=== PATIENT | male | born 1975 ===

== ENCOUNTER 2021-06-29 11:07 | Inpatient (IN) | payer SELFPAY ==
[~2021-06-29] VITALS: Ht 178 cm; Wt 96.1 kg
[2021-06-29 11:13] VITALS: BP 177/105
--- NOTE | 2021-06-29 11:18 | ED Neurological Problem ---
General Chief Complaint: Neuro-Stroke Like Symptoms Stated Complaint: L SIDE NUMBNESS Source: patient, family Exam Limitations: no limitations History of Present Illness Date Seen by Provider: Jun 29, 2021 Time Seen by Provider: 11:10 Initial Comments 45-year-old male with past medical history of hypertension, diabetes, hyperlipidemia that has not been taking his medications as prescribed coming in due to left-sided weakness. He was driving his car, was normal, and felt an odd sensation in his face. He then tried to get out of the car and realized he could not move his left leg. He contacted family and was brought to the emergency department. This started at 9 AM roughly he said. He does not take any blood thinners, has not hit his head recently, no recent surgery, no prior brain tumor history or recent stroke. Nothing like this is ever happened before. He is denying any chest pain, shortness of breath, abdominal pain, nausea, vomiting, diarrhea, vision changes, headache, neck pain, rash, or any other concerns. Allergies and Home Medications Allergies Coded Allergies: No Known Drug Allergies (Unverified , 06/29/21) Patient Home Medication List Home Medication List Reviewed: Yes Review of Systems Review of Systems Constitutional: No chills, No fever Eyes: Denies Blurred Vision Ears, Nose, Mouth, Throat: no symptoms reported Respiratory: no symptoms reported Cardiovascular: no symptoms reported Gastrointestinal: no symptoms reported Genitourinary: no symptoms reported Musculoskeletal: no symptoms reported Skin: no symptoms reported Psychiatric/Neurological: Numbness, Weakness Endocrine: No Symptoms Reported Hematologic/Lymphatic: No Symptoms Reported All Other Systems Reviewed Negative Unless Noted: Yes Past Gnsmkau-Pywifb-Uytqao Hx Patient Social History Tobacco Use?: No Smoking Status: Never a Smoker Smokeless Tobacco Frequency: Never a User Use of E-Cig and/or Vaping dev: No Use of E-Cig and/or Vaping Manoj: Never a User Substance use?: No Alcohol Use?: No Pt feels they are or have been: No Past Medical History Surgeries: No Physical Exam Vital Signs Vital Signs - First Documented 06/29/21 11:13 Temp 36.5 Pulse 88 Resp 18 B/P (MAP) 177/105 Pulse Ox 97 O2 Delivery Room Air Capillary Refill : Height, Weight, BMI Height: '" Weight: lbs. oz. kg; BMI Method: General Appearance: WD/WN, no apparent distress HEENT: PERRL/EOMI, normal ENT inspection, pharynx normal Neck: non-tender, full range of motion, supple, normal inspection Respiratory: chest non-tender, lungs clear, normal breath sounds, no respiratory distress, no accessory muscle use Cardiovascular: regular rate, rhythm, no edema, no murmur Gastrointestinal: normal bowel sounds, non tender, soft; No distended, No guarding, No rebound Back: normal inspection, no CVA tenderness, no vertebral tenderness Extremities: normal range of motion (normal passive range of motion), non- tender, normal inspection, no pedal edema, no calf tenderness, normal capillary refill 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, alert, normal mood/affect, oriented x 3, motor weakness, sensory deficit Crainal Nerves: normal hearing, normal speech, PERRL Coordination/Gait: normal finger to nose (with right hand, left arm not able to move) Skin: normal color, warm/dry Lymphatic: no adenopathy Stroke Onset of Symptoms Date of Onset of Symptoms: Jun 29, 2021 Time of Symptom Onset: 09:00 Onset of Symptoms: Yes NIH Stroke Scale Assessment Select: Initial Level of Consciousness: 0=Alert (0), Level of Consciousness- Questions: 0=Answers both month/age (0), LOC Commands: 0=Performs both tasks (0), Gaze: Normal (0), Visual Flaherty: 0=No visual loss (0), Facial Movement (Facial Paresis): 0=Normal symmetrical mnt (0), Motor Function-Arms Right: 0=No drift (0), Motor Function-Arms Left: 3=No effort/gravity (3), Motor Function-Legs Right: 0=No drift (0), Motor Function-Legs Left: 4=No movement (4), Limb Ataxia: 0=Absent (0), Sensory: 1=Mild to Moderate loss (1), Best Language: 0=No aphasia (0), Dysarthria: 0=Normal (0), Extinction & Inattention: 0=No abnormality (0), Total: 8 Stroke Thrombolytic Exclusion Age 18 or Over: Yes Acute intenal hemorrhage: No History of CVA: No Uncontrolled Coagulation Defec: No Intracranial Hemorrhage: No Severe Hypertension: No GI or Bleed: No Subarachnoid Hemorrhage: No Intracranial Neoplasm/Aneurysm: No Oral Anticoagulants: No Surgery or Trauma: No Puncture of Non-Compressible V: No Recent CPR: No Diabetic Hemorrhagic Retinopat: No Organ Biopsy: No Recent Obstetric Delivery: No Glucose: No Significant Hepatic Dysfunctio: No NIH Stoke Scale >22: No Bacterial Endocarditis: No Pericarditis: No Improving Symptoms: No Platelets: No TPA Contraindication: No IV - TPa Received IV - TPa Procedure Performed?: Yes IV - TPa Date: Jun 29, 2021 IV - TPa Time: 12:40 Progress/Results/Core Measures Results/Orders Lab Results Laboratory Tests Test 06/29/21 11:15 06/29/21 13:01 Range/Units White Blood Count 7.3 4.3-11.0 10^3/uL Red Blood Count 5.26 4.30-5.52 10^6/uL Hemoglobin 13.9 13.3-17.7 g/dL Hematocrit 42 40-54 % Mean Corpuscular Volume 80 80-99 fL Mean Corpuscular Hemoglobin 26 25-34 pg Mean Corpuscular Hemoglobin Concent 33 32-36 g/dL Red Cell Distribution Width 14.7 H 10.0-14.5 % Platelet Count 272 130-400 10^3/uL Mean Platelet Volume 9.6 9.0-12.2 fL Immature Granulocyte % (Auto) 1 % Neutrophils (%) (Auto) 62 42-75 % Lymphocytes (%) (Auto) 27 12-44 % Monocytes (%) (Auto) 7 0-12 % Eosinophils (%) (Auto) 4 0-10 % Basophils (%) (Auto) 1 0-10 % Neutrophils # (Auto) 4.6 1.8-7.8 10^3/uL Lymphocytes # (Auto) 2.0 1.0-4.0 10^3/uL Monocytes # (Auto) 0.5 0.0-1.0 10^3/uL Eosinophils # (Auto) 0.3 0.0-0.3 10^3/uL Basophils # (Auto) 0.0 0.0-0.1 10^3/uL Immature Granulocyte # (Auto) 0.0 0.0-0.1 10^3/uL Prothrombin Time 12.0 L 12.2-14.7 SEC INR Comment 0.9 0.8-1.4 Activated Partial Thromboplast Time 27 24-35 SEC D-Dimer 0.30 0.00-0.49 UG/ML Sodium Level 136 135-145 MMOL/L Potassium Level 3.9 3.6-5.0 MMOL/L Chloride Level 104 98-107 MMOL/L Carbon Dioxide Level 22 21-32 MMOL/L Anion Gap 10 5-14 MMOL/L Blood Urea Nitrogen 12 7-18 MG/DL Creatinine 0.75 0.60-1.30 MG/DL Estimat Glomerular Filtration Rate 113 BUN/Creatinine Ratio 16 Glucose Level 229 H 70-105 MG/DL Glucometer 213 H 70-110 MG/DL Calcium Level 9.3 8.5-10.1 MG/DL Corrected Calcium 9.2 8.5-10.1 MG/DL Total Bilirubin 0.8 0.1-1.0 MG/DL Aspartate Amino Transf (AST/SGOT) 19 5-34 U/L Alanine Aminotransferase (ALT/SGPT) 28 0-55 U/L Alkaline Phosphatase 109 40-136 U/L Troponin I < 0.028 <0.028 NG/ML Total Protein 6.8 6.4-8.2 GM/DL Albumin 4.1 3.2-4.5 GM/DL Urine Color YELLOW Urine Clarity CLEAR Urine pH 7.0 5-9 Urine Specific Brea 1.010 L 1.016-1.022 Urine Protein NEGATIVE NEGATIVE Urine Glucose (UA) 3+ H NEGATIVE Urine Ketones NEGATIVE NEGATIVE Urine Nitrite NEGATIVE NEGATIVE Urine Bilirubin NEGATIVE NEGATIVE Urine Urobilinogen 0.2 < = 1.0 MG/DL Urine Leukocyte Esterase NEGATIVE NEGATIVE Urine RBC (Auto) NEGATIVE NEGATIVE Urine RBC NONE /HPF Urine WBC NONE /HPF Urine Crystals PRESENT H /LPF Urine Amorphous Sediment FEW [place] URATES H /LPF Urine Bacteria NEGATIVE /HPF Urine Casts NONE /LPF Urine Mucus NEGATIVE /LPF Urine Culture Indicated NO My Orders Orders - ASTRID PUGA MD Cbc With Automated Diff (06/29/21 11:18) Protime With Inr (06/29/21 11:18) Partial Thromboplastin Time (06/29/21 11:18) Comprehensive Metabolic Panel (06/29/21 11:18) Fibrin Degradation Products (06/29/21 11:18) Troponin I Satnam (06/29/21 11:18) Ua Culture If Indicated (06/29/21 11:18) Chest 1 View, Ap/Pa Only (06/29/21 11:18) Ekg Tracing (06/29/21 11:18) Accucheck Stat ONCE (06/29/21 11:18) Ed Iv/Invasive Line Start (06/29/21 11:18) Ed Iv/Invasive Line Start (06/29/21 11:18) Vital Signs Stroke Patient Q15M (06/29/21 11:18) Ct Head Wo-R/O Stroke (06/29/21 11:18) O2 (06/29/21 11:18) Intake & Output 06,14,22 (06/29/21 11:18) Monitor-Rhythm Ecg Trace Only (06/29/21 11:18) Dysphagia Screening Tool Q10MX1 (06/29/21 11:18) Post Thrombolytic Adminstratio (06/29/21 11:18) Lipid Panel (06/30/21 06:00) Ct Angio Head/Neck (06/29/21 11:18) Iohexol Injection (Omnipaque 350 Mg/Ml 1 (06/29/21 11:30) Di Iv Start (Assessment) .IV start (06/29/21 11:25) Received Contrast (Hold Metformin- Contr (06/29/21 11:30) Ns (Ivpb) (Sodium Chloride 0.9% Ivpb Bag (06/29/21 11:30) Vital Signs Stroke Patient Q15M (06/29/21 11:52) Nicardipine Iv (Cardene I.V.) (06/29/21 12:00) Dysphagia Screening Tool Q10MX1 (06/29/21 11:52) Tenecteplase (Tnkase) (06/29/21 12:00) Nicardipine Iv (Cardene I.V.) (06/29/21 12:30) Ed Admission (Communication) (06/29/21 13:13) Medications Given in ED Current Medications Medications Dose Ordered Sig/Lisha Route Start Time Stop Time Status Last Admin Dose Admin Iohexol 100 ml ONCE ONCE IV 06/29/21 11:30 06/29/21 11:39 DC 06/29/21 11:38 75 ML Sodium Chloride 100 ml ONCE ONCE IV 06/29/21 11:30 06/29/21 11:39 DC 06/29/21 11:37 75 ML Tenecteplase 22.68 mg ONCE ONCE IV 06/29/21 12:00 06/29/21 12:01 DC 06/29/21 12:33 22.68 MG Vital Signs/I&O 06/29/21 06/29/21 06/29/21 11:13 11:13 12:33 Temp 36.5 Pulse 88 88 73 Resp 18 17 B/P (MAP) 177/105 177/105 (129) 136/86 Pulse Ox 97 O2 Delivery Room Air Progress Progress Note : Progress Note 45-year-old male with above history coming in due to left-sided weakness. ABCs were intact and vitals are stable on presentation although he is hypertensive. Glucose just over 200. He was made a stroke alert immediately due to the dense left-sided weakness. CT head without contrast negative for any acute findings. CT angio head and neck also ordered. Initial NIH is 8. He was given Cardene for his high blood pressure. He has no other contraindications for tenecteplase. The patient was consented with an channel marketing manager and we discussed that tenectaplase is not currently FDA approved for strokes, but off label we have been using it this way with potential bleeding risks. I contacted neurology and discussed the case with Dr. Rasheed who is the stroke neurologist. She agrees to give clot buster at this time and if there is no LVO he can be admitted to our intensive care unit. I personally discussed the case with the radiologist and reviewed the CTA imaging with no obvious large vessel occlusion. I discussed the case then with Dr. Fair, who admit the patient to the intensive care unit for further evaluation management Of note, the patients symptoms improved significantly roughly 15 minutes after TPA, and he was moving all extremities. Initial ECG Impression Date: Jun 29, 2021 Initial ECG Impression Time: 11:38 Initial ECG Rate: 60 Initial ECG Rhythm: Normal Sinus Comment Narrow QRS, normal axis, no significant ST changes or T wave abnormalities Diagnostic Imaging Diagonstic Imaging: Xray (chest), CT (head) Comments [facility] [place] [place] NAME: ROSHNI DINH [facility] REC#: [id number] PT STATUS: REG ER : 1975 PHYSICIAN: ASTRID PUGA MD ADMIT DATE: 06/29/21/ER Signed Date of Exam:06/29/21 CHEST 1 VIEW, AP/PA ONLY EXAMINATION: Chest, 1 view. HISTORY: Concern for stroke. COMPARISON: None available. FINDINGS: The heart size and pulmonary vasculature are normal. The lungs are clear without consolidation, pleural effusion, or pneumothorax. The osseous structures are intact. IMPRESSION: No acute radiographic abnormality in the chest. Dictated by: Dictated on workstation # [id number] Dict: 06/29/21 1147 Trans: 06/29/211157 CASSANDRA [id number] Interpreted by: MELVIN ECHEVARRIA DO Electronically signed by: MELVIN ECHEVARRIA DO 06/29/21 1158 [facility], [place] NAME: ROSHNI DINH [facility] REC#: [id number] PT STATUS: REG ER : 1975 PHYSICIAN: ASTRID PUGA MD ADMIT DATE: 06/29/21/ER Signed Date of Exam:06/29/21 CT HEAD WO-R/O STROKE EXAMINATION: CT head without contrast. TECHNIQUE: Multiple contiguous axial images were obtained through the brain without the use of intravenous contrast. All CT scans use one or more of the following dose optimizing techniques: automated exposure control, MA and/or KvP adjustment based on patient size and exam type or iterative reconstruction. HISTORY: Neuro deficit COMPARISON: None available. FINDINGS: The ventricles and sulci are normal. No abnormal attenuation of brain parenchyma is present. No acute intracranial hemorrhage or abnormal extra-axial fluid collections are present. No hyperdense vessel. The calvarium is intact. There is a small left mastoid effusion. The visualized paranasal sinuses are clear. The orbits are normal. IMPRESSION: 1. No acute intracranial abnormality. Findings discussed with Dr. Puga by Dr. Echevarria at 11:38 AM on 06/29/2021. Dictated by: Dictated on workstation # [id number] Dict: 06/29/21 1135 Trans: 06/29/218 MONTRELL [id number] Interpreted by: MELVIN ECHEVARRIA DO Electronically signed by: MELVIN ECHEVARRIA DO 06/29/21 1158 Critical Care Note Critical Care Start Time: 11:10 Stop Time: 12:12 Total Time (minutes) 62 Progress Patient was at significant risk for neurologic compromise with his stroke. Was given tenecteplase after consent. I discussed the case with [facility] neurology, our hospitalist, and our radiologist. I frequently reassessed the patient due to his needs. He was on a hemodynamic medication to lower his blood pressure in creasing the complexity. Departure Impression Primary Impression: CVA (cerebral vascular accident) Qualified Codes: I63.10 - Cerebral infarction due to embolism of unspecified precerebral artery Additional Impression: Left-sided weakness Disposition: ADMITTED INPATIENT Condition: Stable Admissions Decision to Admit Reason: Admit from ER (General) Decision to Admit/Date: Jun 29, 2021 Time/Decision to Admit Time: 12:10 Departure-Patient Inst. Referrals: [facility] (PCP/Family) Primary Care Physician ASTRID PUGA MD Jun 29, 2021 11:18
[2021-06-29 11:27] LABS: BASOPHILS % (AUTO) 1 % (0-10); EOSINOPHILS # (AUTO) 0.3 10^3/uL (0.0-0.3); EOSINOPHILS % (AUTO) 4 % (0-10); HEMATOCRIT 42 % (40-54); HEMOGLOBIN 13.9 g/dL (13.3-17.7); LYMPHOCYTES % (AUTO) 27 % (12-44); MEAN CORPUSCULAR HEMOGLOBIN 26 pg (25-34); MEAN CORPUSCULAR HGB CONC 33 g/dL (32-36); MEAN CORPUSCULAR VOLUME 80 fL (80-99); MEAN PLATELET VOLUME 9.6 fL (9.0-12.2); MONOCYTES # (AUTO) 0.5 10^3/uL (0.0-1.0); MONOCYTES % (AUTO) 7 % (0-12); NEUTROPHILS # (AUTO) 4.6 10^3/uL (1.8-7.8); NEUTROPHILS % (AUTO) 62 % (42-75); PLATELET COUNT 272 10^3/uL (130-400); WHITE BLOOD COUNT 7.3 10^3/uL (4.3-11.0)
[2021-06-29] MEDS ORDERED: NS 100 ML (IVPB) BAG IV ONE (11:30)
[2021-06-29] MEDS ORDERED: HOLD METFORMIN - RECEIVED CONTRAST 20 ML VIAL IV SCH (11:30)
[2021-06-29] MEDS ORDERED: IOHEXOL 350 MG/ML 100 ML (OMNIPAQUE 350) VIAL IV ONE (11:30)
[2021-06-29 11:34] LABS: ALBUMIN 4.1 GM/DL (3.2-4.5); CHLORIDE 104 MMOL/L (98-107); POTASSIUM 3.9 MMOL/L (3.6-5.0); SODIUM 136 MMOL/L (135-145)
[2021-06-29 11:36] LABS: CALCIUM 9.3 MG/DL (8.5-10.1)
[2021-06-29 11:37] LABS: GLUCOSE 229 MG/DL (70-105); TOTAL PROTEIN 6.8 GM/DL (6.4-8.2)
[2021-06-29 11:38] LABS: CARBON DIOXIDE 22 MMOL/L (21-32)
[2021-06-29 11:39] LABS: BILIRUBIN,TOTAL 0.8 MG/DL (0.1-1.0)
--- NOTE | 2021-06-29 11:39 | Diagnostic Imaging Report ---
EXAMINATION: CT head without contrast. TECHNIQUE: Multiple contiguous axial images were obtained through the brain without the use of intravenous contrast. All CT scans use one or more of the following dose optimizing techniques: automated exposure control, MA and/or KvP adjustment based on patient size and exam type or iterative reconstruction. HISTORY: Neuro deficit COMPARISON: None available. FINDINGS: The ventricles and sulci are normal. No abnormal attenuation of brain parenchyma is present. No acute intracranial hemorrhage or abnormal extra-axial fluid collections are present. No hyperdense vessel. The calvarium is intact. There is a small left mastoid effusion. The visualized paranasal sinuses are clear. The orbits are normal. IMPRESSION: 1. No acute intracranial abnormality. Findings discussed with Dr. Orozco by Dr. Hansen at 11:38 AM on 06/29/2021. Dictated by: Dictated on workstation # [id number]
[2021-06-29 11:40] LABS: ALKALINE PHOSPHATASE 109 U/L (40-136); CREATININE SERUM 0.75 MG/DL (0.60-1.30); FIBRIN DEGRADATION PRODUCTS 0.3 UG/ML (0.00-0.49); GFR ESTIMATED 113; INR 0.9 (0.8-1.4)
[2021-06-29 11:41] LABS: BUN/CREATININE RATIO 16
[2021-06-29 11:43] LABS: ALANINE AMINOTRANSFERASE 28 U/L (0-55)
--- NOTE | 2021-06-29 11:49 | Diagnostic Imaging Report ---
EXAMINATION: Chest, 1 view. HISTORY: Concern for stroke. COMPARISON: None available. FINDINGS: The heart size and pulmonary vasculature are normal. The lungs are clear without consolidation, pleural effusion, or pneumothorax. The osseous structures are intact. IMPRESSION: No acute radiographic abnormality in the chest. Dictated by: Dictated on workstation # [id number]
[2021-06-29] MEDS ORDERED: TENECTEPLASE 50 MG VIAL IV ONE (12:00)
[2021-06-29] MEDS ORDERED: niCARdipine IV 50 MG in NS (IVPB) 240 ML IV SCH ×2 (12:00→12:30)
--- NOTE | 2021-06-29 12:19 | Diagnostic Imaging Report ---
PROCEDURE: CT angiography of the head and CT angiography of the neck with and without contrast. TECHNIQUE: Contiguous non-contrast images were obtained from the skull base through the vertex. After intravenous contrast administration, helical CT angiography of the neck was performed. Source data was reformatted into 3D MIP projections. Delayed post-contrast acquisition was also obtained. Auto Exposure Controls were utilized during the CT exam to meet ALARA standards for radiation dose reduction. INDICATION: Neuro deficit. COMPARISON: Correlation is made with noncontrast head CT performed earlier same day. FINDINGS: Delayed post-contrast imaging of the brain is without abnormal enhancing lesion. CT angiographic portion of the study does show a normal three-vessel branching pattern to the aortic arch. Common carotid arteries appear to be widely patent. The carotid bifurcations are unremarkable. Right and left internal carotid arteries appear to be widely patent. The left vertebral artery is dominant. 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 The small right vertebral artery does feed the PICA. There are large AICA branches arising from the basilar artery. There is poor contrast opacification of the most distal aspect of the very small right vertebral artery. The basilar artery appears to be widely patent. There is origin of the right posterior circulation with a patent right posterior communicating artery. The selling manager appear to be widely patent. The right and left anterior cerebral arteries appear to be widely patent. There are some atherosclerotic changes involving both the M1 segments of the right and left middle cerebral arteries. There is eccentric plaque involving the distal right M1 segment. No definite thromboembolism or large branch occlusion is identified. M2 segments appear to be unremarkable. IMPRESSION: Congenital anomalies, as described as well as atherosclerotic changes. No thromboembolism or large branch occlusion is identified. Dictated by: Dictated on workstation # [id number]
[2021-06-29 13:07] LABS: BILIRUBIN,URINE NEGATIVE (NEGATIVE); CLARITY,URINE CLEAR; COLOR,URINE YELLOW; GLUCOSE, URINE (UA) 3+ (NEGATIVE); KETONES,URINE NEGATIVE (NEGATIVE); LEUKOCYTE ESTERASE ,URINE NEGATIVE (NEGATIVE); NITRITE,URINE NEGATIVE (NEGATIVE); PROTEIN,URINE NEGATIVE (NEGATIVE)
--- NOTE | 2021-06-29 13:28 | History & Physical-Hospitalist ---
BREANNA MARTE MED STUDENT 06/29/21 1327: History of Present Illness HPI/Chief Complaint CC: Left sided weakness HPI: This is Mr. Collins, a 45 yo M, with a past medical history including hypertension, hyperlipidemia, and diabetes, who presented to the ED by POV, with a chief complaint of new-onset left sided weakness. He first noticed this weakness in his face and then in his L hand when he was unable to flick his cigarette. This started happening while he was driving around, he then chose to drive home to get help. While on the way home, he developed, what he describes as "little lights" that he could only see in his L eye. While trying to get out of the vehicle, he realized that he could no longer move his L leg. He mentioned that he has been having headaches and dizziness when he bends over, that has been happening for about a week. He has also not been taking his hypertensive medications as prescribed. Pt received tPA while in the ED and has regained gross motor movement in the upper and lower extremity. He endorses L sided weakness and headache located in the R temporal region. Source: patient, family, RN/MD Exam Limitations: language barrier (Thai speaking only ) Date Seen 06/29/21 Time Seen by a Provider: 13:00 Attending Physician Rhea Kent DO [facility] Referring Physician Date of Admission Jun 29, 2021 at 13:13 Home Medications & Allergies Home Medications Reviewed patient Home Medication Reconciliation performed by pharmacy medication reconciliations facility environmental technician and/or nursing. Patients Allergies have been reviewed. Allergies Allergies Coded Allergies No Known Drug Allergies (Unverified06/29/21) Past Qrzcyix-Jffbhv-Pspdtb Hx Patient Social History Marrital Status: Employed/Student: employed Tobacco Use?: Yes Tobacco type used: Cigarettes Smoking Status: Current Everyday Smoker Smokeless Tobacco Frequency: Never a User Use of E-Cig and/or Vaping dev: No Use of E-Cig and/or Vaping Manoj: Never a User Substance use?: No Alcohol Use?: No Pt feels they are or have been: No Current Status Advance Directives: No Communicates: Verbally Primary Language: Thai Preferred Spoken Language: Thai Is interpretation needed?: Yes Implanted or Applied Medical D: None Past Medical History High Cholesterol, Hypertension Diabetes, Non-Insulin dep Loss of Vision: Denies Family Medical History Heart Disease, Diabetes, Hypertension Review of Systems Constitutional: see HPI; No chills, No diaphoresis, No dizziness, No fever; weakness EENTM: No blurred vision, No double vision, No eye pain, No vision loss Respiratory: No cough, No dyspnea on exertion, No short of breath Cardiovascular: No chest pain, No edema, No palpitations Gastrointestinal: No abdominal pain, No constipation, No diarrhea, No nausea, No vomiting Genitourinary: incontinence Musculoskeletal: muscle weakness Skin: No change in color Psychiatric/Neurological: Headache Physical Exam Physical Exam Vital Signs Vital Signs - First Documented 06/29/21 11:13 Temp 36.5 Pulse 88 Resp 18 B/P (MAP) 177/105 Pulse Ox 97 O2 Delivery Room Air Capillary Refill : Less Than 3 Seconds Height, Weight, BMI Height: '" Weight: lbs. oz. kg; 28.00 BMI Method: General Appearance: No Apparent Distress, WD/WN HEENT: PERRL/EOMI, Moist Mucous Membranes; No Scleral Icterus (L), No Scleral Icterus (R) Neck: Full Range of Motion, Normal Inspection, Non Tender; No Lymphadenopathy (L), No Lymphadenopathy (R) Respiratory: Chest Non Tender, Lungs Clear, Normal Breath Sounds Cardiovascular: Regular Rate, Rhythm, No Edema, No Murmur, Normal Peripheral Pulses Gastrointestinal: Normal Bowel Sounds, Non Tender, Soft Genital/Rectal: Other (Fitzpatrick ) Extremity: Normal Capillary Refill, Other (Left upper and lower extremity weakness ) Neurologic/Psychiatric: Alert, Oriented x3, No Motor/Sensory Deficits, Abnormal communications billing analyst II-XII (decreased strength of L trapezius, L upper extremity and L lower extremity ), Facial Droop (L sided, oral ), Motor Weakness (L upper and lower extremity +2. RUE and RLE +5), Other Skin: Normal Color, Warm/Dry Lymphatic: No Adenopathy Results Results/Procedures Labs Laboratory Tests 06/29/21 11:15 Patient resulted labs reviewed. Imaging: Reviewed Imaging Report Imaging NAME: ROSHNI [facility]IN[facility] REC#: [id number] PT STATUS: REG ER : 1975 PHYSICIAN: ASTRID PUGA MD ADMIT DATE: 06/29/21/ER Signed Date of Exam:06/29/21 CHEST 1 VIEW, AP/PA ONLY EXAMINATION: Chest, 1 view. HISTORY: Concern for stroke. COMPARISON: None available. FINDINGS: The heart size and pulmonary vasculature are normal. The lungs are clear without consolidation, pleural effusion, or pneumothorax. The osseous structures are intact. IMPRESSION: No acute radiographic abnormality in the chest. Dictated by: Dictated on workstation # [id number] Dict: 06/29/21 1147 Trans: 06/29/211157 [id number] Interpreted by: MELVIN ECHEVARRIA DO Electronically signed by: MELVIN ECHEVARRIA DO 06/29/218 NAME[facility] REC#: [id number] PT STATUS: REG ER : 1975 PHYSICIAN: ASTRID PUGA MD ADMIT DATE: 06/29/21/ER Signed Date of Exam:06/29/21 CT HEAD WO-R/O STROKE EXAMINATION: CT head without contrast. TECHNIQUE: Multiple contiguous axial images were obtained through the brain without the use of intravenous contrast. All CT scans use one or more of the following dose optimizing techniques: automated exposure control, MA and/or KvP adjustment based on patient size and exam type or iterative reconstruction. HISTORY: Neuro deficit COMPARISON: None available. FINDINGS: The ventricles and sulci are normal. No abnormal attenuation of brain parenchyma is present. No acute intracranial hemorrhage or abnormal extra-axial fluid collections are present. No hyperdense vessel. The calvarium is intact. There is a small left mastoid effusion. The visualized paranasal sinuses are clear. The orbits are normal. IMPRESSION: 1. No acute intracranial abnormality. Findings discussed with Dr. Puga by Dr. Echevarria at 11:38 AM on 06/29/2021. Dictated by: Dictated on workstation # [id number] Dict: 06/29/21 1135 Trans: 06/29/211157 [facility] [id number] Interpreted by: MELVIN ECHEVARRIA DO Electronically signed by: MELVIN ECHEVARRIA DO 06/29/21 1158 NAME: KAMILAH PLAZAROSHNI Pyrolia REC#: [id number] PT STATUS: REG ER : 1975 PHYSICIAN: ASTRID PUGA MD ADMIT DATE: 06/29/21/ER Draft Date of Exam:06/29/21 CT ANGIO HEAD/NECK PROCEDURE: CT angiography of the head and CT angiography of the neck with and without contrast. TECHNIQUE: Contiguous non-contrast images were obtained from the skull base through the vertex. After intravenous contrast administration, helical CT angiography of the neck was performed. Source data was reformatted into 3D MIP projections. Delayed post-contrast acquisition was also obtained. Auto Exposure Controls were utilized during the CT exam to meet ALARA standards for radiation dose reduction. INDICATION: Neuro deficit. COMPARISON: Correlation is made with noncontrast head CT performed earlier same day. FINDINGS: Delayed post-contrast imaging of the brain is without abnormal enhancing lesion. CT angiographic portion of the study does show a normal three-vessel branching pattern to the aortic arch. Common carotid arteries appear to be widely patent. The carotid bifurcations are unremarkable. Right and left internal carotid arteries appear to be widely patent. The left vertebral artery is dominant. 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 The small right vertebral artery does feed the PICA. There are large AICA branches arising from the basilar artery. There is poor contrast opacification of the most distal aspect of the very small right vertebral artery. The basilar artery appears to be widely patent. There is origin of the right posterior circulation with a patent right posterior communicating artery. The control inspector appear to be widely patent. The right and left anterior cerebral arteries appear to be widely patent. There are some atherosclerotic changes involving both the M1 segments of the right and left middle cerebral arteries. There is eccentric plaque involving the distal right M1 segment. No definite thromboembolism or large branch occlusion is identified. M2 segments appear to be unremarkable. IMPRESSION: Congenital anomalies, as described as well as atherosclerotic changes. No thromboembolism or large branch occlusion is identified. Dictated on workstation # [id number] Dict: 06/29/21 1149 Trans: 06/29/21 1219 [id number] Interpreted by: LENIN STEWARD MD Electronically signed by: Assessment/Plan Admission Diagnosis S/P tPA administration for stroke Assessment and Plan Assessment - Stroke - S/P tPA administration x1 - hypertension - hyperlipidemia - diabetes - incontinence Plan - Nicardipine gtt - MRI brain w/o contrast - Echocardiogram - Carotid ultrasound - TSH level and HgbA1c pending - Negative troponins - sliding scale insulin - O2 as needed - Fitzpatrick - PT/OT - electrolyte replacement as needed Clinical Quality Measures Stroke: Date of last known well: Jun 29, 2021 Time of last known well: 09:00 RHEA KENT DO 06/30/21 0547: History of Present Illness HPI/Chief Complaint CC: Stroke HPI: This is a 45-year-old male [facility] pt who presented with worrisome signs of a stroke. He was found to have findings consistent with CVA so he did receive thrombolytics and currently he is stable. [facility] was contacted and all protocols followed. tPA seemed to improve the situation with left-sided weakness but NIH score ultimately returned to 9. We will initiate protocol with therapy and rehab and consult cardiology. Source: patient, family Exam Limitations: language barrier (Thai speaking only ) Past Cuqiigl-Umqggs-Yxisge Hx Patient Social History Marrital Status: Employed/Student: employed Tobacco Use?: Yes Tobacco type used: Cigarettes Smoking Status: Current Everyday Smoker Past Medical History High Cholesterol, Hypertension Diabetes, Non-Insulin dep Review of Systems Constitutional: see HPI, weakness EENTM: no symptoms reported Respiratory: no symptoms reported Cardiovascular: no symptoms reported Gastrointestinal: no symptoms reported Genitourinary: no symptoms reported Musculoskeletal: no symptoms reported Skin: no symptoms reported Psychiatric/Neurological: Headache, Weakness All Other Systems Reviewed Negative Unless Noted: Yes Physical Exam Physical Exam General Appearance: No Apparent Distress, Chronically ill, Obese Eyes: Right Eye Normal Inspection, Right Eye PERRL HEENT: PERRL/EOMI, Normal ENT Inspection, Pharynx Normal, Moist Mucous Membranes Neck: Full Range of Motion, Normal Inspection, Non Tender Respiratory: Chest Non Tender, Lungs Clear, Normal Breath Sounds, No Accessory Muscle Use, No Respiratory Distress Cardiovascular: Regular Rate, Rhythm, No Edema, No Gallop, No JVD, No Murmur, Normal Peripheral Pulses Gastrointestinal: Normal Bowel Sounds, No Organomegaly, No Pulsatile Mass, Non Tender, Soft Back: Normal Inspection, No CVA Tenderness, No Vertebral Tenderness Extremity: Normal Capillary Refill, Normal Inspection, Normal Range of Motion, Non Tender, No Calf Tenderness, No Pedal Edema Neurologic/Psychiatric: Alert, Oriented x3, No Motor/Sensory Deficits, Normal Mood/Affect, Abnormal communications billing analyst II-XII (decreased strength of L trapezius, L upper extremity and L lower extremity ), Facial Droop (L sided, oral ), Motor Weakness (L upper and lower extremity +2. RUE and RLE +5), Other Skin: Normal Color, Warm/Dry Lymphatic: No Adenopathy Assessment/Plan Admission Diagnosis Assessment: Acute CVA infarct type status post tPA with improvement of left-sided weakness but was short-lived NIH score remains 9 Diabetes noncompliant with treatment hemoglobin A1c pending Hypertension [id number]-tm-[id number] Hyperlipidemia Plan: ICU Post tPA protocol Admission Status: Inpatient Order (span 2 midnights) Reason for Inpatient Admission: CVA Diagnosis/Problems Diagnosis/Problems (1) Left-sided weakness Status: Acute (2) CVA (cerebral vascular accident) Status: Acute Qualifiers: CVA mechanism: embolism Precerebral and cerebral artery: unspecified precerebral artery Qualified Codes: I63.10 - Cerebral infarction due to embolism of unspecified precerebral artery Supervisory-Addendum Brief Verification & Attestation Participated in pt care: history, MDM, physical Personally performed: exam, history, MDM, supervision of care Care discussed with: Medical Student Procedures: n/a Results interpretation: Verified all documentation Verification and Attestation of Medical Student E/M Service A medical student performed and documented this service in my presence. I reviewed and verified all information documented by the medical student and made modifications to such information, when appropriate. I personally performed the physical exam and medical decision making. Rhea Kent, Jun 30, 2021,05:47 BREANNA MARTE MED STUDENT Jun 29, 2021 13:27 RHEA KENT DO Jun 30, 2021 05:47
[2021-06-29 13:32] VITALS: BP 136/78
[2021-06-29 13:33] LABS: AMORPHOUS SEDIMENT,UR FEW AMOR URATES /LPF; BACTERIA,URINE NEGATIVE /HPF
[2021-06-29] MEDS ORDERED: ONDANSETRON 4 MG/2 ML (SDV) Z0FRAN IV PRN (14:00)
[2021-06-29] MEDS ORDERED: polyethylene glycoL POWDER 17 GM (MIRALAX) PACK PO PRN (14:00)
[2021-06-29] MEDS ORDERED: diphenhydrAMINE 50 MG/ML INJ (BENADRYL) IVP PRN (14:00)
[2021-06-29] MEDS ORDERED: CALCIUM CARBONATE 500 MG (TUMS) TAB.CHEW PO PRN (14:00)
[2021-06-29] MEDS ORDERED: ACETAMINOPHEN 325 MG TABLET PO PRN (14:00)
[2021-06-29] MEDS ORDERED: morphine INJ 4 MG/ML 1 ML (VIAL/SYRINGE) IV PRN (14:00)
[2021-06-29] MEDS ORDERED: diphenhydrAMINE 25 MG TAB (BENADRYL) PO PRN (14:00)
[2021-06-29] MEDS ORDERED: BISACODYL 10 MG SUPP (DULCOLAX) PR PRN (14:00)
[2021-06-29] MEDS ORDERED: LACTULOSE SYRUP 10GM/15ML (ENULOSE) 30ML UDC PO PRN (14:00)
[2021-06-29] MEDS ORDERED: ANTACID SUSP 30 ML UDC (MYLANTA) PO PRN (14:00)
[2021-06-29] MEDS ORDERED: MILK OF MAGNESIA 400 MG/5 ML 30 ML UDC PO PRN (14:00)
[2021-06-29] MEDS ORDERED: MELATONIN 3 MG TABLET PO PRN (14:00)
[2021-06-29] MEDS ORDERED: ONDANSETRON 4 MG (ZOFRAN) ORAL DISSOLVE TAB PO PRN (14:00)
--- NOTE | 2021-06-29 14:20 | Occ Therapy Progress Note ---
Therapy Progress Note OT orders received and chart reviewed. Pt within 24 hour window of receiving TPa (given at 1240, 06/29/21). OT will complete evaluation tomorrow afternoon. IRINA DEL CASTILLO OT Jun 29, 2021 14:20
--- NOTE | 2021-06-29 14:31 | Physical Therapy Progress Note ---
Therapy Progress Note Pt will be seen after the 24 hour window of receiving TPa (given at 1240, 06/29/21). PT will complete evaluation tomorrow afternoon. VICKY RUIZ PT Jun 29, 2021 14:31
--- NOTE | 2021-06-29 14:41 | Speech Therapy Progress Note ---
Therapy Progress Note Speech pathology received "STO" orders and the patient's chart was extensively reviewed. The speech and language evaluation will occur on 06/30/21. Thank you for the consult. STEPHEN VASQUEZ Jun 29, 2021 14:41
[2021-06-29] MEDS ORDERED: KETOROLAC 30 MG/ML VIAL IVP ONE (14:45)
--- NOTE | 2021-06-29 15:05 | Tele-ICU Consult ---
History of Present Illness History of Present Illness Date Seen by Provider: Jun 29, 2021 Time Seen by Provider: 15:04 Date of Admission (Tele-ICU Physician , consultation) Available chart/ vitals / labs / Images reviewed H&P is from ER notes Patient's information available about PMH, Shx, Fhx allergy reviewed in EMR. ROS as per chart and RN report Now in ICU, hemodynamically stable , on cardene gtt , AAO ( as per daughter at [facility] - translating from Polish Video assessment done using teleICU camera, rest of exam as per RN Discussed with RN and daughter Consultants: Hospital course: (06/29) 45m admitted for CVA s/p TNK A/P Acute stroke -presented with left hemyplegia, NIH is 8 -CTH - No acute intracranial abnormality, ER MD contacted [facility] neurology -CTA imaging with no obvious large vessel occlusion - no need for endovascular stroke rescue thrombectomy --s/p IV tenecteplase , regained gross motor movement left lower extremity, some improvement in LUE - can move fingers -neurocheck/NIHSS/VS monitoring per stroke order set protocol - cardene gtt and IV hydralazine and labetalol PRN for BP >185/105 -f/up imaging as per neuro recom - ECHO , US w/up pending DM - ISS Lines : periph (Central Line Necessity Reviewed) Fitzpatrick: OG: Nutrition: Analgesia: Anxiety/ delirium VTE Prophylaxis: scd Stress Ulcer Prophylaxis: Plans in collaboration with bedside consultants and IM MDs. Discussed with RN to reach out if any questions or concerns A total of 33 minutes of critical care time was devoted to this patient today, required to treat and/or prevent further deterioration of critical care condition ( as above ) . Allergies and Home Medications Allergies Coded Allergies: No Known Drug Allergies (Unverified , 06/29/21) Home Medications No Active Prescriptions or Reported Meds Past Medical/Social/Family Hx Patient Social History Marrital Status: Employed/Student: employed Tobacco Use?: Yes Tobacco type used: Cigarettes Smoking Status: Current Someday Smoker Smokeless Tobacco Frequency: Never a User Use of E-Cig and/or Vaping dev: No E-Cig and/or Vaping Freq: Never a User Substance use?: No Alcohol Use?: No Pt stated abuse/neglect: No Current Status Advance Directives: No Communicates: Verbally Primary Language: Polish Preferred Spoken Language: Polish Is interpretation needed?: Yes Implanted or Applied Medical D: None Review of Systems Constitutional: see HPI Focused Exam Height, Weight, BMI Height: '" Weight: lbs. oz. kg; 28.72 BMI Method: Exam Exam Patient acknowledged, consented, and participated in this virtual visit which was conducted using real time audio/video Vital Signs Date Time Temp Pulse Resp B/P (MAP) Pulse Ox O2 Delivery O2 Flow Rate FiO2 06/29/21 14:30 76 22 154/101 98 06/29/21 14:00 68 19 155/102 97 06/29/21 13:46 71 06/29/21 13:32 76 17 136/78 99 Room Air 06/29/21 12:33 73 136/86 06/29/21 11:13 36.5 88 17 177/105 (129) Room Air 06/29/21 11:13 88 18 177/105 97 Height & Weight Height: '" Weight: lbs. oz. kg; 28.72 BMI Method: General Appearance: No Apparent Distress, WD/WN HEENT: PERRL/EOMI, Moist Mucous Membranes; No Scleral Icterus (L), No Scleral Icterus (R) Neck: Full Range of Motion, Normal Inspection, Non Tender; No Lymphadenopathy (L), No Lymphadenopathy (R) Respiratory: Chest Non Tender, Lungs Clear, Normal Breath Sounds Cardiovascular: Regular Rate, Rhythm, No Edema, No Murmur, Normal Peripheral Pulses Capillary Refill: Less Than 3 Seconds Gastrointestinal: normal bowel sounds, non tender, soft; No distended, No guarding, No rebound Extremity: Normal Capillary Refill, Other (Left upper and lower extremity w eakness ) Neurologic/Psychiatric: Alert, Oriented x3, No Motor/Sensory Deficits, Abnormal area supervisor II-XII (decreased strength of L trapezius, L upper extremity and L lower extremity ), Facial Droop (L sided, oral ), Motor Weakness (L upper and lower extremity +2. RUE and RLE +5), Other Skin: Normal Color, Warm/Dry Lymphatic: No Adenopathy Results Lab Laboratory Tests 06/29/21 11:15 Assessment/Plan Assessment/Plan ` YAHIR FOSTER MD Jun 29, 2021 15:05
[2021-06-29] MEDS: NS IV 1000 ML 1,000 ML IV SCH (15:10)
--- NOTE | 2021-06-29 15:41 | Diagnostic Imaging Report ---
PROCEDURE: US carotid duplex, bilateral. TECHNIQUE: Multiple real-time grayscale images were obtained over the carotid arteries in various projections, bilaterally. Additional spectral analysis and color Doppler duplex images were also obtained. INDICATION: CVA. FINDINGS: There is mild plaquing in both carotid systems. Velocities are unremarkable bilaterally. No velocity elevation or stenosis is identified. Right vertebral artery was not visualized. Left vertebral artery is antegrade. IMPRESSION: No evidence of hemodynamically significant stenosis. Parameters based on the consensus panel Belle-Scale and Doppler ultrasound criteria published January 2003, Radiology, Volume 229. DOPPLER (peak systolic velocity M/S Right Left CCA .88 .84 ICA Proximal .59 .58 ICA Mid .70 .48 ICA Distal .68 .52 RATIO .79 .69 ECA 1.11 .75 VERT NOT SEEN .57 Dictated by: Dictated on workstation # [id number]
[2021-06-29] MEDS: inSUlin ASPART (NovoLOG) 1 UNIT/0.01 ML (CHARGE PER UNIT) SC SCH ×2 (16:55→20:50)
--- NOTE | 2021-06-29 20:08 | Consultation-Cardiology ---
HPI-Cardiology Cardiology Consultation: Date of Consultation 06/29/21 Date of Admission 06/29/21 Attending Physician Rhea Fair DO Admitting Physician [facility] Consulting Physician NAFISA BURNETTE JR, MD HPI: Time Seen by a Provider: 20:03 Chief Complaint: Reason for consultation: Possible cerebrovascular accident. I had the pleasure of seeing Dennis in the intensive care unit at [facility] in [place], [place] today. He has a history of hypertension but apparently no other significant past medical history. Over the recent past, his antihypertensive medications have been adjusted by his primary doctor. Then 1 or 2 weeks ago he ran out of refills on his lisinopril and stopped the medication. He was supposed to see his primary care provider in July to discuss ongoing treatment. However, by report, today he was attempting to get out of his vehicle and had severe left-sided weakness and fell out of his vehicle. He could not move his left side at all. His family then brought him to the emergency room where he underwent some testing in the emergency room and was admitted to the intensive care unit for a possible stroke. He denies any chest discomfort, dyspnea, paroxysmal nocturnal dyspnea, orthopnea, palpitations, lightheadedness, syncope, or lower extremity edema. He denies any previous history of his stroke. I should note I did speak with this patient in Ukrainian and his daughter was also present who was assisting with translation. Certain portions of this document may have been dictated utilizing voice recognition technology. Inherent to this technology, typographical and grammatical errors may exist. As much as I am diligent to identify and correct these mistakes, some errors may remain in the document. Review of Systems-Cardiology Review of Systems Other comments Review of 10 organ systems is as per the history of present illness, otherwise negative. All Other Systems Reviewed Negative Unless Noted: Yes ADN-Dncngp-Iruahi Hx Patient Social History Marrital Status: Employed/Student: employed Smoking Status: Current Someday Smoker Have you traveled recently?: No Alcohol Use?: No Pt feels they are or have been: No Tobacco type used: Cigarettes Past Medical History PMH As described under Assessment. Allergies and Home Medications Allergies Coded Allergies: No Known Drug Allergies (Unverified , 06/29/21) Patient Home Medication List Home Medication List Reviewed: Yes No Active Prescriptions or Reported Meds Exam Vital Signs Vital Signs Date Time Temp Pulse Resp B/P (MAP) Pulse Ox O2 Delivery O2 Flow Rate FiO2 06/29/21 19:31 36.8 06/29/21 18:52 Room Air 06/29/21 18:00 86 145/87 100 06/29/21 17:00 17 Physical Exam General: Alert. No acute distress. Well nourished and appears stated age. He is overweight. Eye: Extraocular movements are intact. Conjunctivae are clear. There are no xanthelasma. HENT: Normocephalic. Atraumatic. Carotid pulsations 2/2 without bruits. Neck: Jugular venous pressure does not appear elevated. No thyromegaly appreciated. Respiratory: Lungs are clear to auscultation. Respirations are non-labored. Breath sounds are equal. Symmetrical chest wall expansion. Cardiovascular: Normal rate. Regular rhythm. No murmur. No gallop. Point of maximal impulse is not appear displaced. Good pulses equal in all extremities. No edema. Gastrointestinal: Soft. Normal bowel sounds. Skin: Skin turgor is normal. There is no pallor. Musculoskeletal: No kyphosis or scoliosis appreciated. Neurologic: Alert and oriented to person, place, time. Cranial nerves 3-12 appear grossly intact. The patient left hemiparesis of the upper and lower extremities. Strength on the right appears normal. Psychiatric: Cooperative. Appropriate mood & affect. Labs Laboratory Tests Test 06/29/21 11:15 06/29/21 13:01 06/29/21 16:00 Range/Units White Blood Count 7.3 4.3-11.0 10^3/uL Red Blood Count 5.26 4.30-5.52 10^6/uL Hemoglobin 13.9 13.3-17.7 g/dL Hematocrit 42 40-54 % Mean Corpuscular Volume 80 80-99 fL Mean Corpuscular Hemoglobin 26 25-34 pg Mean Corpuscular Hemoglobin Concent 33 32-36 g/dL Red Cell Distribution Width 14.7 H 10.0-14.5 % Platelet Count 272 130-400 10^3/uL Mean Platelet Volume 9.6 9.0-12.2 fL Immature Granulocyte % (Auto) 1 % Neutrophils (%) (Auto) 62 42-75 % Lymphocytes (%) (Auto) 27 12-44 % Monocytes (%) (Auto) 7 0-12 % Eosinophils (%) (Auto) 4 0-10 % Basophils (%) (Auto) 1 0-10 % Neutrophils # (Auto) 4.6 1.8-7.8 10^3/uL Lymphocytes # (Auto) 2.0 1.0-4.0 10^3/uL Monocytes # (Auto) 0.5 0.0-1.0 10^3/uL Eosinophils # (Auto) 0.3 0.0-0.3 10^3/uL Basophils # (Auto) 0.0 0.0-0.1 10^3/uL Immature Granulocyte # (Auto) 0.0 0.0-0.1 10^3/uL Prothrombin Time 12.0 L 12.2-14.7 SEC INR Comment 0.9 0.8-1.4 Activated Partial Thromboplast Time 27 24-35 SEC D-Dimer 0.30 0.00-0.49 UG/ML Sodium Level 136 135-145 MMOL/L Potassium Level 3.9 3.6-5.0 MMOL/L Chloride Level 104 98-107 MMOL/L Carbon Dioxide Level 22 21-32 MMOL/L Anion Gap 10 5-14 MMOL/L Blood Urea Nitrogen 12 7-18 MG/DL Creatinine 0.75 0.60-1.30 MG/DL Estimat Glomerular Filtration Rate 113 BUN/Creatinine Ratio 16 Glucose Level 229 H 70-105 MG/DL Glucometer 213 H 175 H 70-110 MG/DL Calcium Level 9.3 8.5-10.1 MG/DL Corrected Calcium 9.2 8.5-10.1 MG/DL Total Bilirubin 0.8 0.1-1.0 MG/DL Aspartate Amino Transf (AST/SGOT) 19 5-34 U/L Alanine Aminotransferase (ALT/SGPT) 28 0-55 U/L Alkaline Phosphatase 109 40-136 U/L Troponin I < 0.028 <0.028 NG/ML Total Protein 6.8 6.4-8.2 GM/DL Albumin 4.1 3.2-4.5 GM/DL Thyroid Stimulating Hormone (TSH) 0.77 0.35-4.94 UIU/ML Urine Color YELLOW Urine Clarity CLEAR Urine pH 7.0 5-9 Urine Specific Bath 1.010 L 1.016-1.022 Urine Protein NEGATIVE NEGATIVE Urine Glucose (UA) 3+ H NEGATIVE Urine Ketones NEGATIVE NEGATIVE Urine Nitrite NEGATIVE NEGATIVE Urine Bilirubin NEGATIVE NEGATIVE Urine Urobilinogen 0.2 < = 1.0 MG/DL Urine Leukocyte Esterase NEGATIVE NEGATIVE Urine RBC (Auto) NEGATIVE NEGATIVE Urine RBC NONE /HPF Urine WBC NONE /HPF Urine Crystals PRESENT H /LPF Urine Amorphous Sediment FEW NAKIA URATES H /LPF Urine Bacteria NEGATIVE /HPF Urine Casts NONE /LPF Urine Mucus NEGATIVE /LPF Urine Culture Indicated NO ECG Impression ECG Comment Sinus rhythm with probable left ventricular hypertrophy and early repolarization. Diagnosis/Problems Diagnosis/Problems (1) Acute cerebrovascular accident Assessment & Plan: Clinically appears to be suffering a stroke although his CT of the head and CT angiography were unremarkable. He received thrombolytics in the emergency room and apparently had regained complete use of his left side. An MRI of the brain is pending for tomorrow. However, now he seems to have recurrent complete left hemiparesis. We will continue conservative management. We will hold off on giving aspirin until the thrombolytics clear. (2) Primary hypertension Assessment & Plan: We will monitor his blood pressure closely. Avoid sig nificant drops in the blood pressure due to the stroke. (3) Mixed hyperlipidemia Assessment & Plan: He has been ordered for high intensity statin in light of the acute stroke. (4) Obesity Assessment & Plan: He will need to work on weight loss. NAFISA BURNETTE JR, MD Jun 29, 2021 20:08
[2021-06-29] MEDS: niCARdipine IV 50 MG in NS (IVPB) 230 ML IV SCH (20:39)
[2021-06-29] MEDS: DOCUSATE SODIUM 100 MG (COLACE) CAP PO SCH (20:51)
[2021-06-29] MEDS: SENNOSIDES 8.6 MG (SENOKOT) TAB PO SCH (20:51)
[2021-06-30] MEDS ORDERED: NS (IVPB) 250 ML ONE (04:14)
[2021-06-30] MEDS ORDERED: niCARdipine IV FOR DRIP 50 MG KIT ONE (04:14)
[2021-06-30] MEDS: niCARdipine IV 50 MG in NS (IVPB) 230 ML IV SCH ×2 (04:21→18:30)
[2021-06-30] MEDS: NS IV 1000 ML 1,000 ML IV SCH ×2 (04:28→17:32)
[2021-06-30 04:49] LABS: BASOPHILS % (AUTO) 0 % (0-10); EOSINOPHILS # (AUTO) 0.3 10^3/uL (0.0-0.3); EOSINOPHILS % (AUTO) 2 % (0-10); HEMATOCRIT 44 % (40-54); HEMOGLOBIN 14.5 g/dL (13.3-17.7); LYMPHOCYTES # (AUTO) 2.6 10^3/uL (1.0-4.0); LYMPHOCYTES % (AUTO) 22 % (12-44); MEAN CORPUSCULAR HEMOGLOBIN 26 pg (25-34); MEAN CORPUSCULAR HGB CONC 33 g/dL (32-36); MEAN CORPUSCULAR VOLUME 80 fL (80-99); MEAN PLATELET VOLUME 9.7 fL (9.0-12.2); MONOCYTES # (AUTO) 0.7 10^3/uL (0.0-1.0); MONOCYTES % (AUTO) 6 % (0-12); NEUTROPHILS # (AUTO) 8.4 10^3/uL (1.8-7.8); NEUTROPHILS % (AUTO) 70 % (42-75); PLATELET COUNT 282 10^3/uL (130-400); WHITE BLOOD COUNT 12.1 10^3/uL (4.3-11.0)
[2021-06-30 05:01] LABS: POTASSIUM 3.3 MMOL/L (3.6-5.0)
[2021-06-30 05:02] LABS: ALBUMIN 4.1 GM/DL (3.2-4.5); CALCIUM 8.9 MG/DL (8.5-10.1)
[2021-06-30 05:04] LABS: TOTAL PROTEIN 6.8 GM/DL (6.4-8.2)
[2021-06-30 05:05] LABS: BILIRUBIN,TOTAL 1.2 MG/DL (0.1-1.0)
[2021-06-30 05:07] LABS: PHOSPHORUS 2.9 MG/DL (2.3-4.7)
[2021-06-30 05:08] LABS: CREATININE SERUM 0.68 MG/DL (0.60-1.30)
[2021-06-30 05:10] LABS: MAGNESIUM 1.7 MG/DL (1.6-2.4)
[2021-06-30] MEDS: POTASSIUM CL 10MEQ/50ML IVPB 50 ML IV SCH ×5 (05:52→08:01)
[2021-06-30] MEDS: MAGNESIUM 1 GM/100 ML IVPB 100 ML IV SCH ×3 (05:53→06:53)
[2021-06-30] MEDS: KCL 20 MEQ TAB (K-DUR) PO SCH (06:05)
[2021-06-30] MEDS: inSUlin ASPART (NovoLOG) 1 UNIT/0.01 ML (CHARGE PER UNIT) SC SCH ×4 (06:06→20:33)
[2021-06-30] MEDS: DOCUSATE SODIUM 100 MG (COLACE) CAP PO SCH ×2 (08:07→20:30)
[2021-06-30] MEDS: SENNOSIDES 8.6 MG (SENOKOT) TAB PO SCH ×2 (08:07→20:30)
[2021-06-30] MEDS ORDERED: DOCUSATE SODIUM 100 MG (COLACE) CAP PO SCH (09:00)
--- NOTE | 2021-06-30 09:14 | Cardiology Progress Note ---
Progress Note-Cardiology Events since last exam Date Seen by Provider: Jun 30, 2021 Time Seen by Provider: 09:13 Events since last exam I am following him due to stroke with left hemiparesis. He still cannot move his left arm or leg but he does have sensation in both extremities. He denies any other neurologic complaints. He denies chest pain, dyspnea, palpitations or ankle edema. Certain portions of this document may have been dictated utilizing voice recognition technology. Inherent to this technology, typographical and grammatical errors may exist. As much as I am diligent to identify and correct these mistakes, some errors may remain in the document. Vitals Last set of Vitals Signs Vital Signs 06/30/21 17:00 Pulse 92 Resp 27 B/P (MAP) 160/88 Pulse Ox 97 O2 Delivery Room Air Labs Labs Laboratory Tests 06/30/21 04:25 Exam Vital Signs Vital Signs Date Time Temp Pulse Resp B/P (MAP) Pulse Ox O2 Delivery O2 Flow Rate FiO2 06/30/21 17:00 92 27 160/88 97 Room Air 06/30/21 16:00 36.6 Physical Exam General: Alert. No acute distress. Eye: No xanthelasma. HENT: Normocephalic. Neck: Jugular venous pressure does not appear elevated. Respiratory: Lungs are clear to auscultation. Respirations are non-labored. Breath sounds are equal. Symmetrical chest wall expansion. Cardiovascular: Normal rate. Regular rhythm. No murmur. No gallop. No edema. Gastrointestinal: Soft. Normal bowel sounds. Skin: Warm. Dry. Neurologic: Alert and oriented to person, place, time. Cranial nerves 3-11 grossly intact. Complete left sided hemiparesis but sensation appears intact. Psychiatric: Cooperative. Appropriate mood & affect. Labs Laboratory Tests Test 06/29/21 20:36 06/30/21 04:25 Range/Units Glucometer 237 H 70-110 MG/DL White Blood Count 12.1 H 4.3-11.0 10^3/uL Red Blood Count 5.49 4.30-5.52 10^6/uL Hemoglobin 14.5 13.3-17.7 g/dL Hematocrit 44 40-54 % Mean Corpuscular Volume 80 80-99 fL Mean Corpuscular Hemoglobin 26 25-34 pg Mean Corpuscular Hemoglobin Concent 33 32-36 g/dL Red Cell Distribution Width 14.8 H 10.0-14.5 % Platelet Count 282 130-400 10^3/uL Mean Platelet Volume 9.7 9.0-12.2 fL Immature Granulocyte % (Auto) 1 % Neutrophils (%) (Auto) 70 42-75 % Lymphocytes (%) (Auto) 22 12-44 % Monocytes (%) (Auto) 6 0-12 % Eosinophils (%) (Auto) 2 0-10 % Basophils (%) (Auto) 0 0-10 % Neutrophils # (Auto) 8.4 H 1.8-7.8 10^3/uL Lymphocytes # (Auto) 2.6 1.0-4.0 10^3/uL Monocytes # (Auto) 0.7 0.0-1.0 10^3/uL Eosinophils # (Auto) 0.3 0.0-0.3 10^3/uL Basophils # (Auto) 0.0 0.0-0.1 10^3/uL Immature Granulocyte # (Auto) 0.1 0.0-0.1 10^3/uL Sodium Level 139 135-145 MMOL/L Potassium Level 3.3 L 3.6-5.0 MMOL/L Chloride Level 108 H 98-107 MMOL/L Carbon Dioxide Level 17 L 21-32 MMOL/L Anion Gap 14 5-14 MMOL/L Blood Urea Nitrogen 12 7-18 MG/DL Creatinine 0.68 0.60-1.30 MG/DL Estimat Glomerular Filtration Rate 117 BUN/Creatinine Ratio 18 Glucose Level 137 H 70-105 MG/DL Calcium Level 8.9 8.5-10.1 MG/DL Corrected Calcium 8.8 8.5-10.1 MG/DL Phosphorus Level 2.9 2.3-4.7 MG/DL Magnesium Level 1.7 1.6-2.4 MG/DL Total Bilirubin 1.2 H 0.1-1.0 MG/DL Aspartate Amino Transf (AST/SGOT) 17 5-34 U/L Alanine Aminotransferase (ALT/SGPT) 27 0-55 U/L Alkaline Phosphatase 109 40-136 U/L Total Protein 6.8 6.4-8.2 GM/DL Albumin 4.1 3.2-4.5 GM/DL Triglycerides Level 183 H <150 MG/DL Cholesterol Level 217 H < 200 MG/DL LDL Cholesterol Direct 157 H 1-129 MG/DL VLDL Cholesterol 37 5-40 MG/DL HDL Cholesterol 38 L 40-60 MG/DL Procalcitonin 0.02 <0.10 NG/ML Diagnosis/Problems Diagnosis/Problems (1) Acute cerebrovascular accident Assessment & Plan: He received thrombolytics in the emergency room and apparently had regained complete use of his left side. His MRI of the brain does not fact show an acute stroke. He seems to have recurrent complete left hemiparesis. We will continue conservative management. Aspirin has been started by the hospitalist. He is also on intensive dose statin medication in light of the stroke. We may want to consider an implantable loop recorder for prolonged for atrial fibrillation prior to discharge. (2) Primary hypertension Assessment & Plan: We will monitor his blood pressure closely. Avoid significant drops in the blood pressure due to the stroke. (3) Mixed hyperlipidemia Assessment & Plan: His LDL level was elevated. He has been ordered for high intensity statin in light of the acute stroke. (4) Obesity Assessment & Plan: He will need to work on weight loss. NAFISA BURNETTE JR, MD Jun 30, 2021 09:14
--- NOTE | 2021-06-30 12:02 | ST Cognitive Linguistic Eval ---
Speech Evaluation-General Medical Diagnosis Suspected Stroke Onset Date: Jun 29, 2021 Therapy Diagnosis Therapy Diagnosis: Suspected Dysarthria Precautions Precautions: Fall Precautions/Isolations: Fall Prevention, Standard Precautions Referral Referring Physician: Dr. Lynch Reason for Referral: Evaluation/Treatment Medical History Current History The patient is a 45 year-old male with a past medical history of hypertension, hyperlipidemia, and diabetes, who presented to the emergency department with new-onset of left sided weakness. The patient received tPA while in the emergency department and was admitted for inpatient care. 06/29/21: 1. No acute intracranial abnormality. Reviewed History: Yes Speech PLF-Current Status Prior Level of Function The patient denied prior challenges with his speech, language, or cognition. Subjective The patient was seated upright in bed, awake and alert upon entrance to his room by the clinician. Due to the patient's primary language of Polish, a phone bus matron was utilized by the clinician. The patient was agreeable to participation in the cognitive linguistic evaluation. Per patient, he feels like the "words come out different." The patient denied concerns or difficulties with his swallowing function. Additionally, the patient's RNs denied concerns or the presence of s/s of suspected aspiration with the patient's current diet consistency. Language Eval: Auditory Comprehends Simple Yes/No Ques: Functional Indent/Objects Multiple Flaherty: Functional Follows 1-Step Commands: Functional Follows General Conversations: Functional Language Eval: Verbal Language Completes Spontaneous Greeting: Functional Word Finding: Functional Requests Basic Needs: Functional States Basic Personal Info: Functional Cognitive Patient Orientation The patient stated the month was "May" and the year was "2021." Objective Cognitive Domain Attention: WNL Objective Oral Motor/Speech Production The patient displayed an overt left facial droop at rest. The patient demonstrated absent to decreased left labial retraction and protrusion. Lingual protrusion was at midline. The patient endorses dysarthria characterized by decreased articulatory precision. Apraxia of speech was not present. The patient was intelligible to the bus matron throughout the evaluation and spontaneous conversational exchanges. Impression The patient demonstrated suspected flaccid dysarthria secondary to left labial weakness resulting in imprecise articulatory precision. At this time, an expressive and receptive language deficit does not appear present. Speech Short Term Goals Short Term Goals Short Term Goals 1. The patient will complete oral motor exercises with 90% accuracy, independently. Speech Contact Center Professional Goals Contact Center Professional Goals 1. The patient will demonstrate increased left labial and lingual range of motion for improved articulatory precision. Time Frame: One Week. Speech-Plan Treatment Plan Speech Therapy Treatment Plan: Continue Plan of Care Treatment Duration: Jul 07, 2021 Frequency: 2 times per week Estimated Hrs Per Day: .25 hour per day Rehab Potential: Fair Pt/Family Agrees to Plan: Yes Safety Risks/Education Teaching Recipient: Patient Teaching Methods: Discussion Response to Teaching: Verbalize Understanding Education Topics Provided: Speech Pathology Plan of Care Time Speech Therapy Time In: 09:35 Speech Therapy Time Out: 09:51 Total Billed Time: 16 Billed Treatment Time 1, ANNA LEDEZMA [facility] Jun 30, 2021 12:02
--- NOTE | 2021-06-30 12:17 | Progress Note - Hospitalist ---
BREANNA MARTE MED STUDENT 06/30/21 1217: Subjective HPI/CC On Admission Date Seen by Provider: Jun 30, 2021 Time Seen by Provider: 09:15 CC: Stroke HPI: This is a 45-year-old male [facility] pt who presented with worrisome signs of a stroke. He was found to have findings consistent with CVA so he did receive thrombolytics and currently he is stable. [facility] was contacted and all protocols followed. tPA seemed to improve the situation with left-sided weakness but NIH score ultimately returned to 9. We will initiate protocol with therapy and rehab and consult cardiology. Subjective/Events-last exam Mr Collins is feeling okay today. The pain from his headache yesterday has improved. Denies any current pain. Is now unable to move any portion of his L upper and lower extremities. He has had a catastrophic CVA. He was able to eat breakfast without a problem this morning. Review of Systems General: No Fatigue HEENT: No Head Aches, No Visual Changes Pulmonary: No Cough Cardiovascular: No: Chest Pain Gastrointestinal: No: Nausea, Vomiting Musculoskeletal: other (L upper and lower extremity weakness ) Neurological: Weakness Objective Exam Vital Signs Vital Signs Date Time Temp Pulse Resp B/P (MAP) Pulse Ox O2 Delivery O2 Flow Rate FiO2 06/30/21 11:00 103 12 144/81 97 Room Air 06/30/21 07:44 37.7 Capillary Refill : Less Than 3 Seconds General Appearance: No Apparent Distress, WD/WN HEENT: Moist Mucous Membranes; No Scleral Icterus (L), No Scleral Icterus (R) Neck: Non Tender; No Lymphadenopathy (L), No Lymphadenopathy (R) Respiratory: Lungs Clear, Normal Breath Sounds Cardiovascular: Regular Rate, Rhythm, No Edema, No Murmur Gastrointestinal: Normal Bowel Sounds, Non Tender, Soft Extremity: Normal Capillary Refill Neurologic/Psychiatric: Alert, Oriented x3, Normal Mood/Affect, 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 Imaging: Reviewed Imaging Report Radiology NAME: ROSHNI DINH [facility] REC#: [id number] PT STATUS: ADM IN : 1975 PHYSICIAN: RHEA KENT DO ADMIT DATE: 06/29/21/ICU Signed Date of Exam:06/29/21 US CAROTID ELVIS COMPLETE [id number] PROCEDURE: US carotid duplex, bilateral. TECHNIQUE: Multiple real-time grayscale images were obtained over the carotid arteries in various projections, bilaterally. Additional spectral analysis and color Doppler duplex images were also obtained. INDICATION: CVA. FINDINGS: There is mild plaquing in both carotid systems. Velocities are unremarkable bilaterally. No velocity elevation or stenosis is identified. Right vertebral artery was not visualized. Left vertebral artery is antegrade. IMPRESSION: No evidence of hemodynamically significant stenosis. Parameters based on the consensus panel Belle-Scale and Doppler ultrasound criteria published January 2003, Radiology, Volume 229. DOPPLER (peak systolic velocity M/S Right Left CCA .88 .84 ICA Proximal .59 .58 ICA Mid .70 .48 ICA Distal .68 .52 RATIO .79 .69 ECA 1.11 .75 VERT NOT SEEN .57 Dictated by: Dictated on workstation # [id number] Dict: 06/29/21 1537 Trans: 06/29/21 1600 AS6 [id number] Interpreted by: LENIN STEWARD MD Electronically signed by: LENIN STEWARD MD 06/29/21 1600 Assessment/Plan Assessment and Plan Assess & Plan/Chief Complaint Assessment - Catastrophic CVA - S/P tPA administration x1 - hypomagnesemia - hypertension - hyperlipidemia - diabetes Plan - Nicardipine gtt - MRI brain w/o contrast - Echocardiogram - HgbA1c 9.7 - sliding scale insulin - Fitzpatrick - PT/OT - electrolyte replacement as needed Clinical Quality Measures DVT/VTE Risk/Contraindication: Contraindications-Pharm: Other *list below* Other: tpa Stroke: Date of last known well: Jun 29, 2021 Time of last known well: 09:00 RHEA KENT DO 07/01/21 0539: Subjective Subjective/Events-last exam Pt is doing about the same BP remains improved on Cardene drip NIH score is still 9 BP is in the 140's HgA1C is 9.7, has never taken any medication for diabetes Echocardiogram and MRI will be done today Catastrophic stroke with left sided hemiparesis Review of Systems General: Fatigue, Malaise Neurological: Weakness, Incoordination Objective Exam General Appearance: No Apparent Distress, WD/WN, Chronically ill Respiratory: Lungs Clear, Normal Breath Sounds Cardiovascular: Regular Rate, Rhythm Neurologic/Psychiatric: Alert, Oriented x3, Motor Weakness (LUE and LLE) Assessment/Plan Assessment and Plan Assess & Plan/Chief Complaint MRI CT scan following tPA Inpatient rehab Supervisory-Addendum Brief Verification & Attestation Participated in pt care: history, MDM, physical Personally performed: exam, history, MDM, supervision of care Care discussed with: Medical Student Procedures: n/a Results interpretation: Verified all documentation Verification and Attestation of Medical Student E/M Service A medical student performed and documented this service in my presence. I reviewed and verified all information documented by the medical student and made modifications to such information, when appropriate. I personally performed the physical exam and medical decision making. Rhea Kent, Jul 01, 2021,05:39 BREANNA MARTE MED STUDENT Jun 30, 2021 12:17 RHEA KENT DO Jul 01, 2021 05:39
[2021-06-30] MEDS: ENOXAPARIN 40 MG/0.4 ML (LOVENOX) SYR SC SCH (13:46)
--- NOTE | 2021-06-30 14:03 | Occupational Therapy Eval ---
OT Evaluation-General/PLF Medical Diagnosis Admission Date Jun 29, 2021 at 13:13 Medical Diagnosis: Suspected Stroke Onset Date: Jun 29, 2021 Therapy Diagnosis Therapy Diagnosis: decreased ADL status, LUE weakness Precautions Precautions/Isolations: Fall Prevention, Standard Precautions Referral Physician: Manjula Burk Reason: Evaluation/Treatment Medical History Additional Medical History High Cholesterol, Hypertension Diabetes, Non-Insulin dep Current History Pt presented to ED c/o new onset L sided weakness while driving and seeing "little lights" in L eye. Pt unable to move L LE when he tried to get out of the vehicle. Pt received tPA in ED, regaining some gross motor movement in UE/LE, but then L sided movement decreased. Social History Current Living Status: Spouse ADL-Prior Level of Function SCALE: Activities may be completed with or without assistive devices. 8-Qyuofdvgvr-raixody completes the activity by him/herself with no assistance from a helper. 5-Set-up or Clean-up Assistance-helper sets up or cleans up; patient completes activity. [place] assists only prior to or following the activity. 4-Supervision or Touching Assistance-helper provides verbal cues and/or steffany phil/steadying and/or contact guard assistance as patient completes activity. Assistance may be provided throughout the activity or intermittently. 3-Partial/Moderate Assistance-helper does LESS THAN HALF the effort. [place] lifts, holds or supports trunk or limbs, but provides less than half the effort. 2-Substantial/Maximal Assistance-helper does MORE THAN HALF the effort. [place] lifts or holds trunk or limbs and provides more than half the effort. 5-Kwixpoqwv-mmjrez does ALL the effort. Patient does none of the effort to complete the activity. Or, the assistance of 2 or more helpers is required for the patient to complete the activity. If activity was not attempted, code reason: 7-Patient Refused. 9-Not Applicable-not attempted and the patient did not perform the activity before the current illness, exacerbation or injury. 10-Not Attempted due to Environmental Limitations-(lack of equipment, weather restraints, etc.). 88-Not Attempted due to Medical Conditions or Safety Concerns. ADL PLOF Comments Pt reports IND with ADLs and functional mobility at PLOF,no AD. He has a walk in shower and a tub/shower, no SC. Self Care: Independent Functional Cognition: Independent DME/Equipment: Shower, Tub/Shower Drive Self: Yes OT Current Status Subjective Pt in bed, and family present. One of pt's family members able to translate during tx. Mental Status/Objective Patient Orientation: Person, Place, Situation Attachments: Fitzpatrick Catheter, IV Current Upper Extremity ROM RUE WFL, No active movement noted in LUE, WFL PROM Upper Extremity Coordination decreased LUE Upper Extremity Sensation Pt reports intact sensation LUE Upper Extremity Strength LUE 0/5, RUE WFL ADL-Treatment Eating (QC): 5 (Set up with mechanically altered diet.) Oral Hygiene (QC): 5 (per clincial judgment, set up using RUE) Toileting Hygiene (QC): 1 (catheter) Other Treatments Pt in bed, family members present. Pt and family agreeable to OT tx, and family provided information about PLOF and home set up. Family indicate pt's L side weakness had resolved at one point, but now pt does not have any active movement in L side. Pt participated in UE screen, no active movement noted LUE, full PROM. OT educated family on performing PROM to LUE, including where to support pt's arm. OT recommended SC and showed his family a picture of the chair, they verbalize understanding. OT educated pt/family on OT POC with focus on LUE and ADLs, they verbalize understanding. Post tx, pt up in bed call light in reach and all needs met. Education OT Patient Education: Correct positioning, Energy conservation, Modified ADL techniques, Progress toward Goal/Update tx plan, Purpose of tx/functional activities, Rehab process Teaching Recipient: Patient Teaching Methods: Discussion Response to Teaching: Verbalize Understanding OT Prison Goals Prison Goals Time Frame: July 17, 2021 Eating (QC): 6 Oral Hygiene (QC): 6 Toileting Hygiene (QC): 3 Shower/Bathe Self (QC): 3 Upper Body Dressing (QC): 4 Lower Body Dressing (QC): 3 On/Off Footwear (QC): 3 Additional Goals: 1-Demonstrate ADL Tasks, 2-Verbalize Understanding, 3-Impr oveStrength/Shaun 1=Demonstrate adherence to instructed precautions during ADL tasks. 2=Patient will verbalize/demonstrate understanding of assistive devices/modifications for ADL. 3=Patient will improve strength/tolerance for activity to enable patient to perform ADL's. OT Education/Plan Problem List/Assessment Assessment: Decreased Activ Tolerance, Decreased UE Strength, Impaired Funct Balance, Impaired I ADL's, Impaired Self-Care Skills, Restricted Funct UE ROM Discharge Recommendations Plan/Recommendations: Continue POC Treatment Plan/Plan of Care Patient would benefit from OT for education, treatment and training to promote independence in ADL's, mobility, safety and/or upper extremity function for ADL's. Plan of Care: ADL Retraining, Functional Mobility, UE Funct Exercise/Act, UE Neuromus Re-Ed/Coord Treatment Duration: July 17, 2021 Frequency: 5 times per week Estimated Hrs Per Day: .25 hour per day Agreement: Yes Rehab Potential: Fair Time/GCodes Start Time: 13:10 Stop Time: 13:24 Total Time Billed (hr/min): 14 Billed Treatment Time 1, IRINA PIÑA OT Jun 30, 2021 14:03
--- NOTE | 2021-06-30 14:24 | Diagnostic Imaging Report ---
PROCEDURE: CT head without contrast. TECHNIQUE: Multiple contiguous axial images were obtained through the brain without the use of intravenous contrast. Auto Exposure Controls were utilized during the CT exam to meet ALARA standards for radiation dose reduction. INDICATION: 24 hours post TPA treatment. COMPARISON: Correlation is made with the head CT performed one day earlier. FINDINGS: There has been development of an area of low density in the right basal ganglia extending into the right barron radiata. Findings are consistent with a subacute infarct. This is new since the CT study of one day earlier. No sulcal effacement is seen. There is no midline shift. No acute intra-axial or extra-axial hemorrhage is detected. The cisterns are patent. The visualized paranasal sinuses are clear apart from mucosal thickening in the right-sided ethmoid air cells. IMPRESSION: Development of small areas of low density in the right posterior basal ganglia and right posterior barron radiata, consistent with subacute infarcts. These are new since yesterday's study. No acute intracranial hemorrhage or evidence of mass effect is identified. Dictated by: Dictated on workstation # [id number]
--- NOTE | 2021-06-30 15:34 | Diagnostic Imaging Report ---
PROCEDURE: MR imaging of the brain without contrast. TECHNIQUE: Multiplanar, multisequence MR imaging of the brain was performed without contrast. DATE: June 30, 2021. COMPARISON: CT head June 30, 2021. HISTORY: 45-year-old male, left-sided weakness and numbness. FINDINGS: There is diffusion restriction involving the right periventricular white matter on diffusion-weighted sequence image 19. This extends inferiorly and is lateral to the posterior limb of the right internal capsule in the right posterior basal ganglia. There are T2 and FLAIR hyperintense signal changes at this location, compatible with an area of acute infarct which is not within a few hours of age. There is also a punctate focus of diffusion restriction involving the anterior aspect of the left occipital lobe cortex on diffusion-weighted sequence image 11. There are T2 and FLAIR hyperintense foci additionally present in the periventricular and subcortical white matter without diffusion restriction. There is no abnormal intracranial susceptibility. There is no abnormal extra-axial fluid collection. The visualized portions of the paranasal sinuses, mastoid air cells, and middle ears are well aerated. IMPRESSION: 1. Acute infarct involving the right periventricular white matter extending inferiorly and lateral to the posterior limb of the right internal capsule within the right posterior basal ganglia. There are T2 and FLAIR hyperintense signal changes at this location, consistent with an area of acute infarct which is not within a few hours of age. 2. Additional foci of T2 and FLAIR hyperintense signal in the subcortical and periventricular white matter which may relate to advanced hypervascular changes for patient age, vasculitis, or possibly demyelinating etiology. Dictated by: Dictated on workstation # [id number]
--- NOTE | 2021-06-30 15:50 | Physical Therapy Evaluation ---
PT Evaluation-General Medical Diagnosis Admission Date Jun 29, 2021 at 13:13 Medical Diagnosis: Suspected Stroke Onset Date: Jun 29, 2021 Therapy Diagnosis Therapy Diagnosis: impaired mobility, strength, endurance, left hemiparesis Precautions Precautions/Isolations: Fall Prevention, Standard Precautions Weight Bear Status Right Lower Extremity: Right Weight Bearing/Tolerated Left Lower Extremity: Left Weight Bearing/Tolerated Referral Physician: Rhea Fair DO Reason for Referral: Evaluation/Treatment Medical History Pertinent Medical History: Smoking Additional Medical History Past Medical History High Cholesterol, Hypertension Diabetes, Non-Insulin dep Reviewed History: Yes Social History Current Living Status: Spouse Entry Into Home: Stairs With Railing PT Steps Into Home: 4 patient also has a ramp Prior Prior Level of Function SCALE: Activities may be completed with or without assistive devices. 9-Rlvdzvkkhn-mzfkdbu completes the activity by him/herself with no assistance from a helper. 5-Set-up or Clean-up Assistance-helper sets up or cleans up; patient completes activity. [place] assists only prior to or following the activity. 4-Supervision or Touching Assistance-helper provides verbal cues and/or touching/steadying and/or contact guard assistance as patient completes activity . Assistance may be provided throughout the activity or intermittently. 3-Partial/Moderate Assistance-helper does LESS THAN HALF the effort. [place] lifts, holds or supports trunk or limbs, but provides less than half the effort. 2-Substantial/Maximal Assistance-helper does MORE THAN HALF the effort. [place] lifts or holds trunk or limbs and provides more than half the effort. 7-Vkfitvwet-daahzm does ALL the effort. Patient does none of the effort to complete the activity. Or, the assistance of 2 or more helpers is required for the patient to complete the activity. If activity was not attempted, code reason: 7-Patient Refused. 9-Not Applicable-not attempted and the patient did not perform the activity before the current illness, exacerbation or injury. 10-Not Attempted due to Environmental Limitations-(lack of equipment, weather restraints, etc.). 88-Not Attempted due to Medical Conditions or Safety Concerns. Bed Mobility: 6 Transfers (B,C,W/C): 6 Gait: 6 Stairs: 6 Indoor Mobility (Ambulation): Independent Stairs: Independent PT Evaluation-Current Subjective Patient in bed pre tx, agrees to PT, has no complaints of pain, his daughter is available to translate. Pt/Family Goals to be i independent at home Objective Patient Orientation: Person, Unable to Assess Attachments: Fitzpatrick Catheter, IV ROM/Strength ROM Lower Extremities WNL Strength Lower Extremities LLE grossly 0/5, RLE grossly 5/5 Transfers Roll Left to Right (QC): 3 Sit to Lying (QC): 2 Lying to Sitting/Side of Bed(Q: 2 Sit to Stand (QC): 2 Patient leans fairly heavily to the left in sitting and standing, he was able to stand for about 30 sec before needing to sit back down Assessment/Needs Patient in bed post tx with nurse call, phone, tray, all needs met. Patient has impaired mobility, strength, endurance, left hemiparesis. He needs max assist for sitting balance and standing. 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 PT Mcc Goals Time Frame: Jul 07, 2021 Roll Left & Right (QC): 4 Sit to Lying (QC): 3 Lying-Sitting on Side/Bed(QC): 3 Sit to Stand (QC): 3 Chair/Yxt-ud-Dwuni Xfer(QC): 3 PT Plan Problem List Problem List: Activity Tolerance, Functional Strength, Safety, Balance, Gait, Transfer, Bed Mobility, ROM Treatment/Plan Treatment Plan: Continue Plan of Care Treatment Plan: Bed Mobility, Education, Functional Activity Shaun, Functional Strength, Gait, Safety, Therapeutic Exercise, Transfers Treatment Duration: Jul 07, 2021 Frequency: 6 times per week Estimated Hrs Per Day: .25 hour per day Patient and/or Family Agrees t: Yes Safety Risks/Education Patient Education: Correct Positioning, Safety Issues Teaching Recipient: Patient Teaching Methods: Demonstration, Discussion Response to Teaching: Reinforcement Needed Discharge Recommendations Plan Patient will perform bed mobility and transfer training, balance and endurance training, functional strengthening, gait training, and education, to improve functional mobility and independence at home. Therapy Discharge Recommendati: Scheduled Assistance, Home & Family, Post Acute PT Time/GCodes Time In: 1510 Time Out: 1520 Total Billed Treatment Time: 10 Total Billed Treatment 1 visit MICHAEL BENNETT PT Jun 30, 2021 15:50
--- NOTE | 2021-06-30 16:56 | Tele-ICU Progress Note ---
Subjective Date Seen by a Provider: Jun 30, 2021 Time Seen by a Provider: 09:31 Subjective/Events-last exam (Tele-ICU Physician , Progress Note ) Available chart/ vitals / labs / Images reviewed Video assessment done using teleICU camera, rest of exam as per RN Discussed with RN , EXAM PER RN Events overnight : Afebrile FiO2 - I/O = Drips: Pressors: , hemodynamically stable Consultants: Hospital course: (06/29) 45m admitted for CVA s/p TNK A/P Acute stroke -presented with left hemyplegia, NIH is 8 -CTH - No acute intracranial abnormality, ER MD contacted [facility] neurology -CTA imaging with no obvious large vessel occlusion - no need for endovascular stroke rescue thrombectomy --s/p IV tenecteplase 06/29 - repeted Ct and MRI pending -neurocheck/NIHSS/VS monitoring per stroke order set protocol - cardene gtt and IV hydralazine and labetalol PRN for BP >185/105 -f/up imaging as per neuro recom - ECHO , US w/up pending DM - ISS Lines : periph (Central Line Necessity Reviewed) Fitzpatrick: OG: Nutrition: Analgesia: Anxiety/ delirium VTE Prophylaxis: scd Stress Ulcer Prophylaxis: Plans in collaboration with bedside consultants and IM MDs. Discussed with RN to reach out if any questions or concerns A total of 33 minutes of critical care time was devoted to this patient today, required to treat and/or prevent further deterioration of critical care cond ition ( as above ) . Sepsis Event Evaluation Height, Weight, BMI Height: '" Weight: lbs. oz. kg; 31.46 BMI Method: Exam Exam Patient acknowledged, consented, and participated in this virtual visit which was conducted using real time audio/video Vital Signs Date Time Temp Pulse Resp B/P (MAP) Pulse Ox O2 Delivery O2 Flow Rate FiO2 06/30/21 16:00 96 Room Air 06/30/21 13:00 80 23 138/80 96 Room Air 06/30/21 13:00 88 06/30/21 12:00 36.9 06/30/21 12:00 96 Room Air 06/30/21 12:00 86 8 126/87 97 Room Air 06/30/21 11:00 103 12 144/81 97 Room Air 06/30/21 10:00 79 14 127/79 96 Room Air 06/30/21 09:00 99 8 137/86 97 Room Air 06/30/21 08:00 88 12 130/80 94 Room Air 06/30/21 08:00 95 Room Air 06/30/21 07:44 37.7 06/30/21 07:00 91 06/30/21 07:00 105 20 140/78 95 Room Air 06/30/21 06:36 86 134/80 Room Air 06/30/21 06:34 106 141/79 97 Room Air 06/30/21 05:36 75 21 128/79 95 Room Air 06/30/21 04:07 37.0 06/30/21 04:00 86 28 139/113 95 Room Air 06/30/21 04:00 97 Room Air 06/30/21 03:45 85 21 121/95 95 06/30/21 03:30 81 24 133/72 94 06/30/21 03:15 76 25 125/73 95 06/30/21 03:00 90 190 138/78 97 Room Air 06/30/21 02:45 85 13 114/62 95 06/30/21 02:30 83 17 95/72 90 06/30/21 02:15 82 16 73/29 94 06/30/21 02:00 91 18 132/74 96 Room Air 06/30/21 01:45 79 23 135/78 94 06/30/21 01:30 83 32 147/85 96 06/30/21 01:15 100 21 143/79 90 06/30/21 01:00 106 13 135/80 99 Room Air 06/30/21 01:00 106 06/30/21 00:45 89 27 134/79 96 06/30/21 00:30 88 22 144/81 96 06/30/21 00:15 87 23 144/89 96 06/30/21 00:00 107 28 155/90 97 Room Air 06/29/21 23:45 86 23 140/76 98 06/29/21 23:44 97 Room Air 06/29/21 23:43 36.7 06/29/21 23:30 101 23 147/81 98 06/29/21 23:15 84 14 137/81 95 06/29/21 23:00 84 16 138/79 96 Room Air 06/29/21 22:45 88 16 142/88 96 06/29/21 22:30 101 18 156/85 98 06/29/21 22:15 86 145/83 99 06/29/21 22:00 92 147/84 96 Room Air 06/29/21 21:45 92 15 143/86 95 06/29/21 21:30 82 23 142/79 95 06/29/21 21:15 84 29 141/86 95 06/29/21 21:00 81 25 139/80 97 Room Air 06/29/21 20:45 84 17 146/86 96 06/29/21 20:30 92 22 148/89 97 06/29/21 20:15 83 29 133/87 96 06/29/21 20:00 89 17 135/85 97 Room Air 06/29/21 20:00 97 Room Air 06/29/21 19:45 79 19 132/73 96 06/29/21 19:31 36.8 06/29/21 19:30 87 14 133/76 96 06/29/21 19:15 87 11 122/76 97 06/29/21 19:00 84 22 128/73 96 Room Air 06/29/21 19:00 84 06/29/21 18:52 Room Air 06/29/21 18:00 86 145/87 100 Room Air 06/29/21 17:00 85 17 120/92 98 I & O 06/30/21 07:00 Intake Total 1750 ml Output Total 3350 ml Balance -1600 ml Height & Weight Height: '" Weight: lbs. oz. 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
[2021-06-30] MEDS: ASPIRIN 81 MG CHEW (CHILDREN'S ASA) PO SCH (17:32)
[2021-07-01] MEDS: niCARdipine IV 50 MG in NS (IVPB) 230 ML IV SCH (03:45)
[2021-07-01 04:37] LABS: BASOPHILS % (AUTO) 0 % (0-10); EOSINOPHILS # (AUTO) 0.4 10^3/uL (0.0-0.3); EOSINOPHILS % (AUTO) 4 % (0-10); HEMATOCRIT 43 % (40-54); HEMOGLOBIN 14.4 g/dL (13.3-17.7); LYMPHOCYTES # (AUTO) 2.9 10^3/uL (1.0-4.0); LYMPHOCYTES % (AUTO) 31 % (12-44); MEAN CORPUSCULAR HEMOGLOBIN 27 pg (25-34); MEAN CORPUSCULAR HGB CONC 33 g/dL (32-36); MEAN CORPUSCULAR VOLUME 80 fL (80-99); MEAN PLATELET VOLUME 9.7 fL (9.0-12.2); MONOCYTES # (AUTO) 0.6 10^3/uL (0.0-1.0); MONOCYTES % (AUTO) 6 % (0-12); NEUTROPHILS # (AUTO) 5.4 10^3/uL (1.8-7.8); NEUTROPHILS % (AUTO) 58 % (42-75); PLATELET COUNT 268 10^3/uL (130-400); WHITE BLOOD COUNT 9.3 10^3/uL (4.3-11.0)
[2021-07-01 04:53] LABS: ALBUMIN 3.9 GM/DL (3.2-4.5); POTASSIUM 3.4 MMOL/L (3.6-5.0)
[2021-07-01 04:54] LABS: CALCIUM 8.8 MG/DL (8.5-10.1)
[2021-07-01 04:56] LABS: TOTAL PROTEIN 6.6 GM/DL (6.4-8.2)
[2021-07-01 04:57] LABS: BILIRUBIN,TOTAL 1.1 MG/DL (0.1-1.0)
[2021-07-01 04:59] LABS: CREATININE SERUM 0.68 MG/DL (0.60-1.30); PHOSPHORUS 2.7 MG/DL (2.3-4.7)
[2021-07-01 05:02] LABS: MAGNESIUM 1.8 MG/DL (1.6-2.4)
[2021-07-01] MEDS: POTASSIUM CL 10MEQ/50ML IVPB 50 ML IV SCH (05:11)
[2021-07-01] MEDS: MAGNESIUM 1 GM/100 ML IVPB 100 ML IV SCH (05:11)
[2021-07-01] MEDS: KCL 20 MEQ TAB (K-DUR) PO SCH (05:11)
[2021-07-01] MEDS: inSUlin ASPART (NovoLOG) 1 UNIT/0.01 ML (CHARGE PER UNIT) SC SCH ×2 (05:12→10:58)
[2021-07-01] MEDS ORDERED: KCL 20 MEQ TAB (K-DUR) PO ONE (08:00)
[2021-07-01] MEDS: DOCUSATE SODIUM 100 MG (COLACE) CAP PO SCH (08:18)
[2021-07-01] MEDS: NS IV 1000 ML 1,000 ML IV SCH (08:18)
[2021-07-01] MEDS: SENNOSIDES 8.6 MG (SENOKOT) TAB PO SCH (08:18)
[2021-07-01] MEDS ORDERED: amLODIPine 5 MG (NORVASC) TAB PO ONE (09:30)
--- NOTE | 2021-07-01 09:45 | Physical Therapy Daily Note ---
PT Daily Note-Current Subjective Patient in bed pre tx, agrees to PT, doesn't speak [place] but you can communicate fairly effectively with gestures, no complaints of pain. Appearance Patient in bed post tx with nurse call, phone, tray, all needs met. Mental Status Patient Orientation: Person, Unable to Assess Attachments: Fitzpatrick Catheter, IV Transfers SCALE: Activities may be completed with or without assistive devices. 2-Csabyhnadn-psvozlv completes the activity by him/herself with no assistance from a helper. 5-Set-up or Clean-up Assistance-helper sets up or cleans up; patient completes activity. [place] assists only prior to or following the activity. 4-Supervision or Touching Assistance-helper provides verbal cues and/or touching/steadying and/or contact guard assistance as patient completes activity. Assistance may be provided throughout the activity or intermittently. 3-Partial/Moderate Assistance-helper does LESS THAN HALF the effort. [place] lifts, holds or supports trunk or limbs, but provides less than half the effort. 2-Substantial/Maximal Assistance-helper does MORE THAN HALF the effort. [place] lifts or holds trunk or limbs and provides more than half the effort. 2-Fspbnrybh-znifil does ALL the effort. Patient does none of the effort to complete the activity. Or, the assistance of 2 or more helpers is required for the patient to complete the activity. If activity was not attempted, code reason: 7-Patient Refused. 9-Not Applicable-not attempted and the patient did not perform the activity before the current illness, exacerbation or injury. 10-Not Attempted due to Environmental Limitations-(lack of equipment, weather restraints, etc.). 88-Not Attempted due to Medical Conditions or Safety Concerns. Roll Left & Right (QC): 3 Sit to Lying (QC): 3 Lying to Sitting/Side of Bed(Q: 3 Sit to Stand (QC): 3 Mod assist for supine <-> sit, patient stood twice for about 1-2 minutes each time, practicing on weight shifting and balance. Patient leans pretty heavily to the left side initially when sitting but it does improve slightly during tx, leans to the left with standing too. 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 PT Care Home Goals Time Frame: Jul 07, 2021 Roll Left & Right (QC): 4 Sit to Lying (QC): 3 Lying-Sitting on Side/Bed(QC): 3 Sit to Stand (QC): 3 Chair/Ifh-bt-Xdrxz Xfer(QC): 3 PT Plan Problem List Problem List: Activity Tolerance, Functional Strength, Safety, Balance, Gait, Transfer, Bed Mobility, ROM Treatment/Plan Treatment Plan: Continue Plan of Care Treatment Plan: Bed Mobility, Education, Functional Activity Shaun, Functional Strength, Gait, Safety, Therapeutic Exercise, Transfers Treatment Duration: Jul 07, 2021 Frequency: 6 times per week Estimated Hrs Per Day: .25 hour per day Patient and/or Family Agrees t: Yes Safety Risks/Education Patient Education: Correct Positioning, Safety Issues Teaching Recipient: Patient Teaching Methods: Demonstration, Discussion Response to Teaching: Reinforcement Needed Time/GCodes Time In: 0838 Time Out: 0857 Total Billed Treatment Time: 19 Total Billed Treatment 1 visit FA MICHAEL OSMAN PT Jul 01, 2021 09:44
[2021-07-01] MEDS ORDERED: ASPI81TA64 PO (11:04)
[2021-07-01] MEDS ORDERED: INSU100V5 SQ (11:04)
[2021-07-01] MEDS ORDERED: INSU100V16 SC (11:04)
[2021-07-01] MEDS ORDERED: ENOX40DI8 SC (11:04)
[2021-07-01] MEDS ORDERED: ATOR80TA76 PO (11:04)
[2021-07-01] MEDS ORDERED: AMLO-250 PO (11:04)
--- NOTE | 2021-07-01 11:05 | Discharge Summary ---
Diagnosis/Chief Complaint Date of Admission Jun 29, 2021 at 13:13 Date of Discharge Discharge Date: Jul 01, 2021 Discharge Diagnosis Assessment - Catastrophic CVA - S/P tPA administration x1 - hypomagnesemia - hypertension - hyperlipidemia - diabetes Discharge Summary Discharge Physical Examination Allergies: Coded Allergies: No Known Drug Allergies (Unverified , 06/29/21) Vitals & I&Os Vital Signs Date Time Temp Pulse Resp B/P (MAP) Pulse Ox O2 Delivery O2 Flow Rate FiO2 07/01/21 13:00 77 25 153/89 97 Room Air 07/01/21 12:00 37.5 General Appearance: Alert, Oriented X3, Cooperative Respiratory: Clear to Auscultation Cardiovascular: Regular Rate Psych/Mental Status: Mental Status NL Hospital Course Was the Problem List Reviewed?: Yes Pt had an uneventful hospital course after he was admitted for CVA left sided weakness. TPA was given with dramatic improvement of his symptoms but quickly dissipated and he remains with catastrophic left sided weakness. All details were communicated via language line. Pt will go to in-patient rehab. Maintain on Aspirin, Lipitor, Insulin, and multiple antihypertensives. Will require close monitoring. Labs (last 24 hrs) Laboratory Tests 06/29/21 11:15: White Blood Count 7.3, Red Blood Count 5.26, Hemoglobin 13.9, Hematocrit 42, Mean Corpuscular Volume 80, Mean Corpuscular Hemoglobin 26, Mean Corpuscular Hemoglobin Concent 33, Red Cell Distribution Width 14.7H, Platelet Count 272, Mean Platelet Volume 9.6, Immature Granulocyte % (Auto) 1, Neutrophils (%) (Auto) 62, Lymphocytes (%) (Auto) 27, Monocytes (%) (Auto) 7, Eosinophils (%) (Auto) 4, Basophils (%) (Auto) 1, Neutrophils # (Auto) 4.6, Lymphocytes # (Auto) 2.0, Monocytes # (Auto) 0.5, Eosinophils # (Auto) 0.3, Basophils # (Auto) 0.0, Immature Granulocyte # (Auto) 0.0, Prothrombin Time 12.0L, INR Comment 0.9, Activated Partial Thromboplast Time 27, D-Dimer 0.30, Sodium Level 136, Potassium Level 3.9, Chloride Level 104, Carbon Dioxide Level 22, Anion Gap 10, Blood Urea Nitrogen 12, Creatinine 0.75, Estimat Glomerular Filtration Rate 113, BUN/Creatinine Ratio 16, Glucose Level 229H, Glucometer 213H, Mean Blood Glucose 232H, Hemoglobin A1c 9.7H, Calcium Level 9.3, Corrected Calcium 9.2, Total Bili maynard 0.8, Aspartate Amino Transf (AST/SGOT) 19, Alanine Aminotransferase (ALT/SGPT) 28, Alkaline Phosphatase 109, Troponin I < 0.028, Total Protein 6.8, Albumin 4.1, Thyroid Stimulating Hormone (TSH) 0.77 06/29/21 13:01: Urine Color YELLOW, Urine Clarity CLEAR, Urine pH 7.0, Urine Specific [place] 1.010L, Urine Protein NEGATIVE, Urine Glucose (UA) 3+H, Urine Ketones NEGATIVE, Urine Nitrite NEGATIVE, Urine Bilirubin NEGATIVE, Urine Urobilinogen 0.2, Urine Leukocyte Esterase NEGATIVE, Urine RBC (Auto) NEGATIVE, Urine RBC NONE, Urine WBC NONE, Urine Crystals PRESENTH, Urine Amorphous Sediment FEW [place] URATESH, Urine Bacteria NEGATIVE, Urine Casts NONE, Urine Mucus NEGATIVE, Urine Culture Indicated NO 06/29/21 16:00: Glucometer 175H 06/29/21 20:36: Glucometer 237H 06/30/21 04:25: White Blood Count 12.1H, Red Blood Count 5.49, Hemoglobin 14.5, Hematocrit 44, Mean Corpuscular Volume 80, Mean Corpuscular Hemoglobin 26, Mean Corpuscular Hemoglobin Concent 33, Red Cell Distribution Width 14.8H, Platelet Count 282, Mean Platelet Volume 9.7, Immature Granulocyte % (Auto) 1, Neutrophils (%) (Auto) 70, Lymphocytes (%) (Auto) 22, Monocytes (%) (Auto) 6, Eosinophils (%) (Auto) 2, Basophils (%) (Auto) 0, Neutrophils # (Auto) 8.4H, Lymphocytes # (Auto) 2.6, Monocytes # (Auto) 0.7, Eosinophils # (Auto) 0.3, Basophils # (Auto) 0.0, Immature Granulocyte # (Auto) 0.1, Sodium Level 139, Potassium Level 3.3L, Chloride Level 108H, Carbon Dioxide Level 17L, Anion Gap 14, Blood Urea Nitrogen 12, Creatinine 0.68, Estimat Glomerular Filtration Rate 117, BUN/Creatinine Ratio 18, Glucose Level 137H, Calcium Level 8.9, Corrected Calcium 8.8, Phosphorus Level 2.9, Magnesium Level 1.7, Total Bilirubin 1.2H, Aspartate Amino Transf (AST/SGOT) 17, Alanine Aminotransferase (ALT/SGPT) 27, Alkaline Phosphatase 109, Total Protein 6.8, Albumin 4.1, Triglycerides Level 183H, Cholesterol Level 217H, LDL Cholesterol Direct 157H, VLDL Cholesterol 37, HDL Cholesterol 38L, Procalcitonin 0.02 06/30/21 17:01: Glucometer 143H 06/30/21 20:27: Glucometer 181H 07/01/21 04:19: White Blood Count 9.3, Red Blood Count 5.42, Hemoglobin 14.4, Hematocrit 43, Mean Corpuscular Volume 80, Mean Corpuscular Hemoglobin 27, Mean Corpuscular Hemoglobin Concent 33, Red Cell Distribution Width 14.7H, Platelet Count 268, Mean Platelet Volume 9.7, Immature Granulocyte % (Auto) 0, Neutrophils (%) (Auto) 58, Lymphocytes (%) (Auto) 31, Monocytes (%) (Auto) 6, Eosinophils (%) (Auto) 4, Basophils (%) (Auto) 0, Neutrophils # (Auto) 5.4, Lymphocytes # (Auto) 2.9, Monocytes # (Auto) 0.6, Eosinophils # (Auto) 0.4H, Basophils # (Auto) 0.0, Immature Granulocyte # (Auto) 0.0, Sodium Level 138, Potassium Level 3.4L, Chloride Level 107, Carbon Dioxide Level 18L, Anion Gap 13, Blood Urea Nitrogen 8, Creatinine 0.68, Estimat Glomerular Filtration Rate 117, BUN/Creatinine Ratio 12, Glucose Level 107H, Calcium Level 8.8, Corrected Calcium 8.9, Phosphorus Level 2.7, Magnesium Level 1.8, Total Bilirubin 1.1H, Aspartate Amino Transf (AST/SGOT) 16, Alanine Aminotransferase (ALT/SGPT) 25, Alkaline Phosphatase 108, Total Protein 6.6, Albumin 3.9 07/01/21 10:58: Glucometer 147H Microbiology 06/30/21 Blood Culture - Preliminary, Resulted No growth 06/29/21 MRSA Screen - Final, Complete MRSA not isolated Pending Labs Microbiology Date/Time Source Procedure Growth Status 06/30/21 10:32 Peripheral Lt Hand Blood Culture - Preliminary No growth Resulted 06/30/21 10:25 Peripheral Lt Ac Blood Culture - Preliminary No growth Resulted 06/29/21 14:00 Nasal MRSA Screen - Final MRSA not isolated Complete Laboratory Tests 06/29/21 11:15: White Blood Count 7.3, Red Blood Count 5.26, Hemoglobin 13.9, Hematocrit 42, Mean Corpuscular Volume 80, Mean Corpuscular Hemoglobin 26, Mean Corpuscular Hemoglobin Concent 33, Red Cell Distribution Width 14.7, Platelet Count 272, Mean Platelet Volume 9.6, Immature Granulocyte % (Auto) 1, Neutrophils (%) (Auto) 62, Lymphocytes (%) (Auto) 27, Monocytes (%) (Auto) 7, Eosinophils (%) (Auto) 4, Basophils (%) (Auto) 1, Neutrophils # (Auto) 4.6, Lymphocytes # (Auto) 2.0, Monocytes # (Auto) 0.5, Eosinophils # (Auto) 0.3, Basophils # (Auto) 0.0, Immature Granulocyte # (Auto) 0.0, Prothrombin Time 12.0, INR Comment 0.9, Activated Partial Thromboplast Time 27, D-Dimer 0.30, Sodium Level 136, Potassium Level 3.9, Chloride Level 104, Carbon Dioxide Level 22, Anion Gap 10, Blood Urea Nitrogen 12, Creatinine 0.75, Estimat Glomerular Filtration Rate 113, BUN/Creatinine Ratio 16, Glucose Level 229, Glucometer 213, Mean Blood Glucose 232, Hemoglobin A1c 9.7, Calcium Level 9.3, Corrected Calcium 9.2, Total Bilirubin 0.8, Aspartate Amino Transf (AST/SGOT) 19, Alanine Aminotransferase (ALT/SGPT) 28, Alkaline Phosphatase 109, Troponin I < 0.028, Total Protein 6.8, Albumin 4.1, Thyroid Stimulating Hormone (TSH) 0.77 06/29/21 13:01: Urine Color YELLOW, Urine Clarity CLEAR, Urine pH 7.0, Urine Specific [place] 1.010, Urine Protein NEGATIVE, Urine Glucose (UA) 3+, Urine Ketones NEGATIVE, Urine Nitrite NEGATIVE, Urine Bilirubin NEGATIVE, Urine Urobilinogen 0.2, Urine Leukocyte Esterase NEGATIVE, Urine RBC (Auto) NEGATIVE, Urine RBC NONE, Urine WBC NONE, Urine Crystals PRESENT, Urine Amorphous Sediment FEW [place] URATES, Urine Bacteria NEGATIVE, Urine Casts NONE, Urine Mucus NEGATIVE, Urine Culture Indicated NO 06/29/21 16:00: Glucometer 175 06/29/21 20:36: Glucometer 237 4/19/22 04:25: White Blood Count 12.1, Red Blood Count 5.49, Hemoglobin 14.5, Hematocrit 44, Mean Corpuscular Volume 80, Mean Corpuscular Hemoglobin 26, Mean Corpuscular Hemoglobin Concent 33, Red Cell Distribution Width 14.8, Platelet Count 282, Mean Platelet Volume 9.7, Immature Granulocyte % (Auto) 1, Neutrophils (%) (Auto) 70, Lymphocytes (%) (Auto) 22, Monocytes (%) (Auto) 6, Eosinophils (%) (Auto) 2, Basophils (%) (Auto) 0, Neutrophils # (Auto) 8.4, Lymphocytes # (Auto) 2.6, Monocytes # (Auto) 0.7, Eosinophils # (Auto) 0.3, Basophils # (Auto) 0.0, Immature Granulocyte # (Auto) 0.1, Sodium Level 139, Potassium Level 3.3, Chloride Level 108, Carbon Dioxide Level 17, Anion Gap 14, Blood Urea Nitrogen 12, Creatinine 0.68, Estimat Glomerular Filtration Rate 117, BUN/Creatinine Ratio 18, Glucose Level 137, Calcium Level 8.9, Corrected Calcium 8.8, Phosphorus Level 2.9, Magnesium Level 1.7, Total Bilirubin 1.2, Aspartate Amino Transf (AST/SGOT) 17, Alanine Aminotransferase (ALT/SGPT) 27, Alkaline Phosphatase 109, Total Protein 6.8, Albumin 4.1, Triglycerides Level 183, Cholesterol Level 217, LDL Cholesterol Direct 157, VLDL Cholesterol 37, HDL Cholesterol 38, Procalcitonin 0.02 06/30/21 17:01: Glucometer 143 06/30/21 20:27: Glucometer 181 07/01/21 04:19: White Blood Count 9.3, Red Blood Count 5.42, Hemoglobin 14.4, Hematocrit 43, Mean Corpuscular Volume 80, Mean Corpuscular Hemoglobin 27, Mean Corpuscular Hemoglobin Concent 33, Red Cell Distribution Width 14.7, Platelet Count 268, Mean Platelet Volume 9.7, Immature Granulocyte % (Auto) 0, Neutrophils (%) (Auto) 58, Lymphocytes (%) (Auto) 31, Monocytes (%) (Auto) 6, Eosinophils (%) (Auto) 4, Basophils (%) (Auto) 0, Neutrophils # (Auto) 5.4, Lymphocytes # (Auto) 2.9, Monocytes # (Auto) 0.6, Eosinophils # (Auto) 0.4, Basophils # (Auto) 0.0, Immature Granulocyte # (Auto) 0.0, Sodium Level 138, Potassium Level 3.4, Chloride Level 107, Carbon Dioxide Level 18, Anion Gap 13, Blood Urea Nitrogen 8, Creatinine 0.68, Estimat Glomerular Filtration Rate 117, BUN/Creatinine Ratio 12, Glucose Level 107, Calcium Level 8.8, Corrected Calcium 8.9, Phosphorus Level 2.7, Magnesium Level 1.8, Total Bilirubin 1.1, Aspartate Amino Transf (AST/SGOT) 16, Alanine Aminotransferase (ALT/SGPT) 25, Alkaline Phosphatase 108, Total Protein 6.6, Albumin 3.9 07/01/21 10:58: Glucometer 147 Discharge Home Medications: Active Scripts Active Novolog (Insulin Aspart) 100 Unit/Ml Susp 0 Unit SC ACHS 365 Days Levemir (Insulin Determir) 100 Unit/Ml Soln 15 Unit SQ HS 365 Days Children's Aspirin (Aspirin) 81 Mg Tab.chew 81 Mg PO DAILY@1400 365 Days Amlodipine Besylate 5 Mg Tablet 5 Mg PO DAILY 365 Days Atorvastatin Calcium 80 Mg Tablet 80 Mg PO DAILY 365 Days Enoxaparin Sodium 40 Mg/0.4 Ml Syringe 40 Mg SC DAILY@1300 7 Days Instructions to patient/family Please see electronic discharge instructions given to patient. Diagnosis/Problems Diagnosis/Problems (1) Left-sided weakness Status: Acute (2) CVA (cerebral vascular accident) Status: Acute Qualifiers: Qualified Codes: I63.10 - Cerebral infarction due to embolism of unspecified precerebral artery Clinical Quality Measures DVT/VTE Risk/Contraindication: Contraindications-Pharm: Other *list below* Other: tpa Stroke: Date of last known well: Jun 29, 2021 Time of last known well: 09:00 TITUS KENT DO Jul 01, 2021 11:05
--- NOTE | 2021-07-01 11:07 | Tele-ICU Progress Note ---
Subjective Date Seen by a Provider: Jul 01, 2021 Time Seen by a Provider: 11:06 Subjective/Events-last exam Subjective/Events-last exam (Tele-ICU Physician , Progress Note ) Available chart/ vitals / labs / Images reviewed Video assessment done using teleICU camera, rest of exam as per RN Discussed with RN , EXAM PER RN Events overnight : Afebrile FiO2 - I/O = Drips: Pressors: , hemodynamically stable Consultants: Hospital course: (06/29) 45m admitted for CVA s/p TNK A/P Acute stroke with anatomic presisposition of assymetric narrow vessels -presented with left hemyplegia, NIH is 8 -CTH - No acute intracranial abnormality, ER MD contacted [facility] neurology -CTA imaging with no obvious large vessel occlusion - no need for endovascular stroke rescue thrombectomy --s/p IV tenecteplase 06/29 - repeted Ct and MRI - no bleeding , + ischemic CVA - ECHO- EF 60 % , no valv dz - US carotids - WNL ANTIPLT AND BP CONTROL PER PCP DM - ISS Lines : periph (Central Line Necessity Reviewed) Fitzpatrick: OG: Nutrition: po Analgesia: Anxiety/ delirium VTE Prophylaxis: scd Stress Ulcer Prophylaxis: n/a Plans in collaboration with bedside consultants and IM MDs. Discussed with RN to reach out if any questions or concerns A total of 20 minutes of critical care time was devoted to this patient today, required to treat and/or prevent further deterioration of critical care condition ( as above ) . Sepsis Event Evaluation Height, Weight, BMI Height: '" Weight: lbs. oz. kg; 30.33 BMI Method: Exam Exam Patient acknowledged, consented, and participated in this virtual visit which was conducted using real time audio/video Vital Signs Date Time Temp Pulse Resp B/P (MAP) Pulse Ox O2 Delivery O2 Flow Rate FiO2 07/01/21 10:00 90 24 150/88 95 Room Air 07/01/21 09:00 71 18 132/72 97 Room Air 07/01/21 08:00 95 Room Air 07/01/21 08:00 91 24 143/86 96 Room Air 07/01/21 07:39 37.2 07/01/21 07:00 64 07/01/21 07:00 57 15 131/80 96 Room Air 07/01/21 06:00 68 19 139/82 93 Room Air 07/01/21 05:00 68 18 138/89 94 Room Air 07/01/21 04:00 75 14 134/82 95 Room Air 07/01/21 03:45 37.3 Room Air 07/01/21 03:45 95 Room Air 07/01/21 03:00 80 24 129/82 94 Room Air 07/01/21 02:00 86 20 129/79 93 Room Air 07/01/21 01:00 86 07/01/21 01:00 86 20 130/86 96 Room Air 07/01/21 00:00 88 29 117/76 91 Room Air 06/30/21 23:15 37.1 Room Air 06/30/21 23:15 94 Room Air 06/30/21 23:00 109 27 152/84 96 Room Air 06/30/21 22:00 94 23 135/81 95 Room Air 06/30/21 21:00 87 24 144/87 93 Room Air 06/30/21 20:00 87 23 144/82 97 Room Air 06/30/21 19:35 95 Room Air 06/30/21 19:00 37.3 89 20 152/90 95 Room Air 06/30/21 19:00 112 06/30/21 18:00 83 19 164/89 96 Room Air 06/30/21 17:00 92 27 160/88 97 Room Air 06/30/21 16:00 36.6 06/30/21 16:00 96 Room Air 06/30/21 16:00 76 19 148/91 97 Room Air 06/30/21 15:00 77 143/87 96 Room Air 06/30/21 14:00 75 19 148/83 97 Room Air 06/30/21 13:00 80 23 138/80 96 Room Air 06/30/21 13:00 88 06/30/21 12:00 36.9 06/30/21 12:00 96 Room Air 06/30/21 12:00 86 8 126/87 97 Room Air I & O 07/01/21 07:00 Intake Total 3055 ml Output Total 3675 ml Balance -620 ml Height & Weight Height: '" Weight: lbs. oz. kg; 30.33 BMI Method: General Appearance: No Apparent Distress, WD/WN, Chronically ill HEENT: Moist Mucous Membranes; No Scleral Icterus (L), No Scleral Icterus (R) Neck: Non Tender; No Lymphadenopathy (L), No Lymphadenopathy (R) Respiratory: Lungs Clear, Normal Breath Sounds Cardiovascular: Regular Rate, Rhythm Capillary Refill: Less Than 3 Seconds Gastrointestinal: normal bowel sounds, non tender, soft; No distended, No guar ding, No rebound Extremity: Normal Capillary Refill Neurologic/Psychiatric: Alert, Oriented x3, Motor Weakness (LUE and LLE) Skin: Normal Color, Warm/Dry Lymphatic: No Adenopathy Results Lab Laboratory Tests 06/29/21 11:15 06/30/21 04:25 07/01/21 04:19 Assessment/Plan Assessment/Plan ` YAHIR FOSTER MD Jul 01, 2021 11:07
--- NOTE | 2021-07-01 11:12 | Occupational Ther Daily Note ---
OT Current Status-Daily Note Subjective Pt in bed, agreeable to OT Tx. Pt does not speak Nepalese but able to follow instructions with simple gestures. ADL-Treatment Therapy Code Descriptions/Definitions Functional [place] Measure: 0=Not Assessed/NA 4=Minimal Assistance 1=Total Assistance 5=Supervision or Setup 2=Maximal Assistance 6=Modified [place] 3=Moderate Assistance 7=Complete IndependenceSCALE: Activities may be completed with or without assistive devices. 5-Mmmakqymqj-pqnwarl completes the activity by him/herself with no assistance from a helper. 5-Set-up or Clean-up Assistance-helper sets up or cleans up; patient completes activity. [place] assists only prior to or following the activity. 4-Supervision or Touching Assistance-helper provides verbal cues and/or touching/steadying and/or contact guard assistance as patient completes activity. Assistance may be provided throughout the activity or intermittently. 3-Partial/Moderate Assistance-helper does LESS THAN HALF the effort. [place] lifts, holds or supports trunk or limbs, but provides less than half the effort. 2-Substantial/Maximal Assistance-helper does MORE THAN HALF the effort. [place] lifts or holds trunk or limbs and provides more than half the effort. 6-Herwxjbjv-xjchzt does ALL the effort. Patient does none of the effort to complete the activity. Or, the assistance of 2 or more helpers is required for the patient to complete the activity. If activity was not attempted, code reason: 7-Patient Refused. 9-Not Applicable-not attempted and the patient did not perform the activity before the current illness, exacerbation or injury. 10-Not Attempted due to Environmental Limitations-(lack of equipment, weather restraints, etc.). 88-Not Attempted due to Medical Conditions or Safety Concerns. Other Treatment Pt in bed, agreeable to OT Tx. OT educated pt on self PROM LUE, pt able to perform shoulder flexion, arm circles, elbow flexion/extension. OT also performed PROM all planes x10 reps each. Post tx, pt in bed, call light in reach and all needs met. Education OT Patient Education: Correct positioning, Energy conservation, Exercise program, Instructions to caregiver, Modified ADL techniques, Rehab process Teaching Recipient: Patient Teaching Methods: Discussion Response to Teaching: Verbalize Understanding OT [facility] Goals [facility] Goals Time Frame: July 17, 2021 Eating (QC): 6 Oral Hygiene (QC): 6 Toileting Hygiene (QC): 3 Shower/Bathe Self (QC): 3 Upper Body Dressing (QC): 4 Lower Body Dressing (QC): 3 On/Off Footwear (QC): 3 Additional Goals: 1-Demonstrate ADL Tasks, 2-Verbalize Understanding, 3- ImproveStrength/Shaun 1=Demonstrate adherence to instructed precautions during ADL tasks. 2=Patient will verbalize/demonstrate understanding of assistive devices/modifications for ADL. 3=Patient will improve strength/tolerance for activity to enable patient to perform ADL's. OT Education/Plan Problem List/Assessment Assessment: Decreased Activ Tolerance, Decreased UE Strength, Impaired Funct Balance, Impaired I ADL's, Impaired Self-Care Skills Discharge Recommendations Plan/Recommendations: Continue POC Treatment Plan/Plan of Care Patient would benefit from OT for education, treatment and training to promote independence in ADL's, mobility, safety and/or upper extremity function for ADL's. Plan of Care: ADL Retraining, Functional Mobility, UE Funct Exercise/Act, UE Neuromus Re-Ed/Coord Treatment Duration: July 17, 2021 Frequency: 5 times per week Estimated Hrs Per Day: .25 hour per day Agreement: Yes Rehab Potential: Fair Time/GCodes Start Time: 10:20 Stop Time: 10:30 Total Time Billed (hr/min): 10 Billed Treatment Time 1, EX IRINA DEL CASTILLO OT Jul 01, 2021 11:12
--- NOTE | 2021-07-01 11:45 | Progress Note - Hospitalist ---
BREANNA MARTE MED STUDENT 07/01/21 1145: Subjective HPI/CC On Admission Date Seen by Provider: Jul 01, 2021 Time Seen by Provider: 08:30 CC: Stroke HPI: This is a 45-year-old male [facility] pt who presented with worrisome signs of a stroke. He was found to have findings consistent with CVA so he did receive thrombolytics and currently he is stable. [facility] was contacted and all protocols followed. tPA seemed to improve the situation with left-sided weakness but NIH score ultimately returned to 9. We will initiate protocol with therapy and rehab and consult cardiology. Subjective/Events-last exam Mr. Collins is sleeping comfortably in bed today. He has no complaints of any pain, headaches, blurry vision. His L lower and upper extremity weakness has remained the same. He is not having issues eating. Family is wanting to speak with the doctor. He does not have any questions or concerns at this time. Planning on moving him to the med/surg unit and then on to the acute rehab unit. MRI indicated diffusion in the right basal ganglia, consistent with the L sided weakness. Review of Systems General: No Chills, No Fatigue HEENT: No Head Aches Pulmonary: No Cough Cardiovascular: No: Chest Pain, Palpitations Gastrointestinal: No: Nausea, Vomiting, Abdominal Pain Neurological: Weakness Objective Exam Vital Signs Vital Signs Date Time Temp Pulse Resp B/P (MAP) Pulse Ox O2 Delivery O2 Flow Rate FiO2 07/01/21 11:00 81 28 138/87 96 Room Air 07/01/21 07:39 37.2 Capillary Refill : Less Than 3 Seconds General Appearance: No Apparent Distress, WD/WN HEENT: No Scleral Icterus (L), No Scleral Icterus (R) Neck: Normal Inspection, Non Tender; No Lymphadenopathy (L), No Lymphadenopathy (R) Respiratory: Lungs Clear, Normal Breath Sounds Cardiovascular: Regular Rate, Rhythm, No Edema, No Murmur Gastrointestinal: Normal Bowel Sounds, Non Tender, Soft Extremity: Normal Capillary Refill, Normal Inspection Neurologic/Psychiatric: Alert, Oriented x3, Facial Droop (Improved L perioral droop ), Motor Weakness (L upper and lower extremities ); No Sensory Deficit Skin: Normal Color, Warm/Dry Lymphatic: No Adenopathy Results/Procedures Lab Laboratory Tests 07/01/21 04:19 Patient resulted labs reviewed. Imaging: Reviewed Imaging Report Assessment/Plan Assessment and Plan Assess & Plan/Chief Complaint Assessment - Catastrophic CVA - S/P tPA administration x1 - hypomagnesemia - hypokalemia - hypertension - hyperlipidemia - diabetes - DVT prophylaxis Plan - Nicardipine gtt discontinued - Start Norvasc - Move to 4th floor - Acute rehab unit when spot is open - HgbA1c 9.7 - sliding scale insulin - Fitzpatrick - PT/OT - electrolyte replacement as needed Clinical Quality Measures DVT/VTE Risk/Contraindication: Contraindications-Pharm: Other *list below* Other: tpa Stroke: Date of last known well: Jun 29, 2021 Time of last known well: 09:00 RHEA KENT DO 07/02/21 0513: Supervisory-Addendum Brief Verification & Attestation Participated in pt care: history, MDM, physical Personally performed: exam, history, MDM, supervision of care Care discussed with: Medical Student Procedures: n/a Results interpretation: Verified all documentation Verification and Attestation of Medical Student E/M Service A medical student performed and documented this service in my presence. I reviewed and verified all information documented by the medical student and made modifications to such information, when appropriate. I personally performed the physical exam and medical decision making. Rhea Kent, Jul 02, 2021,05:13 BREANNA MARTE MED STUDENT Jul 01, 2021 11:45 RHEA KENT DO Jul 02, 2021 05:13
[2021-07-01] MEDS: ASPIRIN 81 MG CHEW (CHILDREN'S ASA) PO SCH (13:17)
[2021-07-01] MEDS: ENOXAPARIN 40 MG/0.4 ML (LOVENOX) SYR SC SCH (13:17)
--- NOTE | 2021-07-01 13:44 | Cardiology Progress Note ---
Progress Note-Cardiology Events since last exam Date Seen by Provider: Jul 01, 2021 Time Seen by Provider: 13:43 Events since last exam I am following him due to cerebrovascular accident. He has no new neurologic complaints. He still cannot move his left side. He denies chest discomfort, dyspnea at rest, palpitations, syncope, or ankle edema. Certain portions of this document may have been dictated utilizing voice recognition technology. Inherent to this technology, typographical and grammatical errors may exist. As much as I am diligent to identify and correct these mistakes, some errors may remain in the document. Vitals Last set of Vitals Signs Vital Signs 07/01/21 13:00 Pulse 77 Resp 25 B/P (MAP) 153/89 Pulse Ox 97 O2 Delivery Room Air Labs Labs Laboratory Tests 07/01/21 04:19 Exam Vital Signs Vital Signs Date Time Temp Pulse Resp B/P (MAP) Pulse Ox O2 Delivery O2 Flow Rate FiO2 07/01/21 13:00 77 25 153/89 97 Room Air 07/01/21 12:00 37.5 Physical Exam General: Alert. No acute distress. Eye: No xanthelasma. HENT: Normocephalic. Neck: Jugular venous pressure does not appear elevated. Respiratory: Lungs are clear to auscultation. Respirations are non-labored. Breath sounds are equal. Symmetrical chest wall expansion. Cardiovascular: Normal rate. Regular rhythm. No murmur. No gallop. No edema. Gastrointestinal: Soft. Normal bowel sounds. Skin: Warm. Dry. Neurologic: Alert and oriented to person, place, time. Cranial nerves 3-11 grossly intact. Complete left sided hemiparesis but sensation appears intact. Psychiatric: Cooperative. Appropriate mood & affect. Labs Laboratory Tests Test 06/30/21 20:27 07/01/21 04:19 07/01/21 10:58 Range/Units Glucometer 181 H 147 H 70-110 MG/DL White Blood Count 9.3 4.3-11.0 10^3/uL Red Blood Count 5.42 4.30-5.52 10^6/uL Hemoglobin 14.4 13.3-17.7 g/dL Hematocrit 43 40-54 % Mean Corpuscular Volume 80 80-99 fL Mean Corpuscular Hemoglobin 27 25-34 pg Mean Corpuscular Hemoglobin Concent 33 32-36 g/dL Red Cell Distribution Width 14.7 H 10.0-14.5 % Platelet Count 268 130-400 10^3/uL Mean Platelet Volume 9.7 9.0-12.2 fL Immature Granulocyte % (Auto) 0 % Neutrophils (%) (Auto) 58 42-75 % Lymphocytes (%) (Auto) 31 12-44 % Monocytes (%) (Auto) 6 0-12 % Eosinophils (%) (Auto) 4 0-10 % Basophils (%) (Auto) 0 0-10 % Neutrophils # (Auto) 5.4 1.8-7.8 10^3/uL Lymphocytes # (Auto) 2.9 1.0-4.0 10^3/uL Monocytes # (Auto) 0.6 0.0-1.0 10^3/uL Eosinophils # (Auto) 0.4 H 0.0-0.3 10^3/uL Basophils # (Auto) 0.0 0.0-0.1 10^3/uL Immature Granulocyte # (Auto) 0.0 0.0-0.1 10^3/uL Sodium Level 138 135-145 MMOL/L Potassium Level 3.4 L 3.6-5.0 MMOL/L Chloride Level 107 98-107 MMOL/L Carbon Dioxide Level 18 L 21-32 MMOL/L Anion Gap 13 5-14 MMOL/L Blood Urea Nitrogen 8 7-18 MG/DL Creatinine 0.68 0.60-1.30 MG/DL Estimat Glomerular Filtration Rate 117 BUN/Creatinine Ratio 12 Glucose Level 107 H 70-105 MG/DL Calcium Level 8.8 8.5-10.1 MG/DL Corrected Calcium 8.9 8.5-10.1 MG/DL Phosphorus Level 2.7 2.3-4.7 MG/DL Magnesium Level 1.8 1.6-2.4 MG/DL Total Bilirubin 1.1 H 0.1-1.0 MG/DL Aspartate Amino Transf (AST/SGOT) 16 5-34 U/L Alanine Aminotransferase (ALT/SGPT) 25 0-55 U/L Alkaline Phosphatase 108 40-136 U/L Total Protein 6.6 6.4-8.2 GM/DL Albumin 3.9 3.2-4.5 GM/DL Diagnosis/Problems Diagnosis/Problems (1) Acute cerebrovascular accident Assessment & Plan: He received thrombolytics in the emergency room and apparently had regained complete use of his left side. His MRI of the brain does in fact show an acute stroke. He seems to have recurrent complete left hemiparesis. We will continue conservative management. Aspirin has been started by the hospitalist. He is also on intensive dose statin medication in light of the stroke. We may want to consider an implantable loop recorder for prolonged for atrial fibrillation prior to discharge. (2) Primary hypertension Assessment & Plan: We will monitor his blood pressure closely. Avoid significant drops in the blood pressure due to the stroke. (3) Mixed hyperlipidemia Assessment & Plan: His LDL level was elevated. He has been ordered for high intensity statin in light of the acute stroke. (4) Obesity Assessment & Plan: He will need to work on weight loss. NAFISA BURNETTE JR, MD Jul 01, 2021 13:44
[2021-07-01] MEDS ORDERED: cloNIDine 0.1 MG (CATAPRES) TAB PO NR (13:45)
[2021-07-02] MEDS ORDERED: amLODIPine 5 MG (NORVASC) TAB PO SCH (09:00)
== END 2021-07-01 13:45 | DRG 62 ==
LOC: ER 11:10 → ICU 13:13
PROVIDERS: ADMIT Internal Medicine; ATTEND Internal Medicine
DX: I63.10 Cerebral infarction due to embolism of unspecified precerebral artery (principal); G81.94 Hemiplegia, unspecified affecting left nondominant side; I10 Essential (primary) hypertension; R29.709 NIHSS score 9; E11.9 Type 2 diabetes mellitus without complications; R32 Unspecified urinary incontinence; F17.210 Nicotine dependence, cigarettes, uncomplicated; E66.9 Obesity, unspecified; E78.00 Pure hypercholesterolemia, unspecified; E78.2 Mixed hyperlipidemia; E83.42 Hypomagnesemia; E87.6 Hypokalemia; Z91.14 Patient's other noncompliance with medication regimen; Z68.31 Body mass index [BMI] 31.0-31.9, adult
CPT/HCPCS: 36415; 70450; 70496; 70498; 70551; 71045; 80053; 80061; 81000; 82947; 83036; 83735; 84100; 84145; 84443; 84484; 85025; 85379; 85610; 85730; 87040; 87081; 92977; 93005; 93041; 93306; 93880; 94664; 99291

== ENCOUNTER 2021-07-01 11:13 | Inpatient (IN) | payer SELFPAY ==
[~2021-07-01] VITALS: Ht 178 cm; Wt 98.4 kg
[~2021-07-01 11:13] MED LIST: AMLO-250 PO; ASPI81TA64 PO; ATOR80TA76 PO; ENOX40DI8 SC; INSU100V16 SC; INSU100V5 SQ
[2021-07-01] MEDS ORDERED: BISACODYL 10 MG SUPP (DULCOLAX) PR PRN ×2 (11:30→15:00)
[2021-07-01] MEDS ORDERED: ONDANSETRON 4 MG (ZOFRAN) ORAL DISSOLVE TAB PO PRN ×2 (11:30→15:00)
[2021-07-01] MEDS ORDERED: DOCUSATE SODIUM 100 MG (COLACE) CAP PO PRN (11:30)
[2021-07-01] MEDS ORDERED: diphenhydrAMINE 25 MG TAB (BENADRYL) PO PRN ×2 (11:30→15:00)
[2021-07-01] MEDS ORDERED: ACETAMINOPHEN 325 MG TABLET PO PRN ×2 (11:30→15:00)
[2021-07-01] MEDS ORDERED: guaiFENesin/CODEINE (ROBITUSSIN AC) 10ML UDC PO PRN (11:30)
[2021-07-01] MEDS ORDERED: FLEET ENEMA ADULT 1 EA BTL PR PRN (11:30)
[2021-07-01] MEDS ORDERED: ALPRAZolam 0.25 MG (XANAX) TAB PO PRN (11:30)
[2021-07-01] MEDS ORDERED: LOPERAMIDE 2 MG (IMODIUM) TABLET PO PRN (11:30)
[2021-07-01] MEDS ORDERED: MELATONIN 3 MG TABLET PO PRN ×2 (11:30→15:00)
[2021-07-01] MEDS ORDERED: CALCIUM CARBONATE 500 MG (TUMS) TAB.CHEW PO PRN ×2 (11:30→15:00)
[2021-07-01] MEDS ORDERED: LACTULOSE SYRUP 10GM/15ML (ENULOSE) 30ML UDC PO PRN ×2 (11:30→15:00)
--- NOTE | 2021-07-01 12:31 | PM&R Post Admission Assessment ---
PM&R Date of Visit: Jul 01, 2021 Time of Visit: 14:00 History of Present Illness CC: CVA HPI: This is a 45 yr old male who doesn't speak [place]ian. 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 An MRI confirmed the right internal capsule stroke. BP remains elevated so we did go ahead and add Amlodipine, Clonidine, and Hydralazine. Blood sugars show elevated with sliding scale and long acting. His HgA1C was 9.7. He was placed on Aspirin and Lipitor. Cardiology has been consulted. Past Hhvrzli-Ilrzlz-Awtnsg Hx Past Med/Social Hx: Reviewed Nursing Past Med/Soc Hx, Reviewed and Corrections made Patient Social History Marrital Status: Employed/Student: employed Alcohol Use: Occasionally Uses Smoking Status: Current Everyday Smoker Past Medical History Cardiac: High Cholesterol, Hypertension Neurological: Stroke Endocrine: Diabetes, Non-Insulin dep Loss of Vision: Denies Family History Heart Disease, Diabetes, Hypertension PM&R Allergy/Meds/Data Review Allergies Coded Allergies: No Known Drug Allergies (Unverified , 06/29/21) Home Medications Scheduled Amlodipine Besylate (Amlodipine Besylate), 5 MG PO DAILY Aspirin (Children's Aspirin), 81 MG PO DAILY@1400 Atorvastatin Calcium (Atorvastatin Calcium), 80 MG PO DAILY Enoxaparin Sodium (Enoxaparin Sodium), 40 MG SC DAILY@1300 Insulin Aspart (Novolog), 0 UNIT SC ACHS Insulin Determir (Levemir), 15 UNIT SQ HS Current Medications Current Medications No home meds Review of Systems Constitutional: see HPI, malaise, weakness EENTM: no symptoms reported Respiratory: no symptoms reported Cardiovascular: no symptoms reported Gastrointestinal: no symptoms reported Genitourinary: no symptoms reported Musculoskeletal: no symptoms reported Skin: no symptoms reported Psychiatric/Neurological: Weakness All Other Systems Reviewed Negative Unless Noted: Yes Physical Exam Physical Exam Vital Signs Capillary Refill : Height, Weight, BMI Height: '" Weight: lbs. oz. kg; 30.33 BMI Method: General Appearance: No Apparent Distress, WD/WN, Obese Eyes: Bilateral Eye Normal Inspection, Bilateral Eye PERRL HEENT: PERRL/EOMI, Normal ENT Inspection, Pharynx Normal Neck: Full Range of Motion, Normal Inspection, Non Tender, Supple, Carotid Bruit Respiratory: Chest Non Tender, Lungs Clear, Normal Breath Sounds, No Accessory Muscle Use, No Respiratory Distress Cardiovascular: Regular Rate, Rhythm, No Edema, No Gallop, No JVD, No Murmur, Normal Peripheral Pulses Gastrointestinal: Normal Bowel Sounds, No Organomegaly, No Pulsatile Mass, Non Tender, Soft Back: Normal Inspection, No CVA Tenderness, No Vertebral Tenderness Extremity: Normal Capillary Refill, Normal Inspection, Normal Range of Motion, Non Tender, No Calf Tenderness, No Pedal Edema Neurologic/Psychiatric: Alert, Oriented x3, Normal 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, 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 as 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, Facial Droop, Motor Weakness (Left-sided weakness 0/5) Skin: Normal Color, Warm/Dry Lymphatic: No Adenopathy PM&R Medical Assessment & Plan REHAB/MEDICAL ASSESSMENT AND PLAN: REHAB IMPAIRMENT GROUP: CVA ETIOLOGIC DIAGNOSIS: CVA The comorbidities that impact the patients function and/or functional outcome b y: Catastrophic CVA REHAB PLAN: The patient is being admitted to our comprehensive inpatient rehabilitation facility and can tolerate the intensity of service consisting of at least: 180 minutes of therapy a day, 5 out of 7 days a week Rehab treatment will consist of: PT and OT will focus on regaining function of left-sided weakness with use of assistive devices in orde order to rule The patient/family has a good understanding of our discharge process and will benefit from an interdisciplinary inpatient rehabilitation program. The patient has potential to make improvement and is in need of at least two of the following multidisciplinary therapies including but not limited to physical, occupational, speech, and prosthetics and orthotics. Additionally the patient will need services from respiratory, nutritional services, wound care, psychology, etc. (Customize this to each patient). Given the patients complex condition and risk of further medical complications, rehabilitation services cannot be safely or effectively provided at a lower level of care such as a residential facility. BARRIERS TO DISCHARGE: Catastrophic CVA ESTIMATED LOS: 14 days DISPOSITION: Home RELEVANT CHANGES SINCE PREADMISSION SCREENING: I have compared the patients medical and functional status at the time of the preadmission screening and there are: no changes PROGNOSIS: Fair REHABILITATION GOALS: 1. PT and OT will focus on regaining function of left-sided weakness with use of assistive devices in order to return back to independent living All the above goals were reviewed with the patient and he/she is in agreement. By signing this document, I acknowledge that I have personally performed a full physical examination on this patient within 24 hours of admission to this inpatient rehabilitation facility and have determined the patient to be able to tolerate the above course of treatment at an intensive level for a reasonable period of time. I will be completing a detailed individualized Plan of Care for this patient by day #4 of the patients stay based upon the Preadmission Screen, the Post-Admission Evaluation, and the therapy evaluations. Admission Dx/Comorbidities: (1) CVA (cerebral vascular accident) Status: Acute ICD Codes: I63.9 - Cerebral infarction, unspecified Assessment/Plan Assessment and Plan Assess & Plan/Chief Complaint Assessment: CVA with left-sided weakness catastrophic type Hypertension severe Hyperlipidemia Hyperglyceridemia Obesity BMI 30 New onset diabetes hemoglobin A1c 9.7 Smoker Plan: Inpatient rehab protocol Supportive care Insulin Blood pressure management TITUS KENT DO Jul 01, 2021 12:30
[2021-07-01] MEDS ORDERED: cloNIDine 0.1 MG (CATAPRES) TAB PO PRN (15:00)
[2021-07-01] MEDS ORDERED: MILK OF MAGNESIA 400 MG/5 ML 30 ML UDC PO PRN (15:00)
[2021-07-01] MEDS ORDERED: diphenhydrAMINE 50 MG/ML INJ (BENADRYL) IVP PRN (15:00)
[2021-07-01] MEDS ORDERED: ANTACID SUSP 30 ML UDC (MYLANTA) PO PRN (15:00)
[2021-07-01] MEDS ORDERED: polyethylene glycoL POWDER 17 GM (MIRALAX) PACK PO PRN (15:00)
[2021-07-01] MEDS ORDERED: morphine INJ 4 MG/ML 1 ML (VIAL/SYRINGE) IV PRN (15:00)
[2021-07-01] MEDS ORDERED: ONDANSETRON 4 MG/2 ML (SDV) Z0FRAN IV PRN (15:00)
--- NOTE | 2021-07-01 15:07 | Physical Therapy Evaluation ---
PT Evaluation-General Medical Diagnosis Admission Date Jul 01, 2021 at 13:40 Medical Diagnosis: CVA Onset Date: Jun 29, 2021 Therapy Diagnosis Therapy Diagnosis: Left hemiparesis, sensation, balance, coordination, ambulation, mobility. Precautions Precautions/Isolations: Fall Prevention, Standard Precautions Weight Bear Status Full Weight Bearing Non Weight Bearing Referral Physician: Rhea Fair DO Reason for Referral: Evaluation/Treatment Medical History Pertinent Medical History: DM, HTN, Smoking Additional Medical History High Cholesterol, Diabetes, Non-Insulin dep Reviewed History: Yes Social History Home: Single Level Current Living Status: Spouse Entry Into Home: Stairs With Railing PT Steps Into Home: 4 Patient also has a ramp Prior Prior Level of Function SCALE: Activities may be completed with or without assistive devices. 8-Mldhjuuimp-xdibjmi completes the activity by him/herself with no assistance from a helper. 5-Set-up or Clean-up Assistance-helper sets up or cleans up; patient completes activity. [place] assists only prior to or following the activity. 4-Supervision or Touching Assistance-helper provides verbal cues and/or touching/steadying and/or contact guard assistance as patient completes activity. Assistance may be provided throughout the activity or intermittently. 3-Partial/Moderate Assistance-helper does LESS THAN HALF the effort. [place] lifts, holds or supports trunk or limbs, but provides less than half the effort. 2-Substantial/Maximal Assistance-helper does MORE THAN HALF the effort. [place] lifts or holds trunk or limbs and provides more than half the effort. 4-Tggqcdckj-cxxyif does ALL the effort. Patient does none of the effort to complete the activity. Or, the assistance of 2 or more helpers is required for the patient to complete the activity. If activity was not attempted, code reason: 7-Patient Refused. 9-Not Applicable-not attempted and the patient did not perform the activity before the current illness, exacerbation or injury. 10-Not Attempted due to Environmental Limitations-(lack of equipment, weather restraints, etc.). 88-Not Attempted due to Medical Conditions or Safety Concerns. Bed Mobility: 6 Transfers (B,C,W/C): 6 Gait: 6 Stairs: 6 Indoor Mobility (Ambulation): Independent Stairs: Independent Prior Devices Use: None PT Evaluation-Current Subjective Patient was in bed before being transferred down to rehab floor. Patient does not speak much maori, and no family was around. Patient understood what the plan was as we explained using google translate, gestures, and a few familiar words. Patient reports that after he had a stroke, he was able to move his left side a little bit, but after medication, he was unable to move it at all. 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 Pain Location: No Pain Reported Pt/Family Goals To return to independence at home. Objective Patient Orientation: Person, Place, Situation Attachments: Fitzpatrick Catheter ROM/Strength ROM Lower Extremities WFL actively and passively on the R. WFL Passively on the L. Patient is Flaccid on the L Strength Upper Extremities R LE: (Hip flexion 5/5, knee extension 5/5, Knee flexion 4+/5, DF 5/5); L LE deferred at this time as patient does not have any active movement in the L LE. Integumentary/Posture Bowel Incontinence: No Bladder Incontinence: Fitzpatrick Cath Neuromuscular (Tone, Coordination, Reflexes) Babinski negative. Clonus negative. Reflexes: Patellar reflex = +1. Achilles reflex = +1. Coordination not assessed due to hemiparesis Sensory Vision: Functional Hearing: Functional Hand Dominance: Right Sensation Right Lower Extremit: Intact Sensation Left Lower Extremity: Impaired Transfers Roll Left & Right (QC): 3 Sit to Lying (QC): 3 Lying to Sitting/Side of Bed(Q: 3 Sit to Stand (QC): 2 Chair/Gku-nj-Rkzlt Xfer(QC): 2 Toilet Transfer (QC): 2 Car Transfer (QC): 88 Gait Does the Patient Walk?: No and Walking Goal NOT indicated Mode of Locomotion: Wheelchair Anticipated Mode of Locomotion: Both Walk 10 feet (QC): 88 Walk 50 ft with 2 Turns(QC): 88 Walk 150 ft (QC): 88 Walking 10ft/uneven surface-QC: 88 Wheelchair Training Wheel 50 ft with 2 turns (QC): 4 Wheel 150 ft (QC): 4 Type of Wheelchair: Manual SBA. Patient wheeled 300' with multiple turns. And 100' back to room. Stairs 1 Step (curb) (QC): 88 4 Steps (QC): 88 12 Steps (QC): 88 Balance Sitting Static: Poor Sitting Dynamic: Poor Standing Static: Poor Standing Dynamic: Poor Picking up an Object (QC): 88 Treatment Wheelchair mobility. Standing tolerance and weightshifting in // bars. Assessment/Needs Patient admits to rehab today from the 5th floor ICU. Patient has recently suffered a R sided Stroke causing L Hemiparesis. Patient was co-treated with OT due to safety concerns, preventing falling, weakness, L hemiparesis, decreased balance. Patient has no activation of his L LE and has diminished reflexes. Patient also has diminished sensation on the left but can slightly feel light touch on the left. Patient is min assist with supine to sit transfers, and mod- max assist with squat pivot transfers. Patient tends to fall to the L side while in sitting position and requires constant guarding. Patient can propel wheelchair for long distances of up to 300' and only requires assistance turning into doorways. Patient can tolerate standing in parallel bars for up to 5minutes before needing a rest break. Patient was left in bed with call light, tray, and all needs met. PT performed bed mobility and transfers, standing, WC mobility, positioning and safety during dressing and bathing, OT performed dressing, bathing, UE posi tioning and safety during activity. Rehab Potential: Fair PT Short Term Goals Short Term Goals Time Frame: Jul 08, 2021 Roll Left & Right: 4 Sit to lyin Lying to sitting on side of be: 4 Sit to stand: 3 Chair/mek-jh-plebp transfer: 3 Toilet transfer: 3 PT Wicker Molded Candles Goals Assisted Goals PT Assisted Goals Time Frame: July 22, 2021 Roll Left & Right (QC): 6 Sit to Lying (QC): 6 Lying-Sitting on Side/Bed(QC): 6 Sit to Stand (QC): 4 Chair/Iyx-pp-Zovsp Xfer(QC): 4 Toilet Transfer (QC): 4 Car Transfer (QC): 4 Does the Patient Walk: No and Walking Goal IS indicated Walk 10 feet (QC): 4 Walk 50ft with 2 Turns (QC): 88 Walk 150 ft (QC): 88 Walking 10ft on Uneven Surface: 88 1 Step (curb) (QC): 88 4 Steps (QC): 88 12 Steps (QC): 88 Picking up an Object (QC): 4 Does the Pt use WC or Scooter?: Yes Wheel 50 feet with 2 turns (QC: 6 Type: Manual Wheel 150 feet: 6 Type: Manual PT Plan Problem List Problem List: Activity Tolerance, Functional Strength, Safety, Balance, Gait, Transfer, Bed Mobility, ROM Treatment/Plan Treatment Plan: Continue Plan of Care Treatment Plan: Bed Mobility, Education, Functional Activity Shaun, Functional Strength, Group Therapy, Gait, Safety, Therapeutic Exercise, Transfers Treatment Duration: July 22, 2021 Frequency: At least 5 of 7 days/Wk (IRF) Estimated Hrs Per Day: 1.5 hours per day Patient and/or Family Agrees t: Yes Safety Risks/Education Patient Education: Transfer Techniques, Reviewed Precautions, Correct Positioning, W/C Management, Disease Process, Safety Issues Teaching Recipient: Patient Teaching Methods: Demonstration, Discussion Response to Teaching: Verbalize Understanding, Return Demonstration Discharge Recommendations Plan Patient will work on functional activities, standing, ambulation, transfers, and LE strengthening to return to independence at home. Therapy Discharge Recommendati: Intermittent Supervision, Post Acute PT Time/GCodes Time In: 1330 Time Out: 1510 Total Billed Treatment Time: 90 Total Billed Treatment 1 Visit EVM 10min FA 80min PT eval [id number], OT eval [id number], PT and OT co-treated [id number] MICHAEL SOLER PT Jul 01, 2021 15:07
--- NOTE | 2021-07-01 15:12 | Occupational Therapy Eval ---
OT Evaluation-General/PLF Medical Diagnosis Admission Date Jul 01, 2021 at 13:40 Medical Diagnosis: CVA Onset Date: Jun 30, 2021 Therapy Diagnosis Therapy Diagnosis: reduced adl status, L sided weakness/flacidity Precautions Precautions/Isolations: Fall Prevention, Standard Precautions Referral Physician: Manjula Burk Reason: Evaluation/Treatment Medical History Pertinent Medical History: Smoking Current History Pt presented to ED with L sided weakness. He received tPA in ED, regaining some gross motor movement in UE/LE, but then L sided movement decreased. Pt reports IND with ADLs and functional mobility at [facility],no AD. He has a walk in shower and a tub/shower, no SC. Pt works at [employer] Reviewed History: Yes Social History Current Living Status: Spouse (and children) ADL-Prior Level of Function SCALE: Activities may be completed with or without assistive devices. 4-Bdvgmecgsd-zxklyrv completes the activity by him/herself with no assistance from a helper. 5-Set-up or Clean-up Assistance-helper sets up or cleans up; patient completes activity. [place] assists only prior to or following the activity. 4-Supervision or Touching Assistance-helper provides verbal cues and/or touching/steadying and/or contact guard assistance as patient completes activity. Assistance may be provided throughout the activity or intermittently. 3-Partial/Moderate Assistance-helper does LESS THAN HALF the effort. [place] lifts, holds or supports trunk or limbs, but provides less than half the effort. 2-Substantial/Maximal Assistance-helper does MORE THAN HALF the effort. [place] lifts or holds trunk or limbs and provides more than half the effort. 2-Bqqkkngym-ywihvb does ALL the effort. Patient does none of the effort to complete the activity. Or, the assistance of 2 or more helpers is required for the patient to complete the activity. If activity was not attempted, code reason: 7-Patient Refused. 9-Not Applicable-not attempted and the patient did not perform the activity before the current illness, exacerbation or injury. 10-Not Attempted due to Environmental Limitations-(lack of equipment, weather restraints, etc.). 88-Not Attempted due to Medical Conditions or Safety Concerns. Self Care: Independent Functional Cognition: Independent DME/Equipment: Shower Drive Self: Yes OT Current Status Subjective Pt denies pain. Language barrier present as pt's [place] language is [place]ian. He is able to follow simple commands and gestures. Appearance Pt left supine in bed, all needs within reach at therapy departure. Mental Status/Objective Patient Orientation: Person, Unable to Assess Attachments: Delgado Catheter, IV, Telemetry Current Hearing Aids: No Dentures/Partials: No Hand Dominance: Right Upper Extremity ROM RUE WNL LUE Flaccid Upper Extremity Strength RUE WNL LUE 1/5 shoulder, 0/5 elbow-distally ADL-Treatment Eating (QC): 4 (per clinical judgment) Oral Hygiene (QC): 3 (min a with set up, LUE utilized as dependent stabilizer) Shower/Bathe Self (QC): 1 Upper Body Dressing (QC): 3 Lower Body Dressing (QC): 1 On/Off Footwear (QC): 3 Toileting Hygiene (QC): 1 (delgado catheter) Co-treat with PT for part of session secondary to high fall risk, flaccid L side, impulsive behavior and need of 2 skilled clinicians to progress indep and safety with adls and mobility. Bathing task completed at w/c level. Assist needed to adduct/lift LUE in order for pt to wash left axilla. Post visual cue on sha technique, he was able to wash RUE/axilla without assist. He sat to wash cristo area and down to ankles. He was able to lift/cross LLE with assistance of RUE but needed assist to maintain figure 4 position in order for him to wash foot and don/doff sock. Poor attention/awareness to safety/positioning of LUE throughout task, requiring cues to attend. OT provided pt with w/c arm tray with encouragement to support/protect UE and to aid in increasing proprioception. Education/demonstration on sha technique when donning clothing. Assist needed to thread LUE, pt able to complete all other steps of UB dressing with extra time. Max a to thread BLE's into shorts secondary to impulsivity and pt often threading both feet into same pant leg. Mod-max x1 to stand and maintain balance as second person managed clothing up to waist. Buttocks also washed in standing prior to pulling shorts up. He sat at the sink to brush teeth. Visual cues and min a for set up. LUE utilized as dependent stabilizer when applying toothpaste. Pt able to brush teeth with dominant hand (R). Pt is very impulsive and requires cues for safety and to slow pace throughout adls. Other Treatments Pt propelled w/c throughout unit with use of R UE/LE. Difficulty turning, needing intermittent min a. Pt often bumping L side of wheelchair into objects, but does not appear related to neglect but more to speedy propulsion. When propelling in the bathroom, pt increased speed and bumped L arm tray into sink, cues for safety. He stood in parallel bars x4, see PT note for level of assist. OT working on weightbearing through LUE, positioning, posture, and grasping bar in standing. Pt able to stand for ~4-5 minutes before needing to sit and rest. Initially, pt very unsteady on feet as he attempted to take steps. Once translated in [place]ian, pt able to follow cue for static standing. While in standing he shifted weight side to side and anterior/posterior with mod a for balance. Education OT Patient Education: Correct positioning, Modified ADL techniques, Progress toward Goal/Update tx plan, Purpose of tx/functional activities, Reviewed precautions, Rehab process, Safety issues, Transfer techniques, W/C management, Other (stroke management/protection of limbs ) Teaching Recipient: Patient Teaching Methods: Demonstration, Discussion Response to Teaching: Return Demonstration, Reinforcement Needed OT Short Term Goals Short Term Goals Time Frame: Jul 11, 2021 Eatin Oral hygiene: 5 Toileting hygiene: 2 Shower/bathe self: 2 Upper body dressin Lower body dressin Putting on/taking off footwear: 3 OT Prison Goals Construction Supervisor Goals Time Frame: July 29, 2021 Eating (QC): 6 Oral Hygiene (QC): 6 Toileting Hygiene (QC): 6 Shower/Bathe Self (QC): 5 Upper Body Dressing (QC): 5 Lower Body Dressing (QC): 5 On/Off Footwear (QC): 5 1=Demonstrate adherence to instructed precautions during ADL tasks. 2=Patient will verbalize/demonstrate understanding of assistive devices/modifications for ADL. 3=Patient will improve strength/tolerance for activity to enable patient to perform ADL's. OT Education/Plan Problem List/Assessment Assessment: Decreased Activ Tolerance, Decreased Safety Aware, Decreased UE Strength, Dependent Transfers, Impaired Cognition, Impaired Coordination, Impaired Funct Balance, Impaired I ADL's, Impaired Self-Care Skills, Restricted Funct UE ROM Discharge Recommendations Plan/Recommendations: Continue POC Therapy Discharge Recommendati: Post Acute OT (home health) Comment ongoing assessment Treatment Plan/Plan of Care Treatment,Training & Education: Yes Patient would benefit from OT for education, treatment and training to promote independence in ADL's, mobility, safety and/or upper extremity function for ADL's. Plan of Care: ADL Retraining, Cognitive Retraining, Functional Mobility, Group Exercise/Act as Ind, UE Funct Exercise/Act, UE Neuromus Re-Ed/Coord, W/C Management Training Treatment Duration: July 29, 2021 Frequency: At least 5 of 7 days/Wk (IRF) Estimated Hrs Per Day: 1.5 hours per day (60-90 min/day) Agreement: Yes Rehab Potential: Fair Time/GCodes Start Time: 13:40 Stop Time: 15:10 Total Time Billed (hr/min): 90 Billed Treatment Time 1 visit EVH (10 min) ADL x3 (50 min) FA x2 (30 min) Samantha Valverde OT Jul 01, 2021 15:12
[2021-07-01 15:30] VITALS: BP_SYST 156; BP_SYST 186; BP_DIAS 98
[2021-07-01] MEDS: cloNIDine 0.1 MG PATCH (CATAPRES TTS) TDSY TD SCH (16:38)
[2021-07-01] MEDS: inSUlin ASPART (NovoLOG) 1 UNIT/0.01 ML (CHARGE PER UNIT) SC SCH ×2 (16:38→21:49)
[2021-07-01 19:54] VITALS: BP 174/94
[2021-07-01] MEDS ORDERED: DOCUSATE SODIUM 100 MG (COLACE) CAP PO SCH (21:00)
[2021-07-01] MEDS ORDERED: SENNA W/DOCUSATE (SENOKOT S) TABLET PO SCH (21:00)
[2021-07-01] MEDS: hydrALAZINE (APRESOLINE) 25 MG TAB PO SCH (21:48)
[2021-07-01] MEDS: DOCUSATE SODIUM 100 MG (COLACE) CAP PO SCH (21:48)
[2021-07-01] MEDS: polyethylene glycoL POWDER 17 GM (MIRALAX) PACK PO SCH (21:48)
[2021-07-01] MEDS: SENNOSIDES 8.6 MG (SENOKOT) TAB PO SCH (21:48)
[2021-07-01] MEDS: amLODIPine 5 MG (NORVASC) TAB PO SCH (21:48)
[2021-07-02 05:56] LABS: BASOPHILS % (AUTO) 0 % (0-10); EOSINOPHILS # (AUTO) 0.4 10^3/uL (0.0-0.3); EOSINOPHILS % (AUTO) 4 % (0-10); HEMATOCRIT 44 % (40-54); HEMOGLOBIN 14.4 g/dL (13.3-17.7); LYMPHOCYTES # (AUTO) 2.8 10^3/uL (1.0-4.0); LYMPHOCYTES % (AUTO) 28 % (12-44); MEAN CORPUSCULAR HEMOGLOBIN 26 pg (25-34); MEAN CORPUSCULAR HGB CONC 33 g/dL (32-36); MEAN CORPUSCULAR VOLUME 80 fL (80-99); MEAN PLATELET VOLUME 9.7 fL (9.0-12.2); MONOCYTES # (AUTO) 0.6 10^3/uL (0.0-1.0); MONOCYTES % (AUTO) 6 % (0-12); NEUTROPHILS # (AUTO) 5.9 10^3/uL (1.8-7.8); NEUTROPHILS % (AUTO) 61 % (42-75); PLATELET COUNT 283 10^3/uL (130-400); WHITE BLOOD COUNT 9.8 10^3/uL (4.3-11.0)
[2021-07-02 06:11] LABS: POTASSIUM 3.8 MMOL/L (3.6-5.0)
[2021-07-02 06:12] LABS: CALCIUM 9.4 MG/DL (8.5-10.1)
[2021-07-02 06:13] LABS: TOTAL PROTEIN 6.6 GM/DL (6.4-8.2)
[2021-07-02 06:15] LABS: BILIRUBIN,TOTAL 0.9 MG/DL (0.1-1.0)
[2021-07-02 06:17] LABS: CREATININE SERUM 0.72 MG/DL (0.60-1.30)
[2021-07-02] MEDS: inSUlin ASPART (NovoLOG) 1 UNIT/0.01 ML (CHARGE PER UNIT) SC SCH ×4 (06:17→21:04)
--- NOTE | 2021-07-02 06:18 | PM&R Progress Note ---
Subjective HPI/CC On Admission Date Seen by Provider: Jul 02, 2021 Time Seen by Provider: 10:00 Subjective/Events-last exam 07/02/21: Patient tolerating everything pretty well Blood pressure improved Blood sugars improved Wheelchair mobility training Review of Systems General: Fatigue, Malaise Neurological: Weakness, Incoordination Objective Exam Vital Signs Vital Signs Date Time Temp Pulse Resp B/P (MAP) Pulse Ox O2 Delivery O2 Flow Rate FiO2 07/03/21 00:51 66 07/02/21 20:50 Room Air 07/02/21 20:09 37.1 16 163/86 (111) 97 Capillary Refill : General Appearance: No Apparent Distress, WD/WN, Obese HEENT: PERRL/EOMI, Normal ENT Inspection, Pharynx Normal Neck: Full Range of Motion, Normal Inspection, Non Tender, Supple, Carotid Bruit Respiratory: Chest Non Tender, Lungs Clear, Normal Breath Sounds, No Accessory Muscle Use, No Respiratory Distress Cardiovascular: Regular Rate, Rhythm, No Edema, No Gallop, No JVD, No Murmur, Normal Peripheral Pulses Gastrointestinal: Normal Bowel Sounds, No Organomegaly, No Pulsatile Mass, Non Tender, Soft Back: Normal Inspection, No CVA Tenderness, No Vertebral Tenderness Extremity: Normal Capillary Refill, Normal Inspection, Normal Range of Motion, Non Tender, No Calf Tenderness, No Pedal Edema Neurologic/Psychiatric: Alert, Oriented x3, Normal Mood/Affect, allied health teacher II-XII Norm as Tested, Facial Droop, Motor Weakness (Left-sided weakness 0/5) Skin: Normal Color, Warm/Dry Lymphatic: No Adenopathy Results/Procedures Lab Laboratory Tests 07/02/21 05:38 Patient resulted labs reviewed. FIM Transfers Therapy Code Descriptions/Definitions Functional [place] Measure: 0=Not Assessed/NA 4=Minimal Assistance 1=Total Assistance 5=Supervision or Setup 2=Maximal Assistance 6=Modified [place] 3=Moderate Assistance 7=Complete IndependenceSCALE: Activities may be completed with or without assistive devices. 9-Jhjswgoxtv-gttpwtv completes the activity by him/herself with no assistance from a helper. 5-Set-up or Clean-up Assistance-helper sets up or cleans up; patient completes activity. [place] assists only prior to or following the activity. 4-Supervision or Touching Assistance-helper provides verbal cues and/or touching/steadying and/or contact guard assistance as patient completes activity. Assistance may be provided throughout the activity or intermittently. 3-Partial/Moderate Assistance-helper does LESS THAN HALF the effort. [place] lifts, holds or supports trunk or limbs, but provides less than half the effort. 2-Substantial/Maximal Assistance-helper does MORE THAN HALF the effort. [place] lifts or holds trunk or limbs and provides more than half the effort. 4-Hecbaiout-oeynzo does ALL the effort. Patient does none of the effort to complete the activity. Or, the assistance of 2 or more helpers is required for the patient to complete the activity. If activity was not attempted, code reason: 7-Patient Refused. 9-Not Applicable-not attempted and the patient did not perform the activity before the current illness, exacerbation or injury. 10-Not Attempted due to Environmental Limitations-(lack of equipment, weather restraints, etc.). 88-Not Attempted due to Medical Conditions or Safety Concerns. Roll Left to Right (QC): 3 Sit to Lying (QC): 3 Sit to Stand (QC): 2 Chair/Axb-rp-Wadgq Xfer(QC): 2 Car Transfer (QC): 88 Gait Training Does the Patient Walk?: No and Walking Goal NOT indicated Walk 10 feet (QC): 88 Walk 50 ft with 2 Turns(QC): 88 Walk 150 ft (QC): 88 Walking 10ft/uneven surface-QC: 88 Wheelchair Training Wheel 50 ft with 2 turns (QC): 4 Wheel 150 ft (QC): 4 Type of Wheelchair: Manual Stair Training 1 Step (curb) (QC): 88 4 Steps (QC): 88 12 Steps (QC): 88 Balance Picking up an Object (QC): 88 ADL-Treatment Eating (QC): 4 (per clinical judgment) Oral Hygiene (QC): 3 (min a with set up, LUE utilized as dependent stabilizer) Shower/Bathe Self (QC): 1 Upper Body Dressing (QC): 3 Lower Body Dressing (QC): 1 On/Off Footwear (QC): 3 Toileting Hygiene (QC): 1 (delgado catheter) Assessment/Plan Assessment and Plan Assess & Plan/Chief Complaint Assessment: CVA with left-sided weakness catastrophic type Hypertension severe Hyperlipidemia Hyperglyceridemia Obesity BMI 30 New onset diabetes hemoglobin A1c 9.7 Smoker Plan: Inpatient rehab protocol Supportive care Insulin Blood pressure management 07/02/2021: Increase blood pressure meds Supportive care (1) CVA (cerebral vascular accident) Status: Acute TITUS KENT DO Jul 02, 2021 06:18
--- NOTE | 2021-07-02 06:18 | Individualized Plan of Care ---
Individualized Plan of Care Rehab Nursing IPOC Order Admission Date Jul 01, 2021 at 13:40 Current Orders Orders Admission Order(Inpt,Obs,Sdc) (07/01/21 11:20) Vital Signs: Per Unit Policy ( 08,16,00 (07/01/21 11:20) Arnulfo Arriaga (07/01/21 11:20) Sequential Compression Device (07/01/21 11:20) Supervisor [employer]-Inpt Rehab Con (07/01/21 11:20) Rehab Nursing Orders-Ipoc (07/01/21 11:20) Physical Therapy Rehab Orders (07/01/21 11:20) Occupational Therapy Rehab Ord (07/01/21 11:20) Speech Therapy Rehab Orders (07/01/21 11:20) Cbc With Automated Diff (07/02/21 06:00) Comprehensive Metabolic Panel (07/02/21 06:00) Precautions (Aru) (07/01/21 11:20) Weekly Weight WEEK (07/01/21 11:20) Rehab-Intensity Of Therapy (07/01/21 11:20) Initiate Admission Nursing Pro .admission (07/01/21 11:20) Alprazolam Tablet (Xanax Tablet) (07/01/21 11:30) Calcium Carbonate Chew Tablet (Antacid C (07/01/21 11:30) Diphenhydramine Tablet (Benadryl Tablet) (07/01/21 11:30) Docusate Sodium Capsule (Colace Capsule) (07/01/21 21:00) Docusate Sodium Capsule (Colace Capsule) (07/01/21 11:30) Bisacodyl Suppository (Dulcolax Supposit (07/01/21 11:30) Lactulose Oral Solution (Enulose Oral So (07/01/21 11:30) Na Phos/Na Biphos Enema (Fleet Enema Leroy (07/01/21 11:30) Guaifenesin/Codeine Syrup (Robitussin Ac (07/01/21 11:30) Loperamide Tablet (Imodium Tablet) (07/01/21 11:30) Melatonin Tablet (Melatonin Tablet) (07/01/21 11:30) Polyethylene Glycol Powder Pkt (Miralax (07/01/21 21:00) Ondansetron Oral Dissolve Tab (Zofran (07/01/21 11:30) Senna S Tablet (Senokot S Tablet) (07/01/21 21:00) Acetaminophen Tablet/Caplet (Tylenol T (07/01/21 11:30) Code/Resuscitation (07/01/21 11:20) Initiate Admission Nursing Pro .admission (07/01/21 11:20) Admission Arrival Bed Request (07/01/21 13:46) Code/Resuscitation (07/01/21 14:47) Accucheck Achs ACHS (07/01/21 14:47) Incentive Spirometry (Nursing) Q2H (07/01/21 14:47) Initiate Admission Nursing Pro .admission (07/01/21 14:47) Nursing Communication (Order) (07/01/21 14:47) Oxygen-Administer 07,19 (07/01/21 14:47) Sequential Compression Device (07/01/21 14:47) Arnulfo Hose 09,21 (07/01/21 14:47) Telemetry (07/01/21 14:47) Dys2 Mechanically Altered (07/01/21 Lunch) Aspirin Chewable Tablet (Baby Aspirin Ch (07/02/21 14:00) Atorvastatin Tablet (Lipitor Tablet) (07/02/21 09:00) Diphenhydramine Injection (Benadryl Inje (07/01/21 15:00) Diphenhydramine Tablet (Benadryl Tablet) (07/01/21 15:00) Docusate Sodium Capsule (Colace Capsule) (07/01/21 21:00) Bisacodyl Suppository (Dulcolax Supposit (07/01/21 15:00) Enoxaparin Injection (Lovenox Injection) (07/02/21 13:00) Lactulose Oral Solution (Enulose Oral So (07/01/21 15:00) Melatonin Tablet (Melatonin Tablet) (07/01/21 15:00) Magnesium Hydroxide Oral Susp (Mom Oral (07/01/21 15:00) Polyethylene Glycol Powder Pkt (Miralax (07/01/21 15:00) Morphine Injection (Morphine Injection (07/01/21 15:00) Antacid Suspension (Mylanta Suspension (07/01/21 15:00) Insulin Aspart (Novolog) (Novolog (Charg (07/01/21 16:00) Sennosides Tablet (Senokot Tablet) (07/01/21 21:00) Calcium Carbonate Chew Tablet (Antacid C (07/01/21 15:00) Acetaminophen Tablet/Caplet (Tylenol T (07/01/21 15:00) Ondansetron Injection (Zofran Injectio (07/01/21 15:00) Ondansetron Oral Dissolve Tab (Zofran (07/01/21 15:00) Amlodipine Tablet (Norvasc Tablet) (07/01/21 21:00) Insulin Determir (Per Unit) (Levemir (Pe (07/01/21 21:00) Oxycodone Immediate Rel Tablet (Oxyir Ta (07/01/21 15:00) Consult Cardiology (07/01/21 14:47) Telemetry Nursing Assessment ( (07/01/21 14:47) Clonidine Tablet (Catapres Tablet) (07/01/21 15:00) Clonidine Patch (Catapres Patch) (07/01/21 15:00) Hydralazine Tablet (Apresoline Tablet) (07/01/21 21:00) Patient Visit (07/01/21 ) Pt Eval Moderate Complexity (07/01/21 ) Functional Activities, Ea 15 (07/01/21 ) Patch Removal (Patch Removal) (07/08/21 08:59) Patient Visit (07/02/21 ) Speech Sound Lang Comp (07/02/21 ) Treat. Speech/Lang/Voice (07/02/21 ) Patient Visit (07/02/21 ) Ex Neuromuscular, Ea 15 Min (07/02/21 ) Functional Activities, Ea 15 (07/02/21 ) Patient Visit (07/02/21 ) Exercise Therap, Ea 15 Min (07/02/21 ) Hydralazine Tablet (Apresoline Tablet) (07/03/21 09:00) Losartan Tablet (Cozaar Tablet) (07/03/21 09:00) Glyburide Tablet (Micronase Tablet) (07/03/21 06:30) Rehab Nursing Orders: Ongoing Assess. of Function Status, Bladder Management, B ladder Scan, Bladder Training, Bowel Management, Bowel Training, Disease Management & Educaiton, DVT Prophylaxis, Fall Prevention, Fluid/Electrolyte/Nutrition Mgmt, Infection Prevention, Medication Management & Education, Management of Risks & Complications, Nutrition Management, Pain Management, Patient/Family Support, Safety Management Intensity of Therapy to be met Patient to be seen: Min.3h per day/5 of 7d PT IPOC Problem List: Activity Tolerance, Functional Strength, Safety, Balance, Gait, Transfer, Bed Mobility, ROM Treatment Plan: Continue Plan of Care Bed Mobility, Education, Functional Activity Shaun, Functional Strength, Group Therapy, Gait, Safety, Therapeutic Exercise, Transfers Treatment Duration: July 22, 2021 Frequency: At least 5 of 7 days/Wk (IRF) Estimated Hrs Per Day: 1.5 hours per day OT IPOC Problems: Decreased Activ Tolerance, Decreased Safety Aware, Decreased UE Strength, Dependent Transfers, Impaired Cognition, Impaired Coordination, Impaired Funct Balance, Impaired I ADL's, Impaired Self-Care Skills, Restricted Funct UE ROM OT Treatment, Training and Edu: Yes Plan of Care: ADL Retraining, Cognitive Retraining, Functional Mobility, Group Exercise/Act as Ind, UE Funct Exercise/Act, UE Neuromus Re-Ed/Coord, W/C Management Training Treatment Duration: July 29, 2021 Frequency: At least 5 of 7 days/Wk (IRF) Estimated Hrs Per Day: 1.5 hours per day (60-90 min/day) ST IPOC Speech Therapy Treatment Plan: Continue Plan of Care Treatment Duration: Jul 02, 2021 Frequency: Modified Program (IRF) Estimated Hrs Per Day: Other Supervisor [employer]/Case Mgmt Supervisor [employer]/Case Managemen: Discharge Planning Dietitian/Vp Sales Dietitian/Vp Sales to monitor nutritional status and make changes and/or recommendations as needed and work with speech pathology on dietary upgrades as the occur. Physician IPOC Medical Issues being managed closely and that require the 24 hour availability of a physician: Close monitoring following catastrophic stroke with left-sided weakness will require close monitoring of blood sugar and blood pressure to prevent extension of stroke Medical Issues: Bowel/Bladder Function, DVT Prophylaxis, Falls Precautions, Fluid/Electrolyte/Nutrition Balance, Infection Protection, Pain Management Brief Synthesis of Preadmission Screen, Post-Admission Evaluation, and Therapy Evaluations: PT and OT will focus on regaining function with use of assistive devices for left-sided weakness in order to return back home to independent living Medical Prognosis: Fair Anticipated Length of Stay: 10 days TITUS KENT DO Jul 02, 2021 06:18
[2021-07-02 07:29] VITALS: BP 146/83
--- NOTE | 2021-07-02 08:55 | Physical Therapy Daily Note ---
PT Daily Note-Current Subjective Patient had family in room upon entering and was ready to start treatment. Pain Location: No Pain Reported Mental Status Patient Orientation: Person, Place, Time, Situation Transfers SCALE: Activities may be completed with or without assistive devices. 8-Awutortgxx-xmxhzdn completes the activity by him/herself with no assistance from a helper. 5-Set-up or Clean-up Assistance-helper sets up or cleans up; patient completes activity. [place] assists only prior to or following the activity. 4-Supervision or Touching Assistance-helper provides verbal cues and/or touching/steadying and/or contact guard assistance as patient completes activity. Assistance may be provided throughout the activity or intermittently. 3-Partial/Moderate Assistance-helper does LESS THAN HALF the effort. [place] lifts, holds or supports trunk or limbs, but provides less than half the effort. 2-Substantial/Maximal Assistance-helper does MORE THAN HALF the effort. [place] lifts or holds trunk or limbs and provides more than half the effort. 2-Hargjkglr-tltpjg does ALL the effort. Patient does none of the effort to complete the activity. Or, the assistance of 2 or more helpers is required for the patient to complete the activity. If activity was not attempted, code reason: 7-Patient Refused. 9-Not Applicable-not attempted and the patient did not perform the activity before the current illness, exacerbation or injury. 10-Not Attempted due to Environmental Limitations-(lack of equipment, weather restraints, etc.). 88-Not Attempted due to Medical Conditions or Safety Concerns. Lying to Sitting/Side of Bed(Q: 3 Sit to Stand (QC): 2 Chair/Kch-mj-Swltj Xfer(QC): 2 Toilet Transfer (QC): 2 Weight Bearing Full Weight Bearing Non Weight Bearing Gait Training Does the Patient Walk?: No and Walking Goal NOT indicated Wheelchair Training Does the Pt Use a Wheelchair?: Yes Wheel 50 ft with 2 turns (QC): 4 Wheel 150 ft (QC): 4 Type of Wheelchair: Manual SBA Treatments Wheelchair mobility. Standing balance in parallel bars with weight shifts forward/backward and yash-sm-gtwf. Sitting balance with cues to touch elbows to table mat with weight shifts forward/backward and kkpq-da-howk. Assessment Current Status: Fair Progress Patient is very motivated during treatment. Patient tends to lean to the Left and falls without support. Patient has good strength going from sit to stand requiring min-mod assist but requirings knee guarding and foot positioning to stand properly. Patient required to be toileted during treatment and needed total assist with pants but was able to wipe on his own. Patient was left in chair with family. PT Short Term Goals Short Term Goals Time Frame: Jul 08, 2021 Roll Left & Right: 4 Sit to lyin Lying to sitting on side of be: 4 Sit to stand: 3 Chair/yxy-nv-gunja transfer: 3 Toilet transfer: 3 PT Residential Goals Residential Goals PT Residential Goals Time Frame: July 22, 2021 Roll Left & Right (QC): 6 Sit to Lying (QC): 6 Lying-Sitting on Side/Bed(QC): 6 Sit to Stand (QC): 4 Chair/Tmh-hl-Nqtbe Xfer(QC): 4 Toilet Transfer (QC): 4 Car Transfer (QC): 4 Does the Patient Walk: No and Walking Goal IS indicated Walk 10 feet (QC): 4 Walk 50ft with 2 Turns (QC): 88 Walk 150 ft (QC): 88 Walking 10ft on Uneven Surface: 88 1 Step (curb) (QC): 88 4 Steps (QC): 88 12 Steps (QC): 88 Picking up an Object (QC): 4 Does the Pt use WC or Scooter?: Yes Wheel 50 feet with 2 turns (QC: 6 Type: Manual Wheel 150 feet: 6 Type: Manual PT Plan Problem List Problem List: Activity Tolerance, Functional Strength, Safety, Balance, Gait, Transfer, Bed Mobility, ROM Treatment/Plan Treatment Plan: Continue Plan of Care Treatment Plan: Bed Mobility, Education, Functional Activity Shaun, Functional Strength, Group Therapy, Gait, Safety, Therapeutic Exercise, Transfers Treatment Duration: July 22, 2021 Frequency: At least 5 of 7 days/Wk (IRF) Estimated Hrs Per Day: 1.5 hours per day Patient and/or Family Agrees t: Yes Safety Risks/Education Patient Education: Transfer Techniques, Correct Positioning, W/C Management, Safety Issues Teaching Recipient: Patient Teaching Methods: Discussion Response to Teaching: Return Demonstration Time/GCodes Time In: 0800 Time Out: 0900 Total Billed Treatment Time: 60 Total Billed Treatment 1 visit NM 15 FA 45min MICHAEL SOLER PT Jul 02, 2021 08:55
[2021-07-02] MEDS: hydrALAZINE (APRESOLINE) 25 MG TAB PO SCH ×3 (09:05→21:04)
[2021-07-02] MEDS: amLODIPine 5 MG (NORVASC) TAB PO SCH ×2 (09:05→21:04)
[2021-07-02] MEDS: DOCUSATE SODIUM 100 MG (COLACE) CAP PO SCH ×2 (09:05→21:04)
[2021-07-02] MEDS: polyethylene glycoL POWDER 17 GM (MIRALAX) PACK PO SCH ×2 (09:05→21:05)
[2021-07-02] MEDS: SENNOSIDES 8.6 MG (SENOKOT) TAB PO SCH ×2 (09:05→21:03)
--- NOTE | 2021-07-02 10:08 | ST Cognitive Linguistic Eval ---
Speech Evaluation-General Medical Diagnosis CVA Onset Date: Jun 29, 2021 Therapy Diagnosis Therapy Diagnosis: Mild Dysarthria Precautions Precautions: Fall Precautions/Isolations: Fall Prevention, Standard Precautions Referral Referring Physician: Dr. Alia Fair Reason for Referral: Evaluation/Treatment Medical History Pertinent Medical History: DM, HTN, Smoking Current History The patient is a 45 year-old male with a past medical history of high cholesterol, HTN, and diabetes, who presented to the acute rehabilitation unit following a catastrophic CVA with left sided weakness. Reviewed History: Yes Social History Current Living Status: Spouse Speech PLF-Current Status Prior Level of Function The patient denied prior concerns or difficulties with his speech, language, cognition, or swallowing. Subjective The patient was seated upright in his wheelchair, awake and alert upon entrance to the patient's room by the clinician. The patient greeted the clinician appropriately and was agreeable to participation in the cognitive linguistic assessment. The patient's niece, Starr, and her , Kimo, were present at bedside. The patient was offered the language line from the clinician, however, politely deferred requesting to have his niece translate the evaluation for him. Per patient's niece, "some words are hard to understand." The patient continues to report distortions to specific phonemes secondary to the left labial weakness. Language Eval: Auditory Comprehends Simple Yes/No Ques: Functional Indent/Objects Multiple [place]: Functional Ident/Pics in Multiple [place]: Functional Follows 1-Step Commands: Functional Follows General Conversations: Functional Language Eval: Verbal Language Completes Spontaneous Greeting: Functional Produces Auto, Serial Info: Functional Imitates Simple Words/Phrases: Functional Word Finding: Functional Requests Basic Needs: Functional States Basic Personal Info: Functional Expresses Complex Ideas: Functional Language Evaluation: Writing Writes to Simple Dictation: Functional Cognitive Patient Orientation The patient was independently oriented to self, location, month, day of week, and year. Objective Cognitive Domain Attention: WNL Memory: WNL Problem Solving: Mild Executive Functions: Mild Composite Severity Rating: Mild Clock Drawing Severity Rating: Mild (The patient recorded the numbers in counter-clockwise direction.) Objective Formal/Standardized Tests [facility] Mental Status Exam (UMS) Results The patient demonstrated a result of +25/30 correlating to a mild neurocognitive impairment. Oral Motor/Speech Production The patient continues to display a left facial droop which does result in imprecise articulation of specific speech sounds (phonemes). Per patient's niece, the patient's speech does cause difficulty with specific words, however, the patient's message remains understandable. Apraxia of speech is not present. Impression The patient displays a mild neurocognitive impairment in the area of problem solving, as well as, mild dysarthria. Speech Patient Assess Expression of Ideas/Wants: Expression (4) Understanding Verbal Content: Understands (4) Brief Interview-Mental Status: Yes Repetition of Three Words: Three (3) Temporal Orientation: Year: Correct (3) Temporal Orientation: Month: Accurate within 5 days(2) Temporal Orientation: Day: Correct (1) Recall : Wear to say "Sock": Yes, no cue required (2) Recall : Color: Yes, no cue required (2) Recall : Bed: Yes, no cue required (2) Memory/Recall Ability: That he or she is in a hsp/hsp unit Speech Short Term Goals Short Term Goals Short Term Goals 1. The patient will demonstrate oral motor exercises with 90% accuracy, independently. Speech Usp Goals Civil Structural Engineer Goals 1. The patient will demonstrated increased intelligibility (per family members) throughout informal conversation. Time Frame: Two Weeks. Speech-Plan Treatment Plan Speech Therapy Treatment Plan: Continue Plan of Care Treatment Duration: July 16, 2021 Frequency: Modified Program (IRF) (Four to five times per week.) Estimated Hrs Per Day: .5 hour per day Rehab Potential: Fair Pt/Family Agrees to Plan: Yes Safety Risks/Education Teaching Recipient: Patient, Family Teaching Methods: Discussion Response to Teaching: Verbalize Understanding Education Topics Provided: Results of SLUMS, Speech Pathology Plan of Care Time Speech Therapy Time In: 09:00 Speech Therapy Time Out: 09:30 Total Billed Time: 30 Billed Treatment Time 1, ANNA LEDEZMA ELIZABETH ST Jul 02, 2021 10:08
--- NOTE | 2021-07-02 10:53 | Occupational Ther Daily Note ---
OT Current Status-Daily Note Subjective Pt denies pain. Pt's cousin and her spouse were in the room and assisted with translating. Appearance Pt sitting in w/c at OT departure, all needs within reach. Mental Status/Objective Patient Orientation: Person, Place, Situation ADL-Treatment Therapy Code Descriptions/Definitions Functional [place] Measure: 0=Not Assessed/NA 4=Minimal Assistance 1=Total Assistance 5=Supervision or Setup 2=Maximal Assistance 6=Modified [place] 3=Moderate Assistance 7=Complete IndependenceSCALE: Activities may be completed with or without assistive devices. 6-Qbzyadpsfe-thnsaxg completes the activity by him/herself with no assistance from a helper. 5-Set-up or Clean-up Assistance-helper sets up or cleans up; patient completes activity. [place] assists only prior to or following the activity. 4-Supervision or Touching Assistance-helper provides verbal cues and/or touching/steadying and/or contact guard assistance as patient completes activity. Assistance may be provided throughout the activity or intermittently. 3-Partial/Moderate Assistance-helper does LESS THAN HALF the effort. [place] lifts, holds or supports trunk or limbs, but provides less than half the effort. 2-Substantial/Maximal Assistance-helper does MORE THAN HALF the effort. [place] lifts or holds trunk or limbs and provides more than half the effort. 4-Qrveuibbt-ufgwhd does ALL the effort. Patient does none of the effort to complete the activity. Or, the assistance of 2 or more helpers is required for the patient to complete the activity. If activity was not attempted, code reason: 7-Patient Refused. 9-Not Applicable-not attempted and the patient did not perform the activity befo re the current illness, exacerbation or injury. 10-Not Attempted due to Environmental Limitations-(lack of equipment, weather re straints, etc.). 88-Not Attempted due to Medical Conditions or Safety Concerns. Oral Hygiene (QC): 4 On/Off Footwear: 3 Toileting Hygiene (QC): 1 Grooming tasks performed at w/c level. Cues for sha techniques and utilizing LUE as dependent stabilizer. Pt continues to need cues for safety and slowing pacing due to impulsive behavior. Poor follow through with awareness/safety of LUE/LLE during transfers or w/c mobility, thus assist/cues needed. Pt completed sit<>stand x6 at grab bars, mod a. Once standing, cues for upright posture and L knee extension required. Assist with maintaining grasp on grab bar with L hand. Intermittent assist to shift weight due to listing L in standing. Pt speedy with w/c propulsion, requires cues for safety and sequencing of propulsion. OT facilitated scapula mobilizations including elevation, depression, protraction and retraction, 8x2. PROM and self AAROM: shoulder flexion, abduction, horizontal adduction, internal/external rotation, elbow flexion/extension, wrist flexion/extension and digit flexion/extension; 10x2 (1 set each PROM and self AAROM). While seated pt completed towel slides anterior/posterior, side to side, and circular motions with focus on improving s houlder/scapula strength/rom; 8x1 each. Small ball placed under L hand with cues to roll ball back/forth and side to side, HOHA provided to maintain grasp on top of ball. Focus on weight bearing and ROM. Good tolerance throughout. Education OT Patient Education: Correct positioning, Energy conservation, Modified ADL techniques, Progress toward Goal/Update tx plan, Purpose of tx/functional activities, Reviewed precautions, Rehab process, Safety issues, Transfer techniques, W/C management Teaching Recipient: Patient, Family Teaching Methods: Demonstration, Discussion Response to Teaching: Verbalize Understanding, Return Demonstration, Reinforcement Needed OT Short Term Goals Short Term Goals Time Frame: Jul 11, 2021 Eatin Oral hygiene: 5 Toileting hygiene: 2 Shower/bathe self: 2 Upper body dressin Lower body dressin Putting on/taking off footwear: 3 OT It Specialist Goals Half-Way Goals Time Frame: July 29, 2021 Eating (QC): 6 Oral Hygiene (QC): 6 Toileting Hygiene (QC): 6 Shower/Bathe Self (QC): 5 Upper Body Dressing (QC): 5 Lower Body Dressing (QC): 5 On/Off Footwear (QC): 5 1=Demonstrate adherence to instructed precautions during ADL tasks. 2=Patient will verbalize/demonstrate understanding of assistive devices/modifications for ADL. 3=Patient will improve strength/tolerance for activity to enable patient to perform ADL's. OT Education/Plan Problem List/Assessment Assessment: Decreased Activ Tolerance, Decreased Safety Aware, Decreased UE Strength, Dependent Transfers, Impaired Coordination, Impaired Funct Balance, Impaired I ADL's, Impaired Self-Care Skills, Restricted Funct UE ROM Discharge Recommendations Plan/Recommendations: Continue POC Treatment Plan/Plan of Care Treatment,Training & Education: Yes Patient would benefit from OT for education, treatment and training to promote independence in ADL's, mobility, safety and/or upper extremity function for ADL's. Plan of Care: ADL Retraining, Cognitive Retraining, Functional Mobility, Group Exercise/Act as Ind, UE Funct Exercise/Act, UE Neuromus Re-Ed/Coord, W/C Management Training Treatment Duration: July 29, 2021 Frequency: At least 5 of 7 days/Wk (IRF) Estimated Hrs Per Day: 1.5 hours per day (60-90 min/day) Agreement: Yes Rehab Potential: Fair Time/GCodes Start Time: 09:30 Stop Time: 10:45 Total Time Billed (hr/min): 75 Billed Treatment Time 1 visit ADL (15 min) EX x2 (25 min) NM (15min) FA (20 min) Samantha Valverde OT Jul 02, 2021 10:53
[2021-07-02] MEDS: ASPIRIN 81 MG CHEW (CHILDREN'S ASA) PO SCH (13:35)
[2021-07-02] MEDS: ENOXAPARIN 40 MG/0.4 ML (LOVENOX) SYR SC SCH (13:35)
[2021-07-02] MEDS ORDERED: cloNIDine 0.1 MG (CATAPRES) TAB PO NR (13:45)
--- NOTE | 2021-07-02 14:43 | Physical Therapy Daily Note ---
PT Daily Note-Current Subjective Pt agrees to PT. Mental Status Attachments: [place] Catheter Transfers SCALE: Activities may be completed with or without assistive devices. 7-Kqgrrlpiaw-lsxcssw completes the activity by him/herself with no assistance from a helper. 5-Set-up or Clean-up Assistance-helper sets up or cleans up; patient completes activity. [place] assists only prior to or following the activity. 4-Supervision or Touching Assistance-helper provides verbal cues and/or touching/steadying and/or contact guard assistance as patient completes activity. Assistance may be provided throughout the activity or intermittently. 3-Partial/Moderate Assistance-helper does LESS THAN HALF the effort. [place] lifts, holds or supports trunk or limbs, but provides less than half the effort. 2-Substantial/Maximal Assistance-helper does MORE THAN HALF the effort. [place] lifts or holds trunk or limbs and provides more than half the effort. 3-Shnjgbrfz-zlqkic does ALL the effort. Patient does none of the effort to complete the activity. Or, the assistance of 2 or more helpers is required for the patient to complete the activity. If activity was not attempted, code reason: 7-Patient Refused. 9-Not Applicable-not attempted and the patient did not perform the activity before the current illness, exacerbation or injury. 10-Not Attempted due to Environmental Limitations-(lack of equipment, weather restraints, etc.). 88-Not Attempted due to Medical Conditions or Safety Concerns. Weight Bearing Full Weight Bearing Non Weight Bearing Exercises Supine Ex: Ankle pumps, Quad Set, Glut sets, Heel Slides, Straight leg raise, Hip abd/add Supine Reps: 10 (AROM on R PROM on L) Treatments Pt laying supine upon arrival of PT. Pt completes supine EX. All needs met, call light in hand. Assessment Current Status: Good Progress Pt is very flexible and does good with EX on his R side. PT Short Term Goals Short Term Goals Time Frame: Jul 08, 2021 Roll Left & Right: 4 Sit to lyin Lying to sitting on side of be: 4 Sit to stand: 3 Chair/hic-mn-uwcfi transfer: 3 Toilet transfer: 3 PT Halfway Goals Tank Terminal Gauger Goals PT Halfway Goals Time Frame: July 22, 2021 Roll Left & Right (QC): 6 Sit to Lying (QC): 6 Lying-Sitting on Side/Bed(QC): 6 Sit to Stand (QC): 4 Chair/Oez-zj-Vdiyi Xfer(QC): 4 Toilet Transfer (QC): 4 Car Transfer (QC): 4 Does the Patient Walk: No and Walking Goal IS indicated Walk 10 feet (QC): 4 Walk 50ft with 2 Turns (QC): 88 Walk 150 ft (QC): 88 Walking 10ft on Uneven Surface: 88 1 Step (curb) (QC): 88 4 Steps (QC): 88 12 Steps (QC): 88 Picking up an Object (QC): 4 Does the Pt use WC or Scooter?: Yes Wheel 50 feet with 2 turns (QC: 6 Type: Manual Wheel 150 feet: 6 Type: Manual PT Plan Treatment/Plan Treatment Plan: Continue Plan of Care Treatment Plan: Bed Mobility, Education, Functional Activity Shaun, Functional Strength, Group Therapy, Gait, Safety, Therapeutic Exercise, Transfers Treatment Duration: July 22, 2021 Frequency: At least 5 of 7 days/Wk (IRF) Estimated Hrs Per Day: 1.5 hours per day Patient and/or Family Agrees t: Yes Time/GCodes Time In: 1425 Time Out: 1440 Total Billed Treatment Time: 15 Total Billed Treatment 1, EX (15 min) GIBRAN EASTON FILLING CARRIER Jul 02, 2021 14:43
[2021-07-02 20:09] VITALS: BP 163/86
[2021-07-03] MEDS: inSUlin ASPART (NovoLOG) 1 UNIT/0.01 ML (CHARGE PER UNIT) SC SCH ×4 (05:58→20:39)
[2021-07-03] MEDS: glyBURIDE 2.5 MG (MICRONASE) TAB PO SCH (06:25)
--- NOTE | 2021-07-03 06:52 | PM&R Progress Note ---
Subjective HPI/CC On Admission Date Seen by Provider: Jul 03, 2021 Time Seen by Provider: 10:00 Subjective/Events-last exam 07/03/21: Patient doing well Sugar reviewed BP improved on multiple meds DC Catheter today 07/02/21: Patient tolerating everything pretty well Blood pressure improved Blood sugars improved Wheelchair mobility training Review of Systems Neurological: Weakness, Incoordination Objective Exam Vital Signs Vital Signs Date Time Temp Pulse Resp B/P (MAP) Pulse Ox O2 Delivery O2 Flow Rate FiO2 07/03/21 19:12 36.9 72 18 132/80 (97) 98 Room Air Capillary Refill : General Appearance: No Apparent Distress, WD/WN, Obese HEENT: PERRL/EOMI, Normal ENT Inspection, Pharynx Normal Neck: Full Range of Motion, Normal Inspection, Non Tender, Supple, Carotid Bruit Respiratory: Chest Non Tender, Lungs Clear, Normal Breath Sounds, No Accessory Muscle Use, No Respiratory Distress Cardiovascular: Regular Rate, Rhythm, No Edema, No Gallop, No JVD, No Murmur, Normal Peripheral Pulses Gastrointestinal: Normal Bowel Sounds, No Organomegaly, No Pulsatile Mass, Non Tender, Soft Back: Normal Inspection, No CVA Tenderness, No Vertebral Tenderness Extremity: Normal Capillary Refill, Normal Inspection, Normal Range of Motion, Non Tender, No Calf Tenderness, No Pedal Edema Neurologic/Psychiatric: Alert, Oriented x3, Normal Mood/Affect, central office equipment installer II-XII Norm as 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 FIM Transfers Therapy Code Descriptions/Definitions Functional [place] Measure: 0=Not Assessed/NA 4=Minimal Assistance 1=Total Assistance 5=Supervision or Setup 2=Maximal Assistance 6=Modified [place] 3=Moderate Assistance 7=Complete IndependenceSCALE: Activities may be completed with or without assistive devices. 9-Cnrmdlisil-onippjm completes the activity by him/herself with no assistance from a helper. 5-Set-up or Clean-up Assistance-helper sets up or cleans up; patient completes activity. [place] assists only prior to or following the activity. 4-Supervision or Touching Assistance-helper provides verbal cues and/or touching/steadying and/or contact guard assistance as patient completes activity. Assistance may be provided throughout the activity or intermittently. 3-Partial/Moderate Assistance-helper does LESS THAN HALF the effort. [place] lifts, holds or supports trunk or limbs, but provides less than half the effort. 2-Substantial/Maximal Assistance-helper does MORE THAN HALF the effort. [place] lifts or holds trunk or limbs and provides more than half the effort. 2-Usyoylrnt-kneagz does ALL the effort. Patient does none of the effort to complete the activity. Or, the assistance of 2 or more helpers is required for the patient to complete the activity. If activity was not attempted, code reason: 7-Patient Refused. 9-Not Applicable-not attempted and the patient did not perform the activity before the current illness, exacerbation or injury. 10-Not Attempted due to Environmental Limitations-(lack of equipment, weather restraints, etc.). 88-Not Attempted due to Medical Conditions or Safety Concerns. Roll Left to Right (QC): 3 Sit to Lying (QC): 3 Sit to Stand (QC): 2 Chair/Ujm-rd-Amluw Xfer(QC): 2 Car Transfer (QC): 88 Gait Training Does the Patient Walk?: No and Walking Goal NOT indicated Walk 10 feet (QC): 88 Walk 50 ft with 2 Turns(QC): 88 Walk 150 ft (QC): 88 Walking 10ft/uneven surface-QC: 88 Wheelchair Training Does the Pt Use a Wheelchair?: Yes Wheel 50 ft with 2 turns (QC): 4 Wheel 150 ft (QC): 4 Type of Wheelchair: Manual Stair Training 1 Step (curb) (QC): 88 4 Steps (QC): 88 12 Steps (QC): 88 Balance Picking up an Object (QC): 88 ADL-Treatment Eating (QC): 4 (per clinical judgment) Oral Hygiene (QC): 4 Shower/Bathe Self (QC): 1 Upper Body Dressing (QC): 3 Lower Body Dressing (QC): 1 On/Off Footwear (QC): 3 Toileting Hygiene (QC): 1 Assessment/Plan Assessment and Plan Assess & Plan/Chief Complaint Assessment: CVA with left-sided weakness catastrophic type Hypertension severe Hyperlipidemia Hyperglyceridemia Obesity BMI 30 New onset diabetes hemoglobin A1c 9.7 Smoker Plan: Inpatient rehab protocol Supportive care Insulin Blood pressure management 07/02/2021: Increase blood pressure meds Supportive care 07/03/21: DC catheter (1) CVA (cerebral vascular accident) Status: Acute TITUS KENT DO Jul 03, 2021 06:52
[2021-07-03 07:52] VITALS: BP 157/98
--- NOTE | 2021-07-03 08:54 | Physical Therapy Daily Note ---
PT Daily Note-Current Subjective Patient sitting EOB pre tx, already working with OT, agrees to PT, voices no complaints of pain. Will be co-treating with OT due to poor patient mobility, strength, endurance, left hemiparesis, coordinate UE and LE during activity, safety and reduce risk of falls. Appearance Patient in WC at bedside post tx with nurse call, phone, tray, all needs met. Mental Status Patient Orientation: Person, Unable to Assess Transfers SCALE: Activities may be completed with or without assistive devices. 5-Ulmuknflvr-aaltuhn completes the activity by him/herself with no assistance from a helper. 5-Set-up or Clean-up Assistance-helper sets up or cleans up; patient completes activity. [place] assists only prior to or following the activity. 4-Supervision or Touching Assistance-helper provides verbal cues and/or touching/steadying and/or contact guard assistance as patient completes activity. Assistance may be provided throughout the activity or intermittently. 3-Partial/Moderate Assistance-helper does LESS THAN HALF the effort. [place] lifts, holds or supports trunk or limbs, but provides less than half the effort. 2-Substantial/Maximal Assistance-helper does MORE THAN HALF the effort. [place] lifts or holds trunk or limbs and provides more than half the effort. 0-Peftrkhoi-ptedbn does ALL the effort. Patient does none of the effort to complete the activity. Or, the assistance of 2 or more helpers is required for the patient to complete the activity. If activity was not attempted, code reason: 7-Patient Refused. 9-Not Applicable-not attempted and the patient did not perform the activity before the current illness, exacerbation or injury. 10-Not Attempted due to Environmental Limitations-(lack of equipment, weather restraints, etc.). 88-Not Attempted due to Medical Conditions or Safety Concerns. Sit to Stand (QC): 3 Chair/Itx-cg-Cjpoq Xfer(QC): 3 Patient transfers to shower chair with mod assist (stand pivot) and is taken to shower room, showers with assist for sitting balance, back to room, stands with mod assist for dressing. After getting to therapy gym patient stood in the parallel bars x3 for about 3 min each time, he also performed marching x5 for 3 sets just on the right side Weight Bearing Full Weight Bearing Non Weight Bearing Gait Training Distance: 5' Gait Persons Needed: 2 Gait Assistive Device: Parallel Bars needs assist for left knee buckling, left ankle tends to roll Wheelchair Training Does the Pt Use a Wheelchair?: Yes Wheel 50 ft with 2 turns (QC): 4 Wheel 150 ft (QC): 4 Type of Wheelchair: Manual 300' Treatments PT performed transfers, ambulation, WC mobility, balance and safety during dressing and bathing, OT performed dressing, bathing, ADL's, UE positioning and safety during activity Assessment Current Status: Fair Progress slowly improving standing and transfers PT Short Term Goals Short Term Goals Time Frame: Jul 08, 2021 Roll Left & Right: 4 Sit to lyin Lying to sitting on side of be: 4 Sit to stand: 3 Chair/esy-iz-syosv transfer: 3 Toilet transfer: 3 PT Fdc Goals Fdc Goals PT Center Lead Consultant Goals Time Frame: July 22, 2021 Roll Left & Right (QC): 6 Sit to Lying (QC): 6 Lying-Sitting on Side/Bed(QC): 6 Sit to Stand (QC): 4 Chair/Zzw-fg-Ljwcw Xfer(QC): 4 Toilet Transfer (QC): 4 Car Transfer (QC): 4 Does the Patient Walk: No and Walking Goal IS indicated Walk 10 feet (QC): 4 Walk 50ft with 2 Turns (QC): 88 Walk 150 ft (QC): 88 Walking 10ft on Uneven Surface: 88 1 Step (curb) (QC): 88 4 Steps (QC): 88 12 Steps (QC): 88 Picking up an Object (QC): 4 Does the Pt use WC or Scooter?: Yes Wheel 50 feet with 2 turns (QC: 6 Type: Manual Wheel 150 feet: 6 Type: Manual PT Plan Problem List Problem List: Activity Tolerance, Functional Strength, Safety, Balance, Gait, Transfer, Bed Mobility, ROM Treatment/Plan Treatment Plan: Continue Plan of Care Treatment Plan: Bed Mobility, Education, Functional Activity Shaun, Functional Strength, Group Therapy, Gait, Safety, Therapeutic Exercise, Transfers Treatment Duration: July 22, 2021 Frequency: At least 5 of 7 days/Wk (IRF) Estimated Hrs Per Day: 1.5 hours per day Patient and/or Family Agrees t: Yes Safety Risks/Education Patient Education: Gait Training, Transfer Techniques, Correct Positioning, W/C Management, Safety Issues Teaching Recipient: Patient Teaching Methods: Demonstration, Discussion Response to Teaching: Reinforcement Needed Time/GCodes Time In: 0800 Time Out: 0900 Total Billed Treatment Time: 60 Total Billed Treatment 1 visit FA 60' co-treated for 60' MICHAEL SOLER PT Jul 03, 2021 08:54
--- NOTE | 2021-07-03 08:57 | Occupational Ther Daily Note ---
OT Current Status-Daily Note Subjective Pt denies pain, agreeable to shower. Co-treat with PT for part of session secondary to impulsive behavior, high fall risk, impaired safety, and need of 2 skilled clinicians to progress indep and safety with adls and mobility. Appearance Pt left sitting in w/c, all needs within reach. Mental Status/Objective Patient Orientation: Person, Place, Situation Attachments: Delgado Catheter, IV, Telemetry ADL-Treatment Therapy Code Descriptions/Definitions Functional [place] Measure: 0=Not Assessed/NA 4=Minimal Assistance 1=Total Assistance 5=Supervision or Setup 2=Maximal Assistance 6=Modified [place] 3=Moderate Assistance 7=Complete IndependenceSCALE: Activities may be completed with or without assistive devices. 4-Faqovqmmib-tqvukto completes the activity by him/herself with no assistance from a helper. 5-Set-up or Clean-up Assistance-helper sets up or cleans up; patient completes activity. [place] assists only prior to or following the activity. 4-Supervision or Touching Assistance-helper provides verbal cues and/or touching/steadying and/or contact guard assistance as patient completes activity. Assistance may be provided throughout the activity or intermittently. 3-Partial/Moderate Assistance-helper does LESS THAN HALF the effort. [place] lifts, holds or supports trunk or limbs, but provides less than half the effort. 2-Substantial/Maximal Assistance-helper does MORE THAN HALF the effort. [place] lifts or holds trunk or limbs and provides more than half the effort. 7-Huzwecsef-yhtljp does ALL the effort. Patient does none of the effort to complete the activity. Or, the assistance of 2 or more helpers is required for the patient to complete the activity. If activity was not attempted, code reason: 7-Patient Refused. 9-Not Applicable-not attempted and the patient did not perform the activity before the current illness, exacerbation or injury. 10-Not Attempted due to Environmental Limitations-(lack of equipment, weather restraints, etc.). 88-Not Attempted due to Medical Conditions or Safety Concerns. Shower/Bathe Self (QC): 1 Upper Body Dressing (QC): 3 Lower Body Dressing (QC): 1 On/Off Footwear: 3 Toileting Hygiene (QC): 1 (delgado catheter) Supine>sit: SBA-CGA, cues for preferred positioning to improve balance. Stand pivot to shower wheelchair with emily Germian recall on sha technique to wash R axilla, visual cues on how to wash R arm. Good follow through with cues. Assist needed to adduct/lift L arm in order for patient to wash axilla with R hand. When washing LE's, pt is very impulsive and quick with bending forward to feet. He requires intermittent mod a to keep from sliding too far forward. Intermittent assist of 2nd person required for safety secondary to impulsivity. Assist needed to lift/cross L foot over R contralateral knee in order for patient to wash. Education/demonstration on safer way of performing tasks. He was able to reach posteriorly with R hand to wash R buttocks, assist needed to wash Left. Consistent cues to slow pace during dressing tasks, as pt often threading limb into wrong opening. Min a needed to thread RUE into sleeve, pt able to complete 3 remaining steps without assist. Due to weakness, assist needed to lift LLE as pt threaded foot through underwear/pants. He was able to thread RLE with extra time and intermittent balance assist when bending forward. Mod a to stand x1 as second person assisted with pulling clothing up to waist. Post assist to position LLE in figure 4, pt able to don sock with extra time. Other Treatment Pt propelled w/c throughout unit, continues to be very speedy with tasks. Cues for safety and awareness to left side. He completed standing activities in parallel bars with focus on weightbearing through both L upper and Lower extremities. OT assists with upright posture, LUE placement and maintaining grasp on bar as PT focused on balance, posture, and blocking of L knee in standing. RLE marches 5x3, mod a for balance. Education OT Patient Education: Correct positioning, Energy conservation, Modified ADL techniques, Progress toward Goal/Update tx plan, Purpose of tx/functional activities, Reviewed precautions, Safety issues, Transfer techniques, W/C management Teaching Recipient: Patient Teaching Methods: Demonstration, Discussion Response to Teaching: Verbalize Understanding, Return Demonstration, Reinforcement Needed OT Short Term Goals Short Term Goals Time Frame: Jul 11, 2021 Eatin Oral hygiene: 5 Toileting hygiene: 2 Shower/bathe self: 2 Upper body dressin Lower body dressin Putting on/taking off footwear: 3 OT Stroboscope Operator Goals Stroboscope Operator Goals Time Frame: July 29, 2021 Eating (QC): 6 Oral Hygiene (QC): 6 Toileting Hygiene (QC): 6 Shower/Bathe Self (QC): 5 Upper Body Dressing (QC): 5 Lower Body Dressing (QC): 5 On/Off Footwear (QC): 5 1=Demonstrate adherence to instructed precautions during ADL tasks. 2=Patient will verbalize/demonstrate understanding of assistive devices/modifications for ADL. 3=Patient will improve strength/tolerance for activity to enable patient to perform ADL's. OT Education/Plan Problem List/Assessment Assessment: Decreased Activ Tolerance, Decreased Safety Aware, Decreased UE Strength, Impaired Coordination, Impaired Funct Balance, Impaired I ADL's, Impaired Self-Care Skills, Restricted Funct UE ROM Discharge Recommendations Plan/Recommendations: Continue POC Treatment Plan/Plan of Care Treatment,Training & Education: Yes Patient would benefit from OT for education, treatment and training to promote independence in ADL's, mobility, safety and/or upper extremity function for ADL's. Plan of Care: ADL Retraining, Cognitive Retraining, Functional Mobility, Group Exercise/Act as Ind, UE Funct Exercise/Act, UE Neuromus Re-Ed/Coord, W/C Management Training Treatment Duration: July 29, 2021 Frequency: At least 5 of 7 days/Wk (IRF) Estimated Hrs Per Day: 1.5 hours per day (60-90 min/day) Agreement: Yes Rehab Potential: Fair Time/GCodes Start Time: 07:45 Stop Time: 09:00 Total Time Billed (hr/min): 75 Billed Treatment Time 1 visit ADL x4 (55 min) FA (20 min) Samantha Valverde OT Jul 03, 2021 08:57
[2021-07-03] MEDS: amLODIPine 5 MG (NORVASC) TAB PO SCH ×2 (10:06→20:46)
[2021-07-03] MEDS: hydrALAZINE (APRESOLINE) 25 MG TAB PO SCH ×3 (10:06→20:46)
[2021-07-03] MEDS: LOSARTAN 50 MG (COZAAR) TAB PO SCH (10:06)
--- NOTE | 2021-07-03 10:55 | ST Dysphagia Evaluation ---
Speech Evaluation-General Medical Diagnosis Stroke Onset Date: Jun 29, 2021 Therapy Diagnosis Therapy Diagnosis: Suspected Oropharyngeal Dysphagia Precautions Precautions: Fall, Aspiration Precautions/Isolations: Aspiration, Fall Prevention, Standard Precautions Referral Referring Physician: Dr. Rhea Fair Reason for Referral: Evaluation/Treatment Medical History Pertinent Medical History: DM, HTN, Smoking Current History The patient is a 45 year-old male with a past medical history of high cholesterol, HTN, and diabetes, who presented to the acute rehabilitation unit following a catastrophic stroke with left sided weakness. The patient's primary language is [place]. Brain MRI: 06/30/21: 1. Acute infarct involving the right periventricular white matter extending inferiorly and lateral to the posterior limb of the right internal capsule within the right posterior basal ganglia. There are T2 and FLAIR hyperintense signal changes at this location, consistent with an area of acute infarct which is not within a few hours of age. 2. Additional foci of T2 and FLAIR hyperintense signal in the subcortical and periventricular white matter which may relate to advanced hypervascular changes for patient age, vasculitis, or possibly demyelinating etiology. Reviewed History: Yes Social History Current Living Status: Spouse Speech PLF/Current-Dysphagia Prior Level of Function The patient and the patient's family reported the patient consumed a regular consistency diet with thin liquids prior to admission. The patient and patient's family denied the presence of s/s of suspected aspiration with the regular consistency foods and liquids. Subjective The patient was seated upright in bed, awake and alert. The patient greeted the clinician appropriately and was agreeable to participation in the clinical bedside swallowing evaluation. As the patient's primary language is [place], the transportation security officer line was utilized by the clinician. Per patient, he "sometimes feels like he may choke on water." The patient denied choking, coughing, or throat clearing on water but stated, "sometimes I just feel like I may." The patient reported the sensation occurs "sometimes, not all the time." The patient also stated he "loses some things" from the left side of his mouth. The patient denied additional concerns with his oropharyngeal swallowing function. Cognitive Status Patient Orientation: Person, Place Oral Motor Skills Dentition: Natural Current Food Consistancy: Dysphagia Soft, Thin Liquids Ability to Follow Directions: Good Oral Expression Ability: No Impairment Voice Voice Phonatory-Based Quality: Normal Voice Pitch: Normal Face Facial Symmetry: Asymmetrical (Left facial droop.) Oral-Facial Assessment Oral-Facial Dentition: Normal Labial Seal Description: Droops Left, Weak (Left) Smile: Droops Left Puff Cheeks: Reduced Strength (Left) Lingual Protrusion: Normal Lingual ROM: Normal Lingual Strength: Abnormal (left) Volitional Dry Swallow: Yes Voluntary Cough: Yes Can Clear Throat Volitionally: Yes Productive Cough: Yes Productive Throat Clear: Yes Dysphagia Evaluation Consistencies Presented: Regular, Thin Liquid, Pureed The patient did not demonstrate anterior spillage, difficulty with bolus formation, or oral pocketing with any consistency tested. The patient does display slightly increased mastication time with solid consistencies. The patient does report anterior spillage throughout P.O. intake, however, this was not demonstrated throughout today's session. The patient does not display s/s of suspected aspiration with thin liquid (via straw- single and multiple drinks), puree or solid consistencies. Dietary Recommendations: Regular Liquid Recommendations: Thin Recommendations: - Dysphagia three consistency diet with thin liquids, as tolerated. - Upright and alert for P.O. intake. - Small, single bites and sips. - Present food and liquid to the strong right labial side for administration. - Assess the left buccal area for pocketing during and following P.O. intake. - Monitor for s/s of suspected aspiration with P.O. intake. If demonstrated, contact speech pathology. The results, recommendations, and safe swallowing strategies were discussed with the patient following the evaluation. The patient reported comprehension and denied additional questions for the clinician at this time. Dysphagia Evaluation Summary The patient demonstrated suspected oropharyngeal dysphagia characterized by reduced left labial strength, coordination, and range of motion resulting in increased mastication time of solid consistencies. At this time, s/s of suspected aspiration were not demonstrated with thin liquid, puree, or regular consistencies provided. Speech Short Term Goals Short Term Goals Short Term Goals 1. The patient will demonstrate oral motor exercises with 90% accuracy, independently. 2. The patient, staff, and family will demonstrate safe swallowing strategies with 90% accuracy. Speech International Trade Compliance Manager Goals International Trade Compliance Manager Goals 1. The patient will demonstrated increased intelligibility (per family members) throughout informal conversation. 2. The patient will tolerate the least restrictive diet without s/s of suspected aspiration. Time Frame: Two Weeks. Speech-Plan Treatment Plan Speech Therapy Treatment Plan: Continue Plan of Care Treatment Duration: Jul 02, 2021 Frequency: Modified Program (IRF) Estimated Hrs Per Day: .5 hour per day Rehab Potential: Fair Safety Risks/Education Teaching Recipient: Patient Teaching Methods: Discussion Response to Teaching: Reinforcement Needed Education Topics Provided: Results of BSE, Safe Swallowing Strategies, Recommendations Time Speech Therapy Time In: 09:05 Speech Therapy Time Out: 09:35 Total Billed Time: 30 Billed Treatment Time 1, MEI VILLARREAL [facility] ST Jul 03, 2021 10:55
--- NOTE | 2021-07-03 12:02 | Physical Therapy Daily Note ---
PT Daily Note-Current Subjective Patient sitting EOB upon entering room. Transfers SCALE: Activities may be completed with or without assistive devices. 6-Avwlxlgfwx-piprptw completes the activity by him/herself with no assistance from a helper. 5-Set-up or Clean-up Assistance-helper sets up or cleans up; patient completes activity. [place] assists only prior to or following the activity. 4-Supervision or Touching Assistance-helper provides verbal cues and/or touching/steadying and/or contact guard assistance as patient completes activity. Assistance may be provided throughout the activity or intermittently. 3-Partial/Moderate Assistance-helper does LESS THAN HALF the effort. [place] lifts, holds or supports trunk or limbs, but provides less than half the effort. 2-Substantial/Maximal Assistance-helper does MORE THAN HALF the effort. [place] lifts or holds trunk or limbs and provides more than half the effort. 1-Afuatbzyy-nsibqw does ALL the effort. Patient does none of the effort to complete the activity. Or, the assistance of 2 or more helpers is required for the patient to complete the activity. If activity was not attempted, code reason: 7-Patient Refused. 9-Not Applicable-not attempted and the patient did not perform the activity before the current illness, exacerbation or injury. 10-Not Attempted due to Environmental Limitations-(lack of equipment, weather restraints, etc.). 88-Not Attempted due to Medical Conditions or Safety Concerns. Sit to Stand (QC): 3 Chair/Jkw-ux-Dmokv Xfer(QC): 3 Weight Bearing Full Weight Bearing Non Weight Bearing Exercises Standing: Sit to Stand, Weight shifts Assessment Patient tolerated treatment well and remains up in w/c with needs met. PT Short Term Goals Short Term Goals Time Frame: Jul 08, 2021 Roll Left & Right: 4 Sit to lyin Lying to sitting on side of be: 4 Sit to stand: 3 Chair/fyy-am-wrsli transfer: 3 Toilet transfer: 3 PT Longterm Goals Longterm Goals PT Longterm Goals Time Frame: July 22, 2021 Roll Left & Right (QC): 6 Sit to Lying (QC): 6 Lying-Sitting on Side/Bed(QC): 6 Sit to Stand (QC): 4 Chair/Nuo-zx-Uaaiq Xfer(QC): 4 Toilet Transfer (QC): 4 Car Transfer (QC): 4 Does the Patient Walk: No and Walking Goal IS indicated Walk 10 feet (QC): 4 Walk 50ft with 2 Turns (QC): 88 Walk 150 ft (QC): 88 Walking 10ft on Uneven Surface: 88 1 Step (curb) (QC): 88 4 Steps (QC): 88 12 Steps (QC): 88 Picking up an Object (QC): 4 Does the Pt use WC or Scooter?: Yes Wheel 50 feet with 2 turns (QC: 6 Type: Manual Wheel 150 feet: 6 Type: Manual PT Plan Treatment/Plan Treatment Plan: Continue Plan of Care Treatment Plan: Bed Mobility, Education, Functional Activity Shaun, Functional Strength, Group Therapy, Gait, Safety, Therapeutic Exercise, Transfers Treatment Duration: July 22, 2021 Frequency: At least 5 of 7 days/Wk (IRF) Estimated Hrs Per Day: 1.5 hours per day Patient and/or Family Agrees t: Yes Time/GCodes Time In: 1140 Time Out: 1155 Total Billed Treatment Time: 15 Total Billed Treatment 1 visit EX 15 min VICKY RUIZ PT Jul 03, 2021 12:02
[2021-07-03] MEDS: polyethylene glycoL POWDER 17 GM (MIRALAX) PACK PO SCH ×2 (12:17→19:42)
[2021-07-03] MEDS: SENNOSIDES 8.6 MG (SENOKOT) TAB PO SCH ×2 (12:17→19:42)
[2021-07-03] MEDS: DOCUSATE SODIUM 100 MG (COLACE) CAP PO SCH ×2 (12:17→19:42)
[2021-07-03 14:14] VITALS: BP 155/87
[2021-07-03] MEDS: ENOXAPARIN 40 MG/0.4 ML (LOVENOX) SYR SC SCH (14:16)
[2021-07-03] MEDS: ASPIRIN 81 MG CHEW (CHILDREN'S ASA) PO SCH (14:16)
[2021-07-03 19:12] VITALS: BP 132/80
[2021-07-04] MEDS: inSUlin ASPART (NovoLOG) 1 UNIT/0.01 ML (CHARGE PER UNIT) SC SCH ×4 (05:33→20:56)
--- NOTE | 2021-07-04 05:54 | PM&R Progress Note ---
Subjective HPI/CC On Admission Date Seen by Provider: Jul 04, 2021 Time Seen by Provider: 06:00 Subjective/Events-last exam 07/04/2021: Patient doing well Left-sided weakness is profound DC the catheter yesterday and voiding well No pain reported 07/03/21: Patient doing well Sugar reviewed BP improved on multiple meds DC Catheter today 07/02/21: Patient tolerating everything pretty well Blood pressure improved Blood sugars improved Wheelchair mobility training Review of Systems General: Fatigue, Malaise Neurological: Weakness, Incoordination Objective Exam Vital Signs Vital Signs Date Time Temp Pulse Resp B/P (MAP) Pulse Ox O2 Delivery O2 Flow Rate FiO2 07/04/21 12:50 79 07/04/21 08:47 Room Air 07/04/21 07:30 36.6 20 134/87 (103) 97 Capillary Refill : General Appearance: No Apparent Distress, WD/WN, Obese HEENT: PERRL/EOMI, Normal ENT Inspection, Pharynx Normal Neck: Full Range of Motion, Normal Inspection, Non Tender, Supple, Carotid Bruit Respiratory: Chest Non Tender, Lungs Clear, Normal Breath Sounds, No Accessory Muscle Use, No Respiratory Distress Cardiovascular: Regular Rate, Rhythm, No Edema, No Gallop, No JVD, No Murmur, Normal Peripheral Pulses Gastrointestinal: Normal Bowel Sounds, No Organomegaly, No Pulsatile Mass, Non Tender, Soft Back: Normal Inspection, No CVA Tenderness, No Vertebral Tenderness Extremity: Normal Capillary Refill, Normal Inspection, Normal Range of Motion, Non Tender, No Calf Tenderness, No Pedal Edema Neurologic/Psychiatric: Alert, Oriented x3, Normal Mood/Affect, doula II-XII Norm as 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 FIM Transfers Therapy Code Descriptions/Definitions Functional [place] Measure: 0=Not Assessed/NA 4=Minimal Assistance 1=Total Assistance 5=Supervision or Setup 2=Maximal Assistance 6=Modified [place] 3=Moderate Assistance 7=Complete IndependenceSCALE: Activities may be completed with or without assistive devices. 6-Yjbhkkglzz-iksiiyu completes the activity by him/herself with no assistance from a helper. 5-Set-up or Clean-up Assistance-helper sets up or cleans up; patient completes activity. [place] assists only prior to or following the activity. 4-Supervision or Touching Assistance-helper provides verbal cues and/or touching/steadying and/or contact guard assistance as patient completes activity. Assistance may be provided throughout the activity or intermittently. 3-Partial/Moderate Assistance-helper does LESS THAN HALF the effort. [place] lifts, holds or supports trunk or limbs, but provides less than half the effort. 2-Substantial/Maximal Assistance-helper does MORE THAN HALF the effort. [place] lifts or holds trunk or limbs and provides more than half the effort. 9-Ymvztniyo-uwsjoe does ALL the effort. Patient does none of the effort to complete the activity. Or, the assistance of 2 or more helpers is required for the patient to complete the activity. If activity was not attempted, code reason: 7-Patient Refused. 9-Not Applicable-not attempted and the patient did not perform the activity before the current illness, exacerbation or injury. 10-Not Attempted due to Environmental Limitations-(lack of equipment, weather restraints, etc.). 88-Not Attempted due to Medical Conditions or Safety Concerns. Roll Left to Right (QC): 3 Sit to Lying (QC): 3 Sit to Stand (QC): 3 Chair/Kio-yk-Kzron Xfer(QC): 3 Car Transfer (QC): 88 Gait Training Does the Patient Walk?: No and Walking Goal NOT indicated Distance: 5' Walk 10 feet (QC): 88 Walk 50 ft with 2 Turns(QC): 88 Walk 150 ft (QC): 88 Walking 10ft/uneven surface-QC: 88 Gait Persons Needed: 2 Gait Assistive Device: Parallel Bars Wheelchair Training Does the Pt Use a Wheelchair?: Yes Wheel 50 ft with 2 turns (QC): 4 Wheel 150 ft (QC): 4 Type of Wheelchair: Manual Stair Training 1 Step (curb) (QC): 88 4 Steps (QC): 88 12 Steps (QC): 88 Balance Picking up an Object (QC): 88 ADL-Treatment Eating (QC): 4 (per clinical judgment) Oral Hygiene (QC): 4 Shower/Bathe Self (QC): 1 Upper Body Dressing (QC): 3 Lower Body Dressing (QC): 1 On/Off Footwear (QC): 3 Toileting Hygiene (QC): 1 (delgado catheter) Assessment/Plan Assessment and Plan Assess & Plan/Chief Complaint Assessment: CVA with left-sided weakness catastrophic type Hypertension severe Hyperlipidemia Hyperglyceridemia Obesity BMI 30 New onset diabetes hemoglobin A1c 9.7 Smoker Plan: Inpatient rehab protocol Supportive care Insulin Blood pressure management 07/02/2021: Increase blood pressure meds Supportive care 07/03/21: DC catheter 07/04/2021: Aggressive therapy (1) CVA (cerebral vascular accident) Status: Acute TITUS KENT DO Jul 04, 2021 05:54
[2021-07-04] MEDS: glyBURIDE 2.5 MG (MICRONASE) TAB PO SCH (07:00)
[2021-07-04 07:30] VITALS: BP 134/87
[2021-07-04] MEDS: amLODIPine 5 MG (NORVASC) TAB PO SCH ×2 (08:27→20:56)
[2021-07-04] MEDS: LOSARTAN 50 MG (COZAAR) TAB PO SCH (08:27)
[2021-07-04] MEDS: hydrALAZINE (APRESOLINE) 25 MG TAB PO SCH ×3 (08:27→20:56)
[2021-07-04] MEDS: SENNOSIDES 8.6 MG (SENOKOT) TAB PO SCH ×2 (08:27→20:57)
--- NOTE | 2021-07-04 09:57 | Physical Therapy Daily Note ---
PT Daily Note-Current Subjective Pt. in bed, agrees to PT, denies pain. Transfers SCALE: Activities may be completed with or without assistive devices. 4-Eejamkatkg-rvewcef completes the activity by him/herself with no assistance from a helper. 5-Set-up or Clean-up Assistance-helper sets up or cleans up; patient completes activity. [place] assists only prior to or following the activity. 4-Supervision or Touching Assistance-helper provides verbal cues and/or touching/steadying and/or contact guard assistance as patient completes activity. Assistance may be provided throughout the activity or intermittently. 3-Partial/Moderate Assistance-helper does LESS THAN HALF the effort. [place] lifts, holds or supports trunk or limbs, but provides less than half the effort. 2-Substantial/Maximal Assistance-helper does MORE THAN HALF the effort. [place] lifts or holds trunk or limbs and provides more than half the effort. 9-Mxjnrzbvw-zbuhig does ALL the effort. Patient does none of the effort to complete the activity. Or, the assistance of 2 or more helpers is required for the patient to complete the activity. If activity was not attempted, code reason: 7-Patient Refused. 9-Not Applicable-not attempted and the patient did not perform the activity before the current illness, exacerbation or injury. 10-Not Attempted due to Environmental Limitations-(lack of equipment, weather restraints, etc.). 88-Not Attempted due to Medical Conditions or Safety Concerns. Lying to Sitting/Side of Bed(Q: 4 Sit to Stand (QC): 3 Chair/Qza-wl-Shgzc Xfer(QC): 3 Weight Bearing Full Weight Bearing Non Weight Bearing Gait Training Does the Patient Walk?: No and Walking Goal IS indicated Treatments transfers, sit to testing consultant // bars and weight shifting, w/c mobility Assessment Current Status: Good Progress Pt. continues to be mod A with SPT bed to/from chair or w/c. Pt. is able to self-propel w/c to gym. He completed sit to testing consultant // bars x 2 with approximately 2 minutes of standing, working on weightshifts to the L. Therapist occasional blocking of L knee to prevent buckling and to keep L UE on // bar. Pt. has no observable active movement in L upper or lower extremities during session. Pt. returned to room, SPT w/c to chair. Pt. with call light, legs elevated, L UE positioned on pillow and all needs met post session PT Short Term Goals Short Term Goals Time Frame: Jul 08, 2021 Roll Left & Right: 4 Sit to lyin Lying to sitting on side of be: 4 Sit to stand: 3 Chair/dkx-nf-lhohu transfer: 3 Toilet transfer: 3 PT Play Leader Goals Play Leader Goals PT Play Leader Goals Time Frame: July 22, 2021 Roll Left & Right (QC): 6 Sit to Lying (QC): 6 Lying-Sitting on Side/Bed(QC): 6 Sit to Stand (QC): 4 Chair/Jpr-ni-Bzsug Xfer(QC): 4 Toilet Transfer (QC): 4 Car Transfer (QC): 4 Does the Patient Walk: No and Walking Goal IS indicated Walk 10 feet (QC): 4 Walk 50ft with 2 Turns (QC): 88 Walk 150 ft (QC): 88 Walking 10ft on Uneven Surface: 88 1 Step (curb) (QC): 88 4 Steps (QC): 88 12 Steps (QC): 88 Picking up an Object (QC): 4 Does the Pt use WC or Scooter?: Yes Wheel 50 feet with 2 turns (QC: 6 Type: Manual Wheel 150 feet: 6 Type: Manual PT Plan Treatment/Plan Treatment Plan: Continue Plan of Care Treatment Plan: Bed Mobility, Education, Functional Activity Shaun, Functional Strength, Group Therapy, Gait, Safety, Therapeutic Exercise, Transfers Treatment Duration: July 22, 2021 Frequency: At least 5 of 7 days/Wk (IRF) Estimated Hrs Per Day: 1.5 hours per day Patient and/or Family Agrees t: Yes Time/GCodes Time In: 908 Time Out: 931 Total Billed Treatment Time: 23 Total Billed Treatment 1, FA 23' SEVEN COLLIER PT Jul 04, 2021 09:57
[2021-07-04] MEDS: DOCUSATE SODIUM 100 MG (COLACE) CAP PO SCH ×2 (09:58→20:56)
[2021-07-04] MEDS: polyethylene glycoL POWDER 17 GM (MIRALAX) PACK PO SCH ×2 (09:58→20:57)
[2021-07-04] MEDS: ENOXAPARIN 40 MG/0.4 ML (LOVENOX) SYR SC SCH (12:40)
[2021-07-04] MEDS: ASPIRIN 81 MG CHEW (CHILDREN'S ASA) PO SCH (13:41)
[2021-07-04 20:14] VITALS: BP 137/80
--- NOTE | 2021-07-05 06:04 | PM&R Progress Note ---
Subjective HPI/CC On Admission Date Seen by Provider: Jul 05, 2021 Time Seen by Provider: 06:00 Subjective/Events-last exam 07/05/21: Patient seems to be doing well Blood sugars reviewed Blood pressures reviewed No falls 07/04/2021: Patient doing well Left-sided weakness is profound DC the catheter yesterday and voiding well No pain reported 07/03/21: Patient doing well Sugar reviewed BP improved on multiple meds DC Catheter today 07/02/21: Patient tolerating everything pretty well Blood pressure improved Blood sugars improved Wheelchair mobility training Review of Systems General: Fatigue, Malaise Neurological: Weakness Objective Exam Vital Signs Vital Signs Date Time Temp Pulse Resp B/P (MAP) Pulse Ox O2 Delivery O2 Flow Rate FiO2 07/05/21 07:30 36.8 75 20 130/88 (102) 98 Room Air Capillary Refill : General Appearance: No Apparent Distress, WD/WN, Obese HEENT: PERRL/EOMI, Normal ENT Inspection, Pharynx Normal Neck: Full Range of Motion, Normal Inspection, Non Tender, Supple, Carotid Bruit Respiratory: Chest Non Tender, Lungs Clear, Normal Breath Sounds, No Accessory Muscle Use, No Respiratory Distress Cardiovascular: Regular Rate, Rhythm, No Edema, No Gallop, No JVD, No Murmur, Normal Peripheral Pulses Gastrointestinal: Normal Bowel Sounds, No Organomegaly, No Pulsatile Mass, Non Tender, Soft Back: Normal Inspection, No CVA Tenderness, No Vertebral Tenderness Extremity: Normal Capillary Refill, Normal Inspection, Normal Range of Motion, Non Tender, No Calf Tenderness, No Pedal Edema Neurologic/Psychiatric: Alert, Oriented x3, Normal Mood/Affect, vet tech II-XII Norm as 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 FIM Transfers Therapy Code Descriptions/Definitions Functional [place] Measure: 0=Not Assessed/NA 4=Minimal Assistance 1=Total Assistance 5=Supervision or Setup 2=Maximal Assistance 6=Modified [place] 3=Moderate Assistance 7=Complete IndependenceSCALE: Activities may be completed with or without assistive devices. 2-Ztduymghwy-vfkmeub completes the activity by him/herself with no assistance from a helper. 5-Set-up or Clean-up Assistance-helper sets up or cleans up; patient completes activity. [place] assists only prior to or following the activity. 4-Supervision or Touching Assistance-helper provides verbal cues and/or touching/steadying and/or contact guard assistance as patient completes activity. Assistance may be provided throughout the activity or intermittently. 3-Partial/Moderate Assistance-helper does LESS THAN HALF the effort. [place] lifts, holds or supports trunk or limbs, but provides less than half the effort. 2-Substantial/Maximal Assistance-helper does MORE THAN HALF the effort. [place] lifts or holds trunk or limbs and provides more than half the effort. 6-Pacjwasam-ydglvk does ALL the effort. Patient does none of the effort to complete the activity. Or, the assistance of 2 or more helpers is required for the patient to complete the activity. If activity was not attempted, code reason: 7-Patient Refused. 9-Not Applicable-not attempted and the patient did not perform the activity before the current illness, exacerbation or injury. 10-Not Attempted due to Environmental Limitations-(lack of equipment, weather restraints, etc.). 88-Not Attempted due to Medical Conditions or Safety Concerns. Roll Left to Right (QC): 3 Sit to Lying (QC): 3 Sit to Stand (QC): 3 Chair/Cai-el-Xldto Xfer(QC): 3 Car Transfer (QC): 88 Gait Training Does the Patient Walk?: No and Walking Goal IS indicated Distance: 5' Walk 10 feet (QC): 88 Walk 50 ft with 2 Turns(QC): 88 Walk 150 ft (QC): 88 Walking 10ft/uneven surface-QC: 88 Gait Persons Needed: 2 Gait Assistive Device: Parallel Bars Wheelchair Training Does the Pt Use a Wheelchair?: Yes Wheel 50 ft with 2 turns (QC): 4 Wheel 150 ft (QC): 4 Type of Wheelchair: Manual Stair Training 1 Step (curb) (QC): 88 4 Steps (QC): 88 12 Steps (QC): 88 Balance Picking up an Object (QC): 88 ADL-Treatment Eating (QC): 4 (per clinical judgment) Oral Hygiene (QC): 4 Shower/Bathe Self (QC): 1 Upper Body Dressing (QC): 3 Lower Body Dressing (QC): 1 On/Off Footwear (QC): 3 Toileting Hygiene (QC): 1 (delgado catheter) Assessment/Plan Assessment and Plan Assess & Plan/Chief Complaint Assessment: CVA with left-sided weakness catastrophic type Hypertension severe Hyperlipidemia Hyperglyceridemia Obesity BMI 30 New onset diabetes hemoglobin A1c 9.7 Smoker Plan: Inpatient rehab protocol Supportive care Insulin Blood pressure management 07/02/2021: Increase blood pressure meds Supportive care 07/03/21: DC catheter 07/04/2021: Aggressive therapy 07/05/2021: Supportive care Blood sugar blood pressure improved (1) CVA (cerebral vascular accident) Status: Acute TITUS KENT DO Jul 05, 2021 06:04
[2021-07-05 07:30] VITALS: BP 130/88
[2021-07-05] MEDS: hydrALAZINE (APRESOLINE) 25 MG TAB PO SCH ×3 (08:39→21:35)
[2021-07-05] MEDS: inSUlin ASPART (NovoLOG) 1 UNIT/0.01 ML (CHARGE PER UNIT) SC SCH ×4 (08:39→21:34)
[2021-07-05] MEDS: amLODIPine 5 MG (NORVASC) TAB PO SCH ×2 (08:39→21:35)
[2021-07-05] MEDS: glyBURIDE 2.5 MG (MICRONASE) TAB PO SCH (08:39)
[2021-07-05] MEDS: LOSARTAN 50 MG (COZAAR) TAB PO SCH (08:39)
[2021-07-05] MEDS: polyethylene glycoL POWDER 17 GM (MIRALAX) PACK PO SCH ×2 (12:02→21:37)
[2021-07-05] MEDS: DOCUSATE SODIUM 100 MG (COLACE) CAP PO SCH ×2 (12:02→21:36)
[2021-07-05] MEDS: SENNOSIDES 8.6 MG (SENOKOT) TAB PO SCH ×2 (12:03→21:37)
[2021-07-05] MEDS: ENOXAPARIN 40 MG/0.4 ML (LOVENOX) SYR SC SCH (13:11)
[2021-07-05] MEDS: ASPIRIN 81 MG CHEW (CHILDREN'S ASA) PO SCH (13:11)
[2021-07-05 20:05] VITALS: BP 154/90
[2021-07-06 05:49] LABS: BASOPHILS % (AUTO) 1 % (0-10); EOSINOPHILS # (AUTO) 0.6 10^3/uL (0.0-0.3); EOSINOPHILS % (AUTO) 7 % (0-10); HEMATOCRIT 46 % (40-54); LYMPHOCYTES # (AUTO) 3.1 10^3/uL (1.0-4.0); LYMPHOCYTES % (AUTO) 36 % (12-44); MEAN CORPUSCULAR HEMOGLOBIN 27 pg (25-34); MEAN CORPUSCULAR HGB CONC 33 g/dL (32-36); MEAN CORPUSCULAR VOLUME 81 fL (80-99); MEAN PLATELET VOLUME 9.4 fL (9.0-12.2); MONOCYTES # (AUTO) 0.6 10^3/uL (0.0-1.0); MONOCYTES % (AUTO) 7 % (0-12); NEUTROPHILS # (AUTO) 4.3 10^3/uL (1.8-7.8); NEUTROPHILS % (AUTO) 49 % (42-75); PLATELET COUNT 304 10^3/uL (130-400); WHITE BLOOD COUNT 8.7 10^3/uL (4.3-11.0)
[2021-07-06 06:05] LABS: POTASSIUM 4.1 MMOL/L (3.6-5.0)
[2021-07-06 06:06] LABS: CALCIUM 9.4 MG/DL (8.5-10.1)
[2021-07-06 06:07] LABS: TOTAL PROTEIN 6.8 GM/DL (6.4-8.2)
[2021-07-06 06:09] LABS: BILIRUBIN,TOTAL 0.6 MG/DL (0.1-1.0)
[2021-07-06 06:11] LABS: CREATININE SERUM 0.74 MG/DL (0.60-1.30)
--- NOTE | 2021-07-06 06:14 | PM&R Progress Note ---
Subjective HPI/CC On Admission Date Seen by Provider: Jul 06, 2021 Time Seen by Provider: 09:30 Subjective/Events-last exam 07/06/21: Patient doing well Monitor closely No pain reported Checked meds and labs 07/05/21: Patient seems to be doing well Blood sugars reviewed Blood pressures reviewed No falls 07/04/2021: Patient doing well Left-sided weakness is profound DC the catheter yesterday and voiding well No pain reported 07/03/21: Patient doing well Sugar reviewed BP improved on multiple meds DC Catheter today 07/02/21: Patient tolerating everything pretty well Blood pressure improved Blood sugars improved Wheelchair mobility training Review of Systems General: Fatigue, Malaise Objective Exam Vital Signs Vital Signs Date Time Temp Pulse Resp B/P (MAP) Pulse Ox O2 Delivery O2 Flow Rate FiO2 07/07/21 01:22 76 07/06/21 20:30 Room Air 07/06/21 20:06 37.2 20 136/87 (103) 97 Capillary Refill : General Appearance: No Apparent Distress, WD/WN, Obese HEENT: PERRL/EOMI, Normal ENT Inspection, Pharynx Normal Neck: Full Range of Motion, Normal Inspection, Non Tender, Supple, Carotid Bruit Respiratory: Chest Non Tender, Lungs Clear, Normal Breath Sounds, No Accessory Muscle Use, No Respiratory Distress Cardiovascular: Regular Rate, Rhythm, No Edema, No Gallop, No JVD, No Murmur, Normal Peripheral Pulses Gastrointestinal: Normal Bowel Sounds, No Organomegaly, No Pulsatile Mass, Non Tender, Soft Back: Normal Inspection, No CVA Tenderness, No Vertebral Tenderness Extremity: Normal Capillary Refill, Normal Inspection, Normal Range of Motion, Non Tender, No Calf Tenderness, No Pedal Edema Neurologic/Psychiatric: Alert, Oriented x3, Normal Mood/Affect, sealant mixer II-XII Norm as 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 FIM Transfers Therapy Code Descriptions/Definitions Functional [place] Measure: 0=Not Assessed/NA 4=Minimal Assistance 1=Total Assistance 5=Supervision or Setup 2=Maximal Assistance 6=Modified [place] 3=Moderate Assistance 7=Complete IndependenceSCALE: Activities may be completed with or without assistive devices. 4-Vwumbfeika-pxmjxgz completes the activity by him/herself with no assistance from a helper. 5-Set-up or Clean-up Assistance-helper sets up or cleans up; patient completes activity. [place] assists only prior to or following the activity. 4-Supervision or Touching Assistance-helper provides verbal cues and/or touching/steadying and/or contact guard assistance as patient completes activity. Assistance may be provided throughout the activity or intermittently. 3-Partial/Moderate Assistance-helper does LESS THAN HALF the effort. [place] lifts, holds or supports trunk or limbs, but provides less than half the effort. 2-Substantial/Maximal Assistance-helper does MORE THAN HALF the effort. [place] lifts or holds trunk or limbs and provides more than half the effort. 3-Oikaotnzv-javiio does ALL the effort. Patient does none of the effort to complete the activity. Or, the assistance of 2 or more helpers is required for the patient to complete the activity. If activity was not attempted, code reason: 7-Patient Refused. 9-Not Applicable-not attempted and the patient did not perform the activity before the current illness, exacerbation or injury. 10-Not Attempted due to Environmental Limitations-(lack of equipment, weather restraints, etc.). 88-Not Attempted due to Medical Conditions or Safety Concerns. Roll Left to Right (QC): 3 Sit to Lying (QC): 3 Sit to Stand (QC): 3 Chair/Qic-wq-Looaz Xfer(QC): 3 Car Transfer (QC): 88 Gait Training Does the Patient Walk?: No and Walking Goal IS indicated Distance: 5' Walk 10 feet (QC): 88 Walk 50 ft with 2 Turns(QC): 88 Walk 150 ft (QC): 88 Walking 10ft/uneven surface-QC: 88 Gait Persons Needed: 2 Gait Assistive Device: Parallel Bars Wheelchair Training Does the Pt Use a Wheelchair?: Yes Wheel 50 ft with 2 turns (QC): 4 Wheel 150 ft (QC): 4 Type of Wheelchair: Manual Stair Training 1 Step (curb) (QC): 88 4 Steps (QC): 88 12 Steps (QC): 88 Balance Picking up an Object (QC): 88 ADL-Treatment Eating (QC): 4 (per clinical judgment) Oral Hygiene (QC): 4 Shower/Bathe Self (QC): 1 Upper Body Dressing (QC): 3 Lower Body Dressing (QC): 1 On/Off Footwear (QC): 3 Toileting Hygiene (QC): 1 (delgado catheter) Assessment/Plan Assessment and Plan Assess & Plan/Chief Complaint Assessment: CVA with left-sided weakness catastrophic type Hypertension severe Hyperlipidemia Hyperglyceridemia Obesity BMI 30 New onset diabetes hemoglobin A1c 9.7 Smoker Plan: Inpatient rehab protocol Supportive care Insulin Blood pressure management 07/02/2021: Increase blood pressure meds Supportive care 07/03/21: DC catheter 07/04/2021: Aggressive therapy 07/05/2021: Supportive care Blood sugar blood pressure improved 07/06/21: BP improved Monitor closely (1) CVA (cerebral vascular accident) Status: Acute TITUS KENT DO Jul 06, 2021 06:14
[2021-07-06] MEDS: inSUlin ASPART (NovoLOG) 1 UNIT/0.01 ML (CHARGE PER UNIT) SC SCH ×4 (06:15→20:18)
[2021-07-06] MEDS: glyBURIDE 2.5 MG (MICRONASE) TAB PO SCH ×2 (06:36→20:14)
[2021-07-06 08:00] VITALS: BP 153/84
[2021-07-06] MEDS: amLODIPine 5 MG (NORVASC) TAB PO SCH ×2 (09:01→20:14)
[2021-07-06] MEDS: hydrALAZINE (APRESOLINE) 25 MG TAB PO SCH ×3 (09:01→20:15)
[2021-07-06] MEDS: LOSARTAN 50 MG (COZAAR) TAB PO SCH (09:01)
[2021-07-06] MEDS: DOCUSATE SODIUM 100 MG (COLACE) CAP PO SCH ×2 (09:02→20:22)
[2021-07-06] MEDS: polyethylene glycoL POWDER 17 GM (MIRALAX) PACK PO SCH ×2 (09:03→20:22)
[2021-07-06] MEDS: SENNOSIDES 8.6 MG (SENOKOT) TAB PO SCH ×2 (09:03→20:22)
--- NOTE | 2021-07-06 09:56 | Occupational Ther Daily Note ---
OT Current Status-Daily Note Subjective Pt requests shower, reports mild discomfort in back of neck. Co-treat with PT for part of session secondary to poor balance, high fall risk, impulsivity, poor coordination and the need of 2 skilled clinicians to progress indep and safety with adls and mobility. Appearance Pt left sitting in recliner, all needs within reach at therapy departure. Mental Status/Objective Patient Orientation: Person, Place, Situation Attachments: Telemetry ADL-Treatment Therapy Code Descriptions/Definitions Functional [place] Measure: 0=Not Assessed/NA 4=Minimal Assistance 1=Total Assistance 5=Supervision or Setup 2=Maximal Assistance 6=Modified [place] 3=Moderate Assistance 7=Complete IndependenceSCALE: Activities may be completed with or without assistive devices. 0-Xlddtieffw-itsanlp completes the activity by him/herself with no assistance from a helper. 5-Set-up or Clean-up Assistance-helper sets up or cleans up; patient completes activity. [place] assists only prior to or following the activity. 4-Supervision or Touching Assistance-helper provides verbal cues and/or touching/steadying and/or contact guard assistance as patient completes activity. Assistance may be provided throughout the activity or intermittently. 3-Partial/Moderate Assistance-helper does LESS THAN HALF the effort. [place] lifts, holds or supports trunk or limbs, but provides less than half the effort. 2-Substantial/Maximal Assistance-helper does MORE THAN HALF the effort. [place] lifts or holds trunk or limbs and provides more than half the effort. 1-Burkuaeln-mogavn does ALL the effort. Patient does none of the effort to complete the activity. Or, the assistance of 2 or more helpers is required for the patient to complete the activity. If activity was not attempted, code reason: 7-Patient Refused. 9-Not Applicable-not attempted and the patient did not perform the activity before the current illness, exacerbation or injury. 10-Not Attempted due to Environmental Limitations-(lack of equipment, weather restraints, etc.). 88-Not Attempted due to Medical Conditions or Safety Concerns. Eating (QC): 5 Oral Hygiene (QC): 4 Shower/Bathe Self (QC): 3 Upper Body Dressing (QC): 3 Lower Body Dressing (QC): 1 On/Off Footwear: 3 Toileting Hygiene (QC): 1 Toilet Transfer (QC): 2 At therapy arrival pt attempting to get out of bed, requests to use toilet. Stand pivot bed>w/c with mod-max a. Assist x2 for clothing management pre/post toileting. Pt able to perform cristo care with use of RUE. Poor awareness of LUE during transfers. Pt does not appear to have subluxed shoulder at this time. To maintain shoulder stability/safety, OT provides him with a sling and educates on him wearing during transfers/standing only. Note written on write board and nurse also educated. Shower performed; 100% completed in sitting (shower w/c). Good recall on compensatory strategies/sha techniques pt learned in past sessions. To reduce impulsive bending and chance of fall, OT provides pt with LHS to reach/wash feet. Intermittent CGA for balance safety as pt still slightly impulsive and attempts to bend too far forward. Further education will be need ed. Pt able to use LHS to reach backside with lateral pelvic lean to L and min a for balance. LUE continues to be flaccid, thus Assist needed to adduct/lift L arm as he washes axilla area. Clothing donned seated in chair. Reminders on slowing pace and threading L sleeve completely up to shoulder before bringing overhead. Min a for positioning of L arm when threading through clothing. Pt able to complete 3 remaining steps without assist. Assist to lift, cross and maintain LE into figure 4 position as he threaded foot into underwear/pant. Mod a to stand as second person pulled clothing over hips. With assist to sustain foot over contralateral knee, pt able to don sock with extra time and visual reminder on sha technique. Oral care completed at seated level with cues on set up and using LUE as stabilizer. Other Treatment Pt participated in several seated activities at EOM with focus on weightbearing through Left upper and lower extremity. Pt reached anteriorly and then across midline with RUE in order to place resistant clothespins onto bar. Intermittent Min a for seated balance and cues/assist for correct positioning of feet. HOHA to maintain positioning of LUE throughout all activities as it continues to have no active movement; flaccid. OT facilitated scapula mobilizations for elevation/depression and protraction/retraction at seated level, 6x1 each as PT focused on seated balance, posture, and positioning. Pt completed weightbearing through bilateral elbows with lateral leans, 10 x1 each side. Education OT Patient Education: Correct positioning, Energy conservation, Instructions don/doff splint/brace, Modified ADL techniques, Progress toward Goal/Update tx plan, Purpose of tx/functional activities, Reviewed precautions, Rehab process, Safety issues, Transfer techniques, W/C management Teaching Recipient: Patient Teaching Methods: Demonstration, Discussion Response to Teaching: Verbalize Understanding, Return Demonstration, Reinforcement Needed OT Short Term Goals Short Term Goals Time Frame: Jul 11, 2021 Eatin Oral hygiene: 5 Toileting hygiene: 2 Shower/bathe self: 2 Upper body dressin Lower body dressin Putting on/taking off footwear: 3 OT Intermediate Goals Intermediate Goals Time Frame: July 29, 2021 Eating (QC): 6 Oral Hygiene (QC): 6 Toileting Hygiene (QC): 6 Shower/Bathe Self (QC): 5 Upper Body Dressing (QC): 5 Lower Body Dressing (QC): 5 On/Off Footwear (QC): 5 1=Demonstrate adherence to instructed precautions during ADL tasks. 2=Patient will verbalize/demonstrate understanding of assistive devices/modifications for ADL. 3=Patient will improve strength/tolerance for activity to enable patient to perform ADL's. OT Education/Plan Problem List/Assessment Assessment: Decreased Activ Tolerance, Decreased Safety Aware, Decreased UE Strength, Dependent Transfers, Impaired Cognition, Impaired Coordination, Impaired Funct Balance, Impaired I ADL's, Impaired Self-Care Skills, Restricted Funct UE ROM Discharge Recommendations Plan/Recommendations: Continue POC Therapy Discharge Recommendati: Post Acute OT Treatment Plan/Plan of Care Treatment,Training & Education: Yes Patient would benefit from OT for education, treatment and training to promote independence in ADL's, mobility, safety and/or upper extremity function for ADL's. Plan of Care: ADL Retraining, Cognitive Retraining, Functional Mobility, Group Exercise/Act as Ind, UE Funct Exercise/Act, UE Neuromus Re-Ed/Coord, W/C Management Training Treatment Duration: July 29, 2021 Frequency: At least 5 of 7 days/Wk (IRF) Estimated Hrs Per Day: 1.5 hours per day (60-90 min/day) Agreement: Yes Rehab Potential: Fair Time/GCodes Start Time: 07:30 Stop Time: 09:00 Total Time Billed (hr/min): 90 Billed Treatment Time 1 visit ADL x4 (55 min) FA (20 min) NM (15 min) Samantha Valverde OT Jul 06, 2021 09:56
--- NOTE | 2021-07-06 10:23 | Speech Therapy Daily Note ---
Speech Daily Progress Note Subjective Date Seen by Provider: Jul 06, 2021 Time Seen by Provider: 09:00 The patient was seated upright in his recliner, awake and alert upon entrance to his room by the clinician. The patient greeted the clinician appropriately and was agreeable to participation in the cognitive linguistic and dysphagia treatment session. Objective - The patient completed spontaneous conversation appropriately with his family member via phone. Additionally, the patient responded appropriately the questions asked by the medical student and the clinician. Per patient, when he first arrived, his mouth was "sideways" and he was "talking funny." The patient stated "that is doing much better and is more controlled now." - The patient's safe swallowing strategies were reviewed and the patient's overall progress with his oropharyngeal swallow. The patient consumed small, single drinks from his cup via straw. Additionally, the patient consumed three large, consecutive drinks via straw. Per patient, "Sometimes it feels like I am going to choke. It goes better on the right." The patient was encouraged to continue to direct administration to the right, strong labial side. The patient does not demonstrate s/s of suspected aspiration on this date but does refer to "choking." Due to this and the location of the patient's stroke (basal ganglia), speech pathology recommends a modified barium swallow. A modified barium swallow order was placed and scheduled for , 07/09/21 at 10:15. Assessment Assessment Current Status: Fair Progress Treatment Plan Continue Plan of Care Speech Short Term Goals Short Term Goals Short Term Goals 1. The patient will demonstrate oral motor exercises with 90% accuracy, independently. 2. The patient, staff, and family will demonstrate safe swallowing strategies with 90% accuracy. Speech Snf Goals Snf Goals 1. The patient will demonstrated increased intelligibility (per family members) throughout informal conversation. 2. The patient will tolerate the least restrictive diet without s/s of suspected aspiration. Time Frame: Two Weeks. Speech-Plan Treatment Plan Speech Therapy Treatment Plan: Continue Plan of Care Treatment Duration: Jul 02, 2021 Frequency: Modified Program (IRF) Estimated Hrs Per Day: .5 hour per day Rehab Potential: Fair Safety Risks/Education Teaching Recipient: Patient Teaching Methods: Discussion Response to Teaching: Reinforcement Needed Education Topics Provided: Safe Swallowing Strategies, Modified Barium Swallow Time Speech Therapy Time In: 09:00 Speech Therapy Time Out: 09:30 Total Billed Time: 30 Billed Treatment Time 1, MEI, STEPHEN Romero Jul 06, 2021 10:23
--- NOTE | 2021-07-06 11:15 | Progress Note ---
HALEY BENZ 07/06/21 1115: Progress Note The patient was sitting in his chair this morning and was in good spirits. Telephone cleaner industrial helped assist with the conversation. He reports since being in inpatient rehab, that he has better control of his mouth, and that he is able to speak better. HREA KENT DO 07/06/212050: Supervisory-Addendum Brief Verification & Attestation Participated in pt care: history, MDM, physical Personally performed: exam, history, MDM, supervision of care Care discussed with: Medical Student Procedures: n/a Results interpretation: Verified all documentation Verification and Attestation of Medical Student E/M Service A medical student performed and documented this service in my presence. I reviewed and verified all information documented by the medical student and made modifications to such information, when appropriate. I personally performed the physical exam and medical decision making. Rhea Kent, Jul 06, 2021,20:51 HALEY BENZ Jul 06, 2021 11:15 RHEA KENT DO Jul 06, 2021 20:51
--- NOTE | 2021-07-06 13:04 | Physical Therapy Daily Note ---
PT Daily Note-Current Subjective Patient sitting in w/c with OT in room upon PT arrival, agreeable to treatment. Transfers SCALE: Activities may be completed with or without assistive devices. 9-Doyqewanaw-uiubmlz completes the activity by him/herself with no assistance from a helper. 5-Set-up or Clean-up Assistance-helper sets up or cleans up; patient completes activity. [place] assists only prior to or following the activity. 4-Supervision or Touching Assistance-helper provides verbal cues and/or touching/steadying and/or contact guard assistance as patient completes activity. Assistance may be provided throughout the activity or intermittently. 3-Partial/Moderate Assistance-helper does LESS THAN HALF the effort. [place] lifts, holds or supports trunk or limbs, but provides less than half the effort. 2-Substantial/Maximal Assistance-helper does MORE THAN HALF the effort. [place] lifts or holds trunk or limbs and provides more than half the effort. 3-Wcemkzbtu-jdqgex does ALL the effort. Patient does none of the effort to complete the activity. Or, the assistance of 2 or more helpers is required for the patient to complete the activity. If activity was not attempted, code reason: 7-Patient Refused. 9-Not Applicable-not attempted and the patient did not perform the activity before the current illness, exacerbation or injury. 10-Not Attempted due to Environmental Limitations-(lack of equipment, weather restraints, etc.). 88-Not Attempted due to Medical Conditions or Safety Concerns. Sit to Stand (QC): 3 Chair/Kxf-he-Otzgi Xfer(QC): 3 Toilet Transfer (QC): 3 Weight Bearing Full Weight Bearing Non Weight Bearing Gait Training Does the Patient Walk?: No and Walking Goal IS indicated Wheelchair Training Does the Pt Use a Wheelchair?: Yes Wheel 50 ft with 2 turns (QC): 4 Wheel 150 ft (QC): 4 Type of Wheelchair: Manual Treatments Patient performed sitting balance activities with OT/PT for safety and the need of both clinicians to focus on ADLs and core/LE/UE strength simultaneously. Assessment Current Status: Fair Progress Patient performed all observed transfers with min a and verbal cues for performance. Patient was co-treated with OT for safety and the need of both clinicians to focus on ADLs and core/LE/UE strength simultaneously. Patient performed functional ADLs with OT such as dressing, bathing, fine motor with UEs while performing core and LE strengthening and balance activities with PT. Patient performed w/c mobility with SBA and verbal cues for safety and to avoid running left foot into obstacles, at 300 feet x 2. Patient performed SPT from w/c to the chair with min A. Patient with all needs met, nursing notified, call light in reach and staff in the room upon PT departure. PT Short Term Goals Short Term Goals Time Frame: Jul 08, 2021 Roll Left & Right: 4 Sit to lyin Lying to sitting on side of be: 4 Sit to stand: 3 Chair/vmh-kp-gjgot transfer: 3 Toilet transfer: 3 PT Stained Glass Artist Goals [facility] Goals PT Stained Glass Artist Goals Time Frame: July 22, 2021 Roll Left & Right (QC): 6 Sit to Lying (QC): 6 Lying-Sitting on Side/Bed(QC): 6 Sit to Stand (QC): 4 Chair/Too-sa-Bciem Xfer(QC): 4 Toilet Transfer (QC): 4 Car Transfer (QC): 4 Does the Patient Walk: No and Walking Goal IS indicated Walk 10 feet (QC): 4 Walk 50ft with 2 Turns (QC): 88 Walk 150 ft (QC): 88 Walking 10ft on Uneven Surface: 88 1 Step (curb) (QC): 88 4 Steps (QC): 88 12 Steps (QC): 88 Picking up an Object (QC): 4 Does the Pt use WC or Scooter?: Yes Wheel 50 feet with 2 turns (QC: 6 Type: Manual Wheel 150 feet: 6 Type: Manual PT Plan Treatment/Plan Treatment Plan: Continue Plan of Care Treatment Plan: Bed Mobility, Education, Functional Activity Shaun, Functional Strength, Group Therapy, Gait, Safety, Therapeutic Exercise, Transfers Treatment Duration: July 22, 2021 Frequency: At least 5 of 7 days/Wk (IRF) Estimated Hrs Per Day: 1.5 hours per day Patient and/or Family Agrees t: Yes Safety Risks/Education Patient Education: Transfer Techniques, W/C Management, Safety Issues Teaching Recipient: Patient Teaching Methods: Demonstration, Discussion Response to Teaching: Verbalize Understanding, Reinforcement Needed Time/GCodes Time In: 800 Time Out: 0900 Total Billed Treatment Time: 60 Total Billed Treatment Visit, W/C, EX, FA (2) MAURIZIO ENRIQUEZ PT Jul 06, 2021 13:04
[2021-07-06 13:41] VITALS: BP 139/78
[2021-07-06] MEDS: ASPIRIN 81 MG CHEW (CHILDREN'S ASA) PO SCH (13:43)
[2021-07-06] MEDS: ENOXAPARIN 40 MG/0.4 ML (LOVENOX) SYR SC SCH (13:45)
[2021-07-06 20:06] VITALS: BP 136/87
[2021-07-07] MEDS: inSUlin ASPART (NovoLOG) 1 UNIT/0.01 ML (CHARGE PER UNIT) SC SCH ×4 (05:23→21:04)
--- NOTE | 2021-07-07 06:41 | PM&R Progress Note ---
Subjective HPI/CC On Admission Date Seen by Provider: Jul 07, 2021 Time Seen by Provider: 09:30 Subjective/Events-last exam 07/07/21: Patient has no pain Able to use assistive devices Supportive care continues 07/06/21: Patient doing well Monitor closely No pain reported Checked meds and labs 07/05/21: Patient seems to be doing well Blood sugars reviewed Blood pressures reviewed No falls 07/04/2021: Patient doing well Left-sided weakness is profound DC the catheter yesterday and voiding well No pain reported 07/03/21: Patient doing well Sugar reviewed BP improved on multiple meds DC Catheter today 07/02/21: Patient tolerating everything pretty well Blood pressure improved Blood sugars improved Wheelchair mobility training Review of Systems General: Fatigue, Malaise Objective Exam Vital Signs Vital Signs Date Time Temp Pulse Resp B/P (MAP) Pulse Ox O2 Delivery O2 Flow Rate FiO2 07/07/21 21:05 Room Air 07/07/21 20:39 36.3 82 16 141/89 (106) 96 Capillary Refill : General Appearance: No Apparent Distress, WD/WN, Obese HEENT: PERRL/EOMI, Normal ENT Inspection, Pharynx Normal Neck: Full Range of Motion, Normal Inspection, Non Tender, Supple, Carotid Bruit Respiratory: Chest Non Tender, Lungs Clear, Normal Breath Sounds, No Accessory Muscle Use, No Respiratory Distress Cardiovascular: Regular Rate, Rhythm, No Edema, No Gallop, No JVD, No Murmur, Normal Peripheral Pulses Gastrointestinal: Normal Bowel Sounds, No Organomegaly, No Pulsatile Mass, Non Tender, Soft Back: Normal Inspection, No CVA Tenderness, No Vertebral Tenderness Extremity: Normal Capillary Refill, Normal Inspection, Normal Range of Motion, Non Tender, No Calf Tenderness, No Pedal Edema Neurologic/Psychiatric: Alert, Oriented x3, Normal Mood/Affect, presto log operator II-XII Norm as 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 FIM Transfers Therapy Code Descriptions/Definitions Functional [place] Measure: 0=Not Assessed/NA 4=Minimal Assistance 1=Total Assistance 5=Supervision or Setup 2=Maximal Assistance 6=Modified [place] 3=Moderate Assistance 7=Complete IndependenceSCALE: Activities may be completed with or without assistive devices. 2-Lzljmbrtvs-ylxgoqo completes the activity by him/herself with no assistance from a helper. 5-Set-up or Clean-up Assistance-helper sets up or cleans up; patient completes activity. [place] assists only prior to or following the activity. 4-Supervision or Touching Assistance-helper provides verbal cues and/or touching/steadying and/or contact guard assistance as patient completes activity. Assistance may be provided throughout the activity or intermittently. 3-Partial/Moderate Assistance-helper does LESS THAN HALF the effort. [place] lifts, holds or supports trunk or limbs, but provides less than half the effort. 2-Substantial/Maximal Assistance-helper does MORE THAN HALF the effort. [place] lifts or holds trunk or limbs and provides more than half the effort. 6-Tjhjgwetr-qafyue does ALL the effort. Patient does none of the effort to complete the activity. Or, the assistance of 2 or more helpers is required for the patient to complete the activity. If activity was not attempted, code reason: 7-Patient Refused. 9-Not Applicable-not attempted and the patient did not perform the activity before the current illness, exacerbation or injury. 10-Not Attempted due to Environmental Limitations-(lack of equipment, weather restraints, etc.). 88-Not Attempted due to Medical Conditions or Safety Concerns. Roll Left to Right (QC): 3 Sit to Lying (QC): 3 Sit to Stand (QC): 3 Chair/Eiq-kq-Pxzon Xfer(QC): 3 Car Transfer (QC): 88 Gait Training Does the Patient Walk?: No and Walking Goal IS indicated Distance: 5' Walk 10 feet (QC): 88 Walk 50 ft with 2 Turns(QC): 88 Walk 150 ft (QC): 88 Walking 10ft/uneven surface-QC: 88 Gait Persons Needed: 2 Gait Assistive Device: Parallel Bars Wheelchair Training Does the Pt Use a Wheelchair?: Yes Wheel 50 ft with 2 turns (QC): 4 Wheel 150 ft (QC): 4 Type of Wheelchair: Manual Stair Training 1 Step (curb) (QC): 88 4 Steps (QC): 88 12 Steps (QC): 88 Balance Picking up an Object (QC): 88 ADL-Treatment Eating (QC): 5 Oral Hygiene (QC): 4 Shower/Bathe Self (QC): 3 Upper Body Dressing (QC): 3 Lower Body Dressing (QC): 1 On/Off Footwear (QC): 3 Toileting Hygiene (QC): 1 Toilet Transfer (QC): 2 Assessment/Plan Assessment and Plan Assess & Plan/Chief Complaint Assessment: CVA with left-sided weakness catastrophic type Hypertension severe Hyperlipidemia Hyperglyceridemia Obesity BMI 30 New onset diabetes hemoglobin A1c 9.7 Smoker Plan: Inpatient rehab protocol Supportive care Insulin Blood pressure management 07/02/2021: Increase blood pressure meds Supportive care 07/03/21: DC catheter 07/04/2021: Aggressive therapy 07/05/2021: Supportive care Blood sugar blood pressure improved 07/06/21: BP improved Monitor closely 07/07/2021: Blood pressure improved Blood sugar improved (1) CVA (cerebral vascular accident) Status: Acute TITUS KENT DO Jul 07, 2021 06:41
[2021-07-07 07:34] VITALS: BP 147/78
--- NOTE | 2021-07-07 09:11 | Physical Therapy Daily Note ---
PT Daily Note-Current Subjective Patient had no new complaints today and consented to treatment. Patient was co- treated today with OT for coordinating UE with LE activities due to hemiparesis, weakness, balance deficits, incoordination, risk of falling, and safety concerns. Pain Location: No Pain Reported Mental Status Patient Orientation: Person, Place, Situation Transfers SCALE: Activities may be completed with or without assistive devices. 6-Vnkmmfgtrf-dimeekg completes the activity by him/herself with no assistance from a helper. 5-Set-up or Clean-up Assistance-helper sets up or cleans up; patient completes activity. [place] assists only prior to or following the activity. 4-Supervision or Touching Assistance-helper provides verbal cues and/or touching/steadying and/or contact guard assistance as patient completes activity. Assistance may be provided throughout the activity or intermittently. 3-Partial/Moderate Assistance-helper does LESS THAN HALF the effort. [place] lifts, holds or supports trunk or limbs, but provides less than half the effort. 2-Substantial/Maximal Assistance-helper does MORE THAN HALF the effort. [place] lifts or holds trunk or limbs and provides more than half the effort. 6-Islooiurj-skqloy does ALL the effort. Patient does none of the effort to complete the activity. Or, the assistance of 2 or more helpers is required for the patient to complete the activity. If activity was not attempted, code reason: 7-Patient Refused. 9-Not Applicable-not attempted and the patient did not perform the activity before the current illness, exacerbation or injury. 10-Not Attempted due to Environmental Limitations-(lack of equipment, weather restraints, etc.). 88-Not Attempted due to Medical Conditions or Safety Concerns. Sit to Lying (QC): 3 Lying to Sitting/Side of Bed(Q: 3 Sit to Stand (QC): 3 Chair/Ubc-gv-Jzncb Xfer(QC): 3 Weight Bearing Full Weight Bearing Non Weight Bearing Gait Training Does the Patient Walk?: Yes Distance: 10', 20' 25' Walk 10 feet (QC): 1 Gait Assistive Device: Walker Tunde L knee immobilizer, Left foot strap for foot advancement. L arm sling. PT guiding weightshifts at the shoulder and hip. Wheelchair Training Does the Pt Use a Wheelchair?: Yes Wheel 50 ft with 2 turns (QC): 6 Wheel 150 ft (QC): 6 Type of Wheelchair: Manual Distance: 250' x 2 Treatments WC mobility, ambulation, standing in parallel bars (marching, reaches), Transfers. Assessment Current Status: Fair Progress Patient trialed walking today with knee immobilizer, and hemiwalker. Patient had good strength in R LE while performing, but no activation in the L LE, and required max assist x 2 for proper weight shifting and foot advancement. Patient would benefit from an AFO next time as L foot tends to roll out. Patient has improved his transfers especially sit to stand requiring between min assist and CGA. Patient stood in parallel bars today for prolonged period of time, and de monstrates good posture, but tends to rotate to the left and needs VC and TC to remain straight. Patient has good wheelchair mobility and can wheel independently in [place] through doors and wide turns. Patient was left in wheelchair with call light, tray, and all needs met. PT Short Term Goals Short Term Goals Time Frame: Jul 08, 2021 Roll Left & Right: 4 Sit to lyin Lying to sitting on side of be: 4 Sit to stand: 3 Chair/znn-bz-lavqm transfer: 3 Toilet transfer: 3 PT Monitoring Analyst Goals Shelter Goals PT Shelter Goals Time Frame: July 22, 2021 Roll Left & Right (QC): 6 Sit to Lying (QC): 6 Lying-Sitting on Side/Bed(QC): 6 Sit to Stand (QC): 4 Chair/Eyt-gp-Fsdln Xfer(QC): 4 Toilet Transfer (QC): 4 Car Transfer (QC): 4 Does the Patient Walk: No and Walking Goal IS indicated Walk 10 feet (QC): 4 Walk 50ft with 2 Turns (QC): 88 Walk 150 ft (QC): 88 Walking 10ft on Uneven Surface: 88 1 Step (curb) (QC): 88 4 Steps (QC): 88 12 Steps (QC): 88 Picking up an Object (QC): 4 Does the Pt use WC or Scooter?: Yes Wheel 50 feet with 2 turns (QC: 6 Type: Manual Wheel 150 feet: 6 Type: Manual PT Plan Problem List Problem List: Activity Tolerance, Functional Strength, Safety, Balance, Gait, Bed Mobility, ROM Treatment/Plan Treatment Plan: Continue Plan of Care Treatment Plan: Bed Mobility, Education, Functional Activity Shaun, Functional Strength, Group Therapy, Gait, Safety, Therapeutic Exercise, Transfers Treatment Duration: July 22, 2021 Frequency: At least 5 of 7 days/Wk (IRF) Estimated Hrs Per Day: 1.5 hours per day Patient and/or Family Agrees t: Yes Safety Risks/Education Patient Education: Gait Training, Transfer Techniques, Correct Positioning, W/C Management, Disease Process, Safety Issues Teaching Recipient: Patient Teaching Methods: Discussion Response to Teaching: Verbalize Understanding, Return Demonstration Time/GCodes Time In: 0800 Time Out: 914 Total Billed Treatment Time: 75 Total Billed Treatment 1 visit GT 30min FA 45min co-treated from [id number] MICHAEL SOLER PT Jul 07, 2021 09:10
--- NOTE | 2021-07-07 09:11 | Occupational Ther Daily Note ---
OT Current Status-Daily Note Subjective Pt requesting to use toilet at OT arrival. Co-treat with PT for part of session ([id number]) secondary to need of 2 skilled clinicians to progress indep and safety with adls and mobility Appearance Pt left sitting in w/c with physical therapy at OT departure. Mental Status/Objective Patient Orientation: Person, Place, Situation ADL-Treatment Therapy Code Descriptions/Definitions Functional [place] Measure: 0=Not Assessed/NA 4=Minimal Assistance 1=Total Assistance 5=Supervision or Setup 2=Maximal Assistance 6=Modified [place] 3=Moderate Assistance 7=Complete IndependenceSCALE: Activities may be completed with or without assistive devices. 4-Yzwsxhnkxy-hqogxid completes the activity by him/herself with no assistance from a helper. 5-Set-up or Clean-up Assistance-helper sets up or cleans up; patient completes activity. [place] assists only prior to or following the activity. 4-Supervision or Touching Assistance-helper provides verbal cues and/or touching/steadying and/or contact guard assistance as patient completes activity. Assistance may be provided throughout the activity or intermittently. 3-Partial/Moderate Assistance-helper does LESS THAN HALF the effort. [place] lifts, holds or supports trunk or limbs, but provides less than half the effort. 2-Substantial/Maximal Assistance-helper does MORE THAN HALF the effort. [place] lifts or holds trunk or limbs and provides more than half the effort. 9-Jxubykiha-ooaver does ALL the effort. Patient does none of the effort to complete the activity. Or, the assistance of 2 or more helpers is required for the patient to complete the activity. If activity was not attempted, code reason: 7-Patient Refused. 9-Not Applicable-not attempted and the patient did not perform the activity before the current illness, exacerbation or injury. 10-Not Attempted due to Environmental Limitations-(lack of equipment, weather restraints, etc.). 88-Not Attempted due to Medical Conditions or Safety Concerns. Oral Hygiene (QC): 5 Upper Body Dressing (QC): 4 Lower Body Dressing (QC): 1 Toileting Hygiene (QC): 1 Toilet Transfer (QC): 3 Supine>sit: SBA, extra time. Improved sit<>stands to min A. Continues to need mod a for stand pivot transfers to different surfaces. Attempt at having BM, unsuccessful. New clothing donned seated in w/c. Max a to lift/cross and maintain figure 4 position as pt threaded BLE's into underwear/pants. Mod-max a to stand and sustain balance as second person assisted with clothing management. Initially, pt attempts to thread RUE through shirt sleeve and bring overhead first. He then has difficulty problem solving how he will thread flaccid extremity. Pt cued to doff and restart by threading L first. Post verbal and visual cues, pt able to complete all steps without physical assistance this date. Good recall on one handed techniques when setting up grooming supplies. Extra time only to apply toothpaste to brush. Other Treatment Pt participated in standing activities in parallel bars. OT assisted with positioning/grasping of LUE as PT focused on balance and blocking of L knee in standing. HOHA to slide LUE anteriorly on parallel bar with goal to promote increased weight bearing through left upper and lower extremities. Min-mod a for balance with anterior weight shifts. Pt ambulated x3 with sha cane, and assist x2. 3rd person follow with w/c. Distances included: 10, 20, and 25 feet. Dependent to advance LLE. LUE in sling during gait for support and safety purposes. Visual and tactile cues to widen MAIN during gait. Seated rest break between each bout. While Knee immobolizer and AFO being donned onto LLE by PT, OT completed PROM of L shoulder, elbow, and wrist. Tapping at biceps muscle to facilitate contraction. Trace voluntary muscle activation notable with elbow flexion. Education OT Patient Education: Correct positioning, Energy conservation, Modified ADL techniques, Progress toward Goal/Update tx plan, Purpose of tx/functional activities, Reviewed precautions, Rehab process, Safety issues, Transfer techniques, W/C management Teaching Recipient: Patient Teaching Methods: Demonstration, Discussion Response to Teaching: Return Demonstration, Reinforcement Needed OT Short Term Goals Short Term Goals Time Frame: Jul 11, 2021 Eatin Oral hygiene: 5 Toileting hygiene: 2 Shower/bathe self: 2 Upper body dressin Lower body dressin Putting on/taking off footwear: 3 OT Lead Systems Developer Goals [facility] Goals Time Frame: July 29, 2021 Eating (QC): 6 Oral Hygiene (QC): 6 Toileting Hygiene (QC): 6 Shower/Bathe Self (QC): 5 Upper Body Dressing (QC): 5 Lower Body Dressing (QC): 5 On/Off Footwear (QC): 5 1=Demonstrate adherence to instructed precautions during ADL tasks. 2=Patient will verbalize/demonstrate understanding of assistive devices/modifications for ADL. 3=Patient will improve strength/tolerance for activity to enable patient to perform ADL's. OT Education/Plan Problem List/Assessment Assessment: Decreased Activ Tolerance, Decreased Safety Aware, Decreased UE Strength, Dependent Transfers, Impaired Coordination, Impaired Funct Balance, Impaired I ADL's, Impaired Self-Care Skills, Restricted Funct UE ROM Discharge Recommendations Plan/Recommendations: Continue POC Treatment Plan/Plan of Care Treatment,Training & Education: Yes Patient would benefit from OT for education, treatment and training to promote independence in ADL's, mobility, safety and/or upper extremity function for ADL's. Plan of Care: ADL Retraining, Cognitive Retraining, Functional Mobility, Group Exercise/Act as Ind, UE Funct Exercise/Act, UE Neuromus Re-Ed/Coord, W/C Management Training Treatment Duration: July 29, 2021 Frequency: At least 5 of 7 days/Wk (IRF) Estimated Hrs Per Day: 1.5 hours per day (60-90 min/day) Agreement: Yes Rehab Potential: Fair Time/GCodes Start Time: 07:40 Stop Time: 09:00 Total Time Billed (hr/min): 80 Billed Treatment Time 1 visit ADL x2 (35 min) NM (10 min) FA x2 (35 min) Samantha Valverde OT Jul 07, 2021 09:11
[2021-07-07] MEDS: glyBURIDE 2.5 MG (MICRONASE) TAB PO SCH ×2 (09:27→21:03)
[2021-07-07] MEDS: DOCUSATE SODIUM 100 MG (COLACE) CAP PO SCH ×2 (09:27→21:04)
[2021-07-07] MEDS: LOSARTAN 50 MG (COZAAR) TAB PO SCH (09:27)
[2021-07-07] MEDS: SENNOSIDES 8.6 MG (SENOKOT) TAB PO SCH ×2 (09:28→21:03)
[2021-07-07] MEDS: hydrALAZINE (APRESOLINE) 25 MG TAB PO SCH ×3 (09:28→21:03)
[2021-07-07] MEDS: amLODIPine 5 MG (NORVASC) TAB PO SCH ×2 (09:28→21:03)
[2021-07-07] MEDS: polyethylene glycoL POWDER 17 GM (MIRALAX) PACK PO SCH ×2 (09:31→19:40)
--- NOTE | 2021-07-07 09:59 | Speech Therapy Daily Note ---
Speech Daily Progress Note Subjective Date Seen by Provider: Jul 07, 2021 Time Seen by Provider: 10:00 The patient was seated upright in his recliner, awake and alert upon entrance to his room by the clinician. The patient greeted the clinician appropriately and was agreeable to participation in the cognitive linguistic and dysphagia treatment session. The clinician utilized the language line for accurate and appropriate translation. Objective Dysphagia: The clinician and patient discussed the patient's swallowing function. Per patient, "It has improved a lot, like resolved." The patient denied the sensation of "choking" of additional s/s of suspected aspiration with P.O. intake. The patient is scheduled for a modified barium swallowing evaluation on 07/10/2019 at 1015. The process of the MBS was discussed and the patient's questions were addressed. At this time, the patient denied additional questions or concerns regarding his swallowing function or his plan of care. Speech: The patient stated his speech was a primary concern upon admission to hospital [facility]. The patient states, "It's quite good" and feels it has "resolved" too. The patient participates in spontaneous conversation without difficulty and responds appropriately to staff, clinician, and family members. The patient does report he feels "so tired all of the time." The clinician will discuss the patient's report with the RN. Assessment Assessment Current Status: Fair Progress Treatment Plan Continue Plan of Care Speech Short Term Goals Short Term Goals Short Term Goals 1. The patient will demonstrate oral motor exercises with 90% accuracy, independently. 2. The patient, staff, and family will demonstrate safe swallowing strategies with 90% accuracy. Speech [facility] Goals [facility] Goals 1. The patient will demonstrated increased intelligibility (per family members) throughout informal conversation. 2. The patient will tolerate the least restrictive diet without s/s of suspected aspiration. Time Frame: Two Weeks. Speech-Plan Treatment Plan Speech Therapy Treatment Plan: Continue Plan of Care Treatment Duration: Jul 02, 2021 Frequency: Modified Program (IRF) Estimated Hrs Per Day: .5 hour per day Rehab Potential: Fair Safety Risks/Education Teaching Recipient: Patient Teaching Methods: Discussion Response to Teaching: Verbalize Understanding Education Topics Provided: MBS Time Speech Therapy Time In: 10:00 Speech Therapy Time Out: 10:30 Total Billed Time: 30 Billed Treatment Time ANNA Carlson DYST No LOY, ELIZABETH ST Jul 07, 2021 09:59
[2021-07-07 12:46] VITALS: BP 132/82
[2021-07-07] MEDS: ENOXAPARIN 40 MG/0.4 ML (LOVENOX) SYR SC SCH (12:46)
[2021-07-07] MEDS: ASPIRIN 81 MG CHEW (CHILDREN'S ASA) PO SCH (14:53)
[2021-07-07 20:39] VITALS: BP 141/89
[2021-07-08] MEDS: inSUlin ASPART (NovoLOG) 1 UNIT/0.01 ML (CHARGE PER UNIT) SC SCH ×4 (05:24→20:50)
--- NOTE | 2021-07-08 06:01 | PM&R Progress Note ---
Subjective HPI/CC On Admission Date Seen by Provider: Jul 08, 2021 Time Seen by Provider: 09:30 Subjective/Events-last exam 07/08/2021: No pain is reported Patient doing really well otherwise Urinary issues prompted UA and bacteriuria noted so will cover with antibiotic until culture back Supportive care 07/07/21: Patient has no pain Able to use assistive devices Supportive care continues 07/06/21: Patient doing well Monitor closely No pain reported Checked meds and labs 07/05/21: Patient seems to be doing well Blood sugars reviewed Blood pressures reviewed No falls 07/04/2021: Patient doing well Left-sided weakness is profound DC the catheter yesterday and voiding well No pain reported 07/03/21: Patient doing well Sugar reviewed BP improved on multiple meds DC Catheter today 07/02/21: Patient tolerating everything pretty well Blood pressure improved Blood sugars improved Wheelchair mobility training Review of Systems Genitourinary: Incontinence Neurological: Weakness, Incoordination Objective Exam Vital Signs Vital Signs Date Time Temp Pulse Resp B/P (MAP) Pulse Ox O2 Delivery O2 Flow Rate FiO2 07/08/21 20:50 Room Air 07/08/21 20:40 36.7 78 18 136/78 (97) 97 Capillary Refill : General Appearance: No Apparent Distress, WD/WN, Obese HEENT: PERRL/EOMI, Normal ENT Inspection, Pharynx Normal Neck: Full Range of Motion, Normal Inspection, Non Tender, Supple, Carotid Bruit Respiratory: Chest Non Tender, Lungs Clear, Normal Breath Sounds, No Accessory Muscle Use, No Respiratory Distress Cardiovascular: Regular Rate, Rhythm, No Edema, No Gallop, No JVD, No Murmur, Normal Peripheral Pulses Gastrointestinal: Normal Bowel Sounds, No Organomegaly, No Pulsatile Mass, Non Tender, Soft Back: Normal Inspection, No CVA Tenderness, No Vertebral Tenderness Extremity: Normal Capillary Refill, Normal Inspection, Normal Range of Motion, Non Tender, No Calf Tenderness, No Pedal Edema Neurologic/Psychiatric: Alert, Oriented x3, Normal Mood/Affect, software development manager II-XII Norm as 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 FIM Transfers Therapy Code Descriptions/Definitions Functional [place] Measure: 0=Not Assessed/NA 4=Minimal Assistance 1=Total Assistance 5=Supervision or Setup 2=Maximal Assistance 6=Modified [place] 3=Moderate Assistance 7=Complete IndependenceSCALE: Activities may be completed with or without assistive devices. 0-Lzorisjlcw-sohyixh completes the activity by him/herself with no assistance from a helper. 5-Set-up or Clean-up Assistance-helper sets up or cleans up; patient completes activity. [place] assists only prior to or following the activity. 4-Supervision or Touching Assistance-helper provides verbal cues and/or touching/steadying and/or contact guard assistance as patient completes activity. Assistance may be provided throughout the activity or intermittently. 3-Partial/Moderate Assistance-helper does LESS THAN HALF the effort. [place] lifts, holds or supports trunk or limbs, but provides less than half the effort. 2-Substantial/Maximal Assistance-helper does MORE THAN HALF the effort. [place] lifts or holds trunk or limbs and provides more than half the effort. 9-Afuphfmgf-jnfnzk does ALL the effort. Patient does none of the effort to complete the activity. Or, the assistance of 2 or more helpers is required for the patient to complete the activity. If activity was not attempted, code reason: 7-Patient Refused. 9-Not Applicable-not attempted and the patient did not perform the activity be fore the current illness, exacerbation or injury. 10-Not Attempted due to Environmental Limitations-(lack of equipment, weather restraints, etc.). 88-Not Attempted due to Medical Conditions or Safety Concerns. Roll Left to Right (QC): 3 Sit to Lying (QC): 3 Sit to Stand (QC): 3 Chair/Rrj-pi-Ubltx Xfer(QC): 3 Car Transfer (QC): 88 Gait Training Does the Patient Walk?: Yes Distance: 10', 20' 25' Walk 10 feet (QC): 1 Walk 50 ft with 2 Turns(QC): 88 Walk 150 ft (QC): 88 Walking 10ft/uneven surface-QC: 88 Gait Persons Needed: 2 Gait Assistive Device: Walker Tunde Wheelchair Training Does the Pt Use a Wheelchair?: Yes Wheel 50 ft with 2 turns (QC): 6 Wheel 150 ft (QC): 6 Type of Wheelchair: Manual Stair Training 1 Step (curb) (QC): 88 4 Steps (QC): 88 12 Steps (QC): 88 Balance Picking up an Object (QC): 88 ADL-Treatment Eating (QC): 5 Oral Hygiene (QC): 5 Shower/Bathe Self (QC): 3 Upper Body Dressing (QC): 4 Lower Body Dressing (QC): 1 On/Off Footwear (QC): 3 Toileting Hygiene (QC): 1 Toilet Transfer (QC): 3 Assessment/Plan Assessment and Plan Assess & Plan/Chief Complaint Assessment: CVA with left-sided weakness catastrophic type Hypertension severe Hyperlipidemia Hyperglyceridemia Obesity BMI 30 New onset diabetes hemoglobin A1c 9.7 Smoker Plan: Inpatient rehab protocol Supportive care Insulin Blood pressure management 07/02/2021: Increase blood pressure meds Supportive care 07/03/21: DC catheter 07/04/2021: Aggressive therapy 07/05/2021: Supportive care Blood sugar blood pressure improved 07/06/21: BP improved Monitor closely 07/07/2021: Blood pressure improved Blood sugar improved 07/08/2021: Patient doing well Check UA (1) CVA (cerebral vascular accident) Status: Acute TITUS KENT DO Jul 08, 2021 06:01
[2021-07-08 07:53] VITALS: BP 158/101
[2021-07-08] MEDS: DOCUSATE SODIUM 100 MG (COLACE) CAP PO SCH ×2 (09:12→20:50)
[2021-07-08] MEDS: SENNOSIDES 8.6 MG (SENOKOT) TAB PO SCH ×2 (09:13→20:50)
[2021-07-08] MEDS: polyethylene glycoL POWDER 17 GM (MIRALAX) PACK PO SCH ×2 (09:14→20:50)
--- NOTE | 2021-07-08 09:29 | Physical Therapy Daily Note ---
PT Daily Note-Current Subjective Patient reports that he rolled his L ankle this morning in the bathroom and is having a little pain with it. Patient consented to treat. Patient was co-treated with OT today to coordinate UE activities with LE activities, and to provide extra assistance due to hemiparesis, incoordination, balance deficits, risk of falling and other safety concerns. Pain Numeric Pain Scale: 1 Location: Left Location Body Site: Ankle Mental Status Patient Orientation: Person, Place, Time, Situation Transfers SCALE: Activities may be completed with or without assistive devices. 1-Hsplehsdnk-bztecit completes the activity by him/herself with no assistance from a helper. 5-Set-up or Clean-up Assistance-helper sets up or cleans up; patient completes activity. [place] assists only prior to or following the activity. 4-Supervision or Touching Assistance-helper provides verbal cues and/or touching/steadying and/or contact guard assistance as patient completes activity. Assistance may be provided throughout the activity or intermittently. 3-Partial/Moderate Assistance-helper does LESS THAN HALF the effort. [place] lifts, holds or supports trunk or limbs, but provides less than half the effort. 2-Substantial/Maximal Assistance-helper does MORE THAN HALF the effort. [place] lifts or holds trunk or limbs and provides more than half the effort. 6-Qsadktgbu-fubvmw does ALL the effort. Patient does none of the effort to complete the activity. Or, the assistance of 2 or more helpers is required for the patient to complete the activity. If activity was not attempted, code reason: 7-Patient Refused. 9-Not Applicable-not attempted and the patient did not perform the activity before the current illness, exacerbation or injury. 10-Not Attempted due to Environmental Limitations-(lack of equipment, weather restraints, etc.). 88-Not Attempted due to Medical Conditions or Safety Concerns. Sit to Lying (QC): 3 Lying to Sitting/Side of Bed(Q: 3 Sit to Stand (QC): 3 Weight Bearing Full Weight Bearing Non Weight Bearing Gait Training Does the Patient Walk?: Yes Distance: 20', 40', 50' Walk 10 feet (QC): 2 Walk 50 ft with 2 Turns(QC): 2 Gait Persons Needed: 2 Gait Assistive Device: Walker Tunde L Knee immobilizer. L arm sling. tunde walker. guarding at the hip for weight shifting. Patient was able to advance his left leg on his own with the weight shifting. Wheelchair Training Does the Pt Use a Wheelchair?: Yes Wheel 50 ft with 2 turns (QC): 6 Wheel 150 ft (QC): 6 Type of Wheelchair: Manual Distance 250', 100' Exercises Standing: Marching (marching with R foot. ) Standing Reps: 20 Hip shifts in circles. Treatments Quadruped rocking. modified Leg press in wheelchair (both legs, single leg on the L) 4 x 10reps. sit and reach activity on table top, and ring toss game with UE weight bearing on the L. PT performed Transfers, Ambulation, sitting and standing balance, LE strengthening, balance training, OT performed UE positioning and safety during activity and during ring toss game and quadruped activity Assessment Current Status: Good Progress Patients LE strength has increased significantly today since last session. Patient was able to advance foot independently during ambulation. Patient was able to perform single leg, leg press on the L with adequate strength. Patient can better tolerate sitting and standing balance. He can stand with straight erect posture, and perform sitting dynamic activities with minimal loss of balance. Patient was left with OT to continue OT treatment. PT Short Term Goals Short Term Goals Time Frame: Jul 08, 2021 Roll Left & Right: 4 Sit to lyin Lying to sitting on side of be: 4 Sit to stand: 3 Chair/vml-na-jnvhh transfer: 3 Toilet transfer: 3 PT Senior Principal Software Engineer Goals Senior Principal Software Engineer Goals PT [facility] Goals Time Frame: July 22, 2021 Roll Left & Right (QC): 6 Sit to Lying (QC): 6 Lying-Sitting on Side/Bed(QC): 6 Sit to Stand (QC): 4 Chair/Wab-bs-Qgtkz Xfer(QC): 4 Toilet Transfer (QC): 4 Car Transfer (QC): 4 Does the Patient Walk: No and Walking Goal IS indicated Walk 10 feet (QC): 4 Walk 50ft with 2 Turns (QC): 88 Walk 150 ft (QC): 88 Walking 10ft on Uneven Surface: 88 1 Step (curb) (QC): 88 4 Steps (QC): 88 12 Steps (QC): 88 Picking up an Object (QC): 4 Does the Pt use WC or Scooter?: Yes Wheel 50 feet with 2 turns (QC: 6 Type: Manual Wheel 150 feet: 6 Type: Manual PT Plan Problem List Problem List: Activity Tolerance, Functional Strength, Safety, Balance, Gait, Transfer, Bed Mobility, ROM Treatment/Plan Treatment Plan: Continue Plan of Care Treatment Plan: Bed Mobility, Education, Functional Activity Shaun, Functional Strength, Group Therapy, Gait, Safety, Therapeutic Exercise, Transfers Treatment Duration: July 22, 2021 Frequency: At least 5 of 7 days/Wk (IRF) Estimated Hrs Per Day: 1.5 hours per day Patient and/or Family Agrees t: Yes Safety Risks/Education Patient Education: Gait Training, Transfer Techniques, Correct Positioning, W/C Management, Safety Issues Teaching Recipient: Patient Teaching Methods: Demonstration, Discussion Response to Teaching: Verbalize Understanding Time/GCodes Time In: 08 Time Out: 929 Total Billed Treatment Time: 90 Total Billed Treatment 1 visit GT 30min EX 30min FA 30min PT and OT co-treated from [id number] MICHAEL SOLER PT Jul 08, 2021 09:29
[2021-07-08] MEDS: amLODIPine 5 MG (NORVASC) TAB PO SCH ×2 (09:57→20:50)
[2021-07-08] MEDS: LOSARTAN 50 MG (COZAAR) TAB PO SCH (09:57)
[2021-07-08] MEDS: hydrALAZINE (APRESOLINE) 25 MG TAB PO SCH ×3 (09:57→20:50)
[2021-07-08] MEDS: cloNIDine 0.1 MG PATCH (CATAPRES TTS) TDSY TD SCH (10:08)
[2021-07-08] MEDS: CLONIDINE PATCH REMOVAL TP SCH (10:10)
--- NOTE | 2021-07-08 10:12 | Occupational Ther Daily Note ---
OT Current Status-Daily Note Subjective Pt reports pain in L ankle. He states he thinks he "rolled' it while transferring to the toilet earlier this morning. PT wraps ankle for stability. Co-Treat with PT for part of session () secondary to need of 2 skilled clinicians to progress indep and safety with adls and mobility Appearance Pt left sitting in recliner, all needs within reach. Mental Status/Objective Patient Orientation: Person, Place, Situation ADL-Treatment Therapy Code Descriptions/Definitions Functional [place] Measure: 0=Not Assessed/NA 4=Minimal Assistance 1=Total Assistance 5=Supervision or Setup 2=Maximal Assistance 6=Modified [place] 3=Moderate Assistance 7=Complete IndependenceSCALE: Activities may be completed with or without assistive devices. 5-Jatvotxxpc-lemxpuo completes the activity by him/herself with no assistance from a helper. 5-Set-up or Clean-up Assistance-helper sets up or cleans up; patient completes activity. [place] assists only prior to or following the activity. 4-Supervision or Touching Assistance-helper provides verbal cues and/or touching/steadying and/or contact guard assistance as patient completes activity. Assistance may be provided throughout the activity or intermittently. 3-Partial/Moderate Assistance-helper does LESS THAN HALF the effort. [place] lifts, holds or supports trunk or limbs, but provides less than half the effort. 2-Substantial/Maximal Assistance-helper does MORE THAN HALF the effort. [place] lifts or holds trunk or limbs and provides more than half the effort. 3-Lsofqwuuq-rkkodv does ALL the effort. Patient does none of the effort to complete the activity. Or, the assistance of 2 or more helpers is required for the patient to complete the activity. If activity was not attempted, code reason: 7-Patient Refused. 9-Not Applicable-not attempted and the patient did not perform the activity before the current illness, exacerbation or injury. 10-Not Attempted due to Environmental Limitations-(lack of equipment, weather restraints, etc.). 88-Not Attempted due to Medical Conditions or Safety Concerns. Oral Hygiene (QC): 5 Other Treatment Pt participated in several activities with focus on weight bearing through L upper and lower extremities in order to promote increased proprioception, proxi mal stability, and strength. While seated pt reached across midline and anteriorly for ring. Assist to maintain position and weight bear through LUE. No LOB when reaching in multiple planes. Pt also performed towel slides anteriorly, laterally, and in a nondalton, self HOHA with RUE. OT to assist with facilitating scapula protraction/retraction as PT assisted with safety, posture and balance. Pt ambulated within [place]; ~20, 40, and 50 feet with use of sha walker, L knee immobolizer, LUE sling, assist x2 and 3rd person w/c follow. Verbal/tactile/visual cues for sequencing, MAIN, and advancement of LLE. Patient was able to advance left leg forward this date as PT assisted with weight shifting and guarding of L hip. Assist x2 to position into quadruped as pt completed weight shifting forward/back and side to side, ~1 minute each. Dependent to stabilize and maintain LUE in extension while in quadruped. While seated in w/c pt performed modified leg press with LLE, 4x10. Assist to stabilize L ankle throughout. NMES completed to stimulate motor response, increase muscle strength, and to facilitate muscle re-education. Effective muscle contraction for shoulder flexion, elbow flexion, and wrist extension observed with Mode/Therapy 2 Education OT Patient Education: Correct positioning, Energy conservation, Exercise program, Instructions don/doff splint/brace, Modified ADL techniques, Progress toward Goal/Update tx plan, Purpose of tx/functional activities, Reviewed precautions, Rehab process, Safety issues, Transfer techniques, W/C management Teaching Recipient: Patient Teaching Methods: Demonstration, Discussion Response to Teaching: Verbalize Understanding, Return Demonstration, Reinforcement Needed OT Short Term Goals Short Term Goals Time Frame: Jul 11, 2021 Eatin Oral hygiene: 5 Toileting hygiene: 2 Shower/bathe self: 2 Upper body dressin Lower body dressin Putting on/taking off footwear: 3 OT Sample Sewer Goals Sample Sewer Goals Time Frame: July 29, 2021 Eating (QC): 6 Oral Hygiene (QC): 6 Toileting Hygiene (QC): 6 Shower/Bathe Self (QC): 5 Upper Body Dressing (QC): 5 Lower Body Dressing (QC): 5 On/Off Footwear (QC): 5 1=Demonstrate adherence to instructed precautions during ADL tasks. 2=Patient will verbalize/demonstrate understanding of assistive devices/modifications for ADL. 3=Patient will improve strength/tolerance for activity to enable patient to perform ADL's. OT Education/Plan Problem List/Assessment Assessment: Decreased Activ Tolerance, Decreased Safety Aware, Decreased UE Strength, Impaired Coordination, Impaired Funct Balance, Impaired I ADL's, Impaired Self-Care Skills, Restricted Funct UE ROM Discharge Recommendations Plan/Recommendations: Continue POC Treatment Plan/Plan of Care Treatment,Training & Education: Yes Patient would benefit from OT for education, treatment and training to promote independence in ADL's, mobility, safety and/or upper extremity function for ADL's. Plan of Care: ADL Retraining, Cognitive Retraining, Functional Mobility, Group Exercise/Act as Ind, UE Funct Exercise/Act, UE Neuromus Re-Ed/Coord, W/C Management Training Treatment Duration: July 29, 2021 Frequency: At least 5 of 7 days/Wk (IRF) Estimated Hrs Per Day: 1.5 hours per day (60-90 min/day) Agreement: Yes Rehab Potential: Fair Time/GCodes Start Time: 08:30 Stop Time: 10:00 Total Time Billed (hr/min): 90 Billed Treatment Time FA x2 (30 min) EX (15 min) NM x3 (45 min) Samantha Valverde OT Jul 08, 2021 10:12
[2021-07-08 12:39] VITALS: BP 127/81
[2021-07-08] MEDS: ENOXAPARIN 40 MG/0.4 ML (LOVENOX) SYR SC SCH (12:56)
[2021-07-08] MEDS: ASPIRIN 81 MG CHEW (CHILDREN'S ASA) PO SCH (13:47)
[2021-07-08 15:49] LABS: BILIRUBIN,URINE NEGATIVE (NEGATIVE); CLARITY,URINE CLEAR; COLOR,URINE YELLOW; GLUCOSE, URINE (UA) 3+ (NEGATIVE); KETONES,URINE TRACE (NEGATIVE); LEUKOCYTE ESTERASE ,URINE NEGATIVE (NEGATIVE); NITRITE,URINE NEGATIVE (NEGATIVE); PH,URINE 6.5 (5-9); PROTEIN,URINE NEGATIVE (NEGATIVE)
[2021-07-08 16:02] LABS: BACTERIA,URINE LARGE /HPF; SQUAMOUS EPITHELIAL CELL,UR 0-2 /HPF
[2021-07-08] MEDS: TRIM/SULFAMETH 160/800 (SEPTRA DS) TAB PO SCH (16:35)
[2021-07-08] MEDS: PHENAZOPYRIDINE 100 MG (PYRIDIUM) TABLET PO SCH (18:22)
[2021-07-08 20:40] VITALS: BP 136/78
[2021-07-08] MEDS: glyBURIDE 2.5 MG (MICRONASE) TAB PO SCH (20:50)
[2021-07-09] MEDS: inSUlin ASPART (NovoLOG) 1 UNIT/0.01 ML (CHARGE PER UNIT) SC SCH ×4 (06:08→21:34)
--- NOTE | 2021-07-09 06:12 | PM&R Progress Note ---
Subjective HPI/CC On Admission Date Seen by Provider: Jul 09, 2021 Time Seen by Provider: 10:30 Subjective/Events-last exam 07/09/21: Patient doing well Empirically placed on antibiotics Urinary incontinence the same No pain is reported 07/08/2021: No pain is reported Patient doing really well otherwise Urinary issues prompted UA and bacteriuria noted so will cover with antibiotic until culture back Supportive care 07/07/21: Patient has no pain Able to use assistive devices Supportive care continues 07/06/21: Patient doing well Monitor closely No pain reported Checked meds and labs 07/05/21: Patient seems to be doing well Blood sugars reviewed Blood pressures reviewed No falls 07/04/2021: Patient doing well Left-sided weakness is profound DC the catheter yesterday and voiding well No pain reported 07/03/21: Patient doing well Sugar reviewed BP improved on multiple meds DC Catheter today 07/02/21: Patient tolerating everything pretty well Blood pressure improved Blood sugars improved Wheelchair mobility training Review of Systems General: Fatigue, Malaise Objective Exam Vital Signs Vital Signs Date Time Temp Pulse Resp B/P (MAP) Pulse Ox O2 Delivery O2 Flow Rate FiO2 07/09/21 20:46 95 Room Air 07/09/21 20:45 36.9 69 18 131/76 (94) Capillary Refill : General Appearance: No Apparent Distress, WD/WN, Obese HEENT: PERRL/EOMI, Normal ENT Inspection, Pharynx Normal Neck: Full Range of Motion, Normal Inspection, Non Tender, Supple, Carotid Bruit Respiratory: Chest Non Tender, Lungs Clear, Normal Breath Sounds, No Accessory Muscle Use, No Respiratory Distress Cardiovascular: Regular Rate, Rhythm, No Edema, No Gallop, No JVD, No Murmur, Normal Peripheral Pulses Gastrointestinal: Normal Bowel Sounds, No Organomegaly, No Pulsatile Mass, Non Tender, Soft Back: Normal Inspection, No CVA Tenderness, No Vertebral Tenderness Extremity: Normal Capillary Refill, Normal Inspection, Normal Range of Motion, Non Tender, No Calf Tenderness, No Pedal Edema Neurologic/Psychiatric: Alert, Oriented x3, Normal Mood/Affect, information assurance II-XII Norm as 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 FIM Transfers Therapy Code Descriptions/Definitions Functional [place] Measure: 0=Not Assessed/NA 4=Minimal Assistance 1=Total Assistance 5=Supervision or Setup 2=Maximal Assistance 6=Modified [place] 3=Moderate Assistance 7=Complete IndependenceSCALE: Activities may be completed with or without assistive devices. 0-Mbwdgggbqe-lsdfytm completes the activity by him/herself with no assistance from a helper. 5-Set-up or Clean-up Assistance-helper sets up or cleans up; patient completes a ctivity. [place] assists only prior to or following the activity. 4-Supervision or Touching Assistance-helper provides verbal cues and/or touching/steadying and/or contact guard assistance as patient completes activity. Assistance may be provided throughout the activity or intermittently. 3-Partial/Moderate Assistance-helper does LESS THAN HALF the effort. [place] lifts, holds or supports trunk or limbs, but provides less than half the effort. 2-Substantial/Maximal Assistance-helper does MORE THAN HALF the effort. [place] lifts or holds trunk or limbs and provides more than half the effort. 4-Tuqdjpbgm-pernzm does ALL the effort. Patient does none of the effort to complete the activity. Or, the assistance of 2 or more helpers is required for the patient to complete the activity. If activity was not attempted, code reason: 7-Patient Refused. 9-Not Applicable-not attempted and the patient did not perform the activity before the current illness, exacerbation or injury. 10-Not Attempted due to Environmental Limitations-(lack of equipment, weather restraints, etc.). 88-Not Attempted due to Medical Conditions or Safety Concerns. Roll Left to Right (QC): 3 Sit to Lying (QC): 3 Sit to Stand (QC): 3 Chair/Oox-zo-Uqfdc Xfer(QC): 3 Car Transfer (QC): 88 Gait Training Does the Patient Walk?: Yes Distance: 20', 40', 50' Walk 10 feet (QC): 2 Walk 50 ft with 2 Turns(QC): 2 Walk 150 ft (QC): 88 Walking 10ft/uneven surface-QC: 88 Gait Persons Needed: 2 Gait Assistive Device: Walker Tunde Wheelchair Training Does the Pt Use a Wheelchair?: Yes Wheel 50 ft with 2 turns (QC): 6 Wheel 150 ft (QC): 6 Type of Wheelchair: Manual Stair Training 1 Step (curb) (QC): 88 4 Steps (QC): 88 12 Steps (QC): 88 Balance Picking up an Object (QC): 88 ADL-Treatment Eating (QC): 5 Oral Hygiene (QC): 5 Shower/Bathe Self (QC): 3 Upper Body Dressing (QC): 4 Lower Body Dressing (QC): 1 On/Off Footwear (QC): 3 Toileting Hygiene (QC): 1 Toilet Transfer (QC): 3 Assessment/Plan Assessment and Plan Assess & Plan/Chief Complaint Assessment: CVA with left-sided weakness catastrophic type Hypertension severe Hyperlipidemia Hyperglyceridemia Obesity BMI 30 New onset diabetes hemoglobin A1c 9.7 Smoker Plan: Inpatient rehab protocol Supportive care Insulin Blood pressure management 07/02/2021: Increase blood pressure meds Supportive care 07/03/21: DC catheter 07/04/2021: Aggressive therapy 07/05/2021: Supportive care Blood sugar blood pressure improved 07/06/21: BP improved Monitor closely 07/07/2021: Blood pressure improved Blood sugar improved 07/08/2021: Patient doing well Check UA 07/09/2021: Await urine culture Continue antibiotics (1) CVA (cerebral vascular accident) Status: Acute TITUS KENT DO Jul 09, 2021 06:12
[2021-07-09 07:51] VITALS: BP 134/82
--- NOTE | 2021-07-09 08:59 | Occupational Ther Daily Note ---
OT Current Status-Daily Note Subjective Pt reports only "little" pain in L ankle this date. Ankle wrapped by PT post shower. Co-treat with PT for part of session ([id number]) secondary to need of 2 skilled clinicians to promote increased indep and safety with adls and functional mobility. Appearance Pt left sitting in w/c with physical therapy present. ADL-Treatment Therapy Code Descriptions/Definitions Functional [place] Measure: 0=Not Assessed/NA 4=Minimal Assistance 1=Total Assistance 5=Supervision or Setup 2=Maximal Assistance 6=Modified [place] 3=Moderate Assistance 7=Complete IndependenceSCALE: Activities may be completed with or without assistive devices. 1-Taqfqmrlmk-vhazpeg completes the activity by him/herself with no assistance from a helper. 5-Set-up or Clean-up Assistance-helper sets up or cleans up; patient completes activity. [place] assists only prior to or following the activity. 4-Supervision or Touching Assistance-helper provides verbal cues and/or touching/steadying and/or contact guard assistance as patient completes activity. Assistance may be provided throughout the activity or intermittently. 3-Partial/Moderate Assistance-helper does LESS THAN HALF the effort. [place] lifts, holds or supports trunk or limbs, but provides less than half the effort. 2-Substantial/Maximal Assistance-helper does MORE THAN HALF the effort. [place] lifts or holds trunk or limbs and provides more than half the effort. 9-Sldvybumj-nrpqmx does ALL the effort. Patient does none of the effort to complete the activity. Or, the assistance of 2 or more helpers is required for the patient to complete the activity. If activity was not attempted, code reason: 7-Patient Refused. 9-Not Applicable-not attempted and the patient did not perform the activity before the current illness, exacerbation or injury. 10-Not Attempted due to Environmental Limitations-(lack of equipment, weather restraints, etc.). 88-Not Attempted due to Medical Conditions or Safety Concerns. Oral Hygiene (QC): 6 Shower/Bathe Self (QC): 3 Upper Body Dressing (QC): 3 Lower Body Dressing (QC): 1 On/Off Footwear: 3 Toileting Hygiene (QC): 1 Toilet Transfer (QC): 3 Shower performed; 100% completed in sitting. First shower performed without lateral/back support. Intermittent min a needed for sitting balance throughout task. 1 mild lateral LOB, needing mod a to recover. Assist needed to lift/adduct LUE as pt washed axilla. Reminder to use LHS to wash LE's due to impaired bal ance when bending forward or lifting foot off floor. Assist with lateral and anterior leans in order for pt to wash buttocks. Clothing donned seated in w/c. Assist required to lift/cross LE in order for pt to thread foot into clothing. Min a to stand. Assist x1 to maintain standing balance as 2nd person managed clothing up over hips. Attempt at having pt remove R hand to assist with pulling clothing up to waist, yet pt exhibits LOB laterally needing mod a to maintain upright posture. Reminder on correct sequencing and sha technique when donning shirt. Min a to thread LUE this date. Re-education on 1 handed technique to don socks. Assist needed to maintain figure 4 position while donning socks over toes. Min a to don over R toes. Pt sat in w/c to brush teeth, no assist needed this date. Other Treatment Pt ambulated ~20 feet x3, with use of sha walker, LUE sling, assist x2 and 3rd person w/c follow. Verbal/tactile/visual cues for sequencing, MAIN, and step length with LLE. Patient was able to advance left leg forward this date as PT assisted with intermittent weight shifting and guarding of L hip. Pt participated in several standing activities with focus on weight bearing through L upper and lower extremities in order to promote increased proprioception, proximal stability, and strength. Pt stood at mat placed at tallest height. LUE placed with elbow at 90 degrees and in full extension. Pt reaching forward (slightly out of MAIN) to slide ball and cone with use of dowel vera, 10x3. Min a for balance required throughout task. PT focusing on stabilizing L knee as OT focused on upright posture and weightbearing through LUE. Pt also completed ball rolling with L hand on top of small ball; HOHA required to keep clinical mental health counselor on ball. Tapping provided at biceps and triceps to help elicit muscle activation. Trace voluntary movement notable with elbow flexion only. Education OT Patient Education: Correct positioning, Energy conservation, Exercise program, Modified ADL techniques, Progress toward Goal/Update tx plan, Purpose of tx/functional activities, Rehab process, Safety issues, Transfer techniques Teaching Recipient: Patient Teaching Methods: Demonstration, Discussion Response to Teaching: Return Demonstration, Reinforcement Needed OT Short Term Goals Short Term Goals Time Frame: Jul 11, 2021 Eatin Oral hygiene: 5 Toileting hygiene: 2 Shower/bathe self: 2 Upper body dressin Lower body dressin Putting on/taking off footwear: 3 OT Shelter Goals Shelter Goals Time Frame: July 29, 2021 Eating (QC): 6 Oral Hygiene (QC): 6 Toileting Hygiene (QC): 6 Shower/Bathe Self (QC): 5 Upper Body Dressing (QC): 5 Lower Body Dressing (QC): 5 On/Off Footwear (QC): 5 1=Demonstrate adherence to instructed precautions during ADL tasks. 2=Patient will verbalize/demonstrate understanding of assistive devices/modifications for ADL. 3=Patient will improve strength/tolerance for activity to enable patient to pe rform ADL's. OT Education/Plan Problem List/Assessment Assessment: Decreased Activ Tolerance, Decreased Safety Aware, Decreased UE Strength, Impaired Cognition, Impaired Coordination, Impaired Funct Balance, Im paired I ADL's, Impaired Self-Care Skills, Restricted Funct UE ROM Discharge Recommendations Plan/Recommendations: Continue POC Treatment Plan/Plan of Care Patient would benefit from OT for education, treatment and training to promote independence in ADL's, mobility, safety and/or upper extremity function for ADL's. Plan of Care: ADL Retraining, Cognitive Retraining, Functional Mobility, Group Exercise/Act as Ind, UE Funct Exercise/Act, UE Neuromus Re-Ed/Coord, W/C Management Training Treatment Duration: July 29, 2021 Frequency: At least 5 of 7 days/Wk (IRF) Estimated Hrs Per Day: 1.5 hours per day (60-90 min/day) Agreement: Yes Rehab Potential: Fair Time/GCodes Start Time: 07:35 Stop Time: 09:00 Total Time Billed (hr/min): 85 Billed Treatment Time 1 visit ADL x3 (45 min) NM (15 min) FA x2 (25 min) Samantha Valverde OT Jul 09, 2021 08:59
[2021-07-09] MEDS: polyethylene glycoL POWDER 17 GM (MIRALAX) PACK PO SCH ×2 (09:08→21:33)
[2021-07-09] MEDS: DOCUSATE SODIUM 100 MG (COLACE) CAP PO SCH ×2 (09:11→21:10)
[2021-07-09] MEDS: glyBURIDE 2.5 MG (MICRONASE) TAB PO SCH ×2 (09:11→21:11)
[2021-07-09] MEDS: PHENAZOPYRIDINE 100 MG (PYRIDIUM) TABLET PO SCH ×3 (09:11→18:16)
[2021-07-09] MEDS: amLODIPine 5 MG (NORVASC) TAB PO SCH ×2 (09:12→21:11)
[2021-07-09] MEDS: hydrALAZINE (APRESOLINE) 25 MG TAB PO SCH ×3 (09:12→21:11)
[2021-07-09] MEDS: LOSARTAN 50 MG (COZAAR) TAB PO SCH (09:12)
[2021-07-09] MEDS: TRIM/SULFAMETH 160/800 (SEPTRA DS) TAB PO SCH ×2 (09:12→17:08)
[2021-07-09] MEDS: SENNOSIDES 8.6 MG (SENOKOT) TAB PO SCH ×2 (09:12→21:33)
--- NOTE | 2021-07-09 09:16 | Physical Therapy Daily Note ---
PT Daily Note-Current Subjective Patient was showering with OT prior to treatment. PT and OT co-treated today due to hemiparesis, weakness, Incoordination, balance deficits, and risk of falling. Patient was compliant to treatment. Patient states his ankle his feeling better, but has cramping along his left thig. Pain Location: No Pain Reported Mental Status Patient Orientation: Person, Place, Situation Transfers SCALE: Activities may be completed with or without assistive devices. 4-Mshkfhkmme-rlswydv completes the activity by him/herself with no assistance from a helper. 5-Set-up or Clean-up Assistance-helper sets up or cleans up; patient completes activity. [place] assists only prior to or following the activity. 4-Supervision or Touching Assistance-helper provides verbal cues and/or touching/steadying and/or contact guard assistance as patient completes a ctivity. Assistance may be provided throughout the activity or intermittently. 3-Partial/Moderate Assistance-helper does LESS THAN HALF the effort. [place] lifts, holds or supports trunk or limbs, but provides less than half the effort. 2-Substantial/Maximal Assistance-helper does MORE THAN HALF the effort. [place] lifts or holds trunk or limbs and provides more than half the effort. 6-Zbtbmhbmj-tcbnhh does ALL the effort. Patient does none of the effort to complete the activity. Or, the assistance of 2 or more helpers is required for the patient to complete the activity. If activity was not attempted, code reason: 7-Patient Refused. 9-Not Applicable-not attempted and the patient did not perform the activity before the current illness, exacerbation or injury. 10-Not Attempted due to Environmental Limitations-(lack of equipment, weather restraints, etc.). 88-Not Attempted due to Medical Conditions or Safety Concerns. Sit to Stand (QC): 4 Weight Bearing Full Weight Bearing Partial Weight Bearing Gait Training Does the Patient Walk?: Yes Distance: 20'x3 Walk 10 feet (QC): 3 Gait Assistive Device: Walker Tunde Walked with hemiwalker, BRADEN wrap around L ankle to maintain Neutral alignment. No knee immobilizer used, patients knees buckled very minimally and was able to maintain wt bearing through left side. Step-to gait pattern. Patient wobbly at times and foot placement is not consistent. Wheelchair Training Does the Pt Use a Wheelchair?: Yes Wheel 50 ft with 2 turns (QC): 4 (sba) Wheel 150 ft (QC): 4 (sba) Type of Wheelchair: Manual Exercises Seated Therapy Exercises: Sit to stand, Long arc quads, Hamstring Curls Seated Reps: 20 Standing activity, concentrating on bearing weight on left leg while performing UE activity. Treatments Transfers, ambulation, Standing tolerance and balance activity with UE tasks. PT worked on Standing balance/guarding, LE positioning, while OT worked on UE movements, coordination, and UE positioning. Assessment Current Status: Good Progress Patient progressed with walking today and can tolerate weight bearing well without a knee immobilizer, and requires less assistance for weight shifting and balance. Patient was able to perform LAQ with LE but demonstrates weakness and fatigue towards the end of a set. Patient only has trace amounts of hamstring activation and no DF activation. PT tapping on muscle seems to help with activation. Patient can tolerate standing for long periods of time while performing UE movements without losing balance. Patient was left in chair with call light, tray, and all needs met. PT Short Term Goals Short Term Goals Time Frame: Jul 08, 2021 Roll Left & Right: 4 Sit to lyin Lying to sitting on side of be: 4 Sit to stand: 3 Chair/rpv-eo-ktooz transfer: 3 Toilet transfer: 3 PT Swimming Teacher Goals Swimming Teacher Goals PT Swimming Teacher Goals Time Frame: July 22, 2021 Roll Left & Right (QC): 6 Sit to Lying (QC): 6 Lying-Sitting on Side/Bed(QC): 6 Sit to Stand (QC): 4 Chair/Cln-lj-Zsmte Xfer(QC): 4 Toilet Transfer (QC): 4 Car Transfer (QC): 4 Does the Patient Walk: No and Walking Goal IS indicated Walk 10 feet (QC): 4 Walk 50ft with 2 Turns (QC): 88 Walk 150 ft (QC): 88 Walking 10ft on Uneven Surface: 88 1 Step (curb) (QC): 88 4 Steps (QC): 88 12 Steps (QC): 88 Picking up an Object (QC): 4 Does the Pt use WC or Scooter?: Yes Wheel 50 feet with 2 turns (QC: 6 Type: Manual Wheel 150 feet: 6 Type: Manual PT Plan Problem List Problem List: Activity Tolerance, Functional Strength, Safety, Balance, Gait, Transfer, Bed Mobility, ROM Treatment/Plan Treatment Plan: Continue Plan of Care Treatment Plan: Bed Mobility, Education, Functional Activity Shaun, Functional Strength, Group Therapy, Gait, Safety, Therapeutic Exercise, Transfers Treatment Duration: July 22, 2021 Frequency: At least 5 of 7 days/Wk (IRF) Estimated Hrs Per Day: 1.5 hours per day Patient and/or Family Agrees t: Yes Safety Risks/Education Patient Education: Gait Training, Transfer Techniques, Correct Positioning, Safety Issues Teaching Recipient: Patient Teaching Methods: Discussion Response to Teaching: Verbalize Understanding, Return Demonstration Time/GCodes Time In: 0800 Time Out: 914 Total Billed Treatment Time: 75 Total Billed Treatment 1 visit GT 30min FA 30min EX 15min MICHAEL SOLER PT Jul 09, 2021 09:16
--- NOTE | 2021-07-09 11:43 | ST Mod Barium Swallow ---
Speech Evaluation-General Medical Diagnosis Stroke Onset Date: Jun 29, 2021 Therapy Diagnosis Therapy Diagnosis: Mild Oral Dysphagia Precautions Precautions: Fall, Aspiration Precautions/Isolations: Aspiration, Fall Prevention Referral Referring Physician: Dr. Rhea Fair Reason for Referral: Evaluation/Treatment Medical History Pertinent Medical History: DM, HTN, Smoking Current History The patient is a 45 year-old male with a past medical history of high cholesterol, HTN, and diabetes, who presented to the acute rehabilitation unit following a catastrophic stroke with left sided weakness. The patient's primary language is [place]ish. Brain MRI: 06/30/21: 1. Acute infarct involving the right periventricular white matter extending inferiorly and lateral to the posterior limb of the right internal capsule within the right posterior basal ganglia. There are T2 and FLAIR hyperintense signal changes at this location, consistent with an area of acute infarct which is not within a few hours of age. 2. Additional foci of T2 and FLAIR hyperintense signal in the subcortical and periventricular white matter which may relate to advanced hypervascular changes for patient age, vasculitis, or possibly demyelinating etiology. Reviewed History: Yes Social History Current Living Status: Spouse Speech Mod Barium Swallow Prior Level of Function Prior to hospitalization, the patient was consuming a regular diet with thin liquids. Upon admission, the patient reported a sensation of "feeling like I am going to choke." Due to the reduced left sided labial coordination, the patient was recommended a dysphagia two consistency diet with thin liquids. As the patient continues to strengthen and a lack of s/s of suspected aspiration have been displayed, the clinician wishes to update the patient to a regular consistency diet with thin liquids if safety is visualized via MBS. Oral Motor Skills Dentition Natural Dentures: Full Lingual Protrusion: Normal Lingual ROM: Normal Lingual Strength: Normal Velum: Normal Volitional Dry Swallow: Yes Voluntary Cough: Yes Can Clear Throat Volitionally: Yes Oral Phase Labial Closure: Left Side (Mild impairment.) Bolus Formation Pooling L/R: No Impairment (WFL) Bolus Formation Placement: Mild Impairment Mastication Rotary Chew: Minimal Impairment A/P Lingual Propulsion: Minimal Impairment Lingual Movement: Minimal Impairment Oral Phase Residue: Mild Impairment The patient demonstrated a mild oral dysphagia characterized by reduced left labial and lingual coordination resulting in difficulty with bolus formation and posterior transfer. Pharyngeal Phase Swallow Response: No Impairment (WFL) Base of Tongue: No Impairment (WFL) Epiglottic Movement: No Impairment (WFL) Laryngeal Elevation: No Impairment (WFL) Vallecular Residue: No Impairment (WFL) Pharyngeal Wall Residue: No Impairment (WFL) Piriform Sinus Residue: No Impairment (WFL) Laryngeal Penetration: None Aspiration Observations: None The patient triggered a timely pharyngeal swallow. Intact hyo-laryngeal excursion, laryngeal elevation, and epiglottic inversion were noted. Base of tongue retraction and pharyngeal contractions appeared within normal limits. Summary/Impressions Aspiration or laryngeal penetration were not presented with any consistency tested throughout the evaluation. Mild oral dysphagia was present characterized by decreased left labial and lingual coordination and strength. Recommendations: - Regular consistency diet with thin liquids, as tolerated. - Fully upright and alert for P.O. intake. - Small, single bites and sips. - Present food and liquid to the strong, right side. - Assess the left buccal regions for pocketing during and following P.O. intake. - Monitor for s/s of suspected aspiration with P.O. intake. If demonstrated, contact speech pathology. The results and recommendations were provided to the patient and the patient's RN following completion of the evaluation. The lang interpreter line was utilized by the clinician. The patient verbalized comprehension and denied questions or concerns at this time. Speech Short Term Goals Short Term Goals Short Term Goals 1. The patient will demonstrate oral motor exercises with 90% accuracy, independently. 2. The patient, staff, and family will demonstrate safe swallowing strategies with 90% accuracy. Speech Pin Attacher Goals Pin Attacher Goals 1. The patient will demonstrated increased intelligibility (per family members) throughout informal conversation. 2. The patient will tolerate the least restrictive diet without s/s of suspected aspiration. Time Frame: Two Weeks. Speech-Plan Treatment Plan Speech Therapy Treatment Plan: Continue Plan of Care Treatment Duration: Jul 02, 2021 Frequency: Modified Program (IRF) Estimated Hrs Per Day: .5 hour per day Rehab Potential: Fair Pt/Family Agrees to Plan: Yes Safety Risks/Education Teaching Recipient: Patient Teaching Methods: Discussion Response to Teaching: Verbalize Understanding Education Topics Provided: Results of MBS (via Language Line) Time Speech Therapy Time In: 10:15 Speech Therapy Time Out: 10:45 Total Billed Time: 30 Billed Treatment Time 1, MOD, DYST No CHRISTINASTEPHEN ST Jul 09, 2021 11:43
--- NOTE | 2021-07-09 11:43 | Occupational Ther Daily Note ---
OT Current Status-Daily Note Subjective Pt sleeping at OT arrival, easy to waken. Agreeable to exercises. Appearance Pt left supine in bed, all needs within reach. ADL-Treatment Therapy Code Descriptions/Definitions Functional [place] Measure: 0=Not Assessed/NA 4=Minimal Assistance 1=Total Assistance 5=Supervision or Setup 2=Maximal Assistance 6=Modified [place] 3=Moderate Assistance 7=Complete IndependenceSCALE: Activities may be completed with or without assistive devices. 0-Psecwcixje-kirupjt completes the activity by him/herself with no assistance from a helper. 5-Set-up or Clean-up Assistance-helper sets up or cleans up; patient completes activity. [place] assists only prior to or following the activity. 4-Supervision or Touching Assistance-helper provides verbal cues and/or touching/steadying and/or contact guard assistance as patient completes activity. Assistance may be provided throughout the activity or intermittently. 3-Partial/Moderate Assistance-helper does LESS THAN HALF the effort. [place] lifts, holds or supports trunk or limbs, but provides less than half the effort. 2-Substantial/Maximal Assistance-helper does MORE THAN HALF the effort. [place] lifts or holds trunk or limbs and provides more than half the effort. 3-Whfrnplac-gvsudc does ALL the effort. Patient does none of the effort to complete the activity. Or, the assistance of 2 or more helpers is required for the patient to complete the activity. If activity was not attempted, code reason: 7-Patient Refused. 9-Not Applicable-not attempted and the patient did not perform the activity before the current illness, exacerbation or injury. 10-Not Attempted due to Environmental Limitations-(lack of equipment, weather restraints, etc.). 88-Not Attempted due to Medical Conditions or Safety Concerns. Other Treatment NMES completed to stimulate motor response, increase muscle strength, and to facilitate muscle re-education. Effective muscle contraction for shoulder flexion, elbow flexion, and wrist extension observed with Mode/Therapy 2. While sidelying, OT facilitated scapula mobilizations including protraction/retraction, upward rotation, and elevation/depression. Pt tolerates well. PROM of shoulder and elbow in all planes 10x 1. Pt continues to be flaccid except trace voluntary muscle activation with elbow flexion. Education provided through [employer] on how to protect and move UE as pt has tendency to swing arm when getting out of bed as well as lift it by grabbing at fingers with R hand. Education OT Patient Education: Correct positioning, Exercise program, Safety issues Teaching Recipient: Patient Teaching Methods: Demonstration, Discussion Response to Teaching: Verbalize Understanding, Return Demonstration, Reinforcement Needed OT Short Term Goals Short Term Goals Time Frame: Jul 11, 2021 Eatin Oral hygiene: 5 Toileting hygiene: 2 Shower/bathe self: 2 Upper body dressin Lower body dressin Putting on/taking off footwear: 3 OT Chcf Goals Chcf Goals Time Frame: July 29, 2021 Eating (QC): 6 Oral Hygiene (QC): 6 Toileting Hygiene (QC): 6 Shower/Bathe Self (QC): 5 Upper Body Dressing (QC): 5 Lower Body Dressing (QC): 5 On/Off Footwear (QC): 5 1=Demonstrate adherence to instructed precautions during ADL tasks. 2=Patient will verbalize/demonstrate understanding of assistive devices/modifications for ADL. 3=Patient will improve strength/tolerance for activity to enable patient to perform ADL's. OT Education/Plan Problem List/Assessment Assessment: Decreased Activ Tolerance, Decreased Safety Aware, Decreased UE Strength, Impaired Cognition, Impaired Funct Balance, Impaired I ADL's, Impaired Self-Care Skills, Restricted Funct UE ROM Discharge Recommendations Plan/Recommendations: Continue POC Treatment Plan/Plan of Care Treatment,Training & Education: Yes Patient would benefit from OT for education, treatment and training to promote independence in ADL's, mobility, safety and/or upper extremity function for ADL's. Plan of Care: ADL Retraining, Cognitive Retraining, Functional Mobility, Group Exercise/Act as Ind, UE Funct Exercise/Act, UE Neuromus Re-Ed/Coord, W/C Management Training Treatment Duration: July 29, 2021 Frequency: At least 5 of 7 days/Wk (IRF) Estimated Hrs Per Day: 1.5 hours per day (60-90 min/day) Agreement: Yes Rehab Potential: Fair Time/GCodes Start Time: 11:10 Stop Time: 11:37 Total Time Billed (hr/min): 27 Billed Treatment Time 1 visit NM (17 min) EX (10 min) Samantha Valverde OT Jul 09, 2021 11:43
[2021-07-09] MEDS: ASPIRIN 81 MG CHEW (CHILDREN'S ASA) PO SCH (13:16)
[2021-07-09] MEDS: ENOXAPARIN 40 MG/0.4 ML (LOVENOX) SYR SC SCH (13:17)
[2021-07-09 13:20] VITALS: BP 124/82
--- NOTE | 2021-07-09 13:43 | Diagnostic Imaging Report ---
Indication: Dysphagia. Study was performed in conjunction with speech pathology. Video fluoroscopy was performed during swallowing of barium at multiple consistencies. Patient ingested thin barium as well as applesauce and cracker consistency. Total of 0.6 minutes of fluoroscopic time was utilized. Oral phase unremarkable. There is normal epiglottic tilt and laryngeal elevation. No laryngeal penetration or aspiration was observed. No significant residue was demonstrated. IMPRESSION: Unremarkable modified barium swallow study. Dictated by: Dictated on workstation # [id number]
[2021-07-09 20:45] VITALS: BP 131/76
[2021-07-10] MEDS: inSUlin ASPART (NovoLOG) 1 UNIT/0.01 ML (CHARGE PER UNIT) SC SCH ×4 (05:54→22:05)
--- NOTE | 2021-07-10 05:58 | PM&R Progress Note ---
Subjective HPI/CC On Admission Date Seen by Provider: Jul 10, 2021 Time Seen by Provider: 10:30 Subjective/Events-last exam 07/10/21: Patient has no issues UCx reviewed NGTD so DC abx 07/09/21: Patient doing well Empirically placed on antibiotics Urinary incontinence the same No pain is reported 07/08/2021: No pain is reported Patient doing really well otherwise Urinary issues prompted UA and bacteriuria noted so will cover with antibiotic until culture back Supportive care 07/07/21: Patient has no pain Able to use assistive devices Supportive care continues 07/06/21: Patient doing well Monitor closely No pain reported Checked meds and labs 07/05/21: Patient seems to be doing well Blood sugars reviewed Blood pressures reviewed No falls 07/04/2021: Patient doing well Left-sided weakness is profound DC the catheter yesterday and voiding well No pain reported 07/03/21: Patient doing well Sugar reviewed BP improved on multiple meds DC Catheter today 07/02/21: Patient tolerating everything pretty well Blood pressure improved Blood sugars improved Wheelchair mobility training Review of Systems General: Fatigue, Malaise Objective Exam Vital Signs Vital Signs Date Time Temp Pulse Resp B/P (MAP) Pulse Ox O2 Delivery O2 Flow Rate FiO2 07/10/21 12:09 72 18 129/72 (91) 97 Room Air 07/10/21 07:34 36.3 Capillary Refill : General Appearance: No Apparent Distress, WD/WN, Obese HEENT: PERRL/EOMI, Normal ENT Inspection, Pharynx Normal Neck: Full Range of Motion, Normal Inspection, Non Tender, Supple, Carotid Br uit Respiratory: Chest Non Tender, Lungs Clear, Normal Breath Sounds, No Accessory Muscle Use, No Respiratory Distress Cardiovascular: Regular Rate, Rhythm, No Edema, No Gallop, No JVD, No Murmur, Normal Peripheral Pulses Gastrointestinal: Normal Bowel Sounds, No Organomegaly, No Pulsatile Mass, Non Tender, Soft Back: Normal Inspection, No CVA Tenderness, No Vertebral Tenderness Extremity: Normal Capillary Refill, Normal Inspection, Normal Range of Motion, Non Tender, No Calf Tenderness, No Pedal Edema Neurologic/Psychiatric: Alert, Oriented x3, Normal 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 FIM Transfers Therapy Code Descriptions/Definitions Functional [place] Measure: 0=Not Assessed/NA 4=Minimal Assistance 1=Total Assistance 5=Supervision or Setup 2=Maximal Assistance 6=Modified [place] 3=Moderate Assistance 7=Complete IndependenceSCALE: Activities may be completed with or without assistive devices. 3-Drggifrlzt-zmenehv completes the activity by him/herself with no assistance from a helper. 5-Set-up or Clean-up Assistance-helper sets up or cleans up; patient completes activity. [place] assists only prior to or following the activity. 4-Supervision or Touching Assistance-helper provides verbal cues and/or touching/steadying and/or contact guard assistance as patient completes activity. Assistance may be provided throughout the activity or intermittently. 3-Partial/Moderate Assistance-helper does LESS THAN HALF the effort. [place] lifts, holds or supports trunk or limbs, but provides less than half the effort. 2-Substantial/Maximal Assistance-helper does MORE THAN HALF the effort. [place] lifts or holds trunk or limbs and provides more than half the effort. 5-Wxxwqqunl-ucgjkz does ALL the effort. Patient does none of the effort to complete the activity. Or, the assistance of 2 or more helpers is required for the patient to complete the activity. If activity was not attempted, code reason: 7-Patient Refused. 9-Not Applicable-not attempted and the patient did not perform the activity before the current illness, exacerbation or injury. 10-Not Attempted due to Environmental Limitations-(lack of equipment, weather restraints, etc.). 88-Not Attempted due to Medical Conditions or Safety Concerns. Roll Left to Right (QC): 3 Sit to Lying (QC): 3 Sit to Stand (QC): 4 Chair/Kgp-qx-Zhpxq Xfer(QC): 3 Car Transfer (QC): 88 Gait Training Does the Patient Walk?: Yes Distance: 20'x3 Walk 10 feet (QC): 3 Walk 50 ft with 2 Turns(QC): 2 Walk 150 ft (QC): 88 Walking 10ft/uneven surface-QC: 88 Gait Persons Needed: 2 Gait Assistive Device: Walker Tunde Wheelchair Training Does the Pt Use a Wheelchair?: Yes Wheel 50 ft with 2 turns (QC): 4 (sba) Wheel 150 ft (QC): 4 (sba) Type of Wheelchair: Manual Stair Training 1 Step (curb) (QC): 88 4 Steps (QC): 88 12 Steps (QC): 88 Balance Picking up an Object (QC): 88 ADL-Treatment Eating (QC): 5 Oral Hygiene (QC): 6 Shower/Bathe Self (QC): 3 Upper Body Dressing (QC): 3 Lower Body Dressing (QC): 1 On/Off Footwear (QC): 3 Toileting Hygiene (QC): 1 Toilet Transfer (QC): 3 Assessment/Plan Assessment and Plan Assess & Plan/Chief Complaint Assessment: CVA with left-sided weakness catastrophic type Hypertension severe Hyperlipidemia Hyperglyceridemia Obesity BMI 30 New onset diabetes hemoglobin A1c 9.7 Smoker Plan: Inpatient rehab protocol Supportive care Insulin Blood pressure management 07/02/2021: Increase blood pressure meds Supportive care 07/03/21: DC catheter 07/04/2021: Aggressive therapy 07/05/2021: Supportive care Blood sugar blood pressure improved 07/06/21: BP improved Monitor closely 07/07/2021: Blood pressure improved Blood sugar improved 07/08/2021: Patient doing well Check UA 07/09/2021: Await urine culture Continue antibiotics 07/10/21: UCx NGTD DC abx (1) CVA (cerebral vascular accident) Status: Acute TITUS KENT DO Jul 10, 2021 05:58
[2021-07-10 07:34] VITALS: BP 126/78
[2021-07-10] MEDS: PHENAZOPYRIDINE 100 MG (PYRIDIUM) TABLET PO SCH ×3 (08:18→18:37)
[2021-07-10] MEDS: DOCUSATE SODIUM 100 MG (COLACE) CAP PO SCH ×2 (08:18→22:05)
[2021-07-10] MEDS: TRIM/SULFAMETH 160/800 (SEPTRA DS) TAB PO SCH ×2 (08:18→17:15)
[2021-07-10] MEDS: amLODIPine 5 MG (NORVASC) TAB PO SCH ×2 (08:18→22:06)
[2021-07-10] MEDS: LOSARTAN 50 MG (COZAAR) TAB PO SCH (08:18)
[2021-07-10] MEDS: glyBURIDE 2.5 MG (MICRONASE) TAB PO SCH ×2 (08:18→22:06)
[2021-07-10] MEDS: polyethylene glycoL POWDER 17 GM (MIRALAX) PACK PO SCH ×2 (08:19→20:24)
[2021-07-10] MEDS: hydrALAZINE (APRESOLINE) 25 MG TAB PO SCH ×3 (08:19→22:06)
[2021-07-10] MEDS: SENNOSIDES 8.6 MG (SENOKOT) TAB PO SCH ×2 (08:19→22:05)
--- NOTE | 2021-07-10 09:48 | Occupational Ther Daily Note ---
OT Current Status-Daily Note Subjective Pt agreeable to treatment. Motivated to getting stronger. Co-treat with PT for part of session ([id number]) due to need of 2 skilled clinicians to progress indep and safety with adls and functional mobility. Appearance Pt left sitting in w/c with physical therapy present at OT departure. Mental Status/Objective Patient Orientation: Person, Place, Situation ADL-Treatment Therapy Code Descriptions/Definitions Functional [place] Measure: 0=Not Assessed/NA 4=Minimal Assistance 1=Total Assistance 5=Supervision or Setup 2=Maximal Assistance 6=Modified [place] 3=Moderate Assistance 7=Complete IndependenceSCALE: Activities may be completed with or without assistive devices. 8-Lovsowyzdv-yfscnxy completes the activity by him/herself with no assistance from a helper. 5-Set-up or Clean-up Assistance-helper sets up or cleans up; patient completes activity. [place] assists only prior to or following the activity. 4-Supervision or Touching Assistance-helper provides verbal cues and/or touching/steadying and/or contact guard assistance as patient completes activity. Assistance may be provided throughout the activity or intermittently. 3-Partial/Moderate Assistance-helper does LESS THAN HALF the effort. [place] lifts, holds or supports trunk or limbs, but provides less than half the effort. 2-Substantial/Maximal Assistance-helper does MORE THAN HALF the effort. [place] lifts or holds trunk or limbs and provides more than half the effort. 2-Sjzugdvac-dqolzs does ALL the effort. Patient does none of the effort to complete the activity. Or, the assistance of 2 or more helpers is required for the patient to complete the activity. If activity was not attempted, code reason: 7-Patient Refused. 9-Not Applicable-not attempted and the patient did not perform the activity befo re the current illness, exacerbation or injury. 10-Not Attempted due to Environmental Limitations-(lack of equipment, weather re straints, etc.). 88-Not Attempted due to Medical Conditions or Safety Concerns. Oral Hygiene (QC): 6 Upper Body Dressing (QC): 4 Lower Body Dressing (QC): 3 On/Off Footwear: 3 Toileting Hygiene (QC): 3 Toilet Transfer (QC): 3 Supine<>sit: Initially min a to transition LLE off edge of bed. Post instruction to wrap RLE under L to assist in lifting/moving, pt able to complete with SBA. He sat EOB to don/doff clothing. Min visual/tactile reminders on sha technique when donning shirt. Extra time, but no physical assistance required. Assist to lift LLE onto side of bed as pt threaded foot into clothing. Extra time and close sba-cga as he reached forward to thread RLE into underwear/pants. Pt returned to supine to complete clothing management. Min a to pull up over R hip as he rolled R/L. During toileting tasks, pt is Dependent to manage clothing over hips while standing at grab bar with R hand. Improved from needing assist x2 to assist x1. Grooming tasks performed at w/c level, no assist. Other Treatment While supine, pt completed AAROM exercises with dowel vera. L hand wrapped around bar with jesús wrap in order to maintain grasp. 10x1 all planes. Pt exhibits fatigue, but able to complete all 10 reps in set. Cues for slow/controlled movement. Slight improvement in bicep activation during elbow flexion observed this date. OT facilitated Tapping to elicit full flexion. With physical therapy present, pt participated in standing activity at high/low mat. PT working on balance, LE positioning and safety, as OT encouraged proper upright posture and weight bearing through LUE. With R hand, Pt reached across midline and anter iorly to reach/place cones in designated locations. Pt uses mat for extra stability when reaching out of MAIN. In parallel bars, pt stood and completed marches with RLE, 10 x2. Min a for balance throughout standing activities. Education OT Patient Education: Correct positioning, Energy conservation, Modified ADL techniques, Progress toward Goal/Update tx plan, Purpose of tx/functional activities, Reviewed precautions, Rehab process, Safety issues, Transfer techniques Teaching Recipient: Patient Teaching Methods: Demonstration, Discussion Response to Teaching: Return Demonstration, Reinforcement Needed OT Short Term Goals Short Term Goals Time Frame: Jul 11, 2021 Eatin Oral hygiene: 5 Toileting hygiene: 2 Shower/bathe self: 2 Upper body dressin Lower body dressin Putting on/taking off footwear: 3 OT Correction Goals Correction Goals Time Frame: July 29, 2021 Eating (QC): 6 Oral Hygiene (QC): 6 Toileting Hygiene (QC): 6 Shower/Bathe Self (QC): 5 Upper Body Dressing (QC): 5 Lower Body Dressing (QC): 5 On/Off Footwear (QC): 5 1=Demonstrate adherence to instructed precautions during ADL tasks. 2=Patient will verbalize/demonstrate understanding of assistive devices/modifications for ADL. 3=Patient will improve strength/tolerance for activity to enable patient to perform ADL's. OT Education/Plan Problem List/Assessment Assessment: Decreased Activ Tolerance, Decreased Safety Aware, Decreased UE Strength, Impaired Cognition, Impaired Coordination, Impaired Funct Balance, Impaired I ADL's, Impaired Self-Care Skills, Restricted Funct UE ROM Discharge Recommendations Plan/Recommendations: Continue POC Treatment Plan/Plan of Care Treatment,Training & Education: Yes Patient would benefit from OT for education, treatment and training to promote independence in ADL's, mobility, safety and/or upper extremity function for ADL's. Plan of Care: ADL Retraining, Cognitive Retraining, Functional Mobility, Group Exercise/Act as Ind, UE Funct Exercise/Act, UE Neuromus Re-Ed/Coord, W/C Management Training Treatment Duration: July 29, 2021 Frequency: At least 5 of 7 days/Wk (IRF) Estimated Hrs Per Day: .25 hour per day Agreement: Yes Rehab Potential: Fair Time/GCodes Start Time: 08:20 Stop Time: 09:35 Total Time Billed (hr/min): 75 Billed Treatment Time 1 visit ADL x2 (35 min) NM (15 min) EX x2 (25 min) Samantha Valverde OT Jul 10, 2021 09:48
--- NOTE | 2021-07-10 10:24 | Physical Therapy Daily Note ---
PT Daily Note-Current Subjective Upon arrival pt was in PT gym with OT. PT co treats with OT. Mental Status Patient Orientation: Person, Place, Time, Situation, Normal For Age Attachments: Other-See Comments (Arm sling) Transfers SCALE: Activities may be completed with or without assistive devices. 8-Qwyxzaurkv-zfsokow completes the activity by him/herself with no assistance from a helper. 5-Set-up or Clean-up Assistance-helper sets up or cleans up; patient completes activity. [place] assists only prior to or following the activity. 4-Supervision or Touching Assistance-helper provides verbal cues and/or touching/steadying and/or contact guard assistance as patient completes activity. Assistance may be provided throughout the activity or intermittently. 3-Partial/Moderate Assistance-helper does LESS THAN HALF the effort. [place] lifts, holds or supports trunk or limbs, but provides less than half the effort. 2-Substantial/Maximal Assistance-helper does MORE THAN HALF the effort. [place] lifts or holds trunk or limbs and provides more than half the effort. 4-Fylkhqyhk-ydnuca does ALL the effort. Patient does none of the effort to c omplete the activity. Or, the assistance of 2 or more helpers is required for the patient to complete the activity. If activity was not attempted, code reason: 7-Patient Refused. 9-Not Applicable-not attempted and the patient did not perform the activity before the current illness, exacerbation or injury. 10-Not Attempted due to Environmental Limitations-(lack of equipment, weather restraints, etc.). 88-Not Attempted due to Medical Conditions or Safety Concerns. Sit to Stand (QC): 3 Pt was Mod A with sit to stands, pt was able to stay balanced, but affected knee buckled minimally, pt was able to self correct. Weight Bearing Full Weight Bearing Partial Weight Bearing Gait Training Does the Patient Walk?: Yes Distance: 24' Walk 10 feet (QC): 4 Gait Persons Needed: 1 Gait Assistive Device: Walker Tunde Pt was able to ambulate with 1 GT person and a PT walking with WC behind pt. Pt had min LOB but was able to self correct, pts GT was slow, but had reciprocal GT pattern, with Tunde walker. Pts ankle was wrapped to keep foot in DF and to prevent EV. Exercises Seated Therapy Exercises: Ankle pumps, Sit to stand, Hip flexion Seated Reps: [address] Ex=Flex, Abd, Ext, Marching Standing Reps: 10 Pt performed marches, hip flexion, while standing on affected. Pt performed weight shift, Treatments Pt performed all EXs as listed above. Pt performed sit to stands with PT and OT assistance. With assistance from PT pt ws able to ambulate from gym to pts room, with 1 GT person and another PT walking with WC behind pt, upon entering pts room, pt RN was present, pt was seated in recliner, with call light and tray in reach, as PT exits pt room, pts RN was still present. Assessment Current Status: Good Progress Pt would benefit from continued PT, to improve strength, GT, and activity tolerance. PT Short Term Goals Short Term Goals Time Frame: Jul 08, 2021 Roll Left & Right: 4 Sit to lyin Lying to sitting on side of be: 4 Sit to stand: 3 Chair/hfe-vd-odhzd transfer: 3 Toilet transfer: 3 PT Usp Goals Galvanizing Pot Runner Goals PT Galvanizing Pot Runner Goals Time Frame: July 22, 2021 Roll Left & Right (QC): 6 Sit to Lying (QC): 6 Lying-Sitting on Side/Bed(QC): 6 Sit to Stand (QC): 4 Chair/Dwh-bj-Jypmb Xfer(QC): 4 Toilet Transfer (QC): 4 Car Transfer (QC): 4 Does the Patient Walk: No and Walking Goal IS indicated Walk 10 feet (QC): 4 Walk 50ft with 2 Turns (QC): 88 Walk 150 ft (QC): 88 Walking 10ft on Uneven Surface: 88 1 Step (curb) (QC): 88 4 Steps (QC): 88 12 Steps (QC): 88 Picking up an Object (QC): 4 Does the Pt use WC or Scooter?: Yes Wheel 50 feet with 2 turns (QC: 6 Type: Manual Wheel 150 feet: 6 Type: Manual PT Plan Problem List Problem List: Activity Tolerance, Functional Strength, Gait Treatment/Plan Treatment Plan: Continue Plan of Care Treatment Plan: Bed Mobility, Education, Functional Activity Shaun, Functional Strength, Group Therapy, Gait, Safety, Therapeutic Exercise, Transfers Treatment Duration: July 22, 2021 Frequency: At least 5 of 7 days/Wk (IRF) Estimated Hrs Per Day: 1.5 hours per day Patient and/or Family Agrees t: Yes Safety Risks/Education Patient Education: Gait Training, Transfer Techniques, Correct Positioning, Safety Issues Teaching Recipient: Patient Teaching Methods: Demonstration, Discussion Response to Teaching: Verbalize Understanding, Return Demonstration Time/GCodes Time In: 900 Time Out: 1000 Total Billed Treatment Time: 60 Total Billed Treatment 1, EX (30), GT (30) FILEMON PATTON CARE TRANSITION MANAGER Jul 10, 2021 10:24
--- NOTE | 2021-07-10 11:15 | Physical Therapy Daily Note ---
PT Daily Note-Current Subjective Upon arrival pts RN was situating pt in bed, Pt agrees to PT session. Mental Status Patient Orientation: Person, Place, Time, Situation, Normal For Age Attachments: Other-See Comments (Arm sling) Transfers SCALE: Activities may be completed with or without assistive devices. 2-Vuisochpkp-jvvchtg completes the activity by him/herself with no assistance fr om a helper. 5-Set-up or Clean-up Assistance-helper sets up or cleans up; patient completes activity. [place] assists only prior to or following the activity. 4-Supervision or Touching Assistance-helper provides verbal cues and/or touching/steadying and/or contact guard assistance as patient completes activity. Assistance may be provided throughout the activity or intermittently. 3-Partial/Moderate Assistance-helper does LESS THAN HALF the effort. [place] lifts, holds or supports trunk or limbs, but provides less than half the effort. 2-Substantial/Maximal Assistance-helper does MORE THAN HALF the effort. [place] lifts or holds trunk or limbs and provides more than half the effort. 3-Jtvpougir-oiphqa does ALL the effort. Patient does none of the effort to complete the activity. Or, the assistance of 2 or more helpers is required for the patient to complete the activity. If activity was not attempted, code reason: 7-Patient Refused. 9-Not Applicable-not attempted and the patient did not perform the activity before the current illness, exacerbation or injury. 10-Not Attempted due to Environmental Limitations-(lack of equipment, weather restraints, etc.). 88-Not Attempted due to Medical Conditions or Safety Concerns. Weight Bearing Full Weight Bearing Partial Weight Bearing Exercises Supine Ex: Ankle pumps, Heel Slides, Knee to chest, Short Arc Quads, Straight leg raise, Hip abd/add Supine Reps: 10 Treatments Pt performed all supine EXs as listed above. Pt required assistance with L LE Exs. Assessment Current Status: Good Progress Pt tolerated tx session well. Pt would benefit from continued PT to improve on strength and transfers. PT Short Term Goals Short Term Goals Time Frame: Jul 08, 2021 Roll Left & Right: 4 Sit to lyin Lying to sitting on side of be: 4 Sit to stand: 3 Chair/rng-uy-wzghu transfer: 3 Toilet transfer: 3 PT Prison Goals Engineering And Scientific Programmer Goals PT Engineering And Scientific Programmer Goals Time Frame: July 22, 2021 Roll Left & Right (QC): 6 Sit to Lying (QC): 6 Lying-Sitting on Side/Bed(QC): 6 Sit to Stand (QC): 4 Chair/Tes-rr-Lmiea Xfer(QC): 4 Toilet Transfer (QC): 4 Car Transfer (QC): 4 Does the Patient Walk: No and Walking Goal IS indicated Walk 10 feet (QC): 4 Walk 50ft with 2 Turns (QC): 88 Walk 150 ft (QC): 88 Walking 10ft on Uneven Surface: 88 1 Step (curb) (QC): 88 4 Steps (QC): 88 12 Steps (QC): 88 Picking up an Object (QC): 4 Does the Pt use WC or Scooter?: Yes Wheel 50 feet with 2 turns (QC: 6 Type: Manual Wheel 150 feet: 6 Type: Manual PT Plan Problem List Problem List: Activity Tolerance, Functional Strength Treatment/Plan Treatment Plan: Continue Plan of Care Treatment Plan: Bed Mobility, Education, Functional Activity Shaun, Functional Strength, Group Therapy, Gait, Safety, Therapeutic Exercise, Transfers Treatment Duration: July 22, 2021 Frequency: At least 5 of 7 days/Wk (IRF) Estimated Hrs Per Day: 1.5 hours per day Patient and/or Family Agrees t: Yes Time/GCodes Time In: 1100 Time Out: 1115 Total Billed Treatment Time: 15 Total Billed Treatment 1, EX (15) FILEMON PATTON PTA Jul 10, 2021 11:15
--- NOTE | 2021-07-10 11:54 | Speech Therapy Daily Note ---
Speech Daily Progress Note Subjective Date Seen by Provider: Jul 10, 2021 Time Seen by Provider: 10:00 The patient was seated upright in his recliner, awake and alert upon entrance to his room by the clinician. The patient greeted the clinician appropriately and was agreeable to participation in the cognitive linguistic and dysphagia treatment session. Objective - Oral Motor Exercises: Oral motor exercises were provided to the patient in handout form in German and in [place], with a visual of each exercise present on the handout. The patient and clinician discussed the exercises and the clinician demonstrated each one. The patient completed oral motor exercises with high accuracy and moderate clinician modeling. The patient denied questions or concerns regarding the exercises following completion of the session. The exercises will be used to strengthen the left labial and lingual side for increased precision with speech sounds and oral strength for swallowing. Assessment Assessment Current Status: Good Progress Treatment Plan Continue Plan of Care Speech Short Term Goals Short Term Goals Short Term Goals 1. The patient will demonstrate oral motor exercises with 90% accuracy, independently. 2. The patient, staff, and family will demonstrate safe swallowing strategies with 90% accuracy. Speech Making Department Preparer Goals Making Department Preparer Goals 1. The patient will demonstrated increased intelligibility (per family members) throughout informal conversation. 2. The patient will tolerate the least restrictive diet without s/s of suspected aspiration. Time Frame: Two Weeks. Speech-Plan Treatment Plan Speech Therapy Treatment Plan: Continue Plan of Care Treatment Duration: Jul 02, 2021 Frequency: Modified Program (IRF) Estimated Hrs Per Day: .5 hour per day Rehab Potential: Fair Safety Risks/Education Teaching Recipient: Patient Teaching Methods: Demonstration, Handout, Discussion Response to Teaching: Verbalize Understanding, Return Demonstration Education Topics Provided: Oral Motor Exercises Time Speech Therapy Time In: 10:30 Speech Therapy Time Out: 11:00 Total Billed Time: 30 Billed Treatment Time 1, MEI CASTILLO [facility] Jul 10, 2021 11:54
[2021-07-10 12:09] VITALS: BP 129/72
[2021-07-10] MEDS: ENOXAPARIN 40 MG/0.4 ML (LOVENOX) SYR SC SCH (12:10)
[2021-07-10] MEDS: ASPIRIN 81 MG CHEW (CHILDREN'S ASA) PO SCH (15:06)
[2021-07-10 20:00] VITALS: BP 129/75
[2021-07-11] MEDS: inSUlin ASPART (NovoLOG) 1 UNIT/0.01 ML (CHARGE PER UNIT) SC SCH ×4 (05:20→20:36)
--- NOTE | 2021-07-11 06:12 | PM&R Progress Note ---
Subjective HPI/CC On Admission Date Seen by Provider: Jul 11, 2021 Time Seen by Provider: 09:00 Subjective/Events-last exam 07/11/2021: Patient doing really well Able to lift his left leg up and move his right arm at the shoulder Eating well Blood sugars and blood pressures reviewed 07/10/21: Patient has no issues UCx reviewed NGTD so DC abx 07/09/21: Patient doing well Empirically placed on antibiotics Urinary incontinence the same No pain is reported 07/08/2021: No pain is reported Patient doing really well otherwise Urinary issues prompted UA and bacteriuria noted so will cover with antibiotic until culture back Supportive care 07/07/21: Patient has no pain Able to use assistive devices Supportive care continues 07/06/21: Patient doing well Monitor closely No pain reported Checked meds and labs 07/05/21: Patient seems to be doing well Blood sugars reviewed Blood pressures reviewed No falls 07/04/2021: Patient doing well Left-sided weakness is profound DC the catheter yesterday and voiding well No pain reported 07/03/21: Patient doing well Sugar reviewed BP improved on multiple meds DC Catheter today 07/02/21: Patient tolerating everything pretty well Blood pressure improved Blood sugars improved Wheelchair mobility training Review of Systems Neurological: Weakness, Incoordination Objective Exam Vital Signs Vital Signs Date Time Temp Pulse Resp B/P (MAP) Pulse Ox O2 Delivery O2 Flow Rate FiO2 07/11/21 09:10 Room Air 07/11/21 07:29 36.6 77 18 129/84 (99) 98 Capillary Refill : General Appearance: No Apparent Distress, WD/WN, Obese HEENT: PERRL/EOMI, Normal ENT Inspection, Pharynx Normal Neck: Full Range of Motion, Normal Inspection, Non Tender, Supple, Carotid Bruit Respiratory: Chest Non Tender, Lungs Clear, Normal Breath Sounds, No Accessory Muscle Use, No Respiratory Distress Cardiovascular: Regular Rate, Rhythm, No Edema, No Gallop, No JVD, No Murmur, Normal Peripheral Pulses Gastrointestinal: Normal Bowel Sounds, No Organomegaly, No Pulsatile Mass, Non Tender, Soft Back: Normal Inspection, No CVA Tenderness, No Vertebral Tenderness Extremity: Normal Capillary Refill, Normal Inspection, Normal Range of Motion, Non Tender, No Calf Tenderness, No Pedal Edema Neurologic/Psychiatric: Alert, Oriented x3, Normal Mood/Affect, christian education director II-XII Norm as 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 FIM Transfers Therapy Code Descriptions/Definitions Functional [place] Measure: 0=Not Assessed/NA 4=Minimal Assistance 1=Total Assistance 5=Supervision or Setup 2=Maximal Assistance 6=Modified [place] 3=Moderate Assistance 7=Complete IndependenceSCALE: Activities may be completed with or without assistive devices. 7-Jxyypupfab-vbswoer completes the activity by him/herself with no assistance from a helper. 5-Set-up or Clean-up Assistance-helper sets up or cleans up; patient completes activity. [place] assists only prior to or following the activity. 4-Supervision or Touching Assistance-helper provides verbal cues and/or touchi ng/steadying and/or contact guard assistance as patient completes activity. Assistance may be provided throughout the activity or intermittently. 3-Partial/Moderate Assistance-helper does LESS THAN HALF the effort. [place] lifts, holds or supports trunk or limbs, but provides less than half the effort. 2-Substantial/Maximal Assistance-helper does MORE THAN HALF the effort. [place] lifts or holds trunk or limbs and provides more than half the effort. 1-Qpqggftyl-mkfskl does ALL the effort. Patient does none of the effort to complete the activity. Or, the assistance of 2 or more helpers is required for the patient to complete the activity. If activity was not attempted, code reason: 7-Patient Refused. 9-Not Applicable-not attempted and the patient did not perform the activity before the current illness, exacerbation or injury. 10-Not Attempted due to Environmental Limitations-(lack of equipment, weather restraints, etc.). 88-Not Attempted due to Medical Conditions or Safety Concerns. Roll Left to Right (QC): 3 Sit to Lying (QC): 3 Sit to Stand (QC): 3 Chair/Gzo-ab-Wkhye Xfer(QC): 3 Car Transfer (QC): 88 Gait Training Does the Patient Walk?: Yes Distance: 24' Walk 10 feet (QC): 4 Walk 50 ft with 2 Turns(QC): 2 Walk 150 ft (QC): 88 Walking 10ft/uneven surface-QC: 88 Gait Persons Needed: 1 Gait Assistive Device: Walker Tunde Wheelchair Training Does the Pt Use a Wheelchair?: Yes Wheel 50 ft with 2 turns (QC): 4 (sba) Wheel 150 ft (QC): 4 (sba) Type of Wheelchair: Manual Stair Training 1 Step (curb) (QC): 88 4 Steps (QC): 88 12 Steps (QC): 88 Balance Picking up an Object (QC): 88 ADL-Treatment Eating (QC): 5 Oral Hygiene (QC): 6 Shower/Bathe Self (QC): 3 Upper Body Dressing (QC): 4 Lower Body Dressing (QC): 3 On/Off Footwear (QC): 3 Toileting Hygiene (QC): 3 Toilet Transfer (QC): 3 Assessment/Plan Assessment and Plan Assess & Plan/Chief Complaint Assessment: CVA with left-sided weakness catastrophic type Hypertension severe Hyperlipidemia Hyperglyceridemia Obesity BMI 30 New onset diabetes hemoglobin A1c 9.7 Smoker Plan: Inpatient rehab protocol Supportive care Insulin Blood pressure management 07/02/2021: Increase blood pressure meds Supportive care 07/03/21: DC catheter 07/04/2021: Aggressive therapy 07/05/2021: Supportive care Blood sugar blood pressure improved 07/06/21: BP improved Monitor closely 07/07/2021: Blood pressure improved Blood sugar improved 07/08/2021: Patient doing well Check UA 07/09/2021: Await urine culture Continue antibiotics 07/10/21: UCx NGTD DC abx 07/11/2021: Supportive care Monitor closely (1) CVA (cerebral vascular accident) Status: Acute TITUS KENT DO Jul 11, 2021 06:12
[2021-07-11 07:29] VITALS: BP 129/84
[2021-07-11] MEDS: DOCUSATE SODIUM 100 MG (COLACE) CAP PO SCH ×2 (08:11→19:34)
[2021-07-11] MEDS: polyethylene glycoL POWDER 17 GM (MIRALAX) PACK PO SCH ×2 (08:11→19:35)
[2021-07-11] MEDS: SENNOSIDES 8.6 MG (SENOKOT) TAB PO SCH ×2 (08:11→19:35)
[2021-07-11] MEDS: amLODIPine 5 MG (NORVASC) TAB PO SCH ×2 (08:13→20:36)
[2021-07-11] MEDS: glyBURIDE 2.5 MG (MICRONASE) TAB PO SCH ×2 (08:13→20:36)
[2021-07-11] MEDS: LOSARTAN 50 MG (COZAAR) TAB PO SCH (08:13)
[2021-07-11] MEDS: PHENAZOPYRIDINE 100 MG (PYRIDIUM) TABLET PO SCH ×3 (08:13→18:07)
[2021-07-11] MEDS: hydrALAZINE (APRESOLINE) 25 MG TAB PO SCH ×3 (08:13→20:36)
--- NOTE | 2021-07-11 10:34 | Physical Therapy Daily Note ---
PT Daily Note-Current Subjective Pt in [facility] upon arrival and agrees to PT. Mental Status Patient Orientation: Person, Place, Time Transfers SCALE: Activities may be completed with or without assistive devices. 9-Fagpjlaknt-sdipkrw completes the activity by him/herself with no assistance from a helper. 5-Set-up or Clean-up Assistance-helper sets up or cleans up; patient completes activity. [place] assists only prior to or following the activity. 4-Supervision or Touching Assistance-helper provides verbal cues and/or touching/steadying and/or contact guard assistance as patient completes activity. Assistance may be provided throughout the activity or intermittently. 3-Partial/Moderate Assistance-helper does LESS THAN HALF the effort. [place] lifts, holds or supports trunk or limbs, but provides less than half the effort. 2-Substantial/Maximal Assistance-helper does MORE THAN HALF the effort. [place] lifts or holds trunk or limbs and provides more than half the effort. 0-Vwarlkyrg-obrruo does ALL the effort. Patient does none of the effort to complete the activity. Or, the assistance of 2 or more helpers is required for the patient to complete the activity. If activity was not attempted, code reason: 7-Patient Refused. 9-Not Applicable-not attempted and the patient did not perform the activity before the current illness, exacerbation or injury. 10-Not Attempted due to Environmental Limitations-(lack of equipment, weather restraints, etc.). 88-Not Attempted due to Medical Conditions or Safety Concerns. Weight Bearing Full Weight Bearing Partial Weight Bearing Exercises Seated Therapy Exercises: Ankle pumps, Long arc quads, Hip flexion, Hamstring Curls, Hip abd/add Seated Reps: 25 Treatments Pt requires modA/maxA for LLE to performing seated exs. Call light nearby and all needs met as PT departs. Assessment Current Status: Fair Progress Pt requires skilled verbal and tactile cues in order to perform all seated exs. PT Short Term Goals Short Term Goals Time Frame: Jul 08, 2021 Roll Left & Right: 4 Sit to lyin Lying to sitting on side of be: 4 Sit to stand: 3 Chair/slm-ws-vzvfd transfer: 3 Toilet transfer: 3 PT Intermediate Goals Cloth Mender Goals PT Cloth Mender Goals Time Frame: July 22, 2021 Roll Left & Right (QC): 6 Sit to Lying (QC): 6 Lying-Sitting on Side/Bed(QC): 6 Sit to Stand (QC): 4 Chair/Lbf-rk-Yzwzs Xfer(QC): 4 Toilet Transfer (QC): 4 Car Transfer (QC): 4 Does the Patient Walk: No and Walking Goal IS indicated Walk 10 feet (QC): 4 Walk 50ft with 2 Turns (QC): 88 Walk 150 ft (QC): 88 Walking 10ft on Uneven Surface: 88 1 Step (curb) (QC): 88 4 Steps (QC): 88 12 Steps (QC): 88 Picking up an Object (QC): 4 Does the Pt use WC or Scooter?: Yes Wheel 50 feet with 2 turns (QC: 6 Type: Manual Wheel 150 feet: 6 Type: Manual PT Plan Problem List Problem List: Activity Tolerance, Functional Strength Treatment/Plan Treatment Plan: Continue Plan of Care Treatment Plan: Bed Mobility, Education, Functional Activity Shaun, Functional Strength, Group Therapy, Gait, Safety, Therapeutic Exercise, Transfers Treatment Duration: July 22, 2021 Frequency: At least 5 of 7 days/Wk (IRF) Estimated Hrs Per Day: 1.5 hours per day Patient and/or Family Agrees t: Yes Time/GCodes Time In: 900 Time Out: 915 Total Billed Treatment Time: 15 Total Billed Treatment 1, Ex 15 min PRACHI DELVALLE EDUCATION PROGRAM SPECIALIST Jul 11, 2021 10:34
[2021-07-11] MEDS: ENOXAPARIN 40 MG/0.4 ML (LOVENOX) SYR SC SCH (13:35)
[2021-07-11] MEDS: ASPIRIN 81 MG CHEW (CHILDREN'S ASA) PO SCH (13:35)
[2021-07-11 13:39] VITALS: BP 126/71
[2021-07-11 19:59] VITALS: BP 166/81
--- NOTE | 2021-07-12 06:32 | PM&R Progress Note ---
Subjective HPI/CC On Admission Date Seen by Provider: July 12, 2021 Time Seen by Provider: 13:15 Subjective/Events-last exam 07/12/2021: Patient doing well Moving left leg very well Blood sugars reviewed Blood pressures improved 07/11/2021: Patient doing really well Able to lift his left leg up and move his right arm at the shoulder Eating well Blood sugars and blood pressures reviewed 07/10/21: Patient has no issues UCx reviewed NGTD so DC abx 07/09/21: Patient doing well Empirically placed on antibiotics Urinary incontinence the same No pain is reported 07/08/2021: No pain is reported Patient doing really well otherwise Urinary issues prompted UA and bacteriuria noted so will cover with antibiotic until culture back Supportive care 07/07/21: Patient has no pain Able to use assistive devices Supportive care continues 07/06/21: Patient doing well Monitor closely No pain reported Checked meds and labs 07/05/21: Patient seems to be doing well Blood sugars reviewed Blood pressures reviewed No falls 07/04/2021: Patient doing well Left-sided weakness is profound DC the catheter yesterday and voiding well No pain reported 07/03/21: Patient doing well Sugar reviewed BP improved on multiple meds DC Catheter today 07/02/21: Patient tolerating everything pretty well Blood pressure improved Blood sugars improved Wheelchair mobility training Review of Systems General: Fatigue, Malaise Neurological: Weakness, Incoordination Objective Exam Vital Signs Vital Signs Date Time Temp Pulse Resp B/P (MAP) Pulse Ox O2 Delivery O2 Flow Rate FiO2 07/12/21 20:15 96 Room Air 07/12/21 19:59 36.6 72 18 137/79 (98) Capillary Refill : General Appearance: No Apparent Distress, WD/WN, Obese HEENT: PERRL/EOMI, Normal ENT Inspection, Pharynx Normal Neck: Full Range of Motion, Normal Inspection, Non Tender, Supple, Carotid Bruit Respiratory: Chest Non Tender, Lungs Clear, Normal Breath Sounds, No Accessory Muscle Use, No Respiratory Distress Cardiovascular: Regular Rate, Rhythm, No Edema, No Gallop, No JVD, No Murmur, Normal Peripheral Pulses Gastrointestinal: Normal Bowel Sounds, No Organomegaly, No Pulsatile Mass, Non Tender, Soft Back: Normal Inspection, No CVA Tenderness, No Vertebral Tenderness Extremity: Normal Capillary Refill, Normal Inspection, Normal Range of Motion, Non Tender, No Calf Tenderness, No Pedal Edema Neurologic/Psychiatric: Alert, Oriented x3, Normal Mood/Affect, recruiting specialist II-XII Norm as 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 FIM Transfers Therapy Code Descriptions/Definitions Functional [place] Measure: 0=Not Assessed/NA 4=Minimal Assistance 1=Total Assistance 5=Supervision or Setup 2=Maximal Assistance 6=Modified [place] 3=Moderate Assistance 7=Complete IndependenceSCALE: Activities may be completed with or without assistive devices. 7-Eeyfhrpqvm-sdvibqu completes the activity by him/herself with no assistance from a helper. 5-Set-up or Clean-up Assistance-helper sets up or cleans up; patient completes a ctivity. [place] assists only prior to or following the activity. 4-Supervision or Touching Assistance-helper provides verbal cues and/or touching/steadying and/or contact guard assistance as patient completes activity. Assistance may be provided throughout the activity or intermittently. 3-Partial/Moderate Assistance-helper does LESS THAN HALF the effort. [place] lifts, holds or supports trunk or limbs, but provides less than half the effort. 2-Substantial/Maximal Assistance-helper does MORE THAN HALF the effort. [place] lifts or holds trunk or limbs and provides more than half the effort. 6-Ucooqautb-usqyon does ALL the effort. Patient does none of the effort to complete the activity. Or, the assistance of 2 or more helpers is required for the patient to complete the activity. If activity was not attempted, code reason: 7-Patient Refused. 9-Not Applicable-not attempted and the patient did not perform the activity before the current illness, exacerbation or injury. 10-Not Attempted due to Environmental Limitations-(lack of equipment, weather restraints, etc.). 88-Not Attempted due to Medical Conditions or Safety Concerns. Roll Left to Right (QC): 3 Sit to Lying (QC): 3 Sit to Stand (QC): 3 Chair/Kbg-zf-Jejwg Xfer(QC): 3 Car Transfer (QC): 88 Gait Training Does the Patient Walk?: Yes Distance: 24' Walk 10 feet (QC): 4 Walk 50 ft with 2 Turns(QC): 2 Walk 150 ft (QC): 88 Walking 10ft/uneven surface-QC: 88 Gait Persons Needed: 1 Gait Assistive Device: Walker Tunde Wheelchair Training Does the Pt Use a Wheelchair?: Yes Wheel 50 ft with 2 turns (QC): 4 (sba) Wheel 150 ft (QC): 4 (sba) Type of Wheelchair: Manual Stair Training 1 Step (curb) (QC): 88 4 Steps (QC): 88 12 Steps (QC): 88 Balance Picking up an Object (QC): 88 ADL-Treatment Eating (QC): 5 Oral Hygiene (QC): 6 Shower/Bathe Self (QC): 3 Upper Body Dressing (QC): 4 Lower Body Dressing (QC): 3 On/Off Footwear (QC): 3 Toileting Hygiene (QC): 3 Toilet Transfer (QC): 3 Assessment/Plan Assessment and Plan Assess & Plan/Chief Complaint Assessment: CVA with left-sided weakness catastrophic type Hypertension severe Hyperlipidemia Hyperglyceridemia Obesity BMI 30 New onset diabetes hemoglobin A1c 9.7 Smoker Plan: Inpatient rehab protocol Supportive care Insulin Blood pressure management 07/02/2021: Increase blood pressure meds Supportive care 07/03/21: DC catheter 07/04/2021: Aggressive therapy 07/05/2021: Supportive care Blood sugar blood pressure improved 07/06/21: BP improved Monitor closely 07/07/2021: Blood pressure improved Blood sugar improved 07/08/2021: Patient doing well Check UA 07/09/2021: Await urine culture Continue antibiotics 07/10/21: UCx NGTD DC abx 07/11/2021: Supportive care Monitor closely 07/12/21: Supportive care Monitor closely (1) CVA (cerebral vascular accident) Status: Acute TITUS KENT DO July 12, 2021 06:32
[2021-07-12] MEDS: inSUlin ASPART (NovoLOG) 1 UNIT/0.01 ML (CHARGE PER UNIT) SC SCH ×4 (06:44→21:41)
[2021-07-12 07:23] VITALS: BP 120/63
[2021-07-12] MEDS: amLODIPine 5 MG (NORVASC) TAB PO SCH ×2 (08:27→21:41)
[2021-07-12] MEDS: hydrALAZINE (APRESOLINE) 25 MG TAB PO SCH ×3 (08:27→21:41)
[2021-07-12] MEDS: glyBURIDE 2.5 MG (MICRONASE) TAB PO SCH ×2 (08:27→21:41)
[2021-07-12] MEDS: LOSARTAN 50 MG (COZAAR) TAB PO SCH (08:27)
[2021-07-12] MEDS: PHENAZOPYRIDINE 100 MG (PYRIDIUM) TABLET PO SCH ×3 (08:27→18:42)
[2021-07-12] MEDS: SENNOSIDES 8.6 MG (SENOKOT) TAB PO SCH ×2 (08:38→21:40)
[2021-07-12] MEDS: polyethylene glycoL POWDER 17 GM (MIRALAX) PACK PO SCH ×2 (08:38→21:40)
[2021-07-12] MEDS: DOCUSATE SODIUM 100 MG (COLACE) CAP PO SCH ×2 (08:38→21:40)
[2021-07-12] MEDS: ASPIRIN 81 MG CHEW (CHILDREN'S ASA) PO SCH (13:03)
[2021-07-12] MEDS: ENOXAPARIN 40 MG/0.4 ML (LOVENOX) SYR SC SCH (13:04)
[2021-07-12 13:10] VITALS: BP 143/85
[2021-07-12 19:59] VITALS: BP 137/79
[2021-07-13 06:04] LABS: BASOPHILS # (AUTO) 0.1 10^3/uL (0.0-0.1); BASOPHILS % (AUTO) 1 % (0-10); EOSINOPHILS # (AUTO) 0.6 10^3/uL (0.0-0.3); EOSINOPHILS % (AUTO) 7 % (0-10); HEMATOCRIT 46 % (40-54); LYMPHOCYTES # (AUTO) 3.5 10^3/uL (1.0-4.0); LYMPHOCYTES % (AUTO) 40 % (12-44); MEAN CORPUSCULAR HEMOGLOBIN 26 pg (25-34); MEAN CORPUSCULAR HGB CONC 33 g/dL (32-36); MEAN CORPUSCULAR VOLUME 81 fL (80-99); MEAN PLATELET VOLUME 9.3 fL (9.0-12.2); MONOCYTES # (AUTO) 0.5 10^3/uL (0.0-1.0); MONOCYTES % (AUTO) 6 % (0-12); NEUTROPHILS # (AUTO) 4.1 10^3/uL (1.8-7.8); NEUTROPHILS % (AUTO) 46 % (42-75); PLATELET COUNT 304 10^3/uL (130-400); WHITE BLOOD COUNT 8.8 10^3/uL (4.3-11.0)
[2021-07-13 06:14] LABS: ALBUMIN 4.1 GM/DL (3.2-4.5); POTASSIUM 3.9 MMOL/L (3.6-5.0)
[2021-07-13 06:16] LABS: CALCIUM 9.2 MG/DL (8.5-10.1)
[2021-07-13 06:17] LABS: TOTAL PROTEIN 6.7 GM/DL (6.4-8.2)
[2021-07-13 06:18] LABS: BILIRUBIN,TOTAL 0.6 MG/DL (0.1-1.0)
[2021-07-13] MEDS: inSUlin ASPART (NovoLOG) 1 UNIT/0.01 ML (CHARGE PER UNIT) SC SCH ×4 (06:18→20:35)
[2021-07-13 06:20] LABS: CREATININE SERUM 0.67 MG/DL (0.60-1.30)
--- NOTE | 2021-07-13 06:22 | PM&R Progress Note ---
Subjective HPI/CC On Admission Date Seen by Provider: July 13, 2021 Time Seen by Provider: 11:00 Subjective/Events-last exam 07/13/2021: Patient doing well Moving left leg well Labs reviewed 07/12/2021: Patient doing well Moving left leg very well Blood sugars reviewed Blood pressures improved 07/11/2021: Patient doing really well Able to lift his left leg up and move his right arm at the shoulder Eating well Blood sugars and blood pressures reviewed 07/10/21: Patient has no issues UCx reviewed NGTD so DC abx 07/09/21: Patient doing well Empirically placed on antibiotics Urinary incontinence the same No pain is reported 07/08/2021: No pain is reported Patient doing really well otherwise Urinary issues prompted UA and bacteriuria noted so will cover with antibiotic until culture back Supportive care 07/07/21: Patient has no pain Able to use assistive devices Supportive care continues 07/06/21: Patient doing well Monitor closely No pain reported Checked meds and labs 07/05/21: Patient seems to be doing well Blood sugars reviewed Blood pressures reviewed No falls 07/04/2021: Patient doing well Left-sided weakness is profound DC the catheter yesterday and voiding well No pain reported 07/03/21: Patient doing well Sugar reviewed BP improved on multiple meds DC Catheter today 07/02/21: Patient tolerating everything pretty well Blood pressure improved Blood sugars improved Wheelchair mobility training Review of Systems General: Fatigue Neurological: Weakness, Incoordination Objective Exam Vital Signs Vital Signs Date Time Temp Pulse Resp B/P (MAP) Pulse Ox O2 Delivery O2 Flow Rate FiO2 07/13/21 07:31 36.7 74 18 144/84 (104) 96 Room Air Capillary Refill : General Appearance: No Apparent Distress, WD/WN, Obese HEENT: PERRL/EOMI, Normal ENT Inspection, Pharynx Normal Neck: Full Range of Motion, Normal Inspection, Non Tender, Supple, Carotid Bruit Respiratory: Chest Non Tender, Lungs Clear, Normal Breath Sounds, No Accessory Muscle Use, No Respiratory Distress Cardiovascular: Regular Rate, Rhythm, No Edema, No Gallop, No JVD, No Murmur, Normal Peripheral Pulses Gastrointestinal: Normal Bowel Sounds, No Organomegaly, No Pulsatile Mass, Non Tender, Soft Back: Normal Inspection, No CVA Tenderness, No Vertebral Tenderness Extremity: Normal Capillary Refill, Normal Inspection, Normal Range of Motion, Non Tender, No Calf Tenderness, No Pedal Edema Neurologic/Psychiatric: Alert, Oriented x3, Normal Mood/Affect, solution developer II-XII Norm as Tested, Facial Droop, Motor Weakness (Left-sided weakness 0/5) Skin: Normal Color, Warm/Dry Lymphatic: No Adenopathy Results/Procedures Lab Laboratory Tests 07/13/21 05:56 Patient resulted labs reviewed. FIM Transfers Therapy Code Descriptions/Definitions Functional [place] Measure: 0=Not Assessed/NA 4=Minimal Assistance 1=Total Assistance 5=Supervision or Setup 2=Maximal Assistance 6=Modified [place] 3=Moderate Assistance 7=Complete IndependenceSCALE: Activities may be completed with or without assistive devices. 8-Vulsjolsta-nfousmd completes the activity by him/herself with no assistance from a helper. 5-Set-up or Clean-up Assistance-helper sets up or cleans up; patient completes activity. [place] assists only prior to or following the activity. 4-Supervision or Touching Assistance-helper provides verbal cues and/or touching/steadying and/or contact guard assistance as patient completes activi ty. Assistance may be provided throughout the activity or intermittently. 3-Partial/Moderate Assistance-helper does LESS THAN HALF the effort. [place] lifts, holds or supports trunk or limbs, but provides less than half the effort. 2-Substantial/Maximal Assistance-helper does MORE THAN HALF the effort. [place] lifts or holds trunk or limbs and provides more than half the effort. 1-Esydqkgjv-xejktf does ALL the effort. Patient does none of the effort to complete the activity. Or, the assistance of 2 or more helpers is required for the patient to complete the activity. If activity was not attempted, code reason: 7-Patient Refused. 9-Not Applicable-not attempted and the patient did not perform the activity before the current illness, exacerbation or injury. 10-Not Attempted due to Environmental Limitations-(lack of equipment, weather restraints, etc.). 88-Not Attempted due to Medical Conditions or Safety Concerns. Roll Left to Right (QC): 3 Sit to Lying (QC): 3 Sit to Stand (QC): 3 Chair/Ezb-lu-Issyh Xfer(QC): 3 Car Transfer (QC): 88 Gait Training Does the Patient Walk?: Yes Distance: 24' Walk 10 feet (QC): 4 Walk 50 ft with 2 Turns(QC): 2 Walk 150 ft (QC): 88 Walking 10ft/uneven surface-QC: 88 Gait Persons Needed: 1 Gait Assistive Device: Walker Tunde Wheelchair Training Does the Pt Use a Wheelchair?: Yes Wheel 50 ft with 2 turns (QC): 4 (sba) Wheel 150 ft (QC): 4 (sba) Type of Wheelchair: Manual Stair Training 1 Step (curb) (QC): 88 4 Steps (QC): 88 12 Steps (QC): 88 Balance Picking up an Object (QC): 88 ADL-Treatment Eating (QC): 5 Oral Hygiene (QC): 6 Shower/Bathe Self (QC): 3 Upper Body Dressing (QC): 4 Lower Body Dressing (QC): 3 On/Off Footwear (QC): 3 Toileting Hygiene (QC): 3 Toilet Transfer (QC): 3 Assessment/Plan Assessment and Plan Assess & Plan/Chief Complaint Assessment: CVA with left-sided weakness catastrophic type Hypertension severe Hyperlipidemia Hyperglyceridemia Obesity BMI 30 New onset diabetes hemoglobin A1c 9.7 Smoker Plan: Inpatient rehab protocol Supportive care Insulin Blood pressure management 07/02/2021: Increase blood pressure meds Supportive care 07/03/21: DC catheter 07/04/2021: Aggressive therapy 07/05/2021: Supportive care Blood sugar blood pressure improved 07/06/21: BP improved Monitor closely 07/07/2021: Blood pressure improved Blood sugar improved 07/08/2021: Patient doing well Check UA 07/09/2021: Await urine culture Continue antibiotics 07/10/21: UCx NGTD DC abx 07/11/2021: Supportive care Monitor closely 07/12/21: Supportive care Monitor closely 07/13/2021: Supportive care Monitor closely (1) CVA (cerebral vascular accident) Status: Acute TITUS KENT DO July 13, 2021 06:22
[2021-07-13 07:31] VITALS: BP 144/84
[2021-07-13] MEDS: PHENAZOPYRIDINE 100 MG (PYRIDIUM) TABLET PO SCH ×3 (07:41→18:48)
[2021-07-13] MEDS: glyBURIDE 2.5 MG (MICRONASE) TAB PO SCH ×2 (07:42→20:34)
[2021-07-13] MEDS: amLODIPine 5 MG (NORVASC) TAB PO SCH ×2 (07:42→20:34)
[2021-07-13] MEDS: DOCUSATE SODIUM 100 MG (COLACE) CAP PO SCH ×2 (07:42→20:35)
[2021-07-13] MEDS: LOSARTAN 50 MG (COZAAR) TAB PO SCH (07:42)
[2021-07-13] MEDS: hydrALAZINE (APRESOLINE) 25 MG TAB PO SCH ×3 (07:42→20:34)
[2021-07-13] MEDS: polyethylene glycoL POWDER 17 GM (MIRALAX) PACK PO SCH ×2 (07:43→20:54)
--- NOTE | 2021-07-13 09:01 | Occupational Ther Daily Note ---
OT Current Status-Daily Note Subjective no c/o pain during session. Requests shower tomorrow since he took one over the weekend. Co-treat with PT for part of session secondary to need of 2 skilled clinicians to progress indep and safety with adls and functional mobility. Appearance Pt left sitting in w/c with physical therapy present at OT departure. Mental Status/Objective Patient Orientation: Person, Place, Situation ADL-Treatment Therapy Code Descriptions/Definitions Functional [place] Measure: 0=Not Assessed/NA 4=Minimal Assistance 1=Total Assistance 5=Supervision or Setup 2=Maximal Assistance 6=Modified [place] 3=Moderate Assistance 7=Complete IndependenceSCALE: Activities may be completed with or without assistive devices. 5-Vwulepbziy-wsrbwrc completes the activity by him/herself with no assistance from a helper. 5-Set-up or Clean-up Assistance-helper sets up or cleans up; patient completes activity. [place] assists only prior to or following the activity. 4-Supervision or Touching Assistance-helper provides verbal cues and/or touching/steadying and/or contact guard assistance as patient completes activity. Assistance may be provided throughout the activity or intermittently. 3-Partial/Moderate Assistance-helper does LESS THAN HALF the effort. [place] lifts, holds or supports trunk or limbs, but provides less than half the effort. 2-Substantial/Maximal Assistance-helper does MORE THAN HALF the effort. [place] lifts or holds trunk or limbs and provides more than half the effort. 5-Slwckygwy-pjjcct does ALL the effort. Patient does none of the effort to complete the activity. Or, the assistance of 2 or more helpers is required for the patient to complete the activity. If activity was not attempted, code reason: 7-Patient Refused. 9-Not Applicable-not attempted and the patient did not perform the activity before the current illness, exacerbation or injury. 10-Not Attempted due to Environmental Limitations-(lack of equipment, weather restraints, etc.). 88-Not Attempted due to Medical Conditions or Safety Concerns. Oral Hygiene (QC): 6 Upper Body Dressing (QC): 4 Lower Body Dressing (QC): 3 On/Off Footwear: 3 Toileting Hygiene (QC): 2 Toilet Transfer (QC): 3 Clothing donned seated EOB. Min verbal/visual cues for slowing pace and for protection of LUE when donning sleeve over extremity. Pt continues to need assist to lift/cross and maintain figure 4 position with LLE as he threads foot through underwear/pants. Some active LLE movement notable with knee extension. No assist needed to thread RLE. LB clothing donned/doffed over hips in supine while rolling R/L and bridging at hips. Min a needed to bring completely over R hip. Again, reminders of safety and awareness of LUE with all bed mobility and rolling secondary to flaccidity. Extra time and assist to maintain cross over method as he donned socks over feet. Good recall of sha technique. Grooming performed at w/c level, no assist required. Other Treatment Pt ambulated ~100 feet x2 with sha walker, LUE in sling, and mod-max a x1 with second person close SBA-CGA for safety. Visual, tactile, and verbal cues for widening MAIN, correct sequencing, taking smaller steps with LLE, and slowing speed. While in gym, pt completed standing activity at mat with focus on improving balance, ROM, endurance, strength, and promoting increased weight bearing through L side. PT assists with balance, knee stability, and positioning of LE's as OT focused on posture, LUE positioning/ROM, and safety. In standing, pt completed AAROM exercises with dowel vera. L hand wrapped around bar with jesús wrap in order to maintain grasp. 10x1, elbow flexion/extension, chest press, shoulder flexion. Pt exhibits fatigue, but able to complete all 10 reps in set. Cues for slow/controlled movement. Slight improvement in bicep activation during elbow flexion observed this date. OT facilitated Tapping to elicit full flexion. Pt able to bend forward at waist to slide dowel vera across elevated mat. Intermittent assist at scapula to facilitate increased protraction/retraction. No LOB during static standing activity. Education OT Patient Education: Correct positioning, Energy conservation, Exercise program, Modified ADL techniques, Progress toward Goal/Update tx plan, Purpose of tx/functional activities, Reviewed precautions, Rehab process, Safety issues, Transfer techniques, W/C management Teaching Recipient: Patient Teaching Methods: Demonstration, Discussion Response to Teaching: Verbalize Understanding, Return Demonstration, Reinforcement Needed OT Short Term Goals Short Term Goals Time Frame: Jul 11, 2021 Eatin Oral hygiene: 5 Toileting hygiene: 2 Shower/bathe self: 2 Upper body dressin Lower body dressin Putting on/taking off footwear: 3 OT Fpc Goals Tax Agent Goals Time Frame: July 29, 2021 Eating (QC): 6 Oral Hygiene (QC): 6 Toileting Hygiene (QC): 6 Shower/Bathe Self (QC): 5 Upper Body Dressing (QC): 5 Lower Body Dressing (QC): 5 On/Off Footwear (QC): 5 1=Demonstrate adherence to instructed precautions during ADL tasks. 2=Patient will verbalize/demonstrate understanding of assistive devices/modifications for ADL. 3=Patient will improve strength/tolerance for activity to enable patient to perform ADL's. OT Education/Plan Problem List/Assessment Assessment: Decreased Activ Tolerance, Decreased Safety Aware, Decreased UE Strength, Impaired Cognition, Impaired Coordination, Impaired Funct Balance, Impaired I ADL's, Impaired Self-Care Skills, Restricted Funct UE ROM Discharge Recommendations Plan/Recommendations: Continue POC Treatment Plan/Plan of Care Treatment,Training & Education: Yes Patient would benefit from OT for education, treatment and training to promote independence in ADL's, mobility, safety and/or upper extremity function for ADL's. Plan of Care: ADL Retraining, Cognitive Retraining, Functional Mobility, Group Exercise/Act as Ind, UE Funct Exercise/Act, UE Neuromus Re-Ed/Coord, W/C Management Training Treatment Duration: July 29, 2021 Frequency: At least 5 of 7 days/Wk (IRF) Estimated Hrs Per Day: .25 hour per day Agreement: Yes Rehab Potential: Fair Time/GCodes Start Time: 07:45 Stop Time: 09:00 Total Time Billed (hr/min): 75 Billed Treatment Time 1 visit ADL x2 (35 min) FA x2 (30 min) NM (10 min) Samantha Valverde OT July 13, 2021 09:01
--- NOTE | 2021-07-13 09:17 | Physical Therapy Daily Note ---
PT Daily Note-Current Subjective Patient was dressing with OT upon entry. Patient compliant to treatment with no new complaints. PT and OT co-treated today due to hemiparesis, excessive weakness, balance deficits, coordination issues, risk of falling and safety concerns. Pain Location: No Pain Reported Mental Status Patient Orientation: Person, Place, Situation Transfers SCALE: Activities may be completed with or without assistive devices. 9-Qsgmoheyol-ysqueue completes the activity by him/herself with no assistance from a helper. 5-Set-up or Clean-up Assistance-helper sets up or cleans up; patient completes activity. [place] assists only prior to or following the activity. 4-Supervision or Touching Assistance-helper provides verbal cues and/or touching/steadying and/or contact guard assistance as patient completes activity. Assistance may be provided throughout the activity or intermittently. 3-Partial/Moderate Assistance-helper does LESS THAN HALF the effort. [place] lifts, holds or supports trunk or limbs, but provides less than half the effort. 2-Substantial/Maximal Assistance-helper does MORE THAN HALF the effort. [place] lifts or holds trunk or limbs and provides more than half the effort. 9-Pafuxytqe-nxxwpi does ALL the effort. Patient does none of the effort to complete the activity. Or, the assistance of 2 or more helpers is required for the patient to complete the activity. If activity was not attempted, code reason: 7-Patient Refused. 9-Not Applicable-not attempted and the patient did not perform the activity before the current illness, exacerbation or injury. 10-Not Attempted due to Environmental Limitations-(lack of equipment, weather restraints, etc.). 88-Not Attempted due to Medical Conditions or Safety Concerns. Sit to Stand (QC): 3 Chair/Ewn-mn-Nhpfq Xfer(QC): 3 Weight Bearing Full Weight Bearing Full Weight Bearing Gait Training Does the Patient Walk?: Yes Distance: 100'x3 Walk 10 feet (QC): 3 Walk 50 ft with 2 Turns(QC): 3 Gait Assistive Device: Walker Tunde Step-to pattern with hemiwalker. R arm sling. BRADEN wrapped in DF and EV for better foot clearance. Trialed a platform walker. Patient can walk with a step through pattern platform walker but requires assistance to keep walker straight Wheelchair Training Does the Pt Use a Wheelchair?: Yes Wheel 50 ft with 2 turns (QC): 5 Wheel 150 ft (QC): 5 250' Exercises Standing: Sit to Stand Standing Reps: 30 Treatments Patient worked on standing balance with various UE activity. PT worked on standing balance and foot positioning, while OT worked on UE motion, and coordination. Assessment Current Status: Good Progress Patient has continued to improve strength and balance with activities. Patient has significantly improved walking distances, but requires VC for foot placement and proper sequencing of feet and assistive device. Patient required CGA initially during ambulation, but needed min assist as he began to fatigue and lost balance intermittently. Patient tolerated platform walker well as it provided more balance, but may be hard for pt to steer. Patient was left in chair with call light, tray, and all needs met. PT Short Term Goals Short Term Goals Time Frame: Jul 08, 2021 Roll Left & Right: 4 Sit to lyin Lying to sitting on side of be: 4 Sit to stand: 3 Chair/eqe-lj-tvlxh transfer: 3 Toilet transfer: 3 PT Custodial Goals Custodial Goals PT Custodial Goals Time Frame: July 22, 2021 Roll Left & Right (QC): 6 Sit to Lying (QC): 6 Lying-Sitting on Side/Bed(QC): 6 Sit to Stand (QC): 4 Chair/Ked-le-Xgezr Xfer(QC): 4 Toilet Transfer (QC): 4 Car Transfer (QC): 4 Does the Patient Walk: No and Walking Goal IS indicated Walk 10 feet (QC): 4 Walk 50ft with 2 Turns (QC): 88 Walk 150 ft (QC): 88 Walking 10ft on Uneven Surface: 88 1 Step (curb) (QC): 88 4 Steps (QC): 88 12 Steps (QC): 88 Picking up an Object (QC): 4 Does the Pt use WC or Scooter?: Yes Wheel 50 feet with 2 turns (QC: 6 Type: Manual Wheel 150 feet: 6 Type: Manual PT Plan Problem List Problem List: Activity Tolerance, Functional Strength, Safety, Balance, Gait, Transfer, Bed Mobility, ROM Treatment/Plan Treatment Plan: Continue Plan of Care Treatment Plan: Bed Mobility, Education, Functional Activity Shaun, Functional Strength, Group Therapy, Gait, Safety, Therapeutic Exercise, Transfers Treatment Duration: July 22, 2021 Frequency: At least 5 of 7 days/Wk (IRF) Estimated Hrs Per Day: 1.5 hours per day Patient and/or Family Agrees t: Yes Safety Risks/Education Patient Education: Gait Training, Transfer Techniques, Correct Positioning, W/C Management, Safety Issues Teaching Recipient: Patient Teaching Methods: Discussion Response to Teaching: Verbalize Understanding, Return Demonstration Time/GCodes Time In: 0800 Time Out: 914 Total Billed Treatment Time: 75 Total Billed Treatment 1 visit GT 45min FA 30min MICHAEL SOLER PT July 13, 2021 09:17
[2021-07-13] MEDS: SENNOSIDES 8.6 MG (SENOKOT) TAB PO SCH ×2 (09:38→20:54)
--- NOTE | 2021-07-13 10:01 | Speech Therapy Daily Note ---
Speech Daily Progress Note Subjective Date Seen by Provider: July 13, 2021 Time Seen by Provider: 09:30 The patient was seated upright in his recliner, awake and alert upon entrance to his room by the clinician. The patient greeted the clinician appropriately and was agreeable to participation in the cognitive linguistic and dysphagia treatment session. The language line was utilized to introduce the task of the session and ask about the patient's welfare. Per patient, he is experiencing heartburn throughout the evenings. The clinician will share the information with the RN. The patient denied s/s of suspected aspiration with P.O. intake. Objective - Oral Motor Exercises: Oral motor exercises were provided to the patient in handout form in Hungarian and in Sami, with a visual of each exercise present on the handout. The patient and clinician discussed the exercises and the clinician demonstrated each one. The patient completed oral motor exercises with high accuracy and moderate clinician modeling. The patient denied questions or concerns regarding the exercises following completion of the session. The exercises will be used to strengthen the left labial and lingual side for increased precision with speech sounds and oral strength for swallowing. Assessment Assessment Current Status: Good Progress Treatment Plan Continue Plan of Care Speech Short Term Goals Short Term Goals Short Term Goals 1. The patient will demonstrate oral motor exercises with 90% accuracy, independently. 2. The patient, staff, and family will demonstrate safe swallowing strategies with 90% accuracy. Speech Prison Goals Hvac Journeyman Goals 1. The patient will demonstrated increased intelligibility (per family members) throughout informal conversation. 2. The patient will tolerate the least restrictive diet without s/s of suspected aspiration. Time Frame: Two Weeks. Speech-Plan Treatment Plan Speech Therapy Treatment Plan: Continue Plan of Care Treatment Duration: Jul 02, 2021 Frequency: Modified Program (IRF) Estimated Hrs Per Day: .5 hour per day Rehab Potential: Fair Safety Risks/Education Teaching Recipient: Patient Teaching Methods: Demonstration, Handout, Discussion Response to Teaching: Verbalize Understanding, Return Demonstration Education Topics Provided: Oral Motor Exercises Time Speech Therapy Time In: 09:30 Speech Therapy Time Out: 10:00 Total Billed Time: 30 Billed Treatment Time 1ANNA DYST LOY, ELIZ[facility] ST July 13, 2021 10:01
[2021-07-13] MEDS: ASPIRIN 81 MG CHEW (CHILDREN'S ASA) PO SCH (13:20)
[2021-07-13] MEDS: ENOXAPARIN 40 MG/0.4 ML (LOVENOX) SYR SC SCH (13:21)
[2021-07-13 20:26] VITALS: BP 131/78
--- NOTE | 2021-07-14 05:28 | PM&R Progress Note ---
Subjective HPI/CC On Admission Date Seen by Provider: July 14, 2021 Time Seen by Provider: 10:15 Subjective/Events-last exam 07/14/2021: Pt is able to ambulate around the unit very well Diabetic education will be provided Noncompliance with diet continues the blood sugar in the 300 range 07/13/2021: Patient doing well Moving left leg well Labs reviewed 07/12/2021: Patient doing well Moving left leg very well Blood sugars reviewed Blood pressures improved 07/11/2021: Patient doing really well Able to lift his left leg up and move his right arm at the shoulder Eating well Blood sugars and blood pressures reviewed 07/10/21: Patient has no issues UCx reviewed NGTD so DC abx 07/09/21: Patient doing well Empirically placed on antibiotics Urinary incontinence the same No pain is reported 07/08/2021: No pain is reported Patient doing really well otherwise Urinary issues prompted UA and bacteriuria noted so will cover with antibiotic until culture back Supportive care 07/07/21: Patient has no pain Able to use assistive devices Supportive care continues 07/06/21: Patient doing well Monitor closely No pain reported Checked meds and labs 07/05/21: Patient seems to be doing well Blood sugars reviewed Blood pressures reviewed No falls 07/04/2021: Patient doing well Left-sided weakness is profound DC the catheter yesterday and voiding well No pain reported 07/03/21: Patient doing well Sugar reviewed BP improved on multiple meds DC Catheter today 07/02/21: Patient tolerating everything pretty well Blood pressure improved Blood sugars improved Wheelchair mobility training Review of Systems General: Fatigue, Malaise Objective Exam Vital Signs Vital Signs Date Time Temp Pulse Resp B/P (MAP) Pulse Ox O2 Delivery O2 Flow Rate FiO2 07/14/21 20:30 Room Air 07/14/21 20:20 36.7 81 16 141/78 (99) 95 Capillary Refill : General Appearance: No Apparent Distress, WD/WN, Obese HEENT: PERRL/EOMI, Normal ENT Inspection, Pharynx Normal Neck: Full Range of Motion, Normal Inspection, Non Tender, Supple, Carotid Bruit Respiratory: Chest Non Tender, Lungs Clear, Normal Breath Sounds, No Accessory Muscle Use, No Respiratory Distress Cardiovascular: Regular Rate, Rhythm, No Edema, No Gallop, No JVD, No Murmur, Normal Peripheral Pulses Gastrointestinal: Normal Bowel Sounds, No Organomegaly, No Pulsatile Mass, Non Tender, Soft Back: Normal Inspection, No CVA Tenderness, No Vertebral Tenderness Extremity: Normal Capillary Refill, Normal Inspection, Normal Range of Motion, Non Tender, No Calf Tenderness, No Pedal Edema Neurologic/Psychiatric: Alert, Oriented x3, Normal Mood/Affect, splunk developer II-XII Norm as 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 FIM Transfers Therapy Code Descriptions/Definitions Functional [place] Measure: 0=Not Assessed/NA 4=Minimal Assistance 1=Total Assistance 5=Supervision or Setup 2=Maximal Assistance 6=Modified [place] 3=Moderate Assistance 7=Complete IndependenceSCALE: Activities may be completed with or without assistive devices. 6-Tmsyltskql-przptes completes the activity by him/herself with no assistance from a helper. 5-Set-up or Clean-up Assistance-helper sets up or cleans up; patient completes activity. [place] assists only prior to or following the activity. 4-Supervision or Touching Assistance-helper provides verbal cues and/or touching/steadying and/or contact guard assistance as patient completes activity. Assistance may be provided throughout the activity or intermittently. 3-Partial/Moderate Assistance-helper does LESS THAN HALF the effort. [place] lifts, holds or supports trunk or limbs, but provides less than half the effort. 2-Substantial/Maximal Assistance-helper does MORE THAN HALF the effort. [place] lifts or holds trunk or limbs and provides more than half the effort. 3-Pgdihvgwp-dbwwlj does ALL the effort. Patient does none of the effort to complete the activity. Or, the assistance of 2 or more helpers is required for the patient to complete the activity. If activity was not attempted, code reason: 7-Patient Refused. 9-Not Applicable-not attempted and the patient did not perform the activity before the current illness, exacerbation or injury. 10-Not Attempted due to Environmental Limitations-(lack of equipment, weather restraints, etc.). 88-Not Attempted due to Medical Conditions or Safety Concerns. Roll Left to Right (QC): 3 Sit to Lying (QC): 3 Sit to Stand (QC): 3 Chair/Yre-jb-Pmjec Xfer(QC): 3 Car Transfer (QC): 88 Gait Training Does the Patient Walk?: Yes Distance: 100'x3 Walk 10 feet (QC): 3 Walk 50 ft with 2 Turns(QC): 3 Walk 150 ft (QC): 88 Walking 10ft/uneven surface-QC: 88 Gait Persons Needed: 1 Gait Assistive Device: Walker Tunde Wheelchair Training Does the Pt Use a Wheelchair?: Yes Wheel 50 ft with 2 turns (QC): 5 Wheel 150 ft (QC): 5 Type of Wheelchair: Manual Stair Training 1 Step (curb) (QC): 88 4 Steps (QC): 88 12 Steps (QC): 88 Balance Picking up an Object (QC): 88 ADL-Treatment Eating (QC): 5 Oral Hygiene (QC): 6 Shower/Bathe Self (QC): 3 Upper Body Dressing (QC): 4 Lower Body Dressing (QC): 3 On/Off Footwear (QC): 3 Toileting Hygiene (QC): 2 Toilet Transfer (QC): 3 Assessment/Plan Assessment and Plan Assess & Plan/Chief Complaint Assessment: CVA with left-sided weakness catastrophic type Hypertension severe Hyperlipidemia Hyperglyceridemia Obesity BMI 30 New onset diabetes hemoglobin A1c 9.7 Smoker Plan: Inpatient rehab protocol Supportive care Insulin Blood pressure management 07/02/2021: Increase blood pressure meds Supportive care 07/03/21: DC catheter 07/04/2021: Aggressive therapy 07/05/2021: Supportive care Blood sugar blood pressure improved 07/06/21: BP improved Monitor closely 07/07/2021: Blood pressure improved Blood sugar improved 07/08/2021: Patient doing well Check UA 07/09/2021: Await urine culture Continue antibiotics 07/10/21: UCx NGTD DC abx 07/11/2021: Supportive care Monitor closely 07/12/21: Supportive care Monitor closely 07/13/2021: Supportive care Monitor closely 07/14/2021: Supportive care Monitor sugar (1) CVA (cerebral vascular accident) Status: Acute TITUS KENT DO July 14, 2021 05:28
[2021-07-14] MEDS: inSUlin ASPART (NovoLOG) 1 UNIT/0.01 ML (CHARGE PER UNIT) SC SCH ×4 (06:03→20:51)
[2021-07-14] MEDS: glyBURIDE 2.5 MG (MICRONASE) TAB PO SCH ×2 (07:25→20:50)
[2021-07-14] MEDS: LOSARTAN 50 MG (COZAAR) TAB PO SCH (07:25)
[2021-07-14] MEDS: PHENAZOPYRIDINE 100 MG (PYRIDIUM) TABLET PO SCH ×3 (07:25→18:09)
[2021-07-14] MEDS: DOCUSATE SODIUM 100 MG (COLACE) CAP PO SCH ×2 (07:25→20:50)
[2021-07-14] MEDS: SENNOSIDES 8.6 MG (SENOKOT) TAB PO SCH ×2 (07:26→20:53)
[2021-07-14] MEDS: amLODIPine 5 MG (NORVASC) TAB PO SCH ×2 (07:26→20:50)
[2021-07-14] MEDS: hydrALAZINE (APRESOLINE) 25 MG TAB PO SCH ×3 (07:26→20:51)
[2021-07-14] MEDS: polyethylene glycoL POWDER 17 GM (MIRALAX) PACK PO SCH ×2 (07:26→20:53)
[2021-07-14 07:30] VITALS: BP 140/87
--- NOTE | 2021-07-14 09:04 | Occupational Ther Daily Note ---
OT Current Status-Daily Note Subjective Pt reports need to use toilet at OT arrival. Co-treat with PT for part of session secondary to need of 2 skilled clinicians to progress indep and safety with adls and mobility. Appearance Pt left sitting in chair with physical therapy present at OT departure. Mental Status/Objective Patient Orientation: Person, Place, Situation ADL-Treatment Therapy Code Descriptions/Definitions Functional [place] Measure: 0=Not Assessed/NA 4=Minimal Assistance 1=Total Assistance 5=Supervision or Setup 2=Maximal Assistance 6=Modified [place] 3=Moderate Assistance 7=Complete IndependenceSCALE: Activities may be completed with or without assistive devices. 0-Scqxvhldzw-whuqnze completes the activity by him/herself with no assistance from a helper. 5-Set-up or Clean-up Assistance-helper sets up or cleans up; patient completes activity. [place] assists only prior to or following the activity. 4-Supervision or Touching Assistance-helper provides verbal cues and/or touching/steadying and/or contact guard assistance as patient completes activity. Assistance may be provided throughout the activity or intermittently. 3-Partial/Moderate Assistance-helper does LESS THAN HALF the effort. [place] lifts, holds or supports trunk or limbs, but provides less than half the effort. 2-Substantial/Maximal Assistance-helper does MORE THAN HALF the effort. [place] lifts or holds trunk or limbs and provides more than half the effort. 7-Pidojcawe-ptxgwa does ALL the effort. Patient does none of the effort to complete the activity. Or, the assistance of 2 or more helpers is required for the patient to complete the activity. If activity was not attempted, code reason: 7-Patient Refused. 9-Not Applicable-not attempted and the patient did not perform the activity before the current illness, exacerbation or injury. 10-Not Attempted due to Environmental Limitations-(lack of equipment, weather restraints, etc.). 88-Not Attempted due to Medical Conditions or Safety Concerns. Upper Body Dressing (QC): 4 Lower Body Dressing (QC): 2 On/Off Footwear: 3 Toileting Hygiene (QC): 3 Toilet Transfer (QC): 3 Pt reports need to have BM at OT arrival. Sit<>stand: min a. Pt ambulated to/from bathroom with platform walker and mod a. L foot not wrapped and pt had difficulty transitioning LE secondary to foot drop, thus intermittent assist required. Assist also with walker management as pt has tendency to push walker too far towards the right. He was able to lower his pants with mod a for balance and LUE positioned on platform. While seated, pt performed cristo care with CGA for safety as he leaned laterally towards left. Dependent to manage clothing up to waist with mod a for balance. Clothing donned seated in chair. Min verbal cues for slowing pace when threading LUE into shirt sleeve but no physical assistance required this date. Post demonstration, He was able to doff LB clothing while lifting hips slightly off chair and pulling down with R hand. He Continues to need assist to lift/cross and maintain LLE over contralateral knee in order for him to thread foot through the clothing. No assist needed to thread R foot. Again, dependent for clothing management in standing with mod a for balance. Other Treatment Pt ambulated ~ 100'x2, 200'x2, and 400' with use of platform walker and mod a. Walker has tendency to veer R, needing assist to realign. Multiple compensatory methods were trialed but did not work for patients needs. Pt continues to make g ood progress but does still need cues for positioning of feet, MAIN, step length, speed, and safety throughout gait. Intermittent assist with positioning of LUE on platform and facilitation of scapula glides to help bring walker back vs towards right. Education OT Patient Education: Correct positioning, Energy conservation, Modified ADL techniques, Progress toward Goal/Update tx plan, Purpose of tx/functional activities, Reviewed precautions, Rehab process, Safety issues, Transfer techniques, Use of adapted equipment Teaching Recipient: Patient Teaching Methods: Demonstration, Discussion Response to Teaching: Verbalize Understanding, Return Demonstration, Reinf orcement Needed OT Short Term Goals Short Term Goals Time Frame: Jul 11, 2021 Eatin Oral hygiene: 5 Toileting hygiene: 2 Shower/bathe self: 2 Upper body dressin Lower body dressin Putting on/taking off footwear: 3 OT Care Home Goals Care Home Goals Time Frame: July 29, 2021 Eating (QC): 6 Oral Hygiene (QC): 6 Toileting Hygiene (QC): 6 Shower/Bathe Self (QC): 5 Upper Body Dressing (QC): 5 Lower Body Dressing (QC): 5 On/Off Footwear (QC): 5 1=Demonstrate adherence to instructed precautions during ADL tasks. 2=Patient will verbalize/demonstrate understanding of assistive devices/modifications for ADL. 3=Patient will improve strength/tolerance for activity to enable patient to perform ADL's. OT Education/Plan Problem List/Assessment Assessment: Decreased Activ Tolerance, Decreased Safety Aware, Decreased UE Strength, Impaired Coordination, Impaired Funct Balance, Impaired I ADL's, Impaired Self-Care Skills, Restricted Funct UE ROM Discharge Recommendations Plan/Recommendations: Continue POC Treatment Plan/Plan of Care Treatment,Training & Education: Yes Patient would benefit from OT for education, treatment and training to promote independence in ADL's, mobility, safety and/or upper extremity function for ADL's. Plan of Care: ADL Retraining, Cognitive Retraining, Functional Mobility, Group Exercise/Act as Ind, UE Funct Exercise/Act, UE Neuromus Re-Ed/Coord, W/C Management Training Treatment Duration: July 29, 2021 Frequency: At least 5 of 7 days/Wk (IRF) Estimated Hrs Per Day: .25 hour per day Agreement: Yes Rehab Potential: Fair Time/GCodes Start Time: 07:45 Stop Time: 09:00 Total Time Billed (hr/min): 75 Billed Treatment Time 1 visit ADL x2 (35 min) FA x3 (40 min) Samantha Valverde OT July 14, 2021 09:04
--- NOTE | 2021-07-14 09:16 | Physical Therapy Daily Note ---
PT Daily Note-Current Subjective Patient was dressing with OT upon entering. Patient had no new complaints. PT and OT co-treated today secondary to hemiparesis, excessive weakness, balance defecits, incoordination, risk of falling, and safety concerns Pain Location: No Pain Reported Mental Status Patient Orientation: Person, Place, Situation Transfers SCALE: Activities may be completed with or without assistive devices. 1-Yzfvdwumxa-vhnxxrk completes the activity by him/herself with no assistance from a helper. 5-Set-up or Clean-up Assistance-helper sets up or cleans up; patient completes activity. [place] assists only prior to or following the activity. 4-Supervision or Touching Assistance-helper provides verbal cues and/or touchin g/steadying and/or contact guard assistance as patient completes activity. Assistance may be provided throughout the activity or intermittently. 3-Partial/Moderate Assistance-helper does LESS THAN HALF the effort. [place] lifts, holds or supports trunk or limbs, but provides less than half the effort. 2-Substantial/Maximal Assistance-helper does MORE THAN HALF the effort. [place] lifts or holds trunk or limbs and provides more than half the effort. 7-Rqkjwlnvj-imdwgq does ALL the effort. Patient does none of the effort to complete the activity. Or, the assistance of 2 or more helpers is required for the patient to complete the activity. If activity was not attempted, code reason: 7-Patient Refused. 9-Not Applicable-not attempted and the patient did not perform the activity before the current illness, exacerbation or injury. 10-Not Attempted due to Environmental Limitations-(lack of equipment, weather restraints, etc.). 88-Not Attempted due to Medical Conditions or Safety Concerns. Sit to Stand (QC): 3 Weight Bearing Full Weight Bearing Full Weight Bearing Gait Training Does the Patient Walk?: Yes Distance: 100'x2, 200'x2, 400' Walk 10 feet (QC): 4 Walk 50 ft with 2 Turns(QC): 3 Walk 150 ft (QC): 3 Gait Assistive Device: Walker Platform L BRADEN wrap in DF and eversion. Walked with platform walker for most distances. Walker tended to veer to the R and requires assistance to keep walker straight. Has uneven foot step lengths with L foot step tending to be longer than R. Walked about 100' with hemiwalker and L arm sling. Treatments Ambulation, transfers. Assessment Current Status: Good Progress Patient has continued to improve ambulation skills, strength, balance, and endurance. Patient has done well with platform walker, but extra UE strength would help align platform walker straight. Compensatory methods for keeping walker straight were tried, but did not work out, and needs assistance from PT. Patient still requires VC for correct positioning of feet during walking, and correct sequencing with hemiwalker. OT helped coordinate UE positioning during transfers and ambulation. Patient was left in chair with call light, tray, and all needs met. PT Short Term Goals Short Term Goals Time Frame: Jul 08, 2021 Roll Left & Right: 4 Sit to lyin Lying to sitting on side of be: 4 Sit to stand: 3 Chair/nrr-kf-wtemv transfer: 3 Toilet transfer: 3 PT Longterm Goals Head Operator Sulfide Goals PT Head Operator Sulfide Goals Time Frame: July 22, 2021 Roll Left & Right (QC): 6 Sit to Lying (QC): 6 Lying-Sitting on Side/Bed(QC): 6 Sit to Stand (QC): 4 Chair/Tmo-lb-Iuyfk Xfer(QC): 4 Toilet Transfer (QC): 4 Car Transfer (QC): 4 Does the Patient Walk: No and Walking Goal IS indicated Walk 10 feet (QC): 4 Walk 50ft with 2 Turns (QC): 88 Walk 150 ft (QC): 88 Walking 10ft on Uneven Surface: 88 1 Step (curb) (QC): 88 4 Steps (QC): 88 12 Steps (QC): 88 Picking up an Object (QC): 4 Does the Pt use WC or Scooter?: Yes Wheel 50 feet with 2 turns (QC: 6 Type: Manual Wheel 150 feet: 6 Type: Manual PT Plan Problem List Problem List: Activity Tolerance, Functional Strength, Safety, Balance, Gait, Transfer, Bed Mobility, ROM Treatment/Plan Treatment Plan: Continue Plan of Care Treatment Plan: Bed Mobility, Education, Functional Activity Shaun, Functional Strength, Group Therapy, Gait, Safety, Therapeutic Exercise, Transfers Treatment Duration: July 22, 2021 Frequency: At least 5 of 7 days/Wk (IRF) Estimated Hrs Per Day: 1.5 hours per day Patient and/or Family Agrees t: Yes Safety Risks/Education Patient Education: Gait Training, Transfer Techniques, Correct Positioning, Safety Issues Teaching Recipient: Patient Teaching Methods: Demonstration, Discussion Response to Teaching: Return Demonstration, Reinforcement Needed Time/GCodes Time In: 0800 Time Out: 914 Total Billed Treatment Time: 75 Total Billed Treatment 1 visit GT 65min FA 10min co-treated from [id number] MICHAEL SOLER PT July 14, 2021 09:16
--- NOTE | 2021-07-14 09:27 | Speech Therapy Daily Note ---
Speech Daily Progress Note Subjective Date Seen by Provider: July 14, 2021 Time Seen by Provider: 09:30 The patient was seated upright in his recliner, awake and alert upon entrance to his room by the clinician. The patient greeted the clinician appropriately and was agreeable to participation in the cognitive linguistic and dysphagia treatment session. The clinician utilized the language line for interpretation of communication. Objective - Progression with speech and dysphagia: The patient stated "everything is great with that," when asked specific questions regarding his speech and possible "slurred" articulation. Additionally, the patient stated his swallowing was "gr eat, no problems." The patient denied s/s of suspected aspiration with P.O. intake and stated he was able to consume any consistency without difficulties. The patient completed spontaneous conversation with the clinician regarding his concern. Per patient, he has a court case scheduled for tomorrow and is unsure how to contact any individuals regarding his location. The clinician recorded information from the patient and shared the information with the public health social worker. Together, the information was found for a [place] court. Updated information or doctor's notes will be shared to provide information of why the patient will be absent from his case. The patient denied additional questions or concerns for the clinician. Assessment Assessment Current Status: Good Progress Treatment Plan Continue Plan of Care Speech Short Term Goals Short Term Goals Short Term Goals 1. The patient will demonstrate oral motor exercises with 90% accuracy, independently. 2. The patient, staff, and family will demonstrate safe swallowing strategies with 90% accuracy. Speech Director Network Development Goals Director Network Development Goals 1. The patient will demonstrated increased intelligibility (per family members) throughout informal conversation. 2. The patient will tolerate the least restrictive diet without s/s of suspected aspiration. Time Frame: Two Weeks. Speech-Plan Treatment Plan Speech Therapy Treatment Plan: Continue Plan of Care Treatment Duration: Jul 02, 2021 Frequency: Modified [place] (IRF) Estimated Hrs Per Day: .5 hour per day Rehab Potential: Fair Safety Risks/Education Teaching Recipient: Patient Teaching Methods: Discussion Response to Teaching: Verbalize Understanding Education Topics Provided: Speech Pathology Plan of Care Time Speech Therapy Time In: 09:30 Speech Therapy Time Out: 10:00 Total Billed Time: 30 Billed Treatment Time 1ANNA DYST No LOY, ELIZABETH ST July 14, 2021 09:27
[2021-07-14] MEDS: ASPIRIN 81 MG CHEW (CHILDREN'S ASA) PO SCH (12:36)
[2021-07-14] MEDS: ENOXAPARIN 40 MG/0.4 ML (LOVENOX) SYR SC SCH (12:38)
[2021-07-14 20:20] VITALS: BP 141/78
[2021-07-15] MEDS: inSUlin ASPART (NovoLOG) 1 UNIT/0.01 ML (CHARGE PER UNIT) SC SCH ×4 (05:56→21:17)
--- NOTE | 2021-07-15 06:09 | PM&R Progress Note ---
Subjective HPI/CC On Admission Date Seen by Provider: July 15, 2021 Time Seen by Provider: 10:30 Subjective/Events-last exam 07/15/21: Pt is doing really well AFO brace helps him walk Moving his left fingers Blood sugar was 164 this morning 07/14/2021: Pt is able to ambulate around the unit very well Diabetic education will be provided Noncompliance with diet continues the blood sugar in the 300 range 07/13/2021: Patient doing well Moving left leg well Labs reviewed 07/12/2021: Patient doing well Moving left leg very well Blood sugars reviewed Blood pressures improved 07/11/2021: Patient doing really well Able to lift his left leg up and move his right arm at the shoulder Eating well Blood sugars and blood pressures reviewed 07/10/21: Patient has no issues UCx reviewed NGTD so DC abx 07/09/21: Patient doing well Empirically placed on antibiotics Urinary incontinence the same No pain is reported 07/08/2021: No pain is reported Patient doing really well otherwise Urinary issues prompted UA and bacteriuria noted so will cover with antibiotic until culture back Supportive care 07/07/21: Patient has no pain Able to use assistive devices Supportive care continues 07/06/21: Patient doing well Monitor closely No pain reported Checked meds and labs 07/05/21: Patient seems to be doing well Blood sugars reviewed Blood pressures reviewed No falls 07/04/2021: Patient doing well Left-sided weakness is profound DC the catheter yesterday and voiding well No pain reported 07/03/21: Patient doing well Sugar reviewed BP improved on multiple meds DC Catheter today 07/02/21: Patient tolerating everything pretty well Blood pressure improved Blood sugars improved Wheelchair mobility training Review of Systems General: Fatigue, Malaise Objective Exam Vital Signs Vital Signs Date Time Temp Pulse Resp B/P (MAP) Pulse Ox O2 Delivery O2 Flow Rate FiO2 07/15/21 20:00 95 Room Air 07/15/21 19:40 37.0 91 18 135/80 (98) Capillary Refill : General Appearance: No Apparent Distress, WD/WN, Obese HEENT: PERRL/EOMI, Normal ENT Inspection, Pharynx Normal Neck: Full Range of Motion, Normal Inspection, Non Tender, Supple, Carotid Bruit Respiratory: Chest Non Tender, Lungs Clear, Normal Breath Sounds, No Accessory Muscle Use, No Respiratory Distress Cardiovascular: Regular Rate, Rhythm, No Edema, No Gallop, No JVD, No Murmur, Normal Peripheral Pulses Gastrointestinal: Normal Bowel Sounds, No Organomegaly, No Pulsatile Mass, Non Tender, Soft Back: Normal Inspection, No CVA Tenderness, No Vertebral Tenderness Extremity: Normal Capillary Refill, Normal Inspection, Normal Range of Motion, Non Tender, No Calf Tenderness, No Pedal Edema Neurologic/Psychiatric: Alert, Oriented x3, Normal 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 FIM Transfers Therapy Code Descriptions/Definitions Functional [place] Measure: 0=Not Assessed/NA 4=Minimal Assistance 1=Total Assistance 5=Supervision or Setup 2=Maximal Assistance 6=Modified [place] 3=Moderate Assistance 7=Complete IndependenceSCALE: Activities may be completed with or without assistive devices. 5-Wiavuexqge-tqfoplr completes the activity by him/herself with no assistance from a helper. 5-Set-up or Clean-up Assistance-helper sets up or cleans up; patient completes activity. [place] assists only prior to or following the activity. 4-Supervision or Touching Assistance-helper provides verbal cues and/or touching/steadying and/or contact guard assistance as patient completes activity. Assistance may be provided throughout the activity or intermittently. 3-Partial/Moderate Assistance-helper does LESS THAN HALF the effort. [place] lifts, holds or supports trunk or limbs, but provides less than half the effort. 2-Substantial/Maximal Assistance-helper does MORE THAN HALF the effort. [place] lifts or holds trunk or limbs and provides more than half the effort. 1-Kpvhrwvrz-klxetj does ALL the effort. Patient does none of the effort to complete the activity. Or, the assistance of 2 or more helpers is required for the patient to complete the activity. If activity was not attempted, code reason: 7-Patient Refused. 9-Not Applicable-not attempted and the patient did not perform the activity before the current illness, exacerbation or injury. 10-Not Attempted due to Environmental Limitations-(lack of equipment, weather restraints, etc.). 88-Not Attempted due to Medical Conditions or Safety Concerns. Roll Left to Right (QC): 3 Sit to Lying (QC): 3 Sit to Stand (QC): 3 Chair/Njh-jb-Oqjoj Xfer(QC): 3 Car Transfer (QC): 88 Gait Training Does the Patient Walk?: Yes Distance: 100'x2, 200'x2, 400' Walk 10 feet (QC): 4 Walk 50 ft with 2 Turns(QC): 3 Walk 150 ft (QC): 3 Walking 10ft/uneven surface-QC: 88 Gait Persons Needed: 1 Gait Assistive Device: Walker Platform Wheelchair Training Does the Pt Use a Wheelchair?: Yes Wheel 50 ft with 2 turns (QC): 5 Wheel 150 ft (QC): 5 Type of Wheelchair: Manual Stair Training 1 Step (curb) (QC): 88 4 Steps (QC): 88 12 Steps (QC): 88 Balance Picking up an Object (QC): 88 ADL-Treatment Eating (QC): 5 Oral Hygiene (QC): 6 Shower/Bathe Self (QC): 3 Upper Body Dressing (QC): 4 Lower Body Dressing (QC): 2 On/Off Footwear (QC): 3 Toileting Hygiene (QC): 3 Toilet Transfer (QC): 3 Assessment/Plan Assessment and Plan Assess & Plan/Chief Complaint Assessment: CVA with left-sided weakness catastrophic type Hypertension severe Hyperlipidemia Hyperglyceridemia Obesity BMI 30 New onset diabetes hemoglobin A1c 9.7 Smoker Plan: Inpatient rehab protocol Supportive care Insulin Blood pressure management 07/02/2021: Increase blood pressure meds Supportive care 07/03/21: DC catheter 07/04/2021: Aggressive therapy 07/05/2021: Supportive care Blood sugar blood pressure improved 07/06/21: BP improved Monitor closely 07/07/2021: Blood pressure improved Blood sugar improved 07/08/2021: Patient doing well Check UA 07/09/2021: Await urine culture Continue antibiotics 07/10/21: UCx NGTD DC abx 07/11/2021: Supportive care Monitor closely 07/12/21: Supportive care Monitor closely 07/13/2021: Supportive care Monitor closely 07/14/2021: Supportive care Monitor sugar 07/15/2021: Noncompliance with diabetic diet (1) CVA (cerebral vascular accident) Status: Acute TITUS KENT DO July 15, 2021 06:09
[2021-07-15 08:00] VITALS: BP 114/72
[2021-07-15] MEDS: hydrALAZINE (APRESOLINE) 25 MG TAB PO SCH ×3 (08:00→21:18)
[2021-07-15] MEDS: DOCUSATE SODIUM 100 MG (COLACE) CAP PO SCH ×2 (08:01→21:15)
[2021-07-15] MEDS: LOSARTAN 50 MG (COZAAR) TAB PO SCH (08:02)
[2021-07-15] MEDS: glyBURIDE 2.5 MG (MICRONASE) TAB PO SCH ×2 (08:03→21:17)
[2021-07-15] MEDS: polyethylene glycoL POWDER 17 GM (MIRALAX) PACK PO SCH ×2 (08:03→21:15)
[2021-07-15] MEDS: PHENAZOPYRIDINE 100 MG (PYRIDIUM) TABLET PO SCH ×3 (08:04→18:10)
[2021-07-15] MEDS: SENNOSIDES 8.6 MG (SENOKOT) TAB PO SCH ×2 (08:04→21:15)
[2021-07-15] MEDS: amLODIPine 5 MG (NORVASC) TAB PO SCH ×2 (08:04→21:17)
[2021-07-15] MEDS: CLONIDINE PATCH REMOVAL TP SCH (08:38)
[2021-07-15] MEDS: cloNIDine 0.1 MG PATCH (CATAPRES TTS) TDSY TD SCH (08:39)
--- NOTE | 2021-07-15 08:57 | Occupational Ther Daily Note ---
OT Current Status-Daily Note Subjective Pt denies pain, agreeable to shower. Appearance Pt returned to sitting in recliner, all needs within reach. Mental Status/Objective Patient Orientation: Person, Place, Situation ADL-Treatment Therapy Code Descriptions/Definitions Functional [place] Measure: 0=Not Assessed/NA 4=Minimal Assistance 1=Total Assistance 5=Supervision or Setup 2=Maximal Assistance 6=Modified [place] 3=Moderate Assistance 7=Complete IndependenceSCALE: Activities may be completed with or without assistive devices. 3-Fmdcuyewpo-bquxkmo completes the activity by him/herself with no assistance from a helper. 5-Set-up or Clean-up Assistance-helper sets up or cleans up; patient completes activity. [place] assists only prior to or following the activity. 4-Supervision or Touching Assistance-helper provides verbal cues and/or touching/steadying and/or contact guard assistance as patient completes activity. Assistance may be provided throughout the activity or intermittently. 3-Partial/Moderate Assistance-helper does LESS THAN HALF the effort. [place] lifts, holds or supports trunk or limbs, but provides less than half the effort. 2-Substantial/Maximal Assistance-helper does MORE THAN HALF the effort. [place] lifts or holds trunk or limbs and provides more than half the effort. 2-Zhonubjxo-qxdnfk does ALL the effort. Patient does none of the effort to complete the activity. Or, the assistance of 2 or more helpers is required for the patient to complete the activity. If activity was not attempted, code reason: 7-Patient Refused. 9-Not Applicable-not attempted and the patient did not perform the activity before the current illness, exacerbation or injury. 10-Not Attempted due to Environmental Limitations-(lack of equipment, weather restraints, etc.). 88-Not Attempted due to Medical Conditions or Safety Concerns. Oral Hygiene (QC): 6 Shower/Bathe Self (QC): 3 Upper Body Dressing (QC): 4 Lower Body Dressing (QC): 3 On/Off Footwear: 3 Toileting Hygiene (QC): 3 Toilet Transfer (QC): 3 Shower performed; 100% completed in sitting (shower w/c). Pt demonstrates improved sitting balance when bending at waist to reach feet. However, when performing this method, pt often lets LUE dangle/hang. OT Attempts to educate pt on protecting UE to prevent subluxation. Difficulty determining how much pt comprehends due to language barrier. Reminders on using LHS when washing LB yet pt did not initiate post cues. Continues to need assist to lift/adduct LUE in order to wash axilla. Pt able to use LHS to wash buttocks. Clothing donned sea petr in w/c. Pt was able to lift and cross LLE over R this date but needs assist to maintain figure 4 position as he threaded foot through clothing. Max a to pull clothing up to waist with Min-mod a for balance when standing. Pt attempts to assist with RUE but often loses balance, needing to return hand to grab bar. Pt able to don R sock without any assistance this date. Again, assist to maintain cross over method in order for him to don L sock. Min a to initiate sock over toes. Indep to don R shoe, dependent to don AFO and L shoe due to tight fit. Pt does not require any physical assistance when donning shirt but requires several cues for safety as he often will throw LUE around when threading sleeve over extremity or when pulling over L shoulder. Education/ reminders on protecting UE. Pt independently performed Grooming tasks while seated in w/c. Education OT Patient Education: Correct positioning, Energy conservation, Modified ADL techniques, Progress toward Goal/Update tx plan, Purpose of tx/functional activities, Reviewed precautions, Rehab process, Safety issues, Transfer techniques, Use of adapted equipment, W/C management Teaching Recipient: Patient Teaching Methods: Demonstration, Discussion Response to Teaching: Verbalize Understanding, Return Demonstration, Reinforcement Needed OT Short Term Goals Short Term Goals Time Frame: Jul 11, 2021 Eatin Oral hygiene: 5 Toileting hygiene: 2 Shower/bathe self: 2 Upper body dressin Lower body dressin Putting on/taking off footwear: 3 OT Assisted Goals Assisted Goals Time Frame: July 29, 2021 Eating (QC): 6 Oral Hygiene (QC): 6 Toileting Hygiene (QC): 6 Shower/Bathe Self (QC): 5 Upper Body Dressing (QC): 5 Lower Body Dressing (QC): 5 On/Off Footwear (QC): 5 1=Demonstrate adherence to instructed precautions during ADL tasks. 2=Patient will verbalize/demonstrate understanding of assistive devices/modifications for ADL. 3=Patient will improve strength/tolerance for activity to enable patient to perform ADL's. OT Education/Plan Problem List/Assessment Assessment: Decreased Activ Tolerance, Decreased Safety Aware, Decreased UE Strength, Impaired Cognition, Impaired Coordination, Impaired Funct Balance, Impaired I ADL's, Impaired Self-Care Skills, Restricted Funct UE ROM Discharge Recommendations Plan/Recommendations: Continue POC Treatment Plan/Plan of Care Treatment,Training & Education: Yes Patient would benefit from OT for education, treatment and training to promote independence in ADL's, mobility, safety and/or upper extremity function for ADL's. Plan of Care: ADL Retraining, Cognitive Retraining, Functional Mobility, Group Exercise/Act as Ind, UE Funct Exercise/Act, UE Neuromus Re-Ed/Coord, W/C Management Training Treatment Duration: July 29, 2021 Frequency: At least 5 of 7 days/Wk (IRF) Estimated Hrs Per Day: .25 hour per day Agreement: Yes Rehab Potential: Fair Time/GCodes Start Time: 08:00 Stop Time: 08:55 Total Time Billed (hr/min): 55 Billed Treatment Time 1 visit ADL x4 Samantha Valverde OT July 15, 2021 08:57
[2021-07-15 09:33] VITALS: BP 72/46
--- NOTE | 2021-07-15 09:57 | Speech Therapy Daily Note ---
Speech Daily Progress Note Subjective Date Seen by Provider: July 15, 2021 Time Seen by Provider: 09:30 The patient was seated upright in recliner, awake and alert upon entrance to his room by the clinician. The patient greeted the clinician and was agreeable to participation in the cognitive linguistic and dysphagia treatment session. The language line was utilized for communication. Objective Orientation: The patient was independently oriented to self, location, month, day of week, date and year. The patient was observed consuming drinks of water via straw throughout the treatment session. No s/s of suspected aspiration were demonstrated with any trials of P.O. The patient denied concerns or questions regarding his swallowing function at this time. Additionally, the patient denied concerns regarding his speech, language or cognition. Per patient, "At first, they couldn't understand me on the phone but now everyone can. I am talking much better, it is much improved." The park interpreter reports 100% intelligibility of the patient's speech, as well. At this time, the patient states he does not have additional speech, language, or cognition needs. The patient able to complete basic subtraction and addition, repeat strings of digits, complete word-finding exercises, and identify specific items with 100% accuracy. Expression of Ideas/Wants: Expression (4) Understanding Verbal Content: Understands (4) Brief Interview-Mental Status: Yes Repetition of Three Words: Three (3) Temporal Orientation: Year: Correct (3) Temporal Orientation: Month: Accurate within 5 days(2) Temporal Orientation: Day: Correct (1) Recall : Wear to say "Sock": Yes, no cue required (2) Recall : Color: Yes, no cue required (2) Recall : Bed: Yes, no cue required (2) Memory/Recall Ability: That he or she is in a hsp/hsp unit Assessment Assessment Current Status: Good Progress Treatment Plan Continue Plan of Care Speech Short Term Goals Short Term Goals Short Term Goals 1. The patient will demonstrate oral motor exercises with 90% accuracy, independently. 2. The patient, staff, and family will demonstrate safe swallowing strategies with 90% accuracy. Speech Mangle Press Catcher Goals Mangle Press Catcher Goals 1. The patient will demonstrated increased intelligibility (per family members) throughout informal conversation. 2. The patient will tolerate the least restrictive diet without s/s of suspected aspiration. Time Frame: Two Weeks. Speech-Plan Treatment Plan Speech Therapy Treatment Plan: Continue Plan of Care Treatment Duration: Jul 02, 2021 Frequency: Modified Program (IRF) Estimated Hrs Per Day: .5 hour per day Rehab Potential: Fair Pt/Family Agrees to Plan: Yes Safety Risks/Education Teaching Recipient: Patient Teaching Methods: Discussion Response to Teaching: Verbalize Understanding Education Topics Provided: Speech Pathology POC Time Speech Therapy Time In: 09:30 Speech Therapy Time Out: 10:00 Total Billed Time: 30 Billed Treatment Time 1, DYST, SLTS STEPHEN Ibrahim July 15, 2021 09:57
[2021-07-15 10:00] VITALS: BP 91/53
--- NOTE | 2021-07-15 11:40 | Occupational Ther Daily Note ---
OT Current Status-Daily Note Subjective Denies pain, reports family running late for family training. Co-treat with PT secondary to need of 2 skilled clinicians to progress indep and safety with adls and mobility and for scheduled family training. Mental Status/Objective Patient Orientation: Person, Place, Situation ADL-Treatment Therapy Code Descriptions/Definitions Functional [place] Measure: 0=Not Assessed/NA 4=Minimal Assistance 1=Total Assistance 5=Supervision or Setup 2=Maximal Assistance 6=Modified [place] 3=Moderate Assistance 7=Complete IndependenceSCALE: Activities may be completed with or without assistive devices. 6-Quouzubvdg-clxkyhi completes the activity by him/herself with no assistance from a helper. 5-Set-up or Clean-up Assistance-helper sets up or cleans up; patient completes activity. [place] assists only prior to or following the activity. 4-Supervision or Touching Assistance-helper provides verbal cues and/or touching/steadying and/or contact guard assistance as patient completes activity. Assistance may be provided throughout the activity or intermittently. 3-Partial/Moderate Assistance-helper does LESS THAN HALF the effort. [place] lifts, holds or supports trunk or limbs, but provides less than half the effort. 2-Substantial/Maximal Assistance-helper does MORE THAN HALF the effort. [place] l ifts or holds trunk or limbs and provides more than half the effort. 0-Kfmvkjwci-uldebs does ALL the effort. Patient does none of the effort to complete the activity. Or, the assistance of 2 or more helpers is required for the patient to complete the activity. If activity was not attempted, code reason: 7-Patient Refused. 9-Not Applicable-not attempted and the patient did not perform the activity before the current illness, exacerbation or injury. 10-Not Attempted due to Environmental Limitations-(lack of equipment, weather restraints, etc.). 88-Not Attempted due to Medical Conditions or Safety Concerns. Other Treatment Pt ambulated ~400 feet with min a x1 and use of platform walker. Continues to need min cues for safety, speed, and advancement/transitioning of LLE. 1 LOB laterally secondary to foot catching, mod-max a needed to keep upright. While sitting EOM, pt completed reaching/weight bearing activity onto L elbow. Pt reached across midline for rice bags placed slightly out of reach. Assist to push into elbow extension in order to return to midline and toss rice bag into basket. 12 rice bags x2. Cues for positioning, posture, and safety. Pt is exhibiting some finger flexion and elbow flexion with extra time. Family in late for scheduled family training. Pt's daughter present to assist with interpreting. Education/demonstration provided on safety with LUE, sha techniques, transfers, adls, and ROM. Family denies having any questions. Due to limited time for training this date, OT recommends/suggested that family come in another day to watch/be present during therapy session, specifically for ADLs. Education OT Patient Education: Correct positioning, Modified ADL techniques, Progress toward Goal/Update tx plan, Purpose of tx/functional activities, Rehab process, Safety issues, Transfer techniques Teaching Recipient: Patient, Family Teaching Methods: Demonstration, Discussion Response to Teaching: Verbalize Understanding, Return Demonstration, Reinforcement Needed OT Short Term Goals Short Term Goals Time Frame: Jul 11, 2021 Eatin Oral hygiene: 5 Toileting hygiene: 2 Shower/bathe self: 2 Upper body dressin Lower body dressin Putting on/taking off footwear: 3 OT Water Treatment Operator Goals Long-Term Goals Time Frame: July 29, 2021 Eating (QC): 6 Oral Hygiene (QC): 6 Toileting Hygiene (QC): 6 Shower/Bathe Self (QC): 5 Upper Body Dressing (QC): 5 Lower Body Dressing (QC): 5 On/Off Footwear (QC): 5 1=Demonstrate adherence to instructed precautions during ADL tasks. 2=Patient will verbalize/demonstrate understanding of assistive devices/modifications for ADL. 3=Patient will improve strength/tolerance for activity to enable patient to perform ADL's. OT Education/Plan Problem List/Assessment Assessment: Decreased Activ Tolerance, Decreased Safety Aware, Decreased UE Strength, Impaired Cognition, Impaired Coordination, Impaired Funct Balance, Impaired I ADL's, Impaired Self-Care Skills, Restricted Funct UE ROM Discharge Recommendations Plan/Recommendations: Continue POC Therapy Discharge Recommendati: Post Acute OT Equpiment Recommendations-D/C: Bath Chair Treatment Plan/Plan of Care Treatment,Training & Education: Yes Patient would benefit from OT for education, treatment and training to promote independence in ADL's, mobility, safety and/or upper extremity function for ADL's. Plan of Care: ADL Retraining, Cognitive Retraining, Functional Mobility, Group Exercise/Act as Ind, UE Funct Exercise/Act, UE Neuromus Re-Ed/Coord, W/C Management Training Treatment Duration: July 29, 2021 Frequency: At least 5 of 7 days/Wk (IRF) Estimated Hrs Per Day: 1.5 hours per day (60-90 min/day) Agreement: Yes Rehab Potential: Fair Time/GCodes Start Time: 11:00 Stop Time: 12:00 Total Time Billed (hr/min): 60 Billed Treatment Time 1 visit NM x2 (30 min) FA (20 min) ADL (10 min) Samantha Valverde OT July 15, 2021 11:40
[2021-07-15 11:55] VITALS: BP 101/54
[2021-07-15 12:02] VITALS: BP 128/88
[2021-07-15] MEDS: ENOXAPARIN 40 MG/0.4 ML (LOVENOX) SYR SC SCH (12:07)
--- NOTE | 2021-07-15 12:48 | Physical Therapy Daily Note ---
PT Daily Note-Current Subjective Patient in chair upon entry and consented to treat. pt had no new complaints. 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 Pain Location: No Pain Reported Mental Status Patient Orientation: Person, Place, Situation Transfers SCALE: Activities may be completed with or without assistive devices. 4-Xelgekomyy-njmdmoa completes the activity by him/herself with no assistance from a helper. 5-Set-up or Clean-up Assistance-helper sets up or cleans up; patient completes activity. [place] assists only prior to or following the activity. 4-Supervision or Touching Assistance-helper provides verbal cues and/or touching/steadying and/or contact guard assistance as patient completes activity. Assistance may be provided throughout the activity or intermittently. 3-Partial/Moderate Assistance-helper does LESS THAN HALF the effort. [place] lifts, holds or supports trunk or limbs, but provides less than half the effort. 2-Substantial/Maximal Assistance-helper does MORE THAN HALF the effort. [place] lifts or holds trunk or limbs and provides more than half the effort. 4-Wyscerdlq-coxhkc does ALL the effort. Patient does none of the effort to c omplete the activity. Or, the assistance of 2 or more helpers is required for the patient to complete the activity. If activity was not attempted, code reason: 7-Patient Refused. 9-Not Applicable-not attempted and the patient did not perform the activity before the current illness, exacerbation or injury. 10-Not Attempted due to Environmental Limitations-(lack of equipment, weather restraints, etc.). 88-Not Attempted due to Medical Conditions or Safety Concerns. Roll Left & Right (QC): 4 (SBA) Sit to Lying (QC): 4 (SBA) Lying to Sitting/Side of Bed(Q: 4 (SBA) Sit to Stand (QC): 4 (CGA) Chair/Yrs-ki-Uqvhx Xfer(QC): 4 (CGA) Weight Bearing Full Weight Bearing Full Weight Bearing Gait Training Does the Patient Walk?: Yes Distance: 400', 250', 100' Walk 10 feet (QC): 4 (CGA) Walk 50 ft with 2 Turns(QC): 4 (CGA) Walk 150 ft (QC): 3 Gait Assistive Device: Walker Platform L AFO. Patient sometimes stumbles with platform walker. Patient appears better at steering walker today. Can walk with reciprocal gait pattern but sometimes has trouble clearing floor during L swing phase. Wheelchair Training Does the Pt Use a Wheelchair?: No Exercises Standing: Sit to Stand Standing Reps: 10 NuStep Minutes: 3 (Family came in at this time for education, so teminated NuStep.) NuStep Workload: 5 Treatments Ambulation, transfers, LE strengthening, seated dynamic balance activity (Lean on L elbow, grab rice bag and toss). OT coordinated UE and trunk positioning and coordination, PT provided assistance for balance and LE positioning. Patient and Family education. Assessment Current Status: Good Progress Patients LE strength, balance and coordination continues to improve with ambulation, transfers, and LE exercises. Patient requires CGA assist with transfers and ambulation, but is unsteady and loses balance at times. Patient would benefit from a PF stop AFO with proper ankle stability to prevent ankle from rolling. Patient's family visited today for training and education. PT and patient demonstrated to family on current level of transfers, ambulation, and bed mobility, and Instructions and advice were given for proper guarding, technique, and safety concerns. Patient was left in chair with call light, and family in room. PT Short Term Goals Short Term Goals Time Frame: Jul 08, 2021 Roll Left & Right: 4 Sit to lyin Lying to sitting on side of be: 4 Sit to stand: 3 Chair/jho-xf-eempd transfer: 3 Toilet transfer: 3 PT Detention Goals Detention Goals PT Rn Pediatric [facility] Goals Time Frame: July 22, 2021 Roll Left & Right (QC): 6 Sit to Lying (QC): 6 Lying-Sitting on Side/Bed(QC): 6 Sit to Stand (QC): 4 Chair/Jmp-ys-Iexjz Xfer(QC): 4 Toilet Transfer (QC): 4 Car Transfer (QC): 4 Does the Patient Walk: No and Walking Goal IS indicated Walk 10 feet (QC): 4 Walk 50ft with 2 Turns (QC): 88 Walk 150 ft (QC): 88 Walking 10ft on Uneven Surface: 88 1 Step (curb) (QC): 88 4 Steps (QC): 88 12 Steps (QC): 88 Picking up an Object (QC): 4 Does the Pt use WC or Scooter?: Yes Wheel 50 feet with 2 turns (QC: 6 Type: Manual Wheel 150 feet: 6 Type: Manual PT Plan Problem List Problem List: Activity Tolerance, Functional Strength, Safety, Balance, Gait, Transfer, Bed Mobility, ROM Treatment/Plan Treatment Plan: Continue Plan of Care Treatment Plan: Bed Mobility, Education, Functional Activity Shaun, Functional Strength, Group Therapy, Gait, Safety, Therapeutic Exercise, Transfers Treatment Duration: July 22, 2021 Frequency: At least 5 of 7 days/Wk (IRF) Estimated Hrs Per Day: 1.5 hours per day Patient and/or Family Agrees t: Yes Safety Risks/Education Patient Education: Gait Training, Transfer Techniques, Correct Positioning, Reviewed Don/Doff Brace, Instructions to Caregiver, Safety Issues Teaching Recipient: Patient, Family Teaching Methods: Demonstration, Discussion Response to Teaching: Verbalize Understanding, Return Demonstration Time/GCodes Time In: 1045 Time Out: 1200 Total Billed Treatment Time: 75 Total Billed Treatment 1 visit GT 30min EX 15min FA 30min MICHAEL SOLER PT July 15, 2021 12:48
--- NOTE | 2021-07-15 14:14 | Therapy Team Discharge Summary ---
Therapy Discharge Summary Discharge Recommendations Date of Discharge Physical Therapy Roll Left to Right (QC): 4 (SBA) Sit to Lying (QC): 4 (SBA) Lying to Sitting/Side of Bed(Q: 4 (SBA) Sit to Stand (QC): 4 (CGA) Chair/Loa-th-Tohgk Xfer(QC): 4 (CGA) Toilet Transfer (QC): 3 Car Transfer (QC): 88 Does the Patient Walk: Yes Mode of Locomotion: Wheelchair Anticipated Mode of Locomotion: Both Walk 10 feet (QC): 4 (CGA) Walk 50 ft with 2 Turns(QC): 4 (CGA) Walk 150 ft (QC): 3 Walking 10ft on uneven surface: 88 Gait Assistive Device: Walker Platform Does the Pt Use a Wheelchair: No Wheel 50 ft with 2 turns (QC): 5 Wheel 150 ft (QC): 5 Type of Wheelchair: Manual 1 Step (curb) (QC): 88 4 Steps (QC): 88 12 Steps (QC): 88 Balance Sitting Static: Poor Balance Sitting Dynamic: Poor Balance-Standing Static: Poor Picking up an Object (QC): 88 Occupational Therapy Decreased Activ Tolerance, Decreased Safety Aware, Decreased UE Strength, Impaired Cognition, Impaired Coordination, Impaired Funct Balance, Impaired I ADL's, Impaired Self-Care Skills, Restricted Funct UE ROM Eating (QC): 5 Oral Hygiene (QC): 6 Shower/Bathe Self (QC): 3 Upper Body Dressing (QC): 4 Lower Body Dressing (QC): 3 On/Off Footwear (QC): 3 Toileting Hygiene (QC): 3 Speech-Language Pathology Expression of Ideas/Wants: Expression (4) Understanding Verbal Content: Understands (4) Brief Interview-Mental Status: Yes Repetition of Three Words: Three (3) Temporal Orientation: Year: Correct (3) Temporal Orientation: Month: Accurate within 5 days(2) Temporal Orientation: Day: Correct (1) Recall : Wear to say "Sock": Yes, no cue required (2) Recall : Color: Yes, no cue required (2) Recall : Bed: Yes, no cue required (2) Memory/Recall Ability: That he or she is in a hsp/hsp unit The patient is currently tolerating a regular diet consistency with thin liquids. The patient is 100% intelligible throughout spontaneous speech and denied additional speech, language or cognitive concerns. The patient has met speech pathology's goals at this time. PT [facility] Goals Rotary Helper Goals PT [facility] Goals Time Frame: July 22, 2021 Roll Left to Right (QC): 6 Sit to Lying (QC): 6 Lying-Sitting on Side/Bed(QC): 6 Sit to Stand (QC): 4 Chair/Eqc-hk-Nrjnl Xfer(QC): 4 Car Transfer (QC): 4 Does the Patient Walk: No and Walking Goal IS indicated Walk 10 feet (QC): 4 Walk 10ft-Uneven Surface(QC): 88 Walk 50ft with 2 Turns (QC): 88 Walk 150 ft (QC): 88 Does the Pt use WC or Scooter?: Yes Wheel 50 feet with 2 turns (QC: 6 1 Step (curb) (QC): 88 4 Steps (QC): 88 12 Steps (QC): 88 Picking up an Object (QC): 4 OT Rotary Helper Goals [facility] Goals Time Frame: July 29, 2021 Eating (QC): 6 Oral Hygiene (QC): 6 Shower/Bathe Self (QC): 5 Upper Body Dressing (QC): 5 Lower Body Dressing (QC): 5 On/Off Footwear (QC): 5 Toileting Hygiene (QC): 6 Toilet/Commode Transfer (QC): 4 1=Demonstrate adherence to instructed precautions during ADL tasks. 2=Patient will verbalize/demonstrate understanding of assistive devices/modifications for ADL. 3=Patient will improve strength/tolerance for activity to enable patient to perform ADL's. Speech [facility] Goals Rotary Helper Goals 1. The patient will demonstrated increased intelligibility (per family members) throughout informal conversation. MET 2. The patient will tolerate the least restrictive diet without s/s of suspected aspiration. MET Time Frame: Two Weeks. STEPHEN VASQUEZ July 15, 2021 14:14
[2021-07-15] MEDS: ASPIRIN 81 MG CHEW (CHILDREN'S ASA) PO SCH (14:55)
[2021-07-15 19:40] VITALS: BP 135/80
--- NOTE | 2021-07-16 06:07 | PM&R Progress Note ---
Subjective HPI/CC On Admission Date Seen by Provider: July 16, 2021 Time Seen by Provider: 11:30 Subjective/Events-last exam 07/16/2021: Pt having no new issues Walking around well with the AFO brace Supportive care will continue 07/15/21: Pt is doing really well AFO brace helps him walk Moving his left fingers Blood sugar was 164 this morning 07/14/2021: Pt is able to ambulate around the unit very well Diabetic education will be provided Noncompliance with diet continues the blood sugar in the 300 range 07/13/2021: Patient doing well Moving left leg well Labs reviewed 07/12/2021: Patient doing well Moving left leg very well Blood sugars reviewed Blood pressures improved 07/11/2021: Patient doing really well Able to lift his left leg up and move his right arm at the shoulder Eating well Blood sugars and blood pressures reviewed 07/10/21: Patient has no issues UCx reviewed NGTD so DC abx 07/09/21: Patient doing well Empirically placed on antibiotics Urinary incontinence the same No pain is reported 07/08/2021: No pain is reported Patient doing really well otherwise Urinary issues prompted UA and bacteriuria noted so will cover with antibiotic until culture back Supportive care 07/07/21: Patient has no pain Able to use assistive devices Supportive care continues 07/06/21: Patient doing well Monitor closely No pain reported Checked meds and labs 07/05/21: Patient seems to be doing well Blood sugars reviewed Blood pressures reviewed No falls 07/04/2021: Patient doing well Left-sided weakness is profound DC the catheter yesterday and voiding well No pain reported 07/03/21: Patient doing well Sugar reviewed BP improved on multiple meds DC Catheter today 07/02/21: Patient tolerating everything pretty well Blood pressure improved Blood sugars improved Wheelchair mobility training Review of Systems Neurological: Weakness, Incoordination Objective Exam Vital Signs Vital Signs Date Time Temp Pulse Resp B/P (MAP) Pulse Ox O2 Delivery O2 Flow Rate FiO2 07/16/21 20:25 96 Room Air 07/16/21 20:04 36.6 76 16 127/70 (89) Capillary Refill : General Appearance: No Apparent Distress, WD/WN, Obese HEENT: PERRL/EOMI, Normal ENT Inspection, Pharynx Normal Neck: Full Range of Motion, Normal Inspection, Non Tender, Supple, Carotid Bruit Respiratory: Chest Non Tender, Lungs Clear, Normal Breath Sounds, No Accessory Muscle Use, No Respiratory Distress Cardiovascular: Regular Rate, Rhythm, No Edema, No Gallop, No JVD, No Murmur, Normal Peripheral Pulses Gastrointestinal: Normal Bowel Sounds, No Organomegaly, No Pulsatile Mass, Non Tender, Soft Back: Normal Inspection, No CVA Tenderness, No Vertebral Tenderness Extremity: Normal Capillary Refill, Normal Inspection, Normal Range of Motion, Non Tender, No Calf Tenderness, No Pedal Edema Neurologic/Psychiatric: Alert, Oriented x3, Normal Mood/Affect, door hanger II-XII Norm as 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 FIM Transfers Therapy Code Descriptions/Definitions Functional [place] Measure: 0=Not Assessed/NA 4=Minimal Assistance 1=Total Assistance 5=Supervision or Setup 2=Maximal Assistance 6=Modified [place] 3=Moderate Assistance 7=Complete IndependenceSCALE: Activities may be completed with or without assistive devices. 3-Qgtlfqcupa-tzvcecr completes the activity by him/herself with no assistance from a helper. 5-Set-up or Clean-up Assistance-helper sets up or cleans up; patient completes activity. [place] assists only prior to or following the activity. 4-Supervision or Touching Assistance-helper provides verbal cues and/or touching/steadying and/or contact guard assistance as patient completes activity. Assistance may be provided throughout the activity or intermittently. 3-Partial/Moderate Assistance-helper does LESS THAN HALF the effort. [place] lifts, holds or supports trunk or limbs, but provides less than half the effort. 2-Substantial/Maximal Assistance-helper does MORE THAN HALF the effort. [place] lifts or holds trunk or limbs and provides more than half the effort. 2-Omghwurrl-ykjpct does ALL the effort. Patient does none of the effort to complete the activity. Or, the assistance of 2 or more helpers is required for the patient to complete the activity. If activity was not attempted, code reason: 7-Patient Refused. 9-Not Applicable-not attempted and the patient did not perform the activity before the current illness, exacerbation or injury. 10-Not Attempted due to Environmental Limitations-(lack of equipment, weather restraints, etc.). 88-Not Attempted due to Medical Conditions or Safety Concerns. Roll Left to Right (QC): 4 (SBA) Sit to Lying (QC): 4 (SBA) Sit to Stand (QC): 4 (CGA) Chair/Tkv-ei-Npfzt Xfer(QC): 4 (CGA) Car Transfer (QC): 88 Gait Training Does the Patient Walk?: Yes Distance: 400', 250', 100' Walk 10 feet (QC): 4 (CGA) Walk 50 ft with 2 Turns(QC): 4 (CGA) Walk 150 ft (QC): 3 Walking 10ft/uneven surface-QC: 88 Gait Persons Needed: 1 Gait Assistive Device: Walker Platform Wheelchair Training Does the Pt Use a Wheelchair?: No Wheel 50 ft with 2 turns (QC): 5 Wheel 150 ft (QC): 5 Type of Wheelchair: Manual Stair Training 1 Step (curb) (QC): 88 4 Steps (QC): 88 12 Steps (QC): 88 Balance Picking up an Object (QC): 88 ADL-Treatment Eating (QC): 5 Oral Hygiene (QC): 6 Shower/Bathe Self (QC): 3 Upper Body Dressing (QC): 4 Lower Body Dressing (QC): 3 On/Off Footwear (QC): 3 Toileting Hygiene (QC): 3 Toilet Transfer (QC): 3 Assessment/Plan Assessment and Plan Assess & Plan/Chief Complaint Assessment: CVA with left-sided weakness catastrophic type Hypertension severe Hyperlipidemia Hyperglyceridemia Obesity BMI 30 New onset diabetes hemoglobin A1c 9.7 Smoker Plan: Inpatient rehab protocol Supportive care Insulin Blood pressure management 07/02/2021: Increase blood pressure meds Supportive care 07/03/21: DC catheter 07/04/2021: Aggressive therapy 07/05/2021: Supportive care Blood sugar blood pressure improved 07/06/21: BP improved Monitor closely 07/07/2021: Blood pressure improved Blood sugar improved 07/08/2021: Patient doing well Check UA 07/09/2021: Await urine culture Continue antibiotics 07/10/21: UCx NGTD DC abx 07/11/2021: Supportive care Monitor closely 07/12/21: Supportive care Monitor closely 07/13/2021: Supportive care Monitor closely 07/14/2021: Supportive care Monitor sugar 07/15/2021: Noncompliance with diabetic diet 07/16/2021: Impressive improvement Supportive care (1) CVA (cerebral vascular accident) Status: Acute TITUS KENT DO July 16, 2021 06:07
[2021-07-16] MEDS: inSUlin ASPART (NovoLOG) 1 UNIT/0.01 ML (CHARGE PER UNIT) SC SCH ×4 (07:20→21:45)
[2021-07-16 07:41] VITALS: BP 126/85
[2021-07-16] MEDS: LOSARTAN 50 MG (COZAAR) TAB PO SCH (07:46)
[2021-07-16] MEDS: amLODIPine 5 MG (NORVASC) TAB PO SCH ×2 (07:46→21:46)
[2021-07-16] MEDS: PHENAZOPYRIDINE 100 MG (PYRIDIUM) TABLET PO SCH ×3 (07:46→18:01)
[2021-07-16] MEDS: glyBURIDE 2.5 MG (MICRONASE) TAB PO SCH ×2 (07:47→21:45)
[2021-07-16] MEDS: hydrALAZINE (APRESOLINE) 25 MG TAB PO SCH ×3 (07:47→21:46)
[2021-07-16] MEDS: DOCUSATE SODIUM 100 MG (COLACE) CAP PO SCH ×2 (07:48→21:45)
[2021-07-16] MEDS: SENNOSIDES 8.6 MG (SENOKOT) TAB PO SCH ×2 (07:51→21:45)
[2021-07-16] MEDS: polyethylene glycoL POWDER 17 GM (MIRALAX) PACK PO SCH ×2 (07:51→21:45)
--- NOTE | 2021-07-16 09:16 | Occupational Ther Daily Note ---
OT Current Status-Daily Note Subjective Pt agreeable to treatment Appearance Pt returned to sitting in recliner, all needs within reach. Mental Status/Objective Patient Orientation: Person, Place, Situation ADL-Treatment Therapy Code Descriptions/Definitions Functional [place] Measure: 0=Not Assessed/NA 4=Minimal Assistance 1=Total Assistance 5=Supervision or Setup 2=Maximal Assistance 6=Modified [place] 3=Moderate Assistance 7=Complete IndependenceSCALE: Activities may be completed with or without assistive devices. 2-Uncwycknho-amnraax completes the activity by him/herself with no assistance from a helper. 5-Set-up or Clean-up Assistance-helper sets up or cleans up; patient completes activity. [place] assists only prior to or following the activity. 4-Supervision or Touching Assistance-helper provides verbal cues and/or touching/steadying and/or contact guard assistance as patient completes activity. Assistance may be provided throughout the activity or intermittently. 3-Partial/Moderate Assistance-helper does LESS THAN HALF the effort. [place] lifts, holds or supports trunk or limbs, but provides less than half the effort. 2-Substantial/Maximal Assistance-helper does MORE THAN HALF the effort. [place] lifts or holds trunk or limbs and provides more than half the effort. 4-Dopecvpfi-gewzom does ALL the effort. Patient does none of the effort to complete the activity. Or, the assistance of 2 or more helpers is required for the patient to complete the activity. If activity was not attempted, code reason: 7-Patient Refused. 9-Not Applicable-not attempted and the patient did not perform the activity before the current illness, exacerbation or injury. 10-Not Attempted due to Environmental Limitations-(lack of equipment, weather restraints, etc.). 88-Not Attempted due to Medical Conditions or Safety Concerns. Eating (QC): 5 Oral Hygiene (QC): 6 Upper Body Dressing (QC): 3 Lower Body Dressing (QC): 3 On/Off Footwear: 3 Toileting Hygiene (QC): 3 Toilet Transfer (QC): 3 Pt eating breakfast at OT arrival. Assist needed to open containers. Pt able to feed self with use of R hand. Dressing tasks performed seated EOB. Assist needed to thread LUE into sleeve this date secondary to silky material and pt having difficulty maintaining sleeve over extremity. Pt was able to lift/cross LLE over right but requires assist to maintain figure 4 position as he threaded underwear/pants over foot. Pt was able to stand and pull clothing over hips with steadying assist; A great improvement from past sessions. Assist needed to don L shoe secondary to tight fit and weak/unstable ankle. OT wrapped foot/shoe to aid in foot drop and maintain dorsal flexion. Pt ambulated to/from bathroom with use of sha walker, LUE sling, and min a. Extra time to transition L foot, improved sequencing this date. He sat in w/c to complete grooming tasks, no assist required. Other Treatment Pt ambulated ~50 feet with use of sha walker, LUE sling, and min a. W/c follow behind for safety. While supine, pt participated in multiple AAROM/PROM exercise s with goal to elicit/promote muscle contractions. Methods used to help facilitate muscle contraction included: tapping, passive stretch, fast/quick stretch, prolonged stretch, contract/relax, and isometric holds (heavy focus on biceps/triceps and external/internal rotation). Focus on increasing motor control/coordination with all movements. OT had pt attend to UE with vision with goal to aid in promoting increased neuroplasticty. Pt was able to exhibit voluntary movement at biceps, finger flexion, trace movement at triceps, and teres minor/major. Wrist wrapped to help stabilize during exercises. Education OT Patient Education: Correct positioning, Exercise program, Modified ADL techniques, Progress toward Goal/Update tx plan, Purpose of tx/functional activities, Rehab process, Safety issues, Transfer techniques Teaching Recipient: Patient Teaching Methods: Demonstration, Discussion Response to Teaching: Verbalize Understanding, Return Demonstration, Reinforcement Needed OT Short Term Goals Short Term Goals Time Frame: Jul 11, 2021 Eatin Oral hygiene: 5 Toileting hygiene: 2 Shower/bathe self: 2 Upper body dressin Lower body dressin Putting on/taking off footwear: 3 OT Usp Goals Usp Goals Time Frame: July 29, 2021 Eating (QC): 6 Oral Hygiene (QC): 6 Toileting Hygiene (QC): 6 Shower/Bathe Self (QC): 5 Upper Body Dressing (QC): 5 Lower Body Dressing (QC): 5 On/Off Footwear (QC): 5 1=Demonstrate adherence to instructed precautions during ADL tasks. 2=Patient will verbalize/demonstrate understanding of assistive devices/modifications for ADL. 3=Patient will improve strength/tolerance for activity to enable patient to perform ADL's. OT Education/Plan Problem List/Assessment Assessment: Decreased Activ Tolerance, Decreased Safety Aware, Decreased UE Strength, Impaired Coordination, Impaired Funct Balance, Impaired I ADL's, Impaired Self-Care Skills, Restricted Funct UE ROM Discharge Recommendations Plan/Recommendations: Continue POC Treatment Plan/Plan of Care Treatment,Training & Education: Yes Patient would benefit from OT for education, treatment and training to promote independence in ADL's, mobility, safety and/or upper extremity function for ADL's. Plan of Care: ADL Retraining, Cognitive Retraining, Functional Mobility, Group Exercise/Act as Ind, UE Funct Exercise/Act, UE Neuromus Re-Ed/Coord, W/C Management Training Treatment Duration: July 29, 2021 Frequency: At least 5 of 7 days/Wk (IRF) Estimated Hrs Per Day: 1.5 hours per day Agreement: Yes Rehab Potential: Fair Time/GCodes Start Time: 07:28 Stop Time: 09:06 Total Time Billed (hr/min): 98 Billed Treatment Time 1 visit ADL x3 (40 min) NM x3 (40 min) FA (18 min) Samantha Valverde OT July 16, 2021 09:16
--- NOTE | 2021-07-16 11:59 | Physical Therapy Daily Note ---
PT Daily Note-Current Subjective Pt sitting in recliner upon arrival. Pt agrees to PT. Pain Location: No Pain Reported Mental Status Patient Orientation: Person, Place, Time, Situation Attachments: Other-See Comments (Sling when up as well as BRADEN wrap on L LE for support) Transfers SCALE: Activities may be completed with or without assistive devices. 5-Pkazshlsyl-utltxpe completes the activity by him/herself with no assistance from a helper. 5-Set-up or Clean-up Assistance-helper sets up or cleans up; patient completes activity. [place] assists only prior to or following the activity. 4-Supervision or Touching Assistance-helper provides verbal cues and/or touching/steadying and/or contact guard assistance as patient completes activity. Assistance may be provided throughout the activity or intermittently. 3-Partial/Moderate Assistance-helper does LESS THAN HALF the effort. [place] lifts, holds or supports trunk or limbs, but provides less than half the effort. 2-Substantial/Maximal Assistance-helper does MORE THAN HALF the effort. [place] lifts or holds trunk or limbs and provides more than half the effort. 7-Cjedrbizw-ttrydb does ALL the effort. Patient does none of the effort to complete the activity. Or, the assistance of 2 or more helpers is required for the patient to complete the activity. If activity was not attempted, code reason: 7-Patient Refused. 9-Not Applicable-not attempted and the patient did not perform the activity before the current illness, exacerbation or injury. 10-Not Attempted due to Environmental Limitations-(lack of equipment, weather restraints, etc.). 88-Not Attempted due to Medical Conditions or Safety Concerns. Sit to Lying (QC): 4 Sit to Stand (QC): 4 Weight Bearing Full Weight Bearing Full Weight Bearing Gait Training Does the Patient Walk?: Yes Distance: 150', 200' Walk 10 feet (QC): 4 Walk 50 ft with 2 Turns(QC): 4 Walk 150 ft (QC): 4 Gait Persons Needed: 1 Gait Assistive Device: FWW Slow but steady and controlled gait pattern. Exercises NuStep Minutes: 16 NuStep Workload: 5 Treatments TF to standing and amb. in hallway. After short RB, pt uses NuStep then takes another short RB. Pt amb. in hallway before returning to room to rest Supine in bed. All needs met, call light in hand. Assessment Current Status: Excellent Progress Pt has greatly improved with activity tolerance and mobility since this PUMP RUNNER last worked w/pt. PT Short Term Goals Short Term Goals Time Frame: Jul 08, 2021 Roll Left & Right: 4 Sit to lyin Lying to sitting on side of be: 4 Sit to stand: 3 Chair/fjn-up-lqrtr transfer: 3 Toilet transfer: 3 PT Retirement Goals Lighting Fixtures Decorator Goals PT Lighting Fixtures Decorator Goals Time Frame: July 22, 2021 Roll Left & Right (QC): 6 Sit to Lying (QC): 6 Lying-Sitting on Side/Bed(QC): 6 Sit to Stand (QC): 4 Chair/Ywk-lj-Larro Xfer(QC): 4 Toilet Transfer (QC): 4 Car Transfer (QC): 4 Does the Patient Walk: No and Walking Goal IS indicated Walk 10 feet (QC): 4 Walk 50ft with 2 Turns (QC): 88 Walk 150 ft (QC): 88 Walking 10ft on Uneven Surface: 88 1 Step (curb) (QC): 88 4 Steps (QC): 88 12 Steps (QC): 88 Picking up an Object (QC): 4 Does the Pt use WC or Scooter?: Yes Wheel 50 feet with 2 turns (QC: 6 Type: Manual Wheel 150 feet: 6 Type: Manual PT Plan Treatment/Plan Treatment Plan: Continue Plan of Care Treatment Plan: Bed Mobility, Education, Functional Activity Shaun, Functional Strength, Group Therapy, Gait, Safety, Therapeutic Exercise, Transfers Treatment Duration: July 22, 2021 Frequency: At least 5 of 7 days/Wk (IRF) Estimated Hrs Per Day: 1.5 hours per day Patient and/or Family Agrees t: Yes Time/GCodes Time In: 1100 Time Out: 1200 Total Billed Treatment Time: 60 Total Billed Treatment 1, EX x2 (30m) & GT x2 (30m) GIBRAN EASTON PU[employer] RUNNER July 16, 2021 11:59
[2021-07-16 13:13] VITALS: BP 117/67
[2021-07-16] MEDS: ENOXAPARIN 40 MG/0.4 ML (LOVENOX) SYR SC SCH (13:13)
[2021-07-16] MEDS: ASPIRIN 81 MG CHEW (CHILDREN'S ASA) PO SCH (13:13)
--- NOTE | 2021-07-16 15:08 | Physical Therapy Daily Note ---
PT Daily Note-Current Subjective Pt laying Supine in bed upon arrival. Pt agrees to PT. Mental Status Patient Orientation: Person, Place, Time, Situation Attachments: Other-See Comments (Sling for L UE while up) Transfers SCALE: Activities may be completed with or without assistive devices. 8-Zscihozpqj-gadafkn completes the activity by him/herself with no assistance from a helper. 5-Set-up or Clean-up Assistance-helper sets up or cleans up; patient completes activity. [place] assists only prior to or following the activity. 4-Supervision or Touching Assistance-helper provides verbal cues and/or touching/steadying and/or contact guard assistance as patient completes activity. Assistance may be provided throughout the activity or intermittently. 3-Partial/Moderate Assistance-helper does LESS THAN HALF the effort. [place] lifts, holds or supports trunk or limbs, but provides less than half the effort. 2-Substantial/Maximal Assistance-helper does MORE THAN HALF the effort. [place] lifts or holds trunk or limbs and provides more than half the effort. 9-Yycsngihe-cxgway does ALL the effort. Patient does none of the effort to complete the activity. Or, the assistance of 2 or more helpers is required for the patient to complete the activity. If activity was not attempted, code reason: 7-Patient Refused. 9-Not Applicable-not attempted and the patient did not perform the activity be fore the current illness, exacerbation or injury. 10-Not Attempted due to Environmental Limitations-(lack of equipment, weather restraints, etc.). 88-Not Attempted due to Medical Conditions or Safety Concerns. Lying to Sitting/Side of Bed(Q: 4 Sit to Stand (QC): 4 Weight Bearing Full Weight Bearing Full Weight Bearing Gait Training Does the Patient Walk?: Yes Distance: 150' Walk 10 feet (QC): 4 Walk 50 ft with 2 Turns(QC): 4 Walk 150 ft (QC): 4 Gait Persons Needed: 1 Gait Assistive Device: Walker Tunde Exercises Supine Ex: Ankle pumps, Quad Set, Glut sets, Heel Slides, Hip abd/add Supine Reps: 15 Treatments TF to EOB and standing then amb. in hallway before returning to room to rest. Pt completes Supine EX in bed then resting at end of tx. All needs met, call light in hand Assessment Current Status: Good Progress Pt continues to work hard and shows great improvement with mobility. PT Short Term Goals Short Term Goals Time Frame: Jul 08, 2021 Roll Left & Right: 4 Sit to lyin Lying to sitting on side of be: 4 Sit to stand: 3 Chair/skq-dd-yljjy transfer: 3 Toilet transfer: 3 PT Nursing Home Goals Nail Maker Goals PT Nursing Home Goals Time Frame: July 22, 2021 Roll Left & Right (QC): 6 Sit to Lying (QC): 6 Lying-Sitting on Side/Bed(QC): 6 Sit to Stand (QC): 4 Chair/Qow-ea-Jyfcs Xfer(QC): 4 Toilet Transfer (QC): 4 Car Transfer (QC): 4 Does the Patient Walk: No and Walking Goal IS indicated Walk 10 feet (QC): 4 Walk 50ft with 2 Turns (QC): 88 Walk 150 ft (QC): 88 Walking 10ft on Uneven Surface: 88 1 Step (curb) (QC): 88 4 Steps (QC): 88 12 Steps (QC): 88 Picking up an Object (QC): 4 Does the Pt use WC or Scooter?: Yes Wheel 50 feet with 2 turns (QC: 6 Type: Manual Wheel 150 feet: 6 Type: Manual PT Plan Treatment/Plan Treatment Plan: Continue Plan of Care Treatment Plan: Bed Mobility, Education, Functional Activity Shaun, Functional Strength, Group Therapy, Gait, Safety, Therapeutic Exercise, Transfers Treatment Duration: July 22, 2021 Frequency: At least 5 of 7 days/Wk (IRF) Estimated Hrs Per Day: 1.5 hours per day Patient and/or Family Agrees t: Yes Time/GCodes Time In: 1415 Time Out: 1445 Total Billed Treatment Time: 30 Total Billed Treatment 1, EX (15m) & GT (15m) GIBRAN EASTON [employer] July 16, 2021 15:08
[2021-07-16 20:04] VITALS: BP 127/70
--- NOTE | 2021-07-17 07:01 | PM&R Progress Note ---
Subjective HPI/CC On Admission Date Seen by Provider: July 17, 2021 Time Seen by Provider: 11:45 Subjective/Events-last exam 07/17/2021: Pt is doing pretty well No significant concerns No pain Blood sugars remain labile 07/16/2021: Pt having no new issues Walking around well with the AFO brace Supportive care will continue 07/15/21: Pt is doing really well AFO brace helps him walk Moving his left fingers Blood sugar was 164 this morning 07/14/2021: Pt is able to ambulate around the unit very well Diabetic education will be provided Noncompliance with diet continues the blood sugar in the 300 range 07/13/2021: Patient doing well Moving left leg well Labs reviewed 07/12/2021: Patient doing well Moving left leg very well Blood sugars reviewed Blood pressures improved 07/11/2021: Patient doing really well Able to lift his left leg up and move his right arm at the shoulder Eating well Blood sugars and blood pressures reviewed 07/10/21: Patient has no issues UCx reviewed NGTD so DC abx 07/09/21: Patient doing well Empirically placed on antibiotics Urinary incontinence the same No pain is reported 07/08/2021: No pain is reported Patient doing really well otherwise Urinary issues prompted UA and bacteriuria noted so will cover with antibiotic until culture back Supportive care 07/07/21: Patient has no pain Able to use assistive devices Supportive care continues 07/06/21: Patient doing well Monitor closely No pain reported Checked meds and labs 07/05/21: Patient seems to be doing well Blood sugars reviewed Blood pressures reviewed No falls 07/04/2021: Patient doing well Left-sided weakness is profound DC the catheter yesterday and voiding well No pain reported 07/03/21: Patient doing well Sugar reviewed BP improved on multiple meds DC Catheter today 07/02/21: Patient tolerating everything pretty well Blood pressure improved Blood sugars improved Wheelchair mobility training Review of Systems Neurological: Weakness, Incoordination Objective Exam Vital Signs Vital Signs Date Time Temp Pulse Resp B/P (MAP) Pulse Ox O2 Delivery O2 Flow Rate FiO2 07/17/21 22:02 Room Air 07/17/21 20:17 37.2 69 20 152/79 (103) 95 Capillary Refill : General Appearance: No Apparent Distress, WD/WN, Obese HEENT: PERRL/EOMI, Normal ENT Inspection, Pharynx Normal Neck: Full Range of Motion, Normal Inspection, Non Tender, Supple, Carotid Bruit Respiratory: Chest Non Tender, Lungs Clear, Normal Breath Sounds, No Accessory Muscle Use, No Respiratory Distress Cardiovascular: Regular Rate, Rhythm, No Edema, No Gallop, No JVD, No Murmur, Normal Peripheral Pulses Gastrointestinal: Normal Bowel Sounds, No Organomegaly, No Pulsatile Mass, Non Tender, Soft Back: Normal Inspection, No CVA Tenderness, No Vertebral Tenderness Extremity: Normal Capillary Refill, Normal Inspection, Normal Range of Motion, Non Tender, No Calf Tenderness, No Pedal Edema Neurologic/Psychiatric: Alert, Oriented x3, Normal Mood/Affect, well shooter II-XII Norm as 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 FIM Transfers Therapy Code Descriptions/Definitions Functional [place] Measure: 0=Not Assessed/NA 4=Minimal Assistance 1=Total Assistance 5=Supervision or Setup 2=Maximal Assistance 6=Modified [place] 3=Moderate Assistance 7=Complete IndependenceSCALE: Activities may be completed with or without assistive devices. 5-Nrfajkdgbp-lqvtkgo completes the activity by him/herself with no assistance from a helper. 5-Set-up or Clean-up Assistance-helper sets up or cleans up; patient completes activity. [place] assists only prior to or following the activity. 4-Supervision or Touching Assistance-helper provides verbal cues and/or touching/steadying and/or contact guard assistance as patient completes activity. Assistance may be provided throughout the activity or intermittently. 3-Partial/Moderate Assistance-helper does LESS THAN HALF the effort. [place] lifts, holds or supports trunk or limbs, but provides less than half the effort. 2-Substantial/Maximal Assistance-helper does MORE THAN HALF the effort. [place] lifts or holds trunk or limbs and provides more than half the effort. 4-Lejuuabqa-fpmrog does ALL the effort. Patient does none of the effort to complete the activity. Or, the assistance of 2 or more helpers is required for the patient to complete the activity. If activity was not attempted, code reason: 7-Patient Refused. 9-Not Applicable-not attempted and the patient did not perform the activity before the current illness, exacerbation or injury. 10-Not Attempted due to Environmental Limitations-(lack of equipment, weather restraints, etc.). 88-Not Attempted due to Medical Conditions or Safety Concerns. Roll Left to Right (QC): 4 (SBA) Sit to Lying (QC): 4 Sit to Stand (QC): 4 Chair/Bna-hv-Qwqkp Xfer(QC): 4 (CGA) Car Transfer (QC): 88 Gait Training Does the Patient Walk?: Yes Distance: 150' Walk 10 feet (QC): 4 Walk 50 ft with 2 Turns(QC): 4 Walk 150 ft (QC): 4 Walking 10ft/uneven surface-QC: 88 Gait Persons Needed: 1 Gait Assistive Device: Walker Tunde Wheelchair Training Does the Pt Use a Wheelchair?: No Wheel 50 ft with 2 turns (QC): 5 Wheel 150 ft (QC): 5 Type of Wheelchair: Manual Stair Training 1 Step (curb) (QC): 88 4 Steps (QC): 88 12 Steps (QC): 88 Balance Picking up an Object (QC): 88 ADL-Treatment Eating (QC): 5 Oral Hygiene (QC): 6 Shower/Bathe Self (QC): 3 Upper Body Dressing (QC): 3 Lower Body Dressing (QC): 3 On/Off Footwear (QC): 3 Toileting Hygiene (QC): 3 Toilet Transfer (QC): 3 Assessment/Plan Assessment and Plan Assess & Plan/Chief Complaint Assessment: CVA with left-sided weakness catastrophic type Hypertension severe Hyperlipidemia Hyperglyceridemia Obesity BMI 30 New onset diabetes hemoglobin A1c 9.7 Smoker Plan: Inpatient rehab protocol Supportive care Insulin Blood pressure management 07/02/2021: Increase blood pressure meds Supportive care 07/03/21: DC catheter 07/04/2021: Aggressive therapy 07/05/2021: Supportive care Blood sugar blood pressure improved 07/06/21: BP improved Monitor closely 07/07/2021: Blood pressure improved Blood sugar improved 07/08/2021: Patient doing well Check UA 07/09/2021: Await urine culture Continue antibiotics 07/10/21: UCx NGTD DC abx 07/11/2021: Supportive care Monitor closely 07/12/21: Supportive care Monitor closely 07/13/2021: Supportive care Monitor closely 07/14/2021: Supportive care Monitor sugar 07/15/2021: Noncompliance with diabetic diet 07/16/2021: Impressive improvement Supportive care 07/17/2021: Compliance with diet counseling (1) CVA (cerebral vascular accident) Status: Acute TITUS KENT DO July 17, 2021 07:01
[2021-07-17 07:40] VITALS: BP 130/71
[2021-07-17] MEDS: PHENAZOPYRIDINE 100 MG (PYRIDIUM) TABLET PO SCH ×3 (07:57→17:57)
[2021-07-17] MEDS: LOSARTAN 50 MG (COZAAR) TAB PO SCH (07:57)
[2021-07-17] MEDS: amLODIPine 5 MG (NORVASC) TAB PO SCH ×2 (07:57→21:53)
[2021-07-17] MEDS: glyBURIDE 2.5 MG (MICRONASE) TAB PO SCH ×2 (07:57→21:53)
[2021-07-17] MEDS: hydrALAZINE (APRESOLINE) 25 MG TAB PO SCH ×3 (07:58→21:53)
--- NOTE | 2021-07-17 09:05 | Occupational Ther Daily Note ---
OT Current Status-Daily Note Subjective Pt agreeable to shower, denies pain. Appearance Pt left sitting in w/c, all needs within reach. Mental Status/Objective Patient Orientation: Person, Place, Situation ADL-Treatment Therapy Code Descriptions/Definitions Functional [place] Measure: 0=Not Assessed/NA 4=Minimal Assistance 1=Total Assistance 5=Supervision or Setup 2=Maximal Assistance 6=Modified [place] 3=Moderate Assistance 7=Complete IndependenceSCALE: Activities may be completed with or without assistive devices. 2-Qelqsfvigq-guoioov completes the activity by him/herself with no assistance from a helper. 5-Set-up or Clean-up Assistance-helper sets up or cleans up; patient completes activity. [place] assists only prior to or following the activity. 4-Supervision or Touching Assistance-helper provides verbal cues and/or touching/steadying and/or contact guard assistance as patient completes activity. Assistance may be provided throughout the activity or intermittently. 3-Partial/Moderate Assistance-helper does LESS THAN HALF the effort. [place] lifts, holds or supports trunk or limbs, but provides less than half the effort. 2-Substantial/Maximal Assistance-helper does MORE THAN HALF the effort. [place] lifts or holds trunk or limbs and provides more than half the effort. 3-Srnyityed-veprsu does ALL the effort. Patient does none of the effort to complete the activity. Or, the assistance of 2 or more helpers is required for the patient to complete the activity. If activity was not attempted, code reason: 7-Patient Refused. 9-Not Applicable-not attempted and the patient did not perform the activity before the current illness, exacerbation or injury. 10-Not Attempted due to Environmental Limitations-(lack of equipment, weather restraints, etc.). 88-Not Attempted due to Medical Conditions or Safety Concerns. Eating (QC): 5 Oral Hygiene (QC): 6 Shower/Bathe Self (QC): 3 (min) Upper Body Dressing (QC): 4 Lower Body Dressing (QC): 3 On/Off Footwear: 3 Toileting Hygiene (QC): 4 Toilet Transfer (QC): 4 Shower performed; 100% completed in sitting (shower w/c). Pt continues to demonstrate improved sitting balance when bending at waist to reach feet. However, when performing this method, pt often lets LUE dangle/hang. Reminders given on protecting UE to prevent subluxation and on using LHS when washing LB. Pt able to follow cues this date, improved safety post instruction. OT demons trates slight lean forward or placing LUE on grab bar in order to independently wash L axilla, however he still needs min a to lift/adduct for thoroughness. Pt able to use LHS to wash buttocks. Clothing donned seated in w/c. Pt was able to lift and cross LLE over R this date but needs assist to maintain figure 4 position as he threaded foot through clothing. Steadying assist provided as he stood to pull clothing up to waist. Pt able to don R sock without any assistance, extra time only. Again, assist to maintain cross over method as he dons L sock. Indep to don R shoe, dependent to don L shoe due to tight fit. OT wraps L foot to maintain dorsal flexion. OT provides pt with elastic shoelaces and foot funnel to practice with next session. Pt does not require any physical assistance when donning shirt but does require several cues for safety as he often will throw LUE around when threading sleeve over extremity or when pulling over L shoulder. Education/reminders on protecting UE. Pt independently performed Grooming tasks while seated in w/c. Other Treatment OT provided pt with dorsal wrist cock up splint secondary to flaccid palsies of wrist. Ultimate goal to provide stability and maintain the wrist in neutral to mildly extended position during functional activities. Pt participated in grasp/release activity with large washcloth. HOHA to squeeze/ring water out of washcloth. Pt able to maintain grasp but had difficulty with release and initiating grasp secondary to flexed fingers. HOHA to maintain extension during reach and initiate extension with release. Education OT Patient Education: Correct positioning, Energy conservation, Modified ADL techniques, Progress toward Goal/Update tx plan, Purpose of tx/functional activities, Reviewed precautions, Rehab process, Safety issues, Transfer techniques, Use of adapted equipment Teaching Recipient: Patient Teaching Methods: Demonstration, Discussion Response to Teaching: Verbalize Understanding, Return Demonstration, Reinforcement Needed OT Short Term Goals Short Term Goals Time Frame: Jul 11, 2021 Eatin Oral hygiene: 5 Toileting hygiene: 2 Shower/bathe self: 2 Upper body dressin Lower body dressin Putting on/taking off footwear: 3 OT Intelligence Applications Goals Alf Goals Time Frame: July 29, 2021 Eating (QC): 6 Oral Hygiene (QC): 6 Toileting Hygiene (QC): 6 Shower/Bathe Self (QC): 5 Upper Body Dressing (QC): 5 Lower Body Dressing (QC): 5 On/Off Footwear (QC): 5 1=Demonstrate adherence to instructed precautions during ADL tasks. 2=Patient will verbalize/demonstrate understanding of assistive devices/modifications for ADL. 3=Patient will improve strength/tolerance for activity to enable patient to perform ADL's. OT Education/Plan Problem List/Assessment Assessment: Decreased Activ Tolerance, Decreased Safety Aware, Decreased UE Strength, Impaired Coordination, Impaired Funct Balance, Impaired I ADL's, Impaired Self-Care Skills, Restricted Funct UE ROM Discharge Recommendations Plan/Recommendations: Continue POC Therapy Discharge Recommendati: Post Acute OT Treatment Plan/Plan of Care Treatment,Training & Education: Yes Patient would benefit from OT for education, treatment and training to promote independence in ADL's, mobility, safety and/or upper extremity function for ADL's. Plan of Care: ADL Retraining, Cognitive Retraining, Functional Mobility, Group Exercise/Act as Ind, UE Funct Exercise/Act, UE Neuromus Re-Ed/Coord, W/C Management Training Treatment Duration: July 29, 2021 Frequency: At least 5 of 7 days/Wk (IRF) Estimated Hrs Per Day: 1.5 hours per day Agreement: Yes Rehab Potential: Fair Time/GCodes Start Time: 07:30 Stop Time: 09:00 Total Time Billed (hr/min): 90 Billed Treatment Time 1 visit ADL x5 (70 min) FA (20 min) Samantha Valverde OT July 17, 2021 09:05
--- NOTE | 2021-07-17 09:54 | Physical Therapy Daily Note ---
PT Daily Note-Current Subjective Patient was in chair upon entering and agreeable to PT. Patient needed to have a bladder movement before therapy, he was able to stand and do it independently, PT only was there for guarding and safety. Pain Numeric Pain Scale: 0-No Pain Mental Status Patient Orientation: Person, Place, Situation Transfers SCALE: Activities may be completed with or without assistive devices. 2-Rlomoqfurw-woqzmxa completes the activity by him/herself with no assistance fr om a helper. 5-Set-up or Clean-up Assistance-helper sets up or cleans up; patient completes activity. [place] assists only prior to or following the activity. 4-Supervision or Touching Assistance-helper provides verbal cues and/or touching/steadying and/or contact guard assistance as patient completes activity. Assistance may be provided throughout the activity or intermittently. 3-Partial/Moderate Assistance-helper does LESS THAN HALF the effort. [place] lifts, holds or supports trunk or limbs, but provides less than half the effort. 2-Substantial/Maximal Assistance-helper does MORE THAN HALF the effort. [place] lifts or holds trunk or limbs and provides more than half the effort. 1-Iqkvnjoaq-zievgj does ALL the effort. Patient does none of the effort to complete the activity. Or, the assistance of 2 or more helpers is required for the patient to complete the activity. If activity was not attempted, code reason: 7-Patient Refused. 9-Not Applicable-not attempted and the patient did not perform the activity before the current illness, exacerbation or injury. 10-Not Attempted due to Environmental Limitations-(lack of equipment, weather restraints, etc.). 88-Not Attempted due to Medical Conditions or Safety Concerns. Sit to Stand (QC): 4 Chair/Ryc-qf-Kvfle Xfer(QC): 4 SBA Weight Bearing Right Lower Extremity: Right Full Weight Bearing Left Lower Extremity: Left Full Weight Bearing Gait Training Does the Patient Walk?: Yes Distance: 80'x2 Walk 10 feet (QC): 4 Walk 50 ft with 2 Turns(QC): 4 Gait Assistive Device: Walker Tunde Step through pattern. L arm sling. L BRADEN wrap of foot in DF and eversion. Still unsteady, and loses balance at times Exercises Standing: Sit to Stand (3x12), Step-ups (2x10 reps with L leg) NuStep Minutes: 15 NuStep Workload: 5 Assessment Current Status: Fair Progress Patients ambulation skills are improving needing less VC and TC. Patients strength in LE is improving as well as he is able to tolerate more reps with sit-stands and uses arm less for assistance. Patient performed step-ups with L LE. Hyperextension of knee and unsteadiness is seen with this exercise, but patient was able to complete all 10 reps. Patient was left in recliner with call light, tray, and all needs met. PT Short Term Goals Short Term Goals Time Frame: Jul 08, 2021 Roll Left & Right: 4 Sit to lyin Lying to sitting on side of be: 4 Sit to stand: 3 Chair/ebj-ja-rgfxf transfer: 3 Toilet transfer: 3 PT Engagement Quality Consultant Goals Longterm Goals PT Engagement Quality Consultant Goals Time Frame: July 22, 2021 Roll Left & Right (QC): 6 Sit to Lying (QC): 6 Lying-Sitting on Side/Bed(QC): 6 Sit to Stand (QC): 4 Chair/Cox-yf-Rzjnr Xfer(QC): 4 Toilet Transfer (QC): 4 Car Transfer (QC): 4 Does the Patient Walk: No and Walking Goal IS indicated Walk 10 feet (QC): 4 Walk 50ft with 2 Turns (QC): 88 Walk 150 ft (QC): 88 Walking 10ft on Uneven Surface: 88 1 Step (curb) (QC): 88 4 Steps (QC): 88 12 Steps (QC): 88 Picking up an Object (QC): 4 Does the Pt use WC or Scooter?: Yes Wheel 50 feet with 2 turns (QC: 6 Type: Manual Wheel 150 feet: 6 Type: Manual PT Plan Problem List Problem List: Activity Tolerance, Functional Strength, Safety, Balance, Gait, Transfer, Bed Mobility, ROM Treatment/Plan Treatment Plan: Continue Plan of Care Treatment Plan: Bed Mobility, Education, Functional Activity Shaun, Functional Strength, Group Therapy, Gait, Safety, Therapeutic Exercise, Transfers Treatment Duration: July 22, 2021 Frequency: At least 5 of 7 days/Wk (IRF) Estimated Hrs Per Day: 1.5 hours per day Patient and/or Family Agrees t: Yes Safety Risks/Education Patient Education: Gait Training, Transfer Techniques, Correct Positioning, Safety Issues Teaching Recipient: Patient Teaching Methods: Discussion Response to Teaching: Verbalize Understanding, Return Demonstration Time/GCodes Time In: 0900 Time Out: 1000 Total Billed Treatment Time: 60 Total Billed Treatment 1 visit EX 30min FA 30min MICHAEL SOLER PT July 17, 2021 09:54
[2021-07-17] MEDS: inSUlin ASPART (NovoLOG) 1 UNIT/0.01 ML (CHARGE PER UNIT) SC SCH ×3 (11:04→21:54)
[2021-07-17] MEDS: DOCUSATE SODIUM 100 MG (COLACE) CAP PO SCH ×2 (11:41→21:53)
[2021-07-17] MEDS: polyethylene glycoL POWDER 17 GM (MIRALAX) PACK PO SCH ×2 (11:41→21:07)
[2021-07-17] MEDS: SENNOSIDES 8.6 MG (SENOKOT) TAB PO SCH ×2 (11:41→21:07)
--- NOTE | 2021-07-17 11:48 | Physical Therapy Daily Note ---
PT Daily Note-Current Subjective Patient was in recliner upon entering. Patient was agreeable to treatment. Pain Numeric Pain Scale: 0-No Pain Mental Status Patient Orientation: Person, Place, Time, Situation Transfers SCALE: Activities may be completed with or without assistive devices. 7-Mpezicholc-tjsklho completes the activity by him/herself with no assistance from a helper. 5-Set-up or Clean-up Assistance-helper sets up or cleans up; patient completes activity. [place] assists only prior to or following the activity. 4-Supervision or Touching Assistance-helper provides verbal cues and/or touching/steadying and/or contact guard assistance as patient completes activity. Assistance may be provided throughout the activity or intermittently. 3-Partial/Moderate Assistance-helper does LESS THAN HALF the effort. [place] lifts, holds or supports trunk or limbs, but provides less than half the effort. 2-Substantial/Maximal Assistance-helper does MORE THAN HALF the effort. [place] lifts or holds trunk or limbs and provides more than half the effort. 9-Xrfzfistz-bfwdex does ALL the effort. Patient does none of the effort to complete the activity. Or, the assistance of 2 or more helpers is required for the patient to complete the activity. If activity was not attempted, code reason: 7-Patient Refused. 9-Not Applicable-not attempted and the patient did not perform the activity before the current illness, exacerbation or injury. 10-Not Attempted due to Environmental Limitations-(lack of equipment, weather restraints, etc.). 88-Not Attempted due to Medical Conditions or Safety Concerns. Sit to Stand (QC): 4 Chair/Irt-cw-Npelu Xfer(QC): 4 Weight Bearing Right Lower Extremity: Right Full Weight Bearing Left Lower Extremity: Left Full Weight Bearing Gait Training Distance: 400', 80' Walk 10 feet (QC): 4 Walk 50 ft with 2 Turns(QC): 4 Walk 150 ft (QC): 4 Gait Assistive Device: FWW L arm sling. L [place] wrap in DF and eversion. Step through pattern. Unsteady at times and loses balance. Exercises Standing: Mini squats Standing Reps: 10 Treatments Ambulation, LE strengthening. Assessment Current Status: Good Progress Patient continues to progress with ambulation and LE exercises. Has a hip shift to the R with mini squats, and lacks control with unlocking knee joint. patient was left in recliner with call light, tray, and all needs met. PT Short Term Goals Short Term Goals Time Frame: Jul 08, 2021 Roll Left & Right: 4 Sit to lyin Lying to sitting on side of be: 4 Sit to stand: 3 Chair/aeh-il-uqtjo transfer: 3 Toilet transfer: 3 PT Consulting Sme Goals Consulting Sme Goals PT Prison Goals Time Frame: July 22, 2021 Roll Left & Right (QC): 6 Sit to Lying (QC): 6 Lying-Sitting on Side/Bed(QC): 6 Sit to Stand (QC): 4 Chair/Vnn-ca-Zbrqo Xfer(QC): 4 Toilet Transfer (QC): 4 Car Transfer (QC): 4 Does the Patient Walk: No and Walking Goal IS indicated Walk 10 feet (QC): 4 Walk 50ft with 2 Turns (QC): 88 Walk 150 ft (QC): 88 Walking 10ft on Uneven Surface: 88 1 Step (curb) (QC): 88 4 Steps (QC): 88 12 Steps (QC): 88 Picking up an Object (QC): 4 Does the Pt use WC or Scooter?: Yes Wheel 50 feet with 2 turns (QC: 6 Type: Manual Wheel 150 feet: 6 Type: Manual PT Plan Problem List Problem List: Activity Tolerance, Functional Strength, Safety, Balance, Gait, Transfer, Bed Mobility, ROM Treatment/Plan Treatment Plan: Continue Plan of Care Treatment Plan: Bed Mobility, Education, Functional Activity Shaun, Functional Strength, Group Therapy, Gait, Safety, Therapeutic Exercise, Transfers Treatment Duration: July 22, 2021 Frequency: At least 5 of 7 days/Wk (IRF) Estimated Hrs Per Day: 1.5 hours per day Patient and/or Family Agrees t: Yes Safety Risks/Education Patient Education: Gait Training, Transfer Techniques, Correct Positioning, Safety Issues Teaching Recipient: Patient Teaching Methods: Demonstration, Discussion Response to Teaching: Verbalize Understanding, Return Demonstration Time/GCodes Time In: 1100 Time Out: 1130 Total Billed Treatment Time: 30 Total Billed Treatment 1 visit FA 30min MICHAEL SOLER PT July 17, 2021 11:48
--- NOTE | 2021-07-17 12:08 | Occupational Ther Daily Note ---
OT Current Status-Daily Note Subjective Pt agreeable to treatment. Appearance Left sitting in chair, all needs within reach. ADL-Treatment Therapy Code Descriptions/Definitions Functional [place] Measure: 0=Not Assessed/NA 4=Minimal Assistance 1=Total Assistance 5=Supervision or Setup 2=Maximal Assistance 6=Modified [place] 3=Moderate Assistance 7=Complete IndependenceSCALE: Activities may be completed with or without assistive devices. 7-Zzymzahrdb-yxrnojk completes the activity by him/herself with no assistance from a helper. 5-Set-up or Clean-up Assistance-helper sets up or cleans up; patient completes activity. [place] assists only prior to or following the activity. 4-Supervision or Touching Assistance-helper provides verbal cues and/or touching/steadying and/or contact guard assistance as patient completes activity. Assistance may be provided throughout the activity or intermittently. 3-Partial/Moderate Assistance-helper does LESS THAN HALF the effort. [place] lifts, holds or supports trunk or limbs, but provides less than half the effort. 2-Substantial/Maximal Assistance-helper does MORE THAN HALF the effort. [place] lifts or holds trunk or limbs and provides more than half the effort. 6-Bdykpgshf-msutva does ALL the effort. Patient does none of the effort to complete the activity. Or, the assistance of 2 or more helpers is required for the patient to complete the activity. If activity was not attempted, code reason: 7-Patient Refused. 9-Not Applicable-not attempted and the patient did not perform the activity before the current illness, exacerbation or injury. 10-Not Attempted due to Environmental Limitations-(lack of equipment, weather restraints, etc.). 88-Not Attempted due to Medical Conditions or Safety Concerns. Other Treatment NMES completed to stimulate motor response, increase muscle strength, and to facilitate muscle re-education. Effective muscle contraction exhibited with elbow flexion, wrist flexion and wrist extension on Mode/Therapy 2. Pt tolerates well. PROM of shoulder and AAROM of elbow in all planes 7x 1. Great improvement in voluntary finger and elbow flexion, continues to only have trace finger extension. Assist with reaching forward and HOHA to extend fingers prior to grasping cup. Pt able to maintain grasp on cup while off the table but needs assist to release. Quick stretches and hold/release performed at hand, wrist, and elbow. Education OT Patient Education: Correct positioning, Disease process, Exercise program, Rehab process Teaching Recipient: Patient Teaching Methods: Demonstration, Discussion Response to Teaching: Verbalize Understanding, Return Demonstration, Reinforcement Needed OT Short Term Goals Short Term Goals Time Frame: Jul 11, 2021 Eatin Oral hygiene: 5 Toileting hygiene: 2 Shower/bathe self: 2 Upper body dressin Lower body dressin Putting on/taking off footwear: 3 OT Care Home Goals Care Home Goals Time Frame: July 29, 2021 Eating (QC): 6 Oral Hygiene (QC): 6 Toileting Hygiene (QC): 6 Shower/Bathe Self (QC): 5 Upper Body Dressing (QC): 5 Lower Body Dressing (QC): 5 On/Off Footwear (QC): 5 1=Demonstrate adherence to instructed precautions during ADL tasks. 2=Patient will verbalize/demonstrate understanding of assistive devices/modifications for ADL. 3=Patient will improve strength/tolerance for activity to enable patient to perform ADL's. OT Education/Plan Problem List/Assessment Assessment: Decreased Activ Tolerance, Decreased UE Strength, Impaired Coordination, Impaired Funct Balance, Impaired I ADL's, Impaired Self-Care Skills, Restricted Funct UE ROM Discharge Recommendations Plan/Recommendations: Continue POC Treatment Plan/Plan of Care Treatment,Training & Education: Yes Patient would benefit from OT for education, treatment and training to promote independence in ADL's, mobility, safety and/or upper extremity function for ADL's. Plan of Care: ADL Retraining, Cognitive Retraining, Functional Mobility, Group Exercise/Act as Ind, UE Funct Exercise/Act, UE Neuromus Re-Ed/Coord, W/C Management Training Treatment Duration: July 29, 2021 Frequency: At least 5 of 7 days/Wk (IRF) Estimated Hrs Per Day: 1.5 hours per day Agreement: Yes Rehab Potential: Fair Time/GCodes Start Time: 11:38 Stop Time: 12:02 Total Time Billed (hr/min): 24 Billed Treatment Time 1 visit NM x2 (24 min) Samantha Valverde OT July 17, 2021 12:08
[2021-07-17] MEDS: ENOXAPARIN 40 MG/0.4 ML (LOVENOX) SYR SC SCH (13:32)
[2021-07-17] MEDS: ASPIRIN 81 MG CHEW (CHILDREN'S ASA) PO SCH (13:32)
[2021-07-17 20:17] VITALS: BP 152/79
[2021-07-18] MEDS: inSUlin ASPART (NovoLOG) 1 UNIT/0.01 ML (CHARGE PER UNIT) SC SCH ×4 (05:46→21:07)
--- NOTE | 2021-07-18 06:43 | PM&R Progress Note ---
Subjective HPI/CC On Admission Date Seen by Provider: July 18, 2021 Time Seen by Provider: 11:00 Subjective/Events-last exam 07/18/2021: Patient much improved Has no complaints 07/17/2021: Pt is doing pretty well No significant concerns No pain Blood sugars remain labile 07/16/2021: Pt having no new issues Walking around well with the AFO brace Supportive care will continue 07/15/21: Pt is doing really well AFO brace helps him walk Moving his left fingers Blood sugar was 164 this morning 07/14/2021: Pt is able to ambulate around the unit very well Diabetic education will be provided Noncompliance with diet continues the blood sugar in the 300 range 07/13/2021: Patient doing well Moving left leg well Labs reviewed 07/12/2021: Patient doing well Moving left leg very well Blood sugars reviewed Blood pressures improved 07/11/2021: Patient doing really well Able to lift his left leg up and move his right arm at the shoulder Eating well Blood sugars and blood pressures reviewed 07/10/21: Patient has no issues UCx reviewed NGTD so DC abx 07/09/21: Patient doing well Empirically placed on antibiotics Urinary incontinence the same No pain is reported 07/08/2021: No pain is reported Patient doing really well otherwise Urinary issues prompted UA and bacteriuria noted so will cover with antibiotic until culture back Supportive care 07/07/21: Patient has no pain Able to use assistive devices Supportive care continues 07/06/21: Patient doing well Monitor closely No pain reported Checked meds and labs 07/05/21: Patient seems to be doing well Blood sugars reviewed Blood pressures reviewed No falls 07/04/2021: Patient doing well Left-sided weakness is profound DC the catheter yesterday and voiding well No pain reported 07/03/21: Patient doing well Sugar reviewed BP improved on multiple meds DC Catheter today 07/02/21: Patient tolerating everything pretty well Blood pressure improved Blood sugars improved Wheelchair mobility training Review of Systems Neurological: Weakness, Incoordination Objective Exam Vital Signs Vital Signs Date Time Temp Pulse Resp B/P (MAP) Pulse Ox O2 Delivery O2 Flow Rate FiO2 07/18/21 21:38 Room Air 07/18/21 20:00 37.3 81 16 132/80 (97) 99 Capillary Refill : General Appearance: No Apparent Distress, WD/WN, Obese HEENT: PERRL/EOMI, Normal ENT Inspection, Pharynx Normal Neck: Full Range of Motion, Normal Inspection, Non Tender, Supple, Carotid Bruit Respiratory: Chest Non Tender, Lungs Clear, Normal Breath Sounds, No Accessory Muscle Use, No Respiratory Distress Cardiovascular: Regular Rate, Rhythm, No Edema, No Gallop, No JVD, No Murmur, Normal Peripheral Pulses Gastrointestinal: Normal Bowel Sounds, No Organomegaly, No Pulsatile Mass, Non Tender, Soft Back: Normal Inspection, No CVA Tenderness, No Vertebral Tenderness Extremity: Normal Capillary Refill, Normal Inspection, Normal Range of Motion, Non Tender, No Calf Tenderness, No Pedal Edema Neurologic/Psychiatric: Alert, Oriented x3, Normal Mood/Affect, sports book board attendant II-XII Norm as 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 FIM Transfers Therapy Code Descriptions/Definitions Functional [place] Measure: 0=Not Assessed/NA 4=Minimal Assistance 1=Total Assistance 5=Supervision or Setup 2=Maximal Assistance 6=Modified [place] 3=Moderate Assistance 7=Complete IndependenceSCALE: Activities may be completed with or without assistive devices. 7-Xfsbecmrpm-qduepqu completes the activity by him/herself with no assistance from a helper. 5-Set-up or Clean-up Assistance-helper sets up or cleans up; patient completes activity. [place] assists only prior to or following the activity. 4-Supervision or Touching Assistance-helper provides verbal cues and/or touching/steadying and/or contact guard assistance as patient completes ac tivity. Assistance may be provided throughout the activity or intermittently. 3-Partial/Moderate Assistance-helper does LESS THAN HALF the effort. [place] lifts, holds or supports trunk or limbs, but provides less than half the effort. 2-Substantial/Maximal Assistance-helper does MORE THAN HALF the effort. [place] lifts or holds trunk or limbs and provides more than half the effort. 5-Hyyjwplxt-ttcuyp does ALL the effort. Patient does none of the effort to complete the activity. Or, the assistance of 2 or more helpers is required for the patient to complete the activity. If activity was not attempted, code reason: 7-Patient Refused. 9-Not Applicable-not attempted and the patient did not perform the activity before the current illness, exacerbation or injury. 10-Not Attempted due to Environmental Limitations-(lack of equipment, weather restraints, etc.). 88-Not Attempted due to Medical Conditions or Safety Concerns. Roll Left to Right (QC): 4 (SBA) Sit to Lying (QC): 4 Sit to Stand (QC): 4 Chair/Hqm-ep-Ykjlf Xfer(QC): 4 Car Transfer (QC): 88 Gait Training Does the Patient Walk?: Yes Distance: 400', 80' Walk 10 feet (QC): 4 Walk 50 ft with 2 Turns(QC): 4 Walk 150 ft (QC): 4 Walking 10ft/uneven surface-QC: 88 Gait Persons Needed: 1 Gait Assistive Device: FWW Wheelchair Training Does the Pt Use a Wheelchair?: No Wheel 50 ft with 2 turns (QC): 5 Wheel 150 ft (QC): 5 Type of Wheelchair: Manual Stair Training 1 Step (curb) (QC): 88 4 Steps (QC): 88 12 Steps (QC): 88 Balance Picking up an Object (QC): 88 ADL-Treatment Eating (QC): 5 Oral Hygiene (QC): 6 Shower/Bathe Self (QC): 3 (min) Upper Body Dressing (QC): 4 Lower Body Dressing (QC): 3 On/Off Footwear (QC): 3 Toileting Hygiene (QC): 4 Toilet Transfer (QC): 4 Assessment/Plan Assessment and Plan Assess & Plan/Chief Complaint Assessment: CVA with left-sided weakness catastrophic type Hypertension severe Hyperlipidemia Hyperglyceridemia Obesity BMI 30 New onset diabetes hemoglobin A1c 9.7 Smoker Plan: Inpatient rehab protocol Supportive care Insulin Blood pressure management 07/02/2021: Increase blood pressure meds Supportive care 07/03/21: DC catheter 07/04/2021: Aggressive therapy 07/05/2021: Supportive care Blood sugar blood pressure improved 07/06/21: BP improved Monitor closely 07/07/2021: Blood pressure improved Blood sugar improved 07/08/2021: Patient doing well Check UA 07/09/2021: Await urine culture Continue antibiotics 07/10/21: UCx NGTD DC abx 07/11/2021: Supportive care Monitor closely 07/12/21: Supportive care Monitor closely 07/13/2021: Supportive care Monitor closely 07/14/2021: Supportive care Monitor sugar 07/15/2021: Noncompliance with diabetic diet 07/16/2021: Impressive improvement Supportive care 07/17/2021: Compliance with diet counseling 07/18/2021: Diabetic education (1) CVA (cerebral vascular accident) Status: Acute TITUS KENT DO July 18, 2021 06:43
[2021-07-18 07:30] VITALS: BP 128/79
[2021-07-18] MEDS: hydrALAZINE (APRESOLINE) 25 MG TAB PO SCH ×3 (08:56→21:06)
[2021-07-18] MEDS: amLODIPine 5 MG (NORVASC) TAB PO SCH ×2 (08:56→21:06)
[2021-07-18] MEDS: DOCUSATE SODIUM 100 MG (COLACE) CAP PO SCH ×2 (08:56→21:06)
[2021-07-18] MEDS: LOSARTAN 50 MG (COZAAR) TAB PO SCH (08:56)
[2021-07-18] MEDS: glyBURIDE 2.5 MG (MICRONASE) TAB PO SCH ×2 (08:56→21:06)
[2021-07-18] MEDS: PHENAZOPYRIDINE 100 MG (PYRIDIUM) TABLET PO SCH ×3 (08:56→18:16)
[2021-07-18] MEDS: SENNOSIDES 8.6 MG (SENOKOT) TAB PO SCH ×2 (08:57→21:06)
[2021-07-18] MEDS: polyethylene glycoL POWDER 17 GM (MIRALAX) PACK PO SCH ×2 (08:57→19:41)
[2021-07-18] MEDS: ENOXAPARIN 40 MG/0.4 ML (LOVENOX) SYR SC SCH (12:47)
--- NOTE | 2021-07-18 14:11 | Physical Therapy Daily Note ---
PT Daily Note-Current Subjective Patient asleep in bed upon PT arrival, agreeable to treatment. Transfers SCALE: Activities may be completed with or without assistive devices. 2-Gatmuduzip-fereeke completes the activity by him/herself with no assistance from a helper. 5-Set-up or Clean-up Assistance-helper sets up or cleans up; patient completes activity. [place] assists only prior to or following the activity. 4-Supervision or Touching Assistance-helper provides verbal cues and/or touching/steadying and/or contact guard assistance as patient completes activity. Assistance may be provided throughout the activity or intermittently. 3-Partial/Moderate Assistance-helper does LESS THAN HALF the effort. [place] lifts, holds or supports trunk or limbs, but provides less than half the effort. 2-Substantial/Maximal Assistance-helper does MORE THAN HALF the effort. [place] lifts or holds trunk or limbs and provides more than half the effort. 5-Hncqmqyvi-bhcydc does ALL the effort. Patient does none of the effort to complete the activity. Or, the assistance of 2 or more helpers is required for the patient to complete the activity. If activity was not attempted, code reason: 7-Patient Refused. 9-Not Applicable-not attempted and the patient did not perform the activity before the current illness, exacerbation or injury. 10-Not Attempted due to Environmental Limitations-(lack of equipment, weather restraints, etc.). 88-Not Attempted due to Medical Conditions or Safety Concerns. Roll Left & Right (QC): 4 Sit to Lying (QC): 4 Lying to Sitting/Side of Bed(Q: 4 Sit to Stand (QC): 4 Weight Bearing Right Lower Extremity: Right Full Weight Bearing Left Lower Extremity: Left Full Weight Bearing Gait Training Does the Patient Walk?: Yes Distance: 400 feet Walk 10 feet (QC): 4 Walk 50 ft with 2 Turns(QC): 4 Walk 150 ft (QC): 4 Gait Persons Needed: 1 Gait Assistive Device: Walker Tunde Assessment Current Status: Fair Progress Patient tolerated treatment well. Requires SBA for all observed bed mobility and transfers. Patient ambulates with left UE sling donned, and BRADEN wrap around left foot/ankle. Attempted to thao new AFO, however the only shoes he currently has here are to small to accommodate his foot and the AFO. Patient ambulates 400 feet with tunde-walker in the right UE, CGA and verbal cues for progression. Patient in bed post treatment with all needs met, nursing notified, call light in hand, and all needs met. PT Short Term Goals Short Term Goals Time Frame: Jul 08, 2021 Roll Left & Right: 4 Sit to lyin Lying to sitting on side of be: 4 Sit to stand: 3 Chair/znu-ud-tvtro transfer: 3 Toilet transfer: 3 PT Skilled Nursing Goals Rehabilitator Goals PT Rehabilitator Goals Time Frame: July 22, 2021 Roll Left & Right (QC): 6 Sit to Lying (QC): 6 Lying-Sitting on Side/Bed(QC): 6 Sit to Stand (QC): 4 Chair/Uyl-om-Eiefc Xfer(QC): 4 Toilet Transfer (QC): 4 Car Transfer (QC): 4 Does the Patient Walk: No and Walking Goal IS indicated Walk 10 feet (QC): 4 Walk 50ft with 2 Turns (QC): 88 Walk 150 ft (QC): 88 Walking 10ft on Uneven Surface: 88 1 Step (curb) (QC): 88 4 Steps (QC): 88 12 Steps (QC): 88 Picking up an Object (QC): 4 Does the Pt use WC or Scooter?: Yes Wheel 50 feet with 2 turns (QC: 6 Type: Manual Wheel 150 feet: 6 Type: Manual PT Plan Treatment/Plan Treatment Plan: Continue Plan of Care Treatment Plan: Bed Mobility, Education, Functional Activity Shaun, Functional Strength, Group Therapy, Gait, Safety, Therapeutic Exercise, Transfers Treatment Duration: July 22, 2021 Frequency: At least 5 of 7 days/Wk (IRF) Estimated Hrs Per Day: 1.5 hours per day Patient and/or Family Agrees t: Yes Safety Risks/Education Patient Education: Gait Training Teaching Recipient: Patient Teaching Methods: Demonstration, Discussion Response to Teaching: Verbalize Understanding, Return Demonstration Time/GCodes Time In: 1150 Time Out: 1220 Total Billed Treatment Time: 30 Total Billed Treatment Visit, Gait (2) MAURIZIO ENRIQUEZ PT July 18, 2021 14:11
[2021-07-18] MEDS: ASPIRIN 81 MG CHEW (CHILDREN'S ASA) PO SCH (14:22)
[2021-07-18 20:00] VITALS: BP 132/80
[2021-07-19] MEDS: inSUlin ASPART (NovoLOG) 1 UNIT/0.01 ML (CHARGE PER UNIT) SC SCH ×4 (05:14→21:15)
[2021-07-19] MEDS: glyBURIDE 2.5 MG (MICRONASE) TAB PO SCH ×2 (06:48→16:31)
--- NOTE | 2021-07-19 07:05 | PM&R Progress Note ---
Subjective HPI/CC On Admission Date Seen by Provider: July 19, 2021 Time Seen by Provider: 11:00 Subjective/Events-last exam 07/19/2021: No major issues Blood sugars elevated 07/18/2021: Patient much improved Has no complaints 07/17/2021: Pt is doing pretty well No significant concerns No pain Blood sugars remain labile 07/16/2021: Pt having no new issues Walking around well with the AFO brace Supportive care will continue 07/15/21: Pt is doing really well AFO brace helps him walk Moving his left fingers Blood sugar was 164 this morning 07/14/2021: Pt is able to ambulate around the unit very well Diabetic education will be provided Noncompliance with diet continues the blood sugar in the 300 range 07/13/2021: Patient doing well Moving left leg well Labs reviewed 07/12/2021: Patient doing well Moving left leg very well Blood sugars reviewed Blood pressures improved 07/11/2021: Patient doing really well Able to lift his left leg up and move his right arm at the shoulder Eating well Blood sugars and blood pressures reviewed 07/10/21: Patient has no issues UCx reviewed NGTD so DC abx 07/09/21: Patient doing well Empirically placed on antibiotics Urinary incontinence the same No pain is reported 07/08/2021: No pain is reported Patient doing really well otherwise Urinary issues prompted UA and bacteriuria noted so will cover with antibiotic until culture back Supportive care 07/07/21: Patient has no pain Able to use assistive devices Supportive care continues 07/06/21: Patient doing well Monitor closely No pain reported Checked meds and labs 07/05/21: Patient seems to be doing well Blood sugars reviewed Blood pressures reviewed No falls 07/04/2021: Patient doing well Left-sided weakness is profound DC the catheter yesterday and voiding well No pain reported 07/03/21: Patient doing well Sugar reviewed BP improved on multiple meds DC Catheter today 07/02/21: Patient tolerating everything pretty well Blood pressure improved Blood sugars improved Wheelchair mobility training Review of Systems General: Fatigue, Malaise Objective Exam Vital Signs Vital Signs Date Time Temp Pulse Resp B/P (MAP) Pulse Ox O2 Delivery O2 Flow Rate FiO2 07/19/21 21:27 Room Air 07/19/21 20:05 36.9 74 18 131/78 (95) 96 Capillary Refill : General Appearance: No Apparent Distress, WD/WN, Obese HEENT: PERRL/EOMI, Normal ENT Inspection, Pharynx Normal Neck: Full Range of Motion, Normal Inspection, Non Tender, Supple, Carotid Bruit Respiratory: Chest Non Tender, Lungs Clear, Normal Breath Sounds, No Accessory Muscle Use, No Respiratory Distress Cardiovascular: Regular Rate, Rhythm, No Edema, No Gallop, No JVD, No Murmur, Normal Peripheral Pulses Gastrointestinal: Normal Bowel Sounds, No Organomegaly, No Pulsatile Mass, Non Tender, Soft Back: Normal Inspection, No CVA Tenderness, No Vertebral Tenderness Extremity: Normal Capillary Refill, Normal Inspection, Normal Range of Motion, Non Tender, No Calf Tenderness, No Pedal Edema Neurologic/Psychiatric: Alert, Oriented x3, Normal Mood/Affect, procurement assistant II-XII Norm as 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 FIM Transfers Therapy Code Descriptions/Definitions Functional [place] Measure: 0=Not Assessed/NA 4=Minimal Assistance 1=Total Assistance 5=Supervision or Setup 2=Maximal Assistance 6=Modified [place] 3=Moderate Assistance 7=Complete IndependenceSCALE: Activities may be completed with or without assistive devices. 6-Vhgwkeqzyp-wmatxlf completes the activity by him/herself with no assistance from a helper. 5-Set-up or Clean-up Assistance-helper sets up or cleans up; patient completes activity. [place] assists only prior to or following the activity. 4-Supervision or Touching Assistance-helper provides verbal cues and/or touching/steadying and/or contact guard assistance as patient completes activity. Assistance may be provided throughout the activity or intermittently. 3-Partial/Moderate Assistance-helper does LESS THAN HALF the effort. [place] lifts, holds or supports trunk or limbs, but provides less than half the effort. 2-Substantial/Maximal Assistance-helper does MORE THAN HALF the effort. [place] lifts or holds trunk or limbs and provides more than half the effort. 4-Xtpadspla-gupnpc does ALL the effort. Patient does none of the effort to complete the activity. Or, the assistance of 2 or more helpers is required for the patient to complete the activity. If activity was not attempted, code reason: 7-Patient Refused. 9-Not Applicable-not attempted and the patient did not perform the activity bef ore the current illness, exacerbation or injury. 10-Not Attempted due to Environmental Limitations-(lack of equipment, weather r estraints, etc.). 88-Not Attempted due to Medical Conditions or Safety Concerns. Roll Left to Right (QC): 4 Sit to Lying (QC): 4 Sit to Stand (QC): 4 Chair/Pdh-mj-Ghdow Xfer(QC): 4 Car Transfer (QC): 88 Gait Training Does the Patient Walk?: Yes Distance: 400 feet Walk 10 feet (QC): 4 Walk 50 ft with 2 Turns(QC): 4 Walk 150 ft (QC): 4 Walking 10ft/uneven surface-QC: 88 Gait Persons Needed: 1 Gait Assistive Device: Walker Tunde Wheelchair Training Does the Pt Use a Wheelchair?: No Wheel 50 ft with 2 turns (QC): 5 Wheel 150 ft (QC): 5 Type of Wheelchair: Manual Stair Training 1 Step (curb) (QC): 88 4 Steps (QC): 88 12 Steps (QC): 88 Balance Picking up an Object (QC): 88 ADL-Treatment Eating (QC): 5 Oral Hygiene (QC): 6 Shower/Bathe Self (QC): 3 (min) Upper Body Dressing (QC): 4 Lower Body Dressing (QC): 3 On/Off Footwear (QC): 3 Toileting Hygiene (QC): 4 Toilet Transfer (QC): 4 Assessment/Plan Assessment and Plan Assess & Plan/Chief Complaint Assessment: CVA with left-sided weakness catastrophic type Hypertension severe Hyperlipidemia Hyperglyceridemia Obesity BMI 30 New onset diabetes hemoglobin A1c 9.7 Smoker Plan: Inpatient rehab protocol Supportive care Insulin Blood pressure management 07/02/2021: Increase blood pressure meds Supportive care 07/03/21: DC catheter 07/04/2021: Aggressive therapy 07/05/2021: Supportive care Blood sugar blood pressure improved 07/06/21: BP improved Monitor closely 07/07/2021: Blood pressure improved Blood sugar improved 07/08/2021: Patient doing well Check UA 07/09/2021: Await urine culture Continue antibiotics 07/10/21: UCx NGTD DC abx 07/11/2021: Supportive care Monitor closely 07/12/21: Supportive care Monitor closely 07/13/2021: Supportive care Monitor closely 07/14/2021: Supportive care Monitor sugar 07/15/2021: Noncompliance with diabetic diet 07/16/2021: Impressive improvement Supportive care 07/17/2021: Compliance with diet counseling 07/18/2021: Diabetic education 07/19/2021: Increase oral hypoglycemic dose (1) CVA (cerebral vascular accident) Status: Acute TITUS KENT DO July 19, 2021 07:05
[2021-07-19 07:30] VITALS: BP 126/88
[2021-07-19] MEDS: hydrALAZINE (APRESOLINE) 25 MG TAB PO SCH ×3 (09:26→21:14)
[2021-07-19] MEDS: LOSARTAN 50 MG (COZAAR) TAB PO SCH (09:26)
[2021-07-19] MEDS: amLODIPine 5 MG (NORVASC) TAB PO SCH ×2 (09:26→21:14)
[2021-07-19] MEDS: polyethylene glycoL POWDER 17 GM (MIRALAX) PACK PO SCH ×2 (09:26→20:49)
[2021-07-19] MEDS: PHENAZOPYRIDINE 100 MG (PYRIDIUM) TABLET PO SCH ×3 (09:26→18:04)
[2021-07-19] MEDS: DOCUSATE SODIUM 100 MG (COLACE) CAP PO SCH ×2 (09:26→21:14)
[2021-07-19] MEDS: SENNOSIDES 8.6 MG (SENOKOT) TAB PO SCH ×2 (09:27→21:14)
[2021-07-19] MEDS: ENOXAPARIN 40 MG/0.4 ML (LOVENOX) SYR SC SCH (13:39)
[2021-07-19] MEDS: ASPIRIN 81 MG CHEW (CHILDREN'S ASA) PO SCH (13:40)
[2021-07-19 20:05] VITALS: BP 131/78
--- NOTE | 2021-07-20 05:58 | PM&R Progress Note ---
Subjective HPI/CC On Admission Date Seen by Provider: July 20, 2021 Time Seen by Provider: 09:30 Subjective/Events-last exam 07/20/2021: No major issues Blood sugars remain elevated 07/19/2021: No major issues Blood sugars elevated 07/18/2021: Patient much improved Has no complaints 07/17/2021: Pt is doing pretty well No significant concerns No pain Blood sugars remain labile 07/16/2021: Pt having no new issues Walking around well with the AFO brace Supportive care will continue 07/15/21: Pt is doing really well AFO brace helps him walk Moving his left fingers Blood sugar was 164 this morning 07/14/2021: Pt is able to ambulate around the unit very well Diabetic education will be provided Noncompliance with diet continues the blood sugar in the 300 range 07/13/2021: Patient doing well Moving left leg well Labs reviewed 07/12/2021: Patient doing well Moving left leg very well Blood sugars reviewed Blood pressures improved 07/11/2021: Patient doing really well Able to lift his left leg up and move his right arm at the shoulder Eating well Blood sugars and blood pressures reviewed 07/10/21: Patient has no issues UCx reviewed NGTD so DC abx 07/09/21: Patient doing well Empirically placed on antibiotics Urinary incontinence the same No pain is reported 07/08/2021: No pain is reported Patient doing really well otherwise Urinary issues prompted UA and bacteriuria noted so will cover with antibiotic until culture back Supportive care 07/07/21: Patient has no pain Able to use assistive devices Supportive care continues 07/06/21: Patient doing well Monitor closely No pain reported Checked meds and labs 07/05/21: Patient seems to be doing well Blood sugars reviewed Blood pressures reviewed No falls 07/04/2021: Patient doing well Left-sided weakness is profound DC the catheter yesterday and voiding well No pain reported 07/03/21: Patient doing well Sugar reviewed BP improved on multiple meds DC Catheter today 07/02/21: Patient tolerating everything pretty well Blood pressure improved Blood sugars improved Wheelchair mobility training Review of Systems General: Fatigue, Malaise Objective Exam Vital Signs Vital Signs Date Time Temp Pulse Resp B/P (MAP) Pulse Ox O2 Delivery O2 Flow Rate FiO2 07/20/21 20:30 Room Air 07/20/21 20:13 37.3 91 16 135/83 (100) 94 Capillary Refill : General Appearance: No Apparent Distress, WD/WN, Obese HEENT: PERRL/EOMI, Normal ENT Inspection, Pharynx Normal Neck: Full Range of Motion, Normal Inspection, Non Tender, Supple, Carotid Bruit Respiratory: Chest Non Tender, Lungs Clear, Normal Breath Sounds, No Accessory Muscle Use, No Respiratory Distress Cardiovascular: Regular Rate, Rhythm, No Edema, No Gallop, No JVD, No Murmur, Normal Peripheral Pulses Gastrointestinal: Normal Bowel Sounds, No Organomegaly, No Pulsatile Mass, Non Tender, Soft Back: Normal Inspection, No CVA Tenderness, No Vertebral Tenderness Extremity: Normal Capillary Refill, Normal Inspection, Normal Range of Motion, Non Tender, No Calf Tenderness, No Pedal Edema Neurologic/Psychiatric: Alert, Oriented x3, Normal Mood/Affect, 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 FIM Transfers Therapy Code Descriptions/Definitions Functional [place] Measure: 0=Not Assessed/NA 4=Minimal Assistance 1=Total Assistance 5=Supervision or Setup 2=Maximal Assistance 6=Modified [place] 3=Moderate Assistance 7=Complete IndependenceSCALE: Activities may be completed with or without assistive devices. 2-Ergyyvcqup-doqiqut completes the activity by him/herself with no assistance from a helper. 5-Set-up or Clean-up Assistance-helper sets up or cleans up; patient completes activity. [place] assists only prior to or following the activity. 4-Supervision or Touching Assistance-helper provides verbal cues and/or touching/steadying and/or contact guard assistance as patient completes activity. Assistance may be provided throughout the activity or intermittently. 3-Partial/Moderate Assistance-helper does LESS THAN HALF the effort. [place] lifts, holds or supports trunk or limbs, but provides less than half the effort. 2-Substantial/Maximal Assistance-helper does MORE THAN HALF the effort. [place] lifts or holds trunk or limbs and provides more than half the effort. 3-Ufwatorav-nkravx does ALL the effort. Patient does none of the effort to complete the activity. Or, the assistance of 2 or more helpers is required for the patient to complete the activity. If activity was not attempted, code reason: 7-Patient Refused. 9-Not Applicable-not attempted and the patient did not perform the activity before the current illness, exacerbation or injury. 10-Not Attempted due to Environmental Limitations-(lack of equipment, weather restraints, etc.). 88-Not Attempted due to Medical Conditions or Safety Concerns. Roll Left to Right (QC): 4 Sit to Lying (QC): 4 Sit to Stand (QC): 4 Chair/Ngh-nc-Sywoa Xfer(QC): 4 Car Transfer (QC): 88 Gait Training Does the Patient Walk?: Yes Distance: 400 feet Walk 10 feet (QC): 4 Walk 50 ft with 2 Turns(QC): 4 Walk 150 ft (QC): 4 Walking 10ft/uneven surface-QC: 88 Gait Persons Needed: 1 Gait Assistive Device: Walker Tunde Wheelchair Training Does the Pt Use a Wheelchair?: No Wheel 50 ft with 2 turns (QC): 5 Wheel 150 ft (QC): 5 Type of Wheelchair: Manual Stair Training 1 Step (curb) (QC): 88 4 Steps (QC): 88 12 Steps (QC): 88 Balance Picking up an Object (QC): 88 ADL-Treatment Eating (QC): 5 Oral Hygiene (QC): 6 Shower/Bathe Self (QC): 3 (min) Upper Body Dressing (QC): 4 Lower Body Dressing (QC): 3 On/Off Footwear (QC): 3 Toileting Hygiene (QC): 4 Toilet Transfer (QC): 4 Assessment/Plan Assessment and Plan Assess & Plan/Chief Complaint Assessment: CVA with left-sided weakness catastrophic type Hypertension severe Hyperlipidemia Hyperglyceridemia Obesity BMI 30 New onset diabetes hemoglobin A1c 9.7 Smoker Plan: Inpatient rehab protocol Supportive care Insulin Blood pressure management 07/02/2021: Increase blood pressure meds Supportive care 07/03/21: DC catheter 07/04/2021: Aggressive therapy 07/05/2021: Supportive care Blood sugar blood pressure improved 07/06/21: BP improved Monitor closely 07/07/2021: Blood pressure improved Blood sugar improved 07/08/2021: Patient doing well Check UA 07/09/2021: Await urine culture Continue antibiotics 07/10/21: UCx NGTD DC abx 07/11/2021: Supportive care Monitor closely 07/12/21: Supportive care Monitor closely 07/13/2021: Supportive care Monitor closely 07/14/2021: Supportive care Monitor sugar 07/15/2021: Noncompliance with diabetic diet 07/16/2021: Impressive improvement Supportive care 07/17/2021: Compliance with diet counseling 07/18/2021: Diabetic education 07/19/2021: Increase oral hypoglycemic dose 07/20/2021: Supportive care (1) CVA (cerebral vascular accident) Status: Acute TITUS KENT DO July 20, 2021 05:57
[2021-07-20] MEDS: inSUlin ASPART (NovoLOG) 1 UNIT/0.01 ML (CHARGE PER UNIT) SC SCH ×4 (05:59→20:36)
[2021-07-20] MEDS: glyBURIDE 2.5 MG (MICRONASE) TAB PO SCH ×2 (06:01→16:55)
[2021-07-20 07:08] LABS: BASOPHILS # (AUTO) 0.1 10^3/uL (0.0-0.1); BASOPHILS % (AUTO) 1 % (0-10); EOSINOPHILS # (AUTO) 0.6 10^3/uL (0.0-0.3); EOSINOPHILS % (AUTO) 5 % (0-10); HEMATOCRIT 43 % (40-54); HEMOGLOBIN 13.8 g/dL (13.3-17.7); LYMPHOCYTES % (AUTO) 28 % (12-44); MEAN CORPUSCULAR HEMOGLOBIN 26 pg (25-34); MEAN CORPUSCULAR HGB CONC 32 g/dL (32-36); MEAN CORPUSCULAR VOLUME 81 fL (80-99); MEAN PLATELET VOLUME 9.3 fL (9.0-12.2); MONOCYTES # (AUTO) 0.6 10^3/uL (0.0-1.0); MONOCYTES % (AUTO) 5 % (0-12); NEUTROPHILS # (AUTO) 6.4 10^3/uL (1.8-7.8); NEUTROPHILS % (AUTO) 60 % (42-75); PLATELET COUNT 292 10^3/uL (130-400); WHITE BLOOD COUNT 10.5 10^3/uL (4.3-11.0)
[2021-07-20 07:26] LABS: ALBUMIN 3.8 GM/DL (3.2-4.5); POTASSIUM 3.9 MMOL/L (3.6-5.0)
[2021-07-20 07:27] LABS: CALCIUM 9.5 MG/DL (8.5-10.1)
[2021-07-20 07:29] LABS: TOTAL PROTEIN 6.6 GM/DL (6.4-8.2)
[2021-07-20 07:30] LABS: BILIRUBIN,TOTAL 0.8 MG/DL (0.1-1.0)
[2021-07-20 07:31] VITALS: BP 126/76
[2021-07-20 07:32] LABS: CREATININE SERUM 0.68 MG/DL (0.60-1.30)
[2021-07-20] MEDS: PHENAZOPYRIDINE 100 MG (PYRIDIUM) TABLET PO SCH ×3 (08:13→18:08)
[2021-07-20] MEDS: LOSARTAN 50 MG (COZAAR) TAB PO SCH (08:13)
[2021-07-20] MEDS: amLODIPine 5 MG (NORVASC) TAB PO SCH ×2 (08:14→20:36)
[2021-07-20] MEDS: hydrALAZINE (APRESOLINE) 25 MG TAB PO SCH ×3 (08:14→20:36)
[2021-07-20] MEDS: polyethylene glycoL POWDER 17 GM (MIRALAX) PACK PO SCH ×2 (08:19→19:28)
[2021-07-20] MEDS: SENNOSIDES 8.6 MG (SENOKOT) TAB PO SCH ×2 (08:19→19:29)
[2021-07-20] MEDS: DOCUSATE SODIUM 100 MG (COLACE) CAP PO SCH ×2 (08:20→19:28)
--- NOTE | 2021-07-20 08:59 | Physical Therapy Daily Note ---
PT Daily Note-Current Subjective Patient was in bed upon entering and agreeable to PT. Patient states he got a new AFO but was still unable to fit it in shoe, and will likely use it when he leaves here and buys new shoes. Patient also obtained a new platform walker for home use (adjusted in therapy). Patient has no new complaints today. Pain Location: No Pain Reported Mental Status Patient Orientation: Person, Place, Situation Transfers SCALE: Activities may be completed with or without assistive devices. 7-Gmvakomsuu-pddyftw completes the activity by him/herself with no assistance from a helper. 5-Set-up or Clean-up Assistance-helper sets up or cleans up; patient completes activity. [place] assists only prior to or following the activity. 4-Supervision or Touching Assistance-helper provides verbal cues and/or touching/steadying and/or contact guard assistance as patient completes activity. Assistance may be provided throughout the activity or intermittently. 3-Partial/Moderate Assistance-helper does LESS THAN HALF the effort. [place] lifts, holds or supports trunk or limbs, but provides less than half the effort. 2-Substantial/Maximal Assistance-helper does MORE THAN HALF the effort. [place] lifts or holds trunk or limbs and provides more than half the effort. 0-Ffukmdjne-ypeetm does ALL the effort. Patient does none of the effort to complete the activity. Or, the assistance of 2 or more helpers is required for the patient to complete the activity. If activity was not attempted, code reason: 7-Patient Refused. 9-Not Applicable-not attempted and the patient did not perform the activity before the current illness, exacerbation or injury. 10-Not Attempted due to Environmental Limitations-(lack of equipment, weather restraints, etc.). 88-Not Attempted due to Medical Conditions or Safety Concerns. Sit to Stand (QC): 4 Chair/Tqo-hj-Efhbn Xfer(QC): 4 Weight Bearing Right Lower Extremity: Right Full Weight Bearing Left Lower Extremity: Left Full Weight Bearing Gait Training Does the Patient Walk?: Yes Distance: 400', 50', 100' Walk 10 feet (QC): 4 Walk 50 ft with 2 Turns(QC): 4 Walk 150 ft (QC): 4 Gait Assistive Device: Walker Tunde CGA while ambulating. Patient walked to therapy gym with hemiwalker and L arm sling with step to pattern. patient ambulated hallways with platform walker and step through pattern. Ananth wrap on the left ankle to prevent dropfoot and to stabilize ankle. Exercises Standing: Mini squats (2 x 12) Treatments Hurdles (2 inch block): patient ambulated about 30'x2 with hurdles placed in front of him. Patient instructed to step over with L foot for most of the hurdles. Assessment Current Status: Good Progress Patient ambulated with more control today using the platform walker and appears more steady but still has a few instances of losing balance. Patient was able to clear hurdles (with ANANTH wrap) using mostly hip flexion and circumduction, and has no DF contraction. Patient was left in recliner with call light, tray, and all needs met. PT Short Term Goals Short Term Goals Time Frame: Jul 08, 2021 Roll Left & Right: 4 Sit to lyin Lying to sitting on side of be: 4 Sit to stand: 3 Chair/kbm-dr-dlltv transfer: 3 Toilet transfer: 3 PT Shelter Goals Shelter Goals PT Shelter Goals Time Frame: July 22, 2021 Roll Left & Right (QC): 6 Sit to Lying (QC): 6 Lying-Sitting on Side/Bed(QC): 6 Sit to Stand (QC): 4 Chair/Xnf-wo-Syceu Xfer(QC): 4 Toilet Transfer (QC): 4 Car Transfer (QC): 4 Does the Patient Walk: No and Walking Goal IS indicated Walk 10 feet (QC): 4 Walk 50ft with 2 Turns (QC): 88 Walk 150 ft (QC): 88 Walking 10ft on Uneven Surface: 88 1 Step (curb) (QC): 88 4 Steps (QC): 88 12 Steps (QC): 88 Picking up an Object (QC): 4 Does the Pt use WC or Scooter?: Yes Wheel 50 feet with 2 turns (QC: 6 Type: Manual Wheel 150 feet: 6 Type: Manual PT Plan Problem List Problem List: Activity Tolerance, Functional Strength, Safety, Balance, Gait, Transfer, Bed Mobility, ROM Treatment/Plan Treatment Plan: Continue Plan of Care Treatment Plan: Bed Mobility, Education, Functional Activity Shaun, Functional Strength, Group Therapy, Gait, Safety, Therapeutic Exercise, Transfers Treatment Duration: July 22, 2021 Frequency: At least 5 of 7 days/Wk (IRF) Estimated Hrs Per Day: 1.5 hours per day Patient and/or Family Agrees t: Yes Safety Risks/Education Patient Education: Gait Training, Transfer Techniques, Correct Positioning, Safety Issues Teaching Recipient: Patient Teaching Methods: Demonstration, Discussion Response to Teaching: Verbalize Understanding, Return Demonstration Time/GCodes Time In: 0800 Time Out: 0900 Total Billed Treatment Time: 60 Total Billed Treatment 1 visit FA 45min EX 15' MICHAEL SOLER PT July 20, 2021 08:59
--- NOTE | 2021-07-20 11:59 | Occupational Ther Daily Note ---
OT Current Status-Daily Note Subjective Pt asking questions about insulin. OT notified RN who is also fluent in [place]. Appearance Pt left sitting in chair, all needs within reach. Mental Status/Objective Patient Orientation: Person, Place, Situation ADL-Treatment Therapy Code Descriptions/Definitions Functional [place] Measure: 0=Not Assessed/NA 4=Minimal Assistance 1=Total Assistance 5=Supervision or Setup 2=Maximal Assistance 6=Modified [place] 3=Moderate Assistance 7=Complete IndependenceSCALE: Activities may be completed with or without assistive devices. 6-Wapzqstdhh-szfzmhs completes the activity by him/herself with no assistance from a helper. 5-Set-up or Clean-up Assistance-helper sets up or cleans up; patient completes activity. [place] assists only prior to or following the activity. 4-Supervision or Touching Assistance-helper provides verbal cues and/or touching/steadying and/or contact guard assistance as patient completes activity. Assistance may be provided throughout the activity or intermittently. 3-Partial/Moderate Assistance-helper does LESS THAN HALF the effort. [place] lifts, holds or supports trunk or limbs, but provides less than half the effort. 2-Substantial/Maximal Assistance-helper does MORE THAN HALF the effort. [place] lifts or holds trunk or limbs and provides more than half the effort. 6-Zhwqbnylb-hxyvpy does ALL the effort. Patient does none of the effort to complete the activity. Or, the assistance of 2 or more helpers is required for the patient to complete the activity. If activity was not attempted, code reason: 7-Patient Refused. 9-Not Applicable-not attempted and the patient did not perform the activity before the current illness, exacerbation or injury. 10-Not Attempted due to Environmental Limitations-(lack of equipment, weather restraints, etc.). 88-Not Attempted due to Medical Conditions or Safety Concerns. Eating (QC): 5 Oral Hygiene (QC): 6 Shower/Bathe Self (QC): 3 Upper Body Dressing (QC): 4 Lower Body Dressing (QC): 4 On/Off Footwear: 3 Toileting Hygiene (QC): 4 Toilet Transfer (QC): 4 Shower performed; majority completed in sitting. Great improvement in sitting balance with unsupported sitting; No LOB. Pt continues to have poor safety awareness of LUE during shower as he will often impulsively bend forward to wash bilateral feet, thus letting UE dangle. Visual and verbal reminders on using LHS to reduce/prevent possibility of subluxation in LUE. Min a still needed to lift/adduct LUE in order for patient to thoroughly wash axilla. Pt able to stand to wash cristo area/buttocks with close supervision for safety. Clothing donned seated on side of shower bench. Pt was able to lift, cross and maintain LLE over R in order to thread foot through clothing this date. Close supervision needed for safety when standing to pull clothing up to waist. Pt able to don R sock without any assistance, extra time only. Assist was needed to maintain cross over method as he dons L sock. Pt does not require any physical assistance when donning shirt but does require several cues/reminders for safety as he often will throw LUE around when threading sleeve over extremity. Education/reminders on protecting UE. Pt independently performed Grooming tasks while seated in w/c. Other Treatment Pt participated in fine motor task with focus on improving pinch strength, dexterity skills, and grasp/release skills. CONNIE needed to extend fingers prior to reaching for 1 inch block. With extra time, he was able to complete tip pinch and maintain grasp in order to move block across midline. Assist to flex wrist in order to assist in releasing object. Attempt at educating pt on tenodesis grasp in order to passively grasp and release. Education OT Patient Education: Correct positioning, Energy conservation, Modified ADL techniques, Progress toward Goal/Update tx plan, Purpose of tx/functional activities, Reviewed precautions, Rehab process, Safety issues, Use of adapted equipment Teaching Recipient: Patient Teaching Methods: Demonstration, Discussion Response to Teaching: Verbalize Understanding, Return Demonstration, Reinforcement Needed OT Short Term Goals Short Term Goals Time Frame: Jul 11, 2021 Eatin Oral hygiene: 5 Toileting hygiene: 2 Shower/bathe self: 2 Upper body dressin Lower body dressin Putting on/taking off footwear: 3 OT Computer Installation Engineer Goals Computer Installation Engineer Goals Time Frame: July 29, 2021 Eating (QC): 6 Oral Hygiene (QC): 6 Toileting Hygiene (QC): 6 Shower/Bathe Self (QC): 5 Upper Body Dressing (QC): 5 Lower Body Dressing (QC): 5 On/Off Footwear (QC): 5 1=Demonstrate adherence to instructed precautions during ADL tasks. 2=Patient will verbalize/demonstrate understanding of assistive devices/modifications for ADL. 3=Patient will improve strength/tolerance for activity to enable patient to perform ADL's. OT Education/Plan Problem List/Assessment Assessment: Decreased Activ Tolerance, Decreased Safety Aware, Decreased UE Strength, Impaired Cognition, Impaired Coordination, Impaired Funct Balance, Impaired I ADL's, Impaired Self-Care Skills, Restricted Funct UE ROM Discharge Recommendations Plan/Recommendations: Continue POC Therapy Discharge Recommendati: Post Acute OT Treatment Plan/Plan of Care Treatment,Training & Education: Yes Patient would benefit from OT for education, treatment and training to promote independence in ADL's, mobility, safety and/or upper extremity function for ADL's. Plan of Care: ADL Retraining, Cognitive Retraining, Functional Mobility, Group Exercise/Act as Ind, UE Funct Exercise/Act, UE Neuromus Re-Ed/Coord, W/C Management Training Treatment Duration: July 29, 2021 Frequency: At least 5 of 7 days/Wk (IRF) Estimated Hrs Per Day: 1.5 hours per day Agreement: Yes Rehab Potential: Fair Time/GCodes Start Time: 10:30 Stop Time: 12:00 Total Time Billed (hr/min): 90 Billed Treatment Time 1 visit ADL x4 (65 min) FA x2 (25 min) Samantha Valverde OT July 20, 2021 11:58
--- NOTE | 2021-07-20 14:03 | Physical Therapy Daily Note ---
PT Daily Note-Current Subjective Patient was in bed with family in room. Patient agreeable to PT tx. Pain Location: No Pain Reported Mental Status Patient Orientation: Person, Place, Situation Transfers SCALE: Activities may be completed with or without assistive devices. 3-Qbncrvpila-bylobbf completes the activity by him/herself with no assistance from a helper. 5-Set-up or Clean-up Assistance-helper sets up or cleans up; patient completes activity. [place] assists only prior to or following the activity. 4-Supervision or Touching Assistance-helper provides verbal cues and/or touching/steadying and/or contact guard assistance as patient completes activity. Assistance may be provided throughout the activity or intermittently. 3-Partial/Moderate Assistance-helper does LESS THAN HALF the effort. [place] lifts, holds or supports trunk or limbs, but provides less than half the effort. 2-Substantial/Maximal Assistance-helper does MORE THAN HALF the effort. [place] lifts or holds trunk or limbs and provides more than half the effort. 5-Kipiyndlt-chpenh does ALL the effort. Patient does none of the effort to co mplete the activity. Or, the assistance of 2 or more helpers is required for the patient to complete the activity. If activity was not attempted, code reason: 7-Patient Refused. 9-Not Applicable-not attempted and the patient did not perform the activity before the current illness, exacerbation or injury. 10-Not Attempted due to Environmental Limitations-(lack of equipment, weather restraints, etc.). 88-Not Attempted due to Medical Conditions or Safety Concerns. Sit to Stand (QC): 4 CGA Weight Bearing Right Lower Extremity: Right Full Weight Bearing Left Lower Extremity: Left Full Weight Bearing Gait Training Does the Patient Walk?: Yes Distance: 400', 100' Walk 10 feet (QC): 4 Walk 50 ft with 2 Turns(QC): 4 Walk 150 ft (QC): 4 Gait Assistive Device: FWW Patient used and prefers Tunde walker. Patient has a step through pattern half the time, and a step-to pattern the other half. BRADEN wrap on foot into DF and slight eversion to prevent foot drop, stabilize ankle, and help with vertical clearance. Exercises Standing: Step-ups Standing Reps: 20 (Used L leg) Assessment Current Status: Good Progress Patient can walk long distances without a rest period, and is steady for the most part but can occasionally lose balance. Patient was able to open a door and go through (both ways) without difficulty. Patient's knee tends to hyperextend while walking, and doing step ups. Patient was left in bed with tray, call light, and all needs met. PT Short Term Goals Short Term Goals Time Frame: Jul 08, 2021 Roll Left & Right: 4 Sit to lyin Lying to sitting on side of be: 4 Sit to stand: 3 Chair/eaw-rl-fwhpj transfer: 3 Toilet transfer: 3 PT Programmer Operator Numerical Control Goals Programmer Operator Numerical Control Goals PT Programmer Operator Numerical Control Goals Time Frame: July 22, 2021 Roll Left & Right (QC): 6 Sit to Lying (QC): 6 Lying-Sitting on Side/Bed(QC): 6 Sit to Stand (QC): 4 Chair/Qfo-qh-Lgyph Xfer(QC): 4 Toilet Transfer (QC): 4 Car Transfer (QC): 4 Does the Patient Walk: No and Walking Goal IS indicated Walk 10 feet (QC): 4 Walk 50ft with 2 Turns (QC): 88 Walk 150 ft (QC): 88 Walking 10ft on Uneven Surface: 88 1 Step (curb) (QC): 88 4 Steps (QC): 88 12 Steps (QC): 88 Picking up an Object (QC): 4 Does the Pt use WC or Scooter?: Yes Wheel 50 feet with 2 turns (QC: 6 Type: Manual Wheel 150 feet: 6 Type: Manual PT Plan Problem List Problem List: Activity Tolerance, Functional Strength, Safety, Balance, Gait, Transfer, Bed Mobility, ROM Treatment/Plan Treatment Plan: Continue Plan of Care Treatment Plan: Bed Mobility, Education, Functional Activity Shaun, Functional Strength, Group Therapy, Gait, Safety, Therapeutic Exercise, Transfers Treatment Duration: July 22, 2021 Frequency: At least 5 of 7 days/Wk (IRF) Estimated Hrs Per Day: 1.5 hours per day Patient and/or Family Agrees t: Yes Safety Risks/Education Patient Education: Gait Training, Transfer Techniques, Correct Positioning, Safety Issues Teaching Recipient: Patient Teaching Methods: Demonstration, Discussion Response to Teaching: Verbalize Understanding, Return Demonstration Time/GCodes Time In: 1330 Time Out: 1400 Total Billed Treatment Time: 30 Total Billed Treatment 1 visit EX 10min GT 20min MICHAEL SOLER PT July 20, 2021 14:03
[2021-07-20] MEDS: ASPIRIN 81 MG CHEW (CHILDREN'S ASA) PO SCH (14:10)
[2021-07-20] MEDS: ENOXAPARIN 40 MG/0.4 ML (LOVENOX) SYR SC SCH (14:10)
[2021-07-20 20:13] VITALS: BP 135/83
--- NOTE | 2021-07-21 06:07 | PM&R Progress Note ---
Subjective HPI/CC On Admission Date Seen by Provider: July 21, 2021 Time Seen by Provider: 09:00 Subjective/Events-last exam 07/21/2021: Patient ready for discharge tomorrow 07/20/2021: No major issues Blood sugars remain elevated 07/19/2021: No major issues Blood sugars elevated 07/18/2021: Patient much improved Has no complaints 07/17/2021: Pt is doing pretty well No significant concerns No pain Blood sugars remain labile 07/16/2021: Pt having no new issues Walking around well with the AFO brace Supportive care will continue 07/15/21: Pt is doing really well AFO brace helps him walk Moving his left fingers Blood sugar was 164 this morning 07/14/2021: Pt is able to ambulate around the unit very well Diabetic education will be provided Noncompliance with diet continues the blood sugar in the 300 range 07/13/2021: Patient doing well Moving left leg well Labs reviewed 07/12/2021: Patient doing well Moving left leg very well Blood sugars reviewed Blood pressures improved 07/11/2021: Patient doing really well Able to lift his left leg up and move his right arm at the shoulder Eating well Blood sugars and blood pressures reviewed 07/10/21: Patient has no issues UCx reviewed NGTD so DC abx 07/09/21: Patient doing well Empirically placed on antibiotics Urinary incontinence the same No pain is reported 07/08/2021: No pain is reported Patient doing really well otherwise Urinary issues prompted UA and bacteriuria noted so will cover with antibiotic until culture back Supportive care 07/07/21: Patient has no pain Able to use assistive devices Supportive care continues 07/06/21: Patient doing well Monitor closely No pain reported Checked meds and labs 07/05/21: Patient seems to be doing well Blood sugars reviewed Blood pressures reviewed No falls 07/04/2021: Patient doing well Left-sided weakness is profound DC the catheter yesterday and voiding well No pain reported 07/03/21: Patient doing well Sugar reviewed BP improved on multiple meds DC Catheter today 07/02/21: Patient tolerating everything pretty well Blood pressure improved Blood sugars improved Wheelchair mobility training Review of Systems General: Fatigue, Malaise Objective Exam Vital Signs Vital Signs Date Time Temp Pulse Resp B/P (MAP) Pulse Ox O2 Delivery O2 Flow Rate FiO2 07/21/21 20:30 Room Air 07/21/21 19:53 36.7 61 20 138/81 (100) 93 Capillary Refill : General Appearance: No Apparent Distress, WD/WN, Obese HEENT: PERRL/EOMI, Normal ENT Inspection, Pharynx Normal Neck: Full Range of Motion, Normal Inspection, Non Tender, Supple, Carotid Brui t Respiratory: Chest Non Tender, Lungs Clear, Normal Breath Sounds, No Accessory Muscle Use, No Respiratory Distress Cardiovascular: Regular Rate, Rhythm, No Edema, No Gallop, No JVD, No Murmur, Normal Peripheral Pulses Gastrointestinal: Normal Bowel Sounds, No Organomegaly, No Pulsatile Mass, Non Tender, Soft Back: Normal Inspection, No CVA Tenderness, No Vertebral Tenderness Extremity: Normal Capillary Refill, Normal Inspection, Normal Range of Motion, Non Tender, No Calf Tenderness, No Pedal Edema Neurologic/Psychiatric: Alert, Oriented x3, Normal Mood/Affect, snuff box finisher II-XII Norm as 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 FIM Transfers Therapy Code Descriptions/Definitions Functional [place] Measure: 0=Not Assessed/NA 4=Minimal Assistance 1=Total Assistance 5=Supervision or Setup 2=Maximal Assistance 6=Modified [place] 3=Moderate Assistance 7=Complete IndependenceSCALE: Activities may be completed with or without assistive devices. 1-Hniahqgtlz-lywpggh completes the activity by him/herself with no assistance from a helper. 5-Set-up or Clean-up Assistance-helper sets up or cleans up; patient completes activity. [place] assists only prior to or following the activity. 4-Supervision or Touching Assistance-helper provides verbal cues and/or touching/steadying and/or contact guard assistance as patient completes activity. Assistance may be provided throughout the activity or intermittently. 3-Partial/Moderate Assistance-helper does LESS THAN HALF the effort. [place] lifts, holds or supports trunk or limbs, but provides less than half the effort. 2-Substantial/Maximal Assistance-helper does MORE THAN HALF the effort. [place] lifts or holds trunk or limbs and provides more than half the effort. 3-Nlabslkxu-kgsrxu does ALL the effort. Patient does none of the effort to complete the activity. Or, the assistance of 2 or more helpers is required for the patient to complete the activity. If activity was not attempted, code reason: 7-Patient Refused. 9-Not Applicable-not attempted and the patient did not perform the activity before the current illness, exacerbation or injury. 10-Not Attempted due to Environmental Limitations-(lack of equipment, weather restraints, etc.). 88-Not Attempted due to Medical Conditions or Safety Concerns. Roll Left to Right (QC): 4 Sit to Lying (QC): 4 Sit to Stand (QC): 4 Chair/Knf-ac-Jubeg Xfer(QC): 4 Car Transfer (QC): 88 Gait Training Does the Patient Walk?: Yes Distance: 400', 100' Walk 10 feet (QC): 4 Walk 50 ft with 2 Turns(QC): 4 Walk 150 ft (QC): 4 Walking 10ft/uneven surface-QC: 88 Gait Persons Needed: 1 Gait Assistive Device: FWW Wheelchair Training Does the Pt Use a Wheelchair?: No Wheel 50 ft with 2 turns (QC): 5 Wheel 150 ft (QC): 5 Type of Wheelchair: Manual Stair Training 1 Step (curb) (QC): 88 4 Steps (QC): 88 12 Steps (QC): 88 Balance Picking up an Object (QC): 88 ADL-Treatment Eating (QC): 5 Oral Hygiene (QC): 6 Shower/Bathe Self (QC): 3 Upper Body Dressing (QC): 4 Lower Body Dressing (QC): 4 On/Off Footwear (QC): 3 Toileting Hygiene (QC): 4 Toilet Transfer (QC): 4 Assessment/Plan Assessment and Plan Assess & Plan/Chief Complaint Assessment: CVA with left-sided weakness catastrophic type Hypertension severe Hyperlipidemia Hyperglyceridemia Obesity BMI 30 New onset diabetes hemoglobin A1c 9.7 Smoker Plan: Inpatient rehab protocol Supportive care Insulin Blood pressure management 07/02/2021: Increase blood pressure meds Supportive care 07/03/21: DC catheter 07/04/2021: Aggressive therapy 07/05/2021: Supportive care Blood sugar blood pressure improved 07/06/21: BP improved Monitor closely 07/07/2021: Blood pressure improved Blood sugar improved 07/08/2021: Patient doing well Check UA 07/09/2021: Await urine culture Continue antibiotics 07/10/21: UCx NGTD DC abx 07/11/2021: Supportive care Monitor closely 07/12/21: Supportive care Monitor closely 07/13/2021: Supportive care Monitor closely 07/14/2021: Supportive care Monitor sugar 07/15/2021: Noncompliance with diabetic diet 07/16/2021: Impressive improvement Supportive care 07/17/2021: Compliance with diet counseling 07/18/2021: Diabetic education 07/19/2021: Increase oral hypoglycemic dose 07/20/2021: Supportive care 07/21/2021: Discharge tomorrow (1) CVA (cerebral vascular accident) Status: Acute TITUS KENT DO July 21, 2021 06:07
[2021-07-21] MEDS: glyBURIDE 2.5 MG (MICRONASE) TAB PO SCH ×2 (06:34→16:53)
[2021-07-21] MEDS: inSUlin ASPART (NovoLOG) 1 UNIT/0.01 ML (CHARGE PER UNIT) SC SCH ×4 (06:34→20:31)
[2021-07-21 07:57] VITALS: BP 135/74
--- NOTE | 2021-07-21 07:58 | Occupational Ther Daily Note ---
OT Current Status-Daily Note Subjective Pt denies pain, agreeable to dress. Appearance Pt left sitting in recliner, all needs within reach. Mental Status/Objective Patient Orientation: Person, Place, Situation ADL-Treatment Therapy Code Descriptions/Definitions Functional [place] Measure: 0=Not Assessed/NA 4=Minimal Assistance 1=Total Assistance 5=Supervision or Setup 2=Maximal Assistance 6=Modified [place] 3=Moderate Assistance 7=Complete IndependenceSCALE: Activities may be completed with or without assistive devices. 6-Xgbdxxhrib-jkayttu completes the activity by him/herself with no assistance from a helper. 5-Set-up or Clean-up Assistance-helper sets up or cleans up; patient completes activity. [place] assists only prior to or following the activity. 4-Supervision or Touching Assistance-helper provides verbal cues and/or touching/steadying and/or contact guard assistance as patient completes activity. Assistance may be provided throughout the activity or intermittently. 3-Partial/Moderate Assistance-helper does LESS THAN HALF the effort. [place] lifts, holds or supports trunk or limbs, but provides less than half the effort. 2-Substantial/Maximal Assistance-helper does MORE THAN HALF the effort. [place] lifts or holds trunk or limbs and provides more than half the effort. 5-Gmjsyxihq-irlzch does ALL the effort. Patient does none of the effort to complete the activity. Or, the assistance of 2 or more helpers is required for the patient to complete the activity. If activity was not attempted, code reason: 7-Patient Refused. 9-Not Applicable-not attempted and the patient did not perform the activity before the current illness, exacerbation or injury. 10-Not Attempted due to Environmental Limitations-(lack of equipment, weather restraints, etc.). 88-Not Attempted due to Medical Conditions or Safety Concerns. Eating (QC): 5 Oral Hygiene (QC): 6 Upper Body Dressing (QC): 5 Lower Body Dressing (QC): 4 On/Off Footwear: 3 Toileting Hygiene (QC): 6 Toilet Transfer (QC): 4 Clothing donned seated EOB. Pt demonstrates improved safety/awareness to LUE when donning UB clothing as well as positioning of L foot prior to transfers this session. No cues for sha technique required, set up only. Pt able to thread BLE's into underwear/pants with extra time and use of cross over method, supervision for safety as he stood to pull clothing over hips. Pt continues to need assist to don L shoe secondary to very tight fit. Anticipate improved independence with task if pt had slightly bigger shoes. Pt ambulated within room with close sba and use of sha walker and LUE sling. Extra time to transition L foot but no unsteadiness exhibited this date. Grooming tasks performed independently at w/c level. Other Treatment 2nd session: ([id number]): Pt ambulated to/from therapy gym with close sba-cga, sha walker, and LUE sling. He completed arm bike in standing x7 minutes. L hand wrapped around handle with jesús wrap secondary to poor senior net c developer strength. With prolong standing, blocking of L knee required due to buckling. Pt participated in grasp/release task with large rice bags. Continues to need assist to extend fingers prior to reaching for object. In order to get thumb positioned under/around object, OT instructed pt to slide object to end of table in order to position thumb. Post cue, pt able to slide and grasp. Reduced hold/grasp notable this date, requiring intermittent HOHA to maintain grasp. Pt unable to perform voluntary release/extension of fingers at this time. PROM/AAROM of shoulder flexion, adduction, and elbow flexion/extension x8. Poor control of movement. Education OT Patient Education: Correct positioning, Energy conservation, Modified ADL techniques, Progress toward Goal/Update tx plan, Purpose of tx/functional activities, Rehab process, Safety issues Teaching Recipient: Patient Teaching Methods: Demonstration, Discussion Response to Teaching: Verbalize Understanding, Return Demonstration, Reinforcement Needed OT Short Term Goals Short Term Goals Time Frame: Jul 11, 2021 Eatin Oral hygiene: 5 Toileting hygiene: 2 Shower/bathe self: 2 Upper body dressin Lower body dressin Putting on/taking off footwear: 3 OT Correction Goals Correction Goals Time Frame: July 29, 2021 Eating (QC): 6 Oral Hygiene (QC): 6 (met) Toileting Hygiene (QC): 6 (met) Shower/Bathe Self (QC): 5 Upper Body Dressing (QC): 5 (met) Lower Body Dressing (QC): 5 On/Off Footwear (QC): 5 1=Demonstrate adherence to instructed precautions during ADL tasks. 2=Patient will verbalize/demonstrate understanding of assistive devices/modifications for ADL. 3=Patient will improve strength/tolerance for activity to enable patient to perform ADL's. OT Education/Plan Problem List/Assessment Assessment: Decreased Activ Tolerance, Decreased Safety Aware, Decreased UE Strength, Impaired Coordination, Impaired Funct Balance, Impaired I ADL's, Impaired Self-Care Skills, Restricted Funct UE ROM Discharge Recommendations Plan/Recommendations: Continue POC Treatment Plan/Plan of Care Treatment,Training & Education: Yes Patient would benefit from OT for education, treatment and training to promote independence in ADL's, mobility, safety and/or upper extremity function for ADL's. Plan of Care: ADL Retraining, Cognitive Retraining, Functional Mobility, Group Exercise/Act as Ind, UE Funct Exercise/Act, UE Neuromus Re-Ed/Coord, W/C Jasmyn gement Training Treatment Duration: July 29, 2021 Frequency: At least 5 of 7 days/Wk (IRF) Estimated Hrs Per Day: 1.5 hours per day Agreement: Yes Rehab Potential: Fair Time/GCodes Start Time: 07:30 (1100) Stop Time: 08:00 (1200) Total Time Billed (hr/min): 90 Billed Treatment Time 1 visit ADL x2 2nd visit EX x2 (30 min) FA x2 (30 min) Samantha Valverde OT July 21, 2021 07:58
[2021-07-21] MEDS: hydrALAZINE (APRESOLINE) 25 MG TAB PO SCH ×3 (08:38→20:31)
[2021-07-21] MEDS: PHENAZOPYRIDINE 100 MG (PYRIDIUM) TABLET PO SCH ×3 (08:39→20:31)
[2021-07-21] MEDS: LOSARTAN 50 MG (COZAAR) TAB PO SCH (08:39)
[2021-07-21] MEDS: DOCUSATE SODIUM 100 MG (COLACE) CAP PO SCH ×2 (08:39→19:38)
[2021-07-21] MEDS: polyethylene glycoL POWDER 17 GM (MIRALAX) PACK PO SCH ×2 (08:39→19:39)
[2021-07-21] MEDS: SENNOSIDES 8.6 MG (SENOKOT) TAB PO SCH ×2 (08:39→20:33)
[2021-07-21] MEDS: amLODIPine 5 MG (NORVASC) TAB PO SCH ×2 (08:39→20:31)
--- NOTE | 2021-07-21 09:51 | Physical Therapy Daily Note ---
PT Daily Note-Current Subjective Patient was in chair upon entering and consented to treat. He had no new complaints. Pain Location: No Pain Reported Mental Status Patient Orientation: Person, Place, Situation Transfers SCALE: Activities may be completed with or without assistive devices. 0-Uoynpkecfb-wgbtnlg completes the activity by him/herself with no assistance from a helper. 5-Set-up or Clean-up Assistance-helper sets up or cleans up; patient completes activity. [place] assists only prior to or following the activity. 4-Supervision or Touching Assistance-helper provides verbal cues and/or touching/steadying and/or contact guard assistance as patient completes activity. Assistance may be provided throughout the activity or intermittently. 3-Partial/Moderate Assistance-helper does LESS THAN HALF the effort. [place] lifts, holds or supports trunk or limbs, but provides less than half the effort. 2-Substantial/Maximal Assistance-helper does MORE THAN HALF the effort. [place] lifts or holds trunk or limbs and provides more than half the effort. 8-Pofpvmbze-kuayuj does ALL the effort. Patient does none of the effort to complete the activity. Or, the assistance of 2 or more helpers is required for the patient to complete the activity. If activity was not attempted, code reason: 7-Patient Refused. 9-Not Applicable-not attempted and the patient did not perform the activity before the current illness, exacerbation or injury. 10-Not Attempted due to Environmental Limitations-(lack of equipment, weather restraints, etc.). 88-Not Attempted due to Medical Conditions or Safety Concerns. Roll Left & Right (QC): 6 Sit to Lying (QC): 6 Lying to Sitting/Side of Bed(Q: 6 (Has some diffiulty with mobilizing L LE.) Sit to Stand (QC): 4 (SBA) Chair/Qdy-pb-Mkmiy Xfer(QC): 4 (CGA) Toilet Transfer (QC): 4 (CGA) Car Transfer (QC): 4 (Needs extra time. CGA) Weight Bearing Right Lower Extremity: Right Full Weight Bearing Left Lower Extremity: Left Full Weight Bearing Gait Training Does the Patient Walk?: Yes Distance: 450', 75'x2, 50', 100' Walk 10 feet (QC): 4 (CGA) Walk 50 ft with 2 Turns(QC): 4 (CA) Walk 150 ft (QC): 4 (CGA) Walking 10ft/uneven surface-QC: 4 (CGA) Gait Assistive Device: Walker [place] Mix between step-through and step-to. BRADEN wrap on L foot wrapped in DF and slight eversion for better foot clearance. Weight shifting has been improving, and less instances of losing balance, though it still may occur. Wheelchair Training Does the Pt Use a Wheelchair?: No Wheel 50 ft with 2 turns (QC): 9 Wheel 150 ft (QC): 9 Stair Training Stair Training: Handrails/: 1 handrail #of Steps: 4 1 Step (curb) (QC): 4 ([place]ulu) 4 Steps (QC): 4 ([place]ulu) 12 Steps (QC): 88 Stairs: Pattern: Step to Unsteady on the way down, and had difficulty with foot placement. Balance Picking up an Object (QC): 4 (SBA) Special Test Comments Picked up object with grocery clerk marking. Patient also performed [place] Balance assesment = 15/28 indicating high risk of falls. Treatments Ambulation, Hurdles (2inch block). Patient cued to step over with L and R foot. Educated and practiced stepping onto curb (6inch) with assistive device (mod as sist due to LOB). Assessment Current Status: Good Progress Patients ambulation skill and balance has been improving. L Knee tends to hyperextend during stance. Patient has become more independent with all transfers. Patient can navigate stairs with [place] and is very unsteady, especially with descending. Trialled quad cane and single point cane. Patient had good balance with both canes, but was slower especially with SPC, and it seemed to increase knee hyperextension. Patient prefers use of hemiwalker over any assistive device. Patient was left in chair with call light, tray, and all needs met. PT Short Term Goals Short Term Goals Time Frame: Jul 08, 2021 Roll Left & Right: 4 Sit to lyin Lying to sitting on side of be: 4 Sit to stand: 3 Chair/qfu-kb-sibwx transfer: 3 Toilet transfer: 3 PT Long-Term Goals Rope Tier Goals PT Long-Term Goals Time Frame: July 22, 2021 Roll Left & Right (QC): 6 Sit to Lying (QC): 6 Lying-Sitting on Side/Bed(QC): 6 Sit to Stand (QC): 4 Chair/Uaq-vw-Pyewv Xfer(QC): 4 Toilet Transfer (QC): 4 Car Transfer (QC): 4 Does the Patient Walk: No and Walking Goal IS indicated Walk 10 feet (QC): 4 Walk 50ft with 2 Turns (QC): 88 Walk 150 ft (QC): 88 Walking 10ft on Uneven Surface: 88 1 Step (curb) (QC): 88 4 Steps (QC): 88 12 Steps (QC): 88 Picking up an Object (QC): 4 Does the Pt use WC or Scooter?: Yes Wheel 50 feet with 2 turns (QC: 6 Type: Manual Wheel 150 feet: 6 Type: Manual PT Plan Problem List Problem List: Activity Tolerance, Functional Strength, Safety, Balance, Gait, Transfer, Bed Mobility, ROM Treatment/Plan Treatment Plan: Continue Plan of Care Treatment Plan: Bed Mobility, Education, Functional Activity Shaun, Functional Strength, Group Therapy, Gait, Safety, Therapeutic Exercise, Transfers Treatment Duration: July 22, 2021 Frequency: At least 5 of 7 days/Wk (IRF) Estimated Hrs Per Day: 1.5 hours per day Patient and/or Family Agrees t: Yes Safety Risks/Education Patient Education: Gait Training, Transfer Techniques, Steps, Correct Posit ioning, Safety Issues Teaching Recipient: Patient Teaching Methods: Demonstration, Discussion Response to Teaching: Verbalize Understanding, Return Demonstration Time/GCodes Time In: 0900 Time Out: 1000 Total Billed Treatment Time: 60 Total Billed Treatment 1 visit FA 60min MICHAEL SOLER PT July 21, 2021 09:51
[2021-07-21] MEDS: ASPIRIN 81 MG CHEW (CHILDREN'S ASA) PO SCH (13:21)
[2021-07-21] MEDS: ENOXAPARIN 40 MG/0.4 ML (LOVENOX) SYR SC SCH (13:22)
[2021-07-21 13:28] VITALS: BP 134/75
--- NOTE | 2021-07-21 15:12 | Physical Therapy Daily Note ---
PT Daily Note-Current Subjective Patient was in bed upon entering, agreeable to treat with no new complaints. Pain Location: No Pain Reported Mental Status Patient Orientation: Person, Place, Time, Situation Transfers SCALE: Activities may be completed with or without assistive devices. 7-Krhscyavkz-avjasqr completes the activity by him/herself with no assistance from a helper. 5-Set-up or Clean-up Assistance-helper sets up or cleans up; patient completes activity. [place] assists only prior to or following the activity. 4-Supervision or Touching Assistance-helper provides verbal cues and/or touching/steadying and/or contact guard assistance as patient completes activity. Assistance may be provided throughout the activity or intermittently. 3-Partial/Moderate Assistance-helper does LESS THAN HALF the effort. [place] lifts, holds or supports trunk or limbs, but provides less than half the effort. 2-Substantial/Maximal Assistance-helper does MORE THAN HALF the effort. [place] lifts or holds trunk or limbs and provides more than half the effort. 1-Ksagkbxie-loxazb does ALL the effort. Patient does none of the effort to complete the activity. Or, the assistance of 2 or more helpers is required for the patient to complete the activity. If activity was not attempted, code reason: 7-Patient Refused. 9-Not Applicable-not attempted and the patient did not perform the activity before the current illness, exacerbation or injury. 10-Not Attempted due to Environmental Limitations-(lack of equipment, weather restraints, etc.). 88-Not Attempted due to Medical Conditions or Safety Concerns. Lying to Sitting/Side of Bed(Q: 4 Sit to Stand (QC): 4 Weight Bearing Right Lower Extremity: Right Full Weight Bearing Left Lower Extremity: Left Full Weight Bearing Gait Training Does the Patient Walk?: Yes Distance: 400', 100' Walk 10 feet (QC): 4 Walk 50 ft with 2 Turns(QC): 4 Walk 150 ft (QC): 4 Gait Assistive Device: Walker Tunde BRADEN wrap on L foot to prevent foot drop. L arm sling. step through pattern. L knee hyperextends during stance. Exercises Standing: Step-ups (with left leg. knee blocked to prevent hyperextension) Standing Reps: 30 Treatments LE ambulation, LE strengthening. Assessment Current Status: Good Progress Patient continues to ambulate well, balance and normal gait pattern seem to slowly progress. Patient has less instances of loss of balance, but still is unsteady at times, especially with turns and tight spaces. PT Short Term Goals Short Term Goals Time Frame: Jul 08, 2021 Roll Left & Right: 4 Sit to lyin Lying to sitting on side of be: 4 Sit to stand: 3 Chair/ftk-rl-elnoc transfer: 3 Toilet transfer: 3 PT Terminal Supervisor Goals Terminal Supervisor Goals PT Detention Goals Time Frame: July 22, 2021 Roll Left & Right (QC): 6 Sit to Lying (QC): 6 Lying-Sitting on Side/Bed(QC): 6 Sit to Stand (QC): 4 Chair/Ycj-zf-Befkq Xfer(QC): 4 Toilet Transfer (QC): 4 Car Transfer (QC): 4 Does the Patient Walk: No and Walking Goal IS indicated Walk 10 feet (QC): 4 Walk 50ft with 2 Turns (QC): 88 Walk 150 ft (QC): 88 Walking 10ft on Uneven Surface: 88 1 Step (curb) (QC): 88 4 Steps (QC): 88 12 Steps (QC): 88 Picking up an Object (QC): 4 Does the Pt use WC or Scooter?: Yes Wheel 50 feet with 2 turns (QC: 6 Type: Manual Wheel 150 feet: 6 Type: Manual PT Plan Problem List Problem List: Activity Tolerance, Functional Strength, Safety, Balance, Gait, Transfer, Bed Mobility, ROM Treatment/Plan Treatment Plan: Continue Plan of Care Treatment Plan: Bed Mobility, Education, Functional Activity Shaun, Functional Strength, Group Therapy, Gait, Safety, Therapeutic Exercise, Transfers Treatment Duration: July 22, 2021 Frequency: At least 5 of 7 days/Wk (IRF) Estimated Hrs Per Day: 1.5 hours per day Patient and/or Family Agrees t: Yes Safety Risks/Education Patient Education: Gait Training, Transfer Techniques, Correct Positioning, Safety Issues Teaching Recipient: Patient Teaching Methods: Demonstration, Discussion Response to Teaching: Verbalize Understanding, Return Demonstration Time/GCodes Time In: 1430 Time Out: 1500 Total Billed Treatment Time: 30 Total Billed Treatment 1 visit GT 20 min EX 10 min MICHAEL SOLER PT July 21, 2021 15:12
[2021-07-21 19:53] VITALS: BP 138/81
[2021-07-22] MEDS ORDERED: LOSA50TA63 PO (06:18)
[2021-07-22] MEDS ORDERED: ASPI81TA64 PO (06:18)
[2021-07-22] MEDS ORDERED: CLON1PAT33 TD (06:18)
[2021-07-22] MEDS ORDERED: ATOR80TA76 PO (06:18)
[2021-07-22] MEDS ORDERED: GLBR2.5T PO (06:18)
[2021-07-22] MEDS ORDERED: AMLO-250 PO (06:18)
[2021-07-22] MEDS ORDERED: HYDR-3923 PO (06:18)
--- NOTE | 2021-07-22 06:18 | Discharge Summary ---
Diagnosis/Chief Complaint Date of Admission Jul 01, 2021 at 13:40 Date of Discharge Discharge Date: July 22, 2021 Discharge Diagnosis Assessment: CVA with left-sided weakness catastrophic type Hypertension severe Hyperlipidemia Hyperglyceridemia Obesity BMI 30 New onset diabetes hemoglobin A1c 9.7 Smoker Plan: Inpatient rehab protocol Supportive care Insulin Blood pressure management 07/02/2021: Increase blood pressure meds Supportive care 07/03/21: DC catheter 07/04/2021: Aggressive therapy 07/05/2021: Supportive care Blood sugar blood pressure improved 07/06/21: BP improved Monitor closely 07/07/2021: Blood pressure improved Blood sugar improved 07/08/2021: Patient doing well Check UA 07/09/2021: Await urine culture Continue antibiotics 07/10/21: UCx NGTD DC abx 07/11/2021: Supportive care Monitor closely 07/12/21: Supportive care Monitor closely 07/13/2021: Supportive care Monitor closely 07/14/2021: Supportive care Monitor sugar 07/15/2021: Noncompliance with diabetic diet 07/16/2021: Impressive improvement Supportive care 07/17/2021: Compliance with diet counseling 07/18/2021: Diabetic education 07/19/2021: Increase oral hypoglycemic dose 07/20/2021: Supportive care 07/21/2021: Discharge tomorrow (1) CVA (cerebral vascular accident) Status: Acute Discharge Summary Discharge Physical Examination Allergies: Coded Allergies: No Known Drug Allergies (Unverified , 06/29/21) Vitals & I&Os Vital Signs Date Time Temp Pulse Resp B/P (MAP) Pulse Ox O2 Delivery O2 Flow Rate FiO2 07/22/21 11:45 36.7 77 14 132/83 94 Room Air General Appearance: Alert, Oriented X3, Cooperative Respiratory: Clear to Auscultation Cardiovascular: Regular Rate Psych/Mental Status: Mental Status NL Hospital Course Was the Problem List Reviewed?: Yes Pt had a lengthy hospital course for 22 days after he was admitted for sonu strophic CVA with left sided weakness. Diabetes was managed with oral hypoglycemic agent, although dietary compliance was not maintained. Hypertension was managed on blood pressure medication. Overall he did very well and will be discharged on Aspirin and Statin. Initiate outpatient therapy once it is arranged. Labs (last 24 hrs) Laboratory Tests 07/01/21 13:40: Lab Scanned Report Referred Lab Report 07/01/21 16:01: Glucometer 182H 07/01/21 20:10: Glucometer 181H 07/02/21 05:38: White Blood Count 9.8, Red Blood Count 5.45, Hemoglobin 14.4, Hematocrit 44, Mean Corpuscular Volume 80, Mean Corpuscular Hemoglobin 26, Mean Corpuscular Hemoglobin Concent 33, Red Cell Distribution Width 14.9H, Platelet Count 283, Mean Platelet Volume 9.7, Immature Granulocyte % (Auto) 1, Neutrophils (%) (Auto) 61, Lymphocytes (%) (Auto) 28, Monocytes (%) (Auto) 6, Eosinophils (%) (Auto) 4, Basophils (%) (Auto) 0, Neutrophils # (Auto) 5.9, Lymphocytes # (Auto) 2.8, Monocytes # (Auto) 0.6, Eosinophils # (Auto) 0.4H, Basophils # (Auto) 0.0, Immature Granulocyte # (Auto) 0.1, Sodium Level 138, Potassium Level 3.8, Chloride Level 107, Carbon Dioxide Level 19L, Anion Gap 12, Blood Urea Nitrogen 14, Creatinine 0.72, Estimat Glomerular Filtration Rate 115, BUN/Creatinine Ratio 19, Glucose Level 120H, Calcium Level 9.4, Corrected Calcium 9.4, Total Bilirubin 0.9, Aspartate Amino Transf (AST/SGOT) 17, Alanine Aminotransferase (ALT/SGPT) 27, Alkaline Phosphatase 101, Total Protein 6.6, Albumin 4.0 07/02/21 10:52: Glucometer 137H 07/02/21 16:16: Glucometer 233H 07/02/21 20:43: Glucometer 212H 07/03/21 05:55: Glucometer 131H 07/03/21 11:06: Glucometer 101 07/03/21 15:15: Glucometer 196H 07/03/21 20:15: Glucometer 164H 07/04/21 05:30: Glucometer 153H 07/04/21 10:49: Glucometer 94 07/04/21 15:29: Glucometer 172H 07/04/21 20:41: Glucometer 246H 07/05/21 05:38: Glucometer 191H 07/05/21 10:45: Glucometer 89 07/05/21 15:48: Glucometer 212H 07/05/21 20:19: Glucometer 192H 07/06/21 05:35: White Blood Count 8.7, Red Blood Count 5.67H, Hemoglobin 15.0, Hematocrit 46, Mean Corpuscular Volume 81, Mean Corpuscular Hemoglobin 27, Mean Corpuscular Hemoglobin Concent 33, Red Cell Distribution Width 14.6H, Platelet Count 304, Mean Platelet Volume 9.4, Immature Granulocyte % (Auto) 0, Neutrophils (%) (Auto) 49, Lymphocytes (%) (Auto) 36, Monocytes (%) (Auto) 7, Eosinophils (%) (Auto) 7, Basophils (%) (Auto) 1, Neutrophils # (Auto) 4.3, Lymphocytes # (Auto) 3.1, Monocytes # (Auto) 0.6, Eosinophils # (Auto) 0.6H, Basophils # (Auto) 0.0, Immature Granulocyte # (Auto) 0.0, Sodium Level 138, Potassium Level 4.1, Chloride Level 107, Carbon Dioxide Level 19L, Anion Gap 12, Blood Urea Nitrogen 17, Creatinine 0.74, Estimat Glomerular Filtration Rate 114, BUN/Creatinine Ratio 23, Glucose Level 153H, Calcium Level 9.4, Corrected Calcium 9.4, Total Bilirubin 0.6, Aspartate Amino Transf (AST/SGOT) 32, Alanine Aminotransferase (ALT/SGPT) 50, Alkaline Phosphatase 110, Total Protein 6.8, Albumin 4.0 07/06/21 10:57: Glucometer 132H 07/06/21 15:18: Glucometer 201H 07/06/21 20:05: Glucometer 257H 07/07/21 05:22: Glucometer 139H 07/07/21 10:27: Glucometer 178H 07/07/21 15:13: Glucometer 182H 07/07/21 20:26: Glucometer 239H 07/08/21 05:20: Glucometer 213H 07/08/21 11:20: Glucometer 149H 07/08/21 15:00: Urine Color YELLOW, Urine Clarity CLEAR, Urine pH 6.5, Urine Specific [place] 1.020, Urine Protein NEGATIVE, Urine Glucose (UA) 3+H, Urine Ketones TRACEH, Urine Nitrite NEGATIVE, Urine Bilirubin NEGATIVE, Urine Urobilinogen 0.2, Urine Leukocyte Esterase NEGATIVE, Urine RBC (Auto) NEGATIVE, Urine RBC NONE, Urine WBC 2-5, Urine Squamous Epithelial Cells 0-2, Urine Renal Epithelial Cells NONE, Urine Crystals NONE, Urine Bacteria LARGEH, Urine Casts NONE, Urine Mucus NEGATIVE, Urine Culture Indicated CULTURE PENDING 07/08/21 16:16: Glucometer 216H 07/08/21 20:36: Glucometer 278H 07/09/21 05:53: Glucometer 189H 07/09/21 11:07: Glucometer 138H 07/09/21 16:17: Glucometer 267H 07/09/21 20:37: Glucometer 179H 07/10/21 05:50: Glucometer 152H 07/10/21 12:01: Glucometer 196H 07/10/21 16:59: Glucometer 111H 07/10/21 21:48: Glucometer 282H 07/11/21 05:17: Glucometer 119H 07/11/21 10:52: Glucometer 148H 07/11/21 15:15: Glucometer 303H 07/11/21 20:04: Glucometer 260H 07/12/21 06:43: Glucometer 153H 07/12/21 10:45: Glucometer 213H 07/12/21 15:22: Glucometer 231H 07/12/21 20:47: Glucometer 263H 07/13/21 05:56: White Blood Count 8.8, Red Blood Count 5.70H, Hemoglobin 15.0, Hematocrit 46, Mean Corpuscular Volume 81, Mean Corpuscular Hemoglobin 26, Mean Corpuscular Hemoglobin Concent 33, Red Cell Distribution Width 14.3, Platelet Count 304, Mean Platelet Volume 9.3, Immature Granulocyte % (Auto) 1, Neutrophils (%) (Auto) 46, Lymphocytes (%) (Auto) 40, Monocytes (%) (Auto) 6, Eosinophils (%) (Auto) 7, Basophils (%) (Auto) 1, Neutrophils # (Auto) 4.1, Lymphocytes # (Auto) 3.5, Monocytes # (Auto) 0.5, Eosinophils # (Auto) 0.6H, Basophils # (Auto) 0.1, Immature Granulocyte # (Auto) 0.0, Sodium Level 138, Potassium Level 3.9, Chloride Level 107, Carbon Dioxide Level 21, Anion Gap 10, Blood Urea Nitrogen 14, Creatinine 0.67, Estimat Glomerular Filtration Rate 117, BUN/Creatinine Ratio 21, Glucose Level 157H, Calcium Level 9.2, Corrected Calcium 9.1, Total Bilirubin 0.6, Aspartate Amino Transf (AST/SGOT) 35H, Alanine Aminotransferase (ALT/SGPT) 88H, Alkaline Phosphatase 106, Total Protein 6.7, Albumin 4.1 07/13/21 10:50: Glucometer 292H 07/13/21 17:09: Glucometer 320H 07/13/21 20:29: Glucometer 338H 07/14/21 06:01: Glucometer 171H 07/14/21 10:55: Glucometer 213H 07/14/21 15:25: Glucometer 250H 07/14/21 20:09: Glucometer 284H 07/15/21 05:52: Glucometer 164H 07/15/21 10:46: Glucometer 204H 07/15/21 16:03: Glucometer 371H 07/15/21 20:25: Glucometer 324H 07/16/21 05:54: Glucometer 191H 07/16/21 10:43: Glucometer 192H 07/16/21 15:42: Glucometer 223H 07/16/21 20:44: Glucometer 251H 07/17/21 05:30: Glucometer 217H 07/17/21 10:50: Glucometer 218H 07/17/21 15:16: Glucometer 268H 07/17/21 20:38: Glucometer 322H 07/18/21 05:41: Glucometer 196H 07/18/21 11:16: Glucometer 254H 07/18/21 15:51: Glucometer 215H 07/18/21 20:26: Glucometer 206H 07/19/21 05:10: Glucometer 197H 07/19/21 11:06: Glucometer 202H 07/19/21 20:46: Glucometer 221H 07/20/21 05:58: Glucometer 146H 07/20/21 06:52: White Blood Count 10.5, Red Blood Count 5.30, Hemoglobin 13.8, Hematocrit 43, Mean Corpuscular Volume 81, Mean Corpuscular Hemoglobin 26, Mean Corpuscular Hemoglobin Concent 32, Red Cell Distribution Width 14.4, Platelet Count 292, Mean Platelet Volume 9.3, Immature Granulocyte % (Auto) 1, Neutrophils (%) (Auto) 60, Lymphocytes (%) (Auto) 28, Monocytes (%) (Auto) 5, Eosinophils (%) (Auto) 5, Basophils (%) (Auto) 1, Neutrophils # (Auto) 6.4, Lymphocytes # (Auto) 3.0, Monocytes # (Auto) 0.6, Eosinophils # (Auto) 0.6H, Basophils # (Auto) 0.1, Immature Granulocyte # (Auto) 0.1, Sodium Level 139, Potassium Level 3.9, Chloride Level 107, Carbon Dioxide Level 21, Anion Gap 11, Blood Urea Nitrogen 13, Creatinine 0.68, Estimat Glomerular Filtration Rate 116, BUN/Creatinine Ratio 19, Glucose Level 136H, Calcium Level 9.5, Corrected Calcium 9.7, Total Bilirubin 0.8, Aspartate Amino Transf (AST/SGOT) 23, Alanine Aminotransferase (ALT/SGPT) 64H, Alkaline Phosphatase 104, Total Protein 6.6, Albumin 3.8 07/20/21 11:49: Glucometer 188H 07/20/21 15:23: Glucometer 262H 07/20/21 20:10: Glucometer 242H 07/21/21 05:29: Glucometer 221H 07/21/21 10:49: Glucometer 173H 07/21/21 15:12: Glucometer 243H 07/21/21 20:07: Glucometer 229H 07/22/21 05:30: Glucometer 158H 07/22/21 10:48: Glucometer 182H Microbiology 07/08/21 Urine Culture - Final, Complete NO GROWTH Pending Labs Microbiology Date/Time Source Procedure Growth Status 07/08/21 15:00 Urine Straight Cath, In/Out Urine Culture - Final NO GROWTH Complete Laboratory Tests 07/01/21 13:40: Lab Scanned Report Referred Lab Report 07/01/21 16:01: Glucometer 182 07/01/21 20:10: Glucometer 181 07/02/21 05:38: White Blood Count 9.8, Red Blood Count 5.45, Hemoglobin 14.4, Hematocrit 44, Mean Corpuscular Volume 80, Mean Corpuscular Hemoglobin 26, Mean Corpuscular Hemoglobin Concent 33, Red Cell Distribution Width 14.9, Platelet Count 283, Mean Platelet Volume 9.7, Immature Granulocyte % (Auto) 1, Neutrophils (%) (Auto) 61, Lymphocytes (%) (Auto) 28, Monocytes (%) (Auto) 6, Eosinophils (%) (Auto) 4, Basophils (%) (Auto) 0, Neutrophils # (Auto) 5.9, Lymphocytes # (Auto) 2.8, Monocytes # (Auto) 0.6, Eosinophils # (Auto) 0.4, Basophils # (Auto) 0.0, Immature Granulocyte # (Auto) 0.1, Sodium Level 138, Potassium Level 3.8, Chloride Level 107, Carbon Dioxide Level 19, Anion Gap 12, Blood Urea Nitrogen 14, Creatinine 0.72, Estimat Glomerular Filtration Rate 115, BUN/Creatinine Ratio 19, Glucose Level 120, Calcium Level 9.4, Corrected Calcium 9.4, Total Bilirubin 0.9, Aspartate Amino Transf (AST/SGOT) 17, Alanine Aminotransferase (ALT/SGPT) 27, Alkaline Phosphatase 101, Total Protein 6.6, Albumin 4.0 07/02/21 10:52: Glucometer 137 07/02/21 16:16: Glucometer 233 07/02/21 20:43: Glucometer 212 07/03/21 05:55: Glucometer 131 07/03/21 11:06: Glucometer 101 07/03/21 15:15: Glucometer 196 07/03/21 20:15: Glucometer 164 07/04/21 05:30: Glucometer 153 07/04/21 10:49: Glucometer 94 07/04/21 15:29: Glucometer 172 07/04/21 20:41: Glucometer 246 07/05/21 05:38: Glucometer 191 07/05/21 10:45: Glucometer 89 07/05/21 15:48: Glucometer 212 07/05/21 20:19: Glucometer 192 07/06/21 05:35: White Blood Count 8.7, Red Blood Count 5.67, Hemoglobin 15.0, Hematocrit 46, Ceci n Corpuscular Volume 81, Mean Corpuscular Hemoglobin 27, Mean Corpuscular Hemoglobin Concent 33, Red Cell Distribution Width 14.6, Platelet Count 304, Mean Platelet Volume 9.4, Immature Granulocyte % (Auto) 0, Neutrophils (%) (Auto) 49, Lymphocytes (%) (Auto) 36, Monocytes (%) (Auto) 7, Eosinophils (%) (Auto) 7, Basophils (%) (Auto) 1, Neutrophils # (Auto) 4.3, Lymphocytes # (Auto) 3.1, Monocytes # (Auto) 0.6, Eosinophils # (Auto) 0.6, Basophils # (Auto) 0.0, Immature Granulocyte # (Auto) 0.0, Sodium Level 138, Potassium Level 4.1, Chloride Level 107, Carbon Dioxide Level 19, Anion Gap 12, Blood Urea Nitrogen 17, Creatinine 0.74, Estimat Glomerular Filtration Rate 114, BUN/Creatinine Ratio 23, Glucose Level 153, Calcium Level 9.4, Corrected Calcium 9.4, Total Bilirubin 0.6, Aspartate Amino Transf (AST/SGOT) 32, Alanine Aminotransferase (ALT/SGPT) 50, Alkaline Phosphatase 110, Total Protein 6.8, Albumin 4.0 07/06/21 10:57: Glucometer 132 07/06/21 15:18: Glucometer 201 07/06/21 20:05: Glucometer 257 07/07/21 05:22: Glucometer 139 07/07/21 10:27: Glucometer 178 07/07/21 15:13: Glucometer 182 07/07/21 20:26: Glucometer 239 07/08/21 05:20: Glucometer 213 07/08/21 11:20: Glucometer 149 07/08/21 15:00: Urine Color YELLOW, Urine Clarity CLEAR, Urine pH 6.5, Urine Specific [place] 1.020, Urine Protein NEGATIVE, Urine Glucose (UA) 3+, Urine Ketones TRACE, Urine Nitrite NEGATIVE, Urine Bilirubin NEGATIVE, Urine Urobilinogen 0.2, Urine Leukocyte Esterase NEGATIVE, Urine RBC (Auto) NEGATIVE, Urine RBC NONE, Urine WBC 2-5, Urine Squamous Epithelial Cells 0-2, Urine Renal Epithelial Cells NONE, Urine Crystals NONE, Urine Bacteria LARGE, Urine Casts NONE, Urine Mucus NEGATIVE, Urine Culture Indicated CULTURE PENDING 07/08/21 16:16: Glucometer 216 07/08/21 20:36: Glucometer 278 07/09/21 05:53: Glucometer 189 07/09/21 11:07: Glucometer 138 07/09/21 16:17: Glucometer 267 07/09/21 20:37: Glucometer 179 07/10/21 05:50: Glucometer 152 07/10/21 12:01: Glucometer 196 07/10/21 16:59: Glucometer 111 07/10/21 21:48: Glucometer 282 07/11/21 05:17: Glucometer 119 07/11/21 10:52: Glucometer 148 07/11/21 15:15: Glucometer 303 07/11/21 20:04: Glucometer 260 07/12/21 06:43: Glucometer 153 07/12/21 10:45: Glucometer 213 07/12/21 15:22: Glucometer 231 07/12/21 20:47: Glucometer 263 07/13/21 05:56: White Blood Count 8.8, Red Blood Count 5.70, Hemoglobin 15.0, Hematocrit 46, Mean Corpuscular Volume 81, Mean Corpuscular Hemoglobin 26, Mean Corpuscular Hemoglobin Concent 33, Red Cell Distribution Width 14.3, Platelet Count 304, Mean Platelet Volume 9.3, Immature Granulocyte % (Auto) 1, Neutrophils (%) (Auto) 46, Lymphocytes (%) (Auto) 40, Monocytes (%) (Auto) 6, Eosinophils (%) (Auto) 7, Basophils (%) (Auto) 1, Neutrophils # (Auto) 4.1, Lymphocytes # (Auto) 3.5, Monocytes # (Auto) 0.5, Eosinophils # (Auto) 0.6, Basophils # (Auto) 0.1, Immature Granulocyte # (Auto) 0.0, Sodium Level 138, Potassium Level 3.9, Chloride Level 107, Carbon Dioxide Level 21, Anion Gap 10, Blood Urea Nitrogen 14, Creatinine 0.67, Estimat Glomerular Filtration Rate 117, BUN/Creatinine Ratio 21, Glucose Level 157, Calcium Level 9.2, Corrected Calcium 9.1, Total Bilirubin 0.6, Aspartate Amino Transf (AST/SGOT) 35, Alanine Aminotransferase (ALT/SGPT) 88, Alkaline Phosphatase 106, Total Protein 6.7, Albumin 4.1 07/13/21 10:50: Glucometer 292 07/13/21 17:09: Glucometer 320 07/13/21 20:29: Glucometer 338 07/14/21 06:01: Glucometer 171 07/14/21 10:55: Glucometer 213 07/14/21 15:25: Glucometer 250 07/14/21 20:09: Glucometer 284 07/15/21 05:52: Glucometer 164 07/15/21 10:46: Glucometer 204 07/15/21 16:03: Glucometer 371 07/15/21 20:25: Glucometer 324 07/16/21 05:54: Glucometer 191 07/16/21 10:43: Glucometer 192 07/16/21 15:42: Glucometer 223 07/16/21 20:44: Glucometer 251 07/17/21 05:30: Glucometer 217 07/17/21 10:50: Glucometer 218 07/17/21 15:16: Glucometer 268 07/17/21 20:38: Glucometer 322 07/18/21 05:41: Glucometer 196 07/18/21 11:16: Glucometer 254 07/18/21 15:51: Glucometer 215 07/18/21 20:26: Glucometer 206 07/19/21 05:10: Glucometer 197 07/19/21 11:06: Glucometer 202 07/19/21 20:46: Glucometer 221 07/20/21 05:58: Glucometer 146 07/20/21 06:52: White Blood Count 10.5, Red Blood Count 5.30, Hemoglobin 13.8, Hematocrit 43, Mean Corpuscular Volume 81, Mean Corpuscular Hemoglobin 26, Mean Corpuscular Hemoglobin Concent 32, Red Cell Distribution Width 14.4, Platelet Count 292, Mean Platelet Volume 9.3, Immature Granulocyte % (Auto) 1, Neutrophils (%) (Auto) 60, Lymphocytes (%) (Auto) 28, Monocytes (%) (Auto) 5, Eosinophils (%) (Auto) 5, Basophils (%) (Auto) 1, Neutrophils # (Auto) 6.4, Lymphocytes # (Auto) 3.0, Monocytes # (Auto) 0.6, Eosinophils # (Auto) 0.6, Basophils # (Auto) 0.1, Immature Granulocyte # (Auto) 0.1, Sodium Level 139, Potassium Level 3.9, Ch loride Level 107, Carbon Dioxide Level 21, Anion Gap 11, Blood Urea Nitrogen 13, Creatinine 0.68, Estimat Glomerular Filtration Rate 116, BUN/Creatinine Ratio 19, Glucose Level 136, Calcium Level 9.5, Corrected Calcium 9.7, Total Bilirubin 0.8, Aspartate Amino Transf (AST/SGOT) 23, Alanine Aminotransferase (ALT/SGPT) 64, Alkaline Phosphatase 104, Total Protein 6.6, Albumin 3.8 07/20/21 11:49: Glucometer 188 07/20/21 15:23: Glucometer 262 07/20/21 20:10: Glucometer 242 07/21/21 05:29: Glucometer 221 07/21/21 10:49: Glucometer 173 07/21/21 15:12: Glucometer 243 07/21/21 20:07: Glucometer 229 07/22/21 05:30: Glucometer 158 07/22/21 10:48: Glucometer 182 Discharge Home Medications: Active Scripts Active Glyburide 2.5 Mg Tablet 5 Mg PO BIDAC Losartan Potassium 50 Mg Tablet 50 Mg PO DAILY Amlodipine Besylate 5 Mg Tablet 5 Mg PO BID Hydralazine HCl 25 Mg Tablet 50 Mg PO TID Clonidine TTS 1 Patch (Clonidine) 0.1 Mg/24 Hour Patch.tdwk 0.1 Mg TD Q7D@09 Children's Aspirin (Aspirin) 81 Mg Tab.chew 81 Mg PO DAILY@1400 Atorvastatin Calcium 80 Mg Tablet 80 Mg PO DAILY Instructions to patient/family Please see electronic discharge instructions given to patient. Diagnosis/Problems Diagnosis/Problems (1) CVA (cerebral vascular accident) Status: Acute TITUS KENT DO July 22, 2021 06:18
[2021-07-22] MEDS: inSUlin ASPART (NovoLOG) 1 UNIT/0.01 ML (CHARGE PER UNIT) SC SCH ×2 (06:39→11:24)
[2021-07-22] MEDS: glyBURIDE 2.5 MG (MICRONASE) TAB PO SCH (06:56)
[2021-07-22 07:32] VITALS: BP 132/83
[2021-07-22] MEDS: polyethylene glycoL POWDER 17 GM (MIRALAX) PACK PO SCH (08:10)
[2021-07-22] MEDS: SENNOSIDES 8.6 MG (SENOKOT) TAB PO SCH (08:10)
[2021-07-22] MEDS: PHENAZOPYRIDINE 100 MG (PYRIDIUM) TABLET PO SCH (08:11)
[2021-07-22] MEDS: hydrALAZINE (APRESOLINE) 25 MG TAB PO SCH (08:11)
[2021-07-22] MEDS: amLODIPine 5 MG (NORVASC) TAB PO SCH (08:11)
[2021-07-22] MEDS: LOSARTAN 50 MG (COZAAR) TAB PO SCH (08:11)
[2021-07-22] MEDS: DOCUSATE SODIUM 100 MG (COLACE) CAP PO SCH (08:11)
[2021-07-22] MEDS: cloNIDine 0.1 MG PATCH (CATAPRES TTS) TDSY TD SCH (08:12)
[2021-07-22] MEDS: CLONIDINE PATCH REMOVAL TP SCH (08:13)
--- NOTE | 2021-07-22 08:34 | Therapy Team Discharge Summary ---
Therapy Discharge Summary Discharge Recommendations Date of Discharge Physical Therapy Patient came to rehab post CVA. Upon evaluation patient performed rolling and supine <-> sit with min assist, max assist with sit <-> stand and transfers, and propelled a manual WC 400' with SBA. Patient has been performing bed mobility and transfer training, balance and endurance training, functional strengthening, stair training, gait training, and education. Patient has made good progress and has met all of his [facility] goals. Now, patient performs rolling and supine <-> sit with independence, sit <-> stand SBA, transfers and car transfer CGA, ambulates 450' with CGA and a hemiwalker and ankle wrap (including 50' with at least 2 turns of 90 degrees and 10' over an uneven surface), can go up and down 4 steps using 1 handrail with min assist, and can curing pickling packer an object from the floor using a gun fitter with SBA. Patient is being discharged from this facility today and will be discharged from PT at this time. Roll Left to Right (QC): 6 Sit to Lying (QC): 6 Lying to Sitting/Side of Bed(Q: 4 Sit to Stand (QC): 4 Chair/Ehu-ed-Wiijl Xfer(QC): 4 (CGA) Toilet Transfer (QC): 3 Car Transfer (QC): 4 (Needs extra time. CGA) Does the Patient Walk: Yes Mode of Locomotion: Wheelchair Anticipated Mode of Locomotion: Both Walk 10 feet (QC): 4 Walk 50 ft with 2 Turns(QC): 4 Walk 150 ft (QC): 4 Walking 10ft on uneven surface: 4 (CGA) Gait Assistive Device: Walker Tunde Does the Pt Use a Wheelchair: No Wheel 50 ft with 2 turns (QC): 9 Wheel 150 ft (QC): 9 Type of Wheelchair: Manual #of Steps: 4 1 Step (curb) (QC): 4 (Mulu) 4 Steps (QC): 4 (Mulu) 12 Steps (QC): 88 Balance Sitting Static: Poor Balance Sitting Dynamic: Poor Balance-Standing Static: Poor Picking up an Object (QC): 4 (SBA) Occupational Therapy Decreased Activ Tolerance, Decreased Safety Aware, Decreased UE Strength, Impaired Coordination, Impaired Funct Balance, Impaired I ADL's, Impaired Self- Care Skills, Restricted Funct UE ROM Eating (QC): 5 Oral Hygiene (QC): 6 Shower/Bathe Self (QC): 3 Upper Body Dressing (QC): 5 Lower Body Dressing (QC): 4 On/Off Footwear (QC): 3 Toileting Hygiene (QC): 6 PT Precision Honing Machine Operator Goals Precision Honing Machine Operator Goals PT Precision Honing Machine Operator Goals Time Frame: July 22, 2021 Roll Left to Right (QC): 6 Sit to Lying (QC): 6 Lying-Sitting on Side/Bed(QC): 6 Sit to Stand (QC): 4 Chair/Axy-cz-Nsqsk Xfer(QC): 4 Car Transfer (QC): 4 Does the Patient Walk: No and Walking Goal IS indicated Walk 10 feet (QC): 4 Walk 10ft-Uneven Surface(QC): 88 Walk 50ft with 2 Turns (QC): 88 Walk 150 ft (QC): 88 Does the Pt use WC or Scooter?: Yes Wheel 50 feet with 2 turns (QC: 6 1 Step (curb) (QC): 88 4 Steps (QC): 88 12 Steps (QC): 88 Picking up an Object (QC): 4 OT Precision Honing Machine Operator Goals Precision Honing Machine Operator Goals Time Frame: July 29, 2021 Eating (QC): 6 Oral Hygiene (QC): 6 (met) Shower/Bathe Self (QC): 5 Upper Body Dressing (QC): 5 (met) Lower Body Dressing (QC): 5 On/Off Footwear (QC): 5 Toileting Hygiene (QC): 6 (met) Toilet/Commode Transfer (QC): 4 1=Demonstrate adherence to instructed precautions during ADL tasks. 2=Patient will verbalize/demonstrate understanding of assistive de vices/modifications for ADL. 3=Patient will improve strength/tolerance for activity to enable patient to perform ADL's. Speech Chcf Goals Chcf Goals 1. The patient will demonstrated increased intelligibility (per family members) throughout informal conversation. MET 2. The patient will tolerate the least restrictive diet without s/s of suspected aspiration. MET Time Frame: Two Weeks. MICHAEL SOLER PT July 22, 2021 08:34
[2021-07-22 11:45] VITALS: BP 132/83
--- NOTE | 2021-07-23 13:10 | Therapy Team Discharge Summary ---
Therapy Discharge Summary Discharge Recommendations Date of Discharge July 22, 2021 at 11:45 Therapy D/C Recommendations: Home w/ Family Support, Occupational Therapy Home Care Physical Therapy Roll Left to Right (QC): 6 Sit to Lying (QC): 6 Lying to Sitting/Side of Bed(Q: 4 Sit to Stand (QC): 4 Chair/Zof-ea-Oqiaf Xfer(QC): 4 (CGA) Toilet Transfer (QC): 3 Car Transfer (QC): 4 (Needs extra time. CGA) Does the Patient Walk: Yes Mode of Locomotion: Wheelchair Anticipated Mode of Locomotion: Both Walk 10 feet (QC): 4 Walk 50 ft with 2 Turns(QC): 4 Walk 150 ft (QC): 4 Walking 10ft on uneven surface: 4 (CGA) Gait Assistive Device: Walker Tunde Does the Pt Use a Wheelchair: No Wheel 50 ft with 2 turns (QC): 9 Wheel 150 ft (QC): 9 Type of Wheelchair: N/A #of Steps: 4 1 Step (curb) (QC): 4 (Mulu) 4 Steps (QC): 4 (Mulu) 12 Steps (QC): 88 Balance Sitting Static: Poor Balance Sitting Dynamic: Poor Balance-Standing Static: Poor Picking up an Object (QC): 4 (SBA) Occupational Therapy Pt arrived to [facility] s/p CVA. At time of evaluation, he was dependent for lower body dressing, bathing, and toileting, mod a for upper body dressing, footwear, and oral care, and sba for eating. During pt's rehab stay, OT focused on UE ROM, strength, endurance, balance, tunde techniques, safety, sequencing, FM coordination, motor planning/processing, and cognition in order to improve performance and independence with adls and functional mobility. Pt made good progress but did not meet all of his terminologist goals secondary to impulsivity and slow return of active movement in LUE. See below for current levels of assist. Pt has now discharged from this facility and will be discharged from OT at this time. Decreased Activ Tolerance, Decreased Safety Aware, Decreased UE Strength, Impaired Coordination, Impaired Funct Balance, Impaired I ADL's, Impaired Self- Care Skills, Restricted Funct UE ROM Eating (QC): 5 Oral Hygiene (QC): 6 Shower/Bathe Self (QC): 3 Upper Body Dressing (QC): 5 Lower Body Dressing (QC): 4 On/Off Footwear (QC): 3 Toileting Hygiene (QC): 6 PT Pediatric Occupational Therapist Goals Residential Goals PT Pediatric Occupational Therapist Goals Time Frame: July 22, 2021 Roll Left to Right (QC): 6 Sit to Lying (QC): 6 Lying-Sitting on Side/Bed(QC): 6 Sit to Stand (QC): 4 Chair/Kle-ag-Unnkk Xfer(QC): 4 Car Transfer (QC): 4 Does the Patient Walk: No and Walking Goal IS indicated Walk 10 feet (QC): 4 Walk 10ft-Uneven Surface(QC): 88 Walk 50ft with 2 Turns (QC): 88 Walk 150 ft (QC): 88 Does the Pt use WC or Scooter?: Yes Wheel 50 feet with 2 turns (QC: 6 1 Step (curb) (QC): 88 4 Steps (QC): 88 12 Steps (QC): 88 Picking up an Object (QC): 4 OT Residential Goals Residential Goals Time Frame: July 29, 2021 Eating (QC): 6 (set up) Oral Hygiene (QC): 6 (met) Shower/Bathe Self (QC): 5 (not met, min a) Upper Body Dressing (QC): 5 (met) Lower Body Dressing (QC): 5 (not met, SBA) On/Off Footwear (QC): 5 (not met, min) Toileting Hygiene (QC): 6 (met) Toilet/Commode Transfer (QC): 4 (met) 1=Demonstrate adherence to instructed precautions during ADL tasks. 2=Patient will verbalize/demonstrate understanding of assistive devices/modifications for ADL. 3=Patient will improve strength/tolerance for activity to enable patient to perform ADL's. Speech Pediatric Occupational Therapist Goals Pediatric Occupational Therapist Goals 1. The patient will demonstrated increased intelligibility (per family members) throughout informal conversation. MET 2. The patient will tolerate the least restrictive diet without s/s of suspected aspiration. MET Time Frame: Two Weeks. Samantha Valverde OT July 23, 2021 13:10
== END 2021-07-22 11:45 | disposition home or self-care (01) | DRG 57 ==
PROVIDERS: ADMIT Internal Medicine; ATTEND Internal Medicine
DX: I69.354 Hemiplegia and hemiparesis following cerebral infarction affecting left non-dominant side (principal); E11.9 Type 2 diabetes mellitus without complications; R32 Unspecified urinary incontinence; I10 Essential (primary) hypertension; F17.200 Nicotine dependence, unspecified, uncomplicated; E78.00 Pure hypercholesterolemia, unspecified; E78.5 Hyperlipidemia, unspecified; E78.1 Pure hyperglyceridemia; E66.9 Obesity, unspecified; Z68.30 Body mass index [BMI] 30.0-30.9, adult; Z79.82 Long term (current) use of aspirin; Z79.4 Long term (current) use of insulin
CPT/HCPCS: 36415; 74230; 80053; 81000; 82947; 85025; 87088

== ENCOUNTER 2022-05-05 11:22 | Emergency (ER) | payer SELFPAY ==
[~2022-05-05] VITALS: Ht 172 cm; Wt 98.0 kg
[~2022-05-05 11:22] MED LIST changes: +CLON1PAT33 TD; +GLBR2.5T PO; +HYDR-3923 PO; +LOSA50TA63 PO
[2022-05-05] MEDS ORDERED: ORPHENADRINE 60 MG/2 ML (NORFLEX) AMP (ED ONLY) IM ONE (12:30)
[2022-05-05] MEDS ORDERED: KETOROLAC 30 MG/ML VIAL IM ONE (12:30)
[2022-05-05] MEDS ORDERED: METH-731 PO (12:49)
--- NOTE | 2022-05-05 12:49 | ED Neck-Back Pain/Injury ---
General Chief Complaint: Head/Cervical Problems Stated Complaint: RT SIDE OF HEAD PAIN Nursing Triage Note: PT AMB TO [facility] PT CO OF PAIN 8/10 TO R SIDE OF NECK AND INTO BACK OF HEAD, VERY TENDER TO TOUCH, STATES HURTS WHEN MOVES, COUGHS OR YAWNS. HAS BEEN HURTING FOR A FEW WEEKS HAS BEEN SEEN BY [facility] W NO RELIEF. 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 PT DENIES INJURY Source of Information: Patient Exam Limitations: No Limitations (ASTRID DUVALL) History of Present Illness Date Seen by Provider: May 05, 2022 Time Seen by Provider: 12:46 Initial Comments Patient is a 46-year-old male who presents the ED for right-sided posterior neck pain. Pain over the past 20 days. Denies of any specific injury. Sharp pain located to the right posterior neck worse with right-sided head movement. He states when he sneezes or yawns or coughs the pain is exacerbated. Rates pain 3 out of 10 at this time. Ibuprofen relieves the pain. Denies history of similar symptoms. Went to his primary care physician a few days ago was placed on losartan concern for hypertension. Denies severe worsening head pain, visual changes, unilateral muscle weakness or sensory changes, throat pain, skin color changes. Patient states when he uses soft pillows to lay down it does relieve some of his pain. He states it feels like his head locks to the left when he moves. No distal numbness and tingling (ASTRID DUVALL) Allergies and Home Medications Allergies Coded Allergies: No Known Drug Allergies (Unverified , 06/29/21) Patient Home Medication List Home Medication List Reviewed: Yes (ASTRID DUVALL) Amlodipine Besylate (Amlodipine Besylate) 5 Mg Tablet, 5 MG PO BID Prescribed by: TITUS KENT on 07/22/21617 Aspirin (Children's Aspirin) 81 Mg Tab.chew, 81 MG PO DAILY@1400 Prescribed by: TITUS KENT on 07/22/21617 Atorvastatin Calcium (Atorvastatin Calcium) 80 Mg Tablet, 80 MG PO DAILY Prescribed by: TITSU KENT on 07/22/21617 Clonidine (Clonidine TTS 1 Patch) 0.1 Mg/24 Hour Patch.tdwk, 0.1 MG TD Q7D@09 Prescribed by: TITUS KENT on 07/22/21617 Glyburide (Glyburide) 2.5 Mg Tablet, 5 MG PO BIDAC Prescribed by: TITUS KENT on 07/22/21617 Hydralazine HCl (Hydralazine HCl) 25 Mg Tablet, 50 MG PO TID Prescribed by: TITUS KENT on 07/22/21617 Losartan Potassium (Losartan Potassium) 50 Mg Tablet, 50 MG PO DAILY Prescribed by: TITUS KENT on 07/22/21617 Methocarbamol (Methocarbamol) 500 Mg Tablet, 500 MG PO Q6-8HR Prescribed by: EUGENIA GRIJALVA on 05/05/22 1249 Review of Systems Constitutional: No chills, No diaphoresis EENTM: other (neck pain); No ear pain, No blurred vision, No double vision Respiratory: No cough, No dyspnea on exertion Cardiovascular: No chest pain Gastrointestinal: No abdominal pain, No diarrhea, No nausea, No vomiting Genitourinary: No decreased output, No discharge Musculoskeletal: No back pain, No joint pain, No joint swelling; muscle pain Skin: No change in color, No change in hair/nails (ASTRID DUVALL) All Other Systems Reviewed Negative Unless Noted: Yes (ASTRID DUVALL) Past Uaacbaj-Bpkjhz-Trdnhp Hx Patient Social History Tobacco Use?: Yes Tobacco type used: Cigarettes Smoking Status: Current Everyday Smoker Substance use?: No Alcohol Use?: Yes Alcohol type: Beer Alcohol Frequency: Once in a while Pt feels they are or have been: No (ASTRID DUVALL) Immunizations Up To Date Influenza Vaccine Up-to-Date: No; Not Current First/Initial COVID19 Vaccinat: NONE Second COVID19 Vaccination Cedric: NONE Third COVID19 Vaccination Date: NONE (ASTRID DUVALL) Past Medical History Surgery/Hospitalization HX: NIDDM, HTN, HYPERLIPIDEMIA, CURRENT SMOKER, STROKE 07/03 Surgeries: No High Cholesterol, Hypertension Stroke Diabetes, Non-Insulin dep Loss of Vision: Denies (ASTRID DUVALL) Family Medical History Heart Disease, Diabetes, Hypertension (ASTRID DUVALL) Physical Exam Vital Signs Vital Signs - First Documented 05/05/22 12:00 Temp 36.3 Pulse 79 Resp 18 B/P (MAP) 150/103 (119) Pulse Ox 98 (CHRISTINA THACKER MD) Vital Signs Capillary Refill : Less Than 3 Seconds (ASTRID DUVALL) Height, Weight, BMI Height: '" Weight: lbs. oz. kg; 33.00 BMI Method: General Appearance: No Apparent Distress, WD/WN HEENT: PERRL/EOMI, TMs Normal, Normal ENT Inspection, Pharynx Normal Neck: Other (Right-sided occipital posterior neck tenderness. No swelling, erythema or ecchymosis. Pain with right-sided head movement. No cervical midline tenderness. 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 Norm as Tested Skin: Normal Color, Warm/Dry (ASTRID DUVALL) Progress/Results/Core Measures Results/Orders Medications Given in ED Current Medications Medications Dose Ordered Sig/Lisha Route Start Time Stop Time Status Last Admin Dose Admin Ketorolac Tromethamine 30 mg ONCE ONCE IM 05/05/22 12:30 05/05/22 12:31 DC 05/05/22 13:08 30 MG Orphenadrine Citrate 60 mg ONCE ONCE IM 05/05/22 12:30 05/05/22 12:31 DC 05/05/22 13:08 60 MG (CHRISTINA THACKER MD) Vital Signs/I&O 05/05/22 05/05/22 12:00 13:14 Temp 36.3 Pulse 79 79 Resp 18 18 B/P (MAP) 150/103 (119) 150/103 Pulse Ox 98 98 (CHRISTINA THACKER MD) Blood Pressure Mean: 119 Departure Communication (PCP) Patient appears to have posterior cervical muscle strain. Point tenderness to the right posterior occipital neck. No bruits. No carotid tenderness. No temporal artery tenderness. No focal neural deficits. Pain with right-sided movement. Feels like his right side his neck locks when he moves to the left. Negative Spurling sign. Discussed muscle relaxer, anti-inflammatories. Would likely benefit with physical therapy, point injections for further treatment. This was discussed with family who speak Amharic. She was used as vet tech. Patient was okay for use of his vet tech. Return precaution were discussed. Was given dose of Toradol and Norflex here with improvement. Patient appears nontoxic. No TMJ tenderness. No dental tenderness. Oropharynx patent. No evidence of Tyler angina. Tolerating secretions. No further imaging needed at this time. No strokelike symptoms (ASTRID DUVALL) Impression Primary Impression: Neck pain Disposition: 01 HOME, SELF-CARE Condition: Stable Departure-Patient Inst. Decision time for Depature: 12:47 (ASTRID DUVALL) Referrals: [facility] (PCP/Family) Primary Care Physician Patient Instructions: Neck Pain Exercises Add. Discharge Instructions: Continue with ibuprofen, stretching and a follow-up your primary care physician to discuss physical therapy. Muscle relaxer for spasming All discharge instructions reviewed with patient and/or family. Voiced understanding. Scripts Methocarbamol (Methocarbamol) 500 Mg Tablet 500 MG PO Q6-8HR for Spasms, #20 TAB Prov: ASTRID DUVALL 05/05/22 ATTENDING PHYSICIAN NOTE: I was physically present as attending physician in the emergency department during the care of this patient, but I was not directly involved in the decision making or delivery of care for this patient. (HCRISTINA THACKER MD) ASTRID DUVALL May 05, 2022 12:49 CHRISTINA THACKER MD May 05, 2022 21:06
[2022-05-05 13:14] VITALS: BP 150/103
== END 2022-05-05 13:14 | disposition home or self-care (01) ==
LOC: EDUNIT# 11:22 → ER 11:24
DX: M54.2 Cervicalgia (principal); I10 Essential (primary) hypertension; F17.210 Nicotine dependence, cigarettes, uncomplicated; Z79.899 Other long term (current) drug therapy
CPT/HCPCS: 99284